=== PATIENT | female | born 1970 | race Caucasian/White ===

== ENCOUNTER 2023-04-13 13:29 | Outpatient (OUT) | payer OTHER, SELFPAY ==
--- NOTE | 2023-04-13 13:39 | US_ITS ---
Patient: LEONORA MELARA Exam Date: 04/13/2023 : 1970 Gender:F Ordering : DR Derrick Butterfield . Admission #: [id number] Family : DR ASHLEY HERNANDEZ M.D. Order #: [id number] CLICK HERE TO VIEW EXAM RADIOLOGY REPORT PROCEDURE: MM TOMOSYNTHESIS DIAGNOSTIC BI, 04/13/2023, 13:27 US BREAST BI LIMITED, 04/13/2023, 13:54 COMPARISON: MG MAMM DX 3D LT CAD, 08/05/2022. MG MAMM SCREEN 3D JEN CAD, 04/29/2022. MG MAMM JEN SCRN W CAD DIG, 10/19/2013. INDICATIONS: Bilateral Breast Mass Calculator Name NCI Breast Cancer Risk Assessment Tool 5 Year Breast Cancer Risk 0.70% Lifetime Breast Cancer Risk 6.40% Personal Breast Cancer No Personal Ovarian Cancer No Treatments None Family Cancers Brother with colo-rectal cancer at age 50. LOCATION: [facility] BREAST COMPOSITION: Extremely dense, which lowers the sensitivity of mammography. FINDINGS: DIAGNOSTIC CATEGORY 2--BENIGN FINDING: RIGHT BREAST: Stable large dense area of fibroglandular tissue within upper outer quadrant as seen during tomography and breast ultrasound. No mass, cysts, or calcifications. No significant change has occurred. LEFT BREAST: Stable large dense area of fibroglandular tissue within upper-outer quadrant as seen during tomography. Ultrasound evaluation demonstrates a stable 9 mm benign appearing cyst in this region. No significant change has occurred. RECOMMENDATIONS: ROUTINE MAMMOGRAM AND CLINICAL EVALUATION IN 12 MONTHS. PLEASE NOTE: A NORMAL MAMMOGRAM DOES NOT EXCLUDE THE POSSIBILITY OF BREAST CANCER. A CLINICALLY SUSPICIOUS PALPABLE LUMP SHOULD BE BIOPSIED. Dictated by: Myles White M.D. on 04/13/2023 at 14:11 Approved by: Myles White M.D. on 04/13/2023 at 14:20
== END 2023-04-13 13:30 | disposition home or self-care (01) ==
LOC: MAMMO 13:29
PROVIDERS: PCP Internal Medicine; Visit Provider Obstetrics & Gynecology
DX: N63.21 Unspecified lump in the left breast, upper outer quadrant (principal); N63.11 Unspecified lump in the right breast, upper outer quadrant
CPT/HCPCS: 76642; 77066; G0279

== ENCOUNTER 2023-04-29 07:22 | Outpatient (OUT) | payer OTHER, SELFPAY ==
--- NOTE | 2023-04-29 07:24 | US_ITS ---
The [address] [address] Patient Name: LEONORA MELARA MRN: [id number] date: 1970 Sex: F Assigned Patient Location: US Current Patient Location: US Accession/Order Number: [id number] Exam Date: 04/29/2023 07:34 Report Date: 04/29/2023 08:29 At the request of: VI GA Procedure: US renal BI EXAM: Renal ultrasound HISTORY: . Asymptomatic Hematuria R31.21, Recurrent UTI N39.0 . COMPARISON: None. TECHNIQUE: Marie scale and color imaging was performed FINDINGS: Scanning of the right kidney demonstrates right kidney to measure 9.7 x 4 x 4.3 cm. Color-flow is noted. No solid renal cortical masses or hydronephrosis is noted. Left kidney measures 10.4 x 4.5 x 3.9 cm. Color-flow is noted. No solid renal cortical masses or hydronephrosis is noted. The filled bladder demonstrates no masses. No bladder wall thickening is noted. Bladder volume was 324 cc. US/US renal BI IMPRESSION: 1 normal-appearing kidneys. 2. Normal-appearing filled bladder. Electronically authenticated by: ROSSY HINSON Date: 04/29/2023 08:29
== END 2023-04-29 07:23 | disposition home or self-care (01) ==
LOC: US 07:22
PROVIDERS: PCP Internal Medicine; Visit Provider Urology
DX: R31.21 Asymptomatic microscopic hematuria (principal); N39.0 Urinary tract infection, site not specified
CPT/HCPCS: 76775

== ENCOUNTER 2023-05-05 12:30 | Outpatient (OUT) | payer OTHER, SELFPAY | END 2023-05-05 12:31 | disposition home or self-care (01) | LOC: PST 05-06 08:11 | PROVIDERS: PCP Internal Medicine; Visit Provider Urology | DX: Z01.818 Encounter for other preprocedural examination (principal); R31.9 Hematuria, unspecified; K21.9 Gastro-esophageal reflux disease without esophagitis; E78.00 Pure hypercholesterolemia, unspecified; R33.9 Retention of urine, unspecified ==

== ENCOUNTER 2023-09-05 07:12 | Day surgery (SDC) | payer OTHER, SELFPAY ==
[2023-09-05 07:27] VITALS: RESP 20
[2023-09-05] MEDS: LIDOCAINE 2% JELLY 10 ML UR (08:05)
[2023-09-05 08:08] VITALS: BP 110/65; PULSE 76; O2SAT 95
[2023-09-05 08:14] VITALS: PULSE 75; O2SAT 97
[2023-09-05 08:17] VITALS: BP 117/68
--- NOTE | 2023-09-05 08:29 | P.URON_ITS ---
Urology Surgery Operative Note Operative Note Procedure Date: 09/05/23 Time Out Performed: yes Pre-op Diagnosis: Recurrent urinary tract infections, incomplete emptying and hematuria Post-op Diagnosis: same as pre-op Procedures performed: 1. Urethral dilation with Ronak sounds to 30 Monegasque. 2. Cystoscopy. Anesthesia: local Primary Surgeon: Curry Philippe Complications: None Estimated blood loss (mL): 0 Findings: 1. Urethral stenosis. 2. Chronic inflammatory bladder changes Specimens: None Indications for Procedures: This lady has had microhematuria and 1 bout of gross hematuria. She has also been getting recurrent urinary infections and not emptying her bladder completely. She now presents for cystoscopy and possible urethral dilation. She has signed an informed consent after risks were explained. Detailed description of Procedure: The patient was kept on the gurcliff bed and brought in the endoscopy suite. She was in the supine position. Her legs were frog-legged and her perineum and genitalia were sterilely prepped and draped in the usual fashion. 2% lidocaine was passed per urethra. Timeout was done by all parties in the room. We all agreed upon the patient's identification and the planned procedures for this patient. Visual inspection revealed that she had minimal atrophic vaginitis (she takes oral estradiol). I started by using Ronak sounds and dilated her from 20 Monegasque up to 30 Monegasque. I then passed a flexible cystoscope per urethra and into the bladder. The urethra was unremarkable. Panendoscopy in the bladder showed no evidence of any bladder tumors, stones or mucosal lesions. There was white inflammatory debris throughout. This may be from incomplete emptying. The scope was retroverted upon itself and no new findings were noted. The scope was then removed. With Valsalva maneuver she had no stress incontinence and no prolapse. She was then discharged to home. The plan is that she will start estradiol cream [address] Butterfield will decide if he wants her to stop her low-dose oral estradiol pills. She will also do double voids. Follow-up with me will be in 3 months for reevaluation.
== END 2023-09-05 08:37 | disposition home or self-care (01) ==
PROVIDERS: PCP Internal Medicine; Visit Provider Urology
PROC: (CPT 52281; principal; 2023-09-05 07:45)
DX: R31.21 Asymptomatic microscopic hematuria (principal); R33.9 Retention of urine, unspecified; K21.9 Gastro-esophageal reflux disease without esophagitis; E78.00 Pure hypercholesterolemia, unspecified; Z87.440 Personal history of urinary (tract) infections; N35.92 Unspecified urethral stricture, female; N95.2 Postmenopausal atrophic vaginitis; Z79.818 Long term (current) use of other agents affecting estrogen receptors and estrogen levels; F32.A Depression, unspecified; Z90.49 Acquired absence of other specified parts of digestive tract; Z98.51 Tubal ligation status; Z79.82 Long term (current) use of aspirin; F17.210 Nicotine dependence, cigarettes, uncomplicated; R39.14 Feeling of incomplete bladder emptying
CPT/HCPCS: 52281

== ENCOUNTER 2023-12-07 11:25 | Outpatient (REF) | payer OTHER, SELFPAY ==
--- OUTSIDE RECORDS SUMMARY | 2023-12-07 11:33 | XMS_ITS | CCD ---
Author Organization [facility] Care Team Providers Care Operations Management Professionals Name Role Phone MARY, DR RAMIREZ Admitting Unavailable MARY, DR RAMIREZ Attending Unavailable MARY, DR RAMIREZ Primary Care Unavailable MARY, DR RAMIREZ Consulting Unavailable ZIEBER, DR MYLES Fay Consulting Unavailable GREER ., DR LUNDBERG Admitting Unavailable GREER ., DR LUNDBERG Attending Unavailable MARY, DR RAMIREZ Primary Care Unavailable LEIGH, DR REGINALD Monzon Consulting Unavailabl e GREER ., DR LUNDBERG Consulting Unavailable FOREIGN ORTEZ Consulting Unavailable GREER ., DR LUNDBERG Admitting Unavailable GREER ., DR LUNDBERG Attending Unavailable MARY, DR RAMIREZ Primary Care Unavailable GREER ., DR LUNDBERG Consulting Unavailable GREER ., DR LUNDBERG Admitting Unavailable GREER ., DR LUNDBERG Attending Unavailable MARY, DR RAMIREZ Primary Care Unavailable THOMAS, DR ROSSY Juarez Consulting Unavailable GREER ., DR LUNDBERG Consulting Unavailable GREER ., DR LUNDBERG Admitting Unavailable GREER ., DR LUNDBERG Attending Unavailable MARY, DR RAMIREZ Primary Care Unavailable GREER ., DR LUNDBERG Consulting Unavailable KHAI JACOBSON Primary Care Physician [phone] Curry PHILIPPE Attending Unavailable Tamika BUTTERFIELD Referring Unavailable Curry PHILIPPE Attending Unavailable Curry PHILIPPE Attending Unavailable Khai Jacobson MD Unavailable Khai Jacobson MD Primary Care Provider KHAI JACOBSON Attending Unavailable Medications Current Medications Medication Drug Class(es) Dates Sig (Normalized) Sig (Original) acetaminophen 325 mg / HYDROcodone bitartrate 5 mg oral tablet (3 sources) Opioid Agonist Start: 09-26-2023 take 1 tablet by mouth every eight hours HYDROcodone-acetam inophen ([place]) 5-325 MG tablet Indications: Lumbar spondylosis Take 1 tablet by mouth every 8 (eight) hours 90 tablet 0 09/26/2023 Active Start: 05-23-2013 Vicodin 500 mg -5 mg Tab 1 tab(s), Oral, q4hr PRN as needed for pain, 40 tab(s), Refill(s) 0, 0, 1-2 orally every 4-6 hrs as needed for pain, Print Requisition Start Date: 05/23/13 Status: Ordered ALPRAZolam 0.5 mg oral tablet (2 sources) Benzodiazepine Start: 12-29-2022 ALPRAZolam (Xanax) 0.5 MG tablet TAKE 1 OR 2 TABLETS BY MOUTH ONE HOUR BEFORE FLIGHT 0 12/29/2022 Active aspirin 81 mg oral tablet (3 sources) Platelet Aggregation Inhibitor, Nonsteroidal Anti-inflammatory Drug Start: 05-18-2013 take 1 tablet by mouth once daily aspirin 81 mg oral tablet 81 mg = 1 tab(s), Oral, Daily, Refills(s) 0, Prophylaxis Start Date: 05/18/13 Status: Ordered ASPIRIN 81 MG ch ewable tablet 1 (one) time each day at the same time. 0 Active Black cohosh root extract (2 sources) Black Cohosh Viridiana t 450 MG capsule as directed Orally 0 Active buPROPion hydrochloride 100 mg oral tablet (3 sources) Aminoketone Start: 04-08-20 buPROPion 100 mg Tab Refills(s) 0 Start Date: 04/08/23 Status: Ordered ciprofloxacin 250 mg oral tablet (2 sources) Quinolone Antimicrobial Start: 10-03-19 End: 10-08-19 take 1 tablet by mouth in the morning ciprofloxacin (Cipro) 250 MG tablet Indications: Acute cystitis without hematuria Take 1 tablet (250 mg) by mouth in the morning and 1 tablet (250 mg) before bedtime. Do all this for 5 days. 10 tablet 0 10/03/2023 10/08/2023 Active Start: 04-08-2023 take 1 tablet by jenny once daily Cipro 500 mg Tab 500 mg = 1 tab(s), Oral, Daily, Take 1 tablet the day before the procedure and 1 tablet after the procedure, # 2 tab(s), Refills(s) 0, Pharmacy: [id number], 158, cm, 04/08/23 10:27:00 EDT, Height/Length Dosing, 61, kg, 08/18/23 10:27:00 Mariam ROMERO... Start Date: 04/08/23 Status: Ordered estradiol 1 mg oral tablet (3 sources) Estrogen Start: 07-18-2023 End: 07-17-2024 take 1 tablet by mouth in the morning estradiol (Estrace) 1 MG tablet Indications: Vaginal dryness Take 1 tablet (1 mg) by mouth in the morning. 30 tablet 11 07/18/2023 07/17/2024 Active Start: 04-08-2023 estradiol 1 mg , Daily Start Date: 04/08/23 Status: Ordered FLUoxetine 10 mg oral tablet (3 sources) Serotonin Reuptake Inhibitor Start: 07-04-2023 End: 07-03-2024 take 1 tablet by mouth in the morning FLUoxetine (PROzac) 10 MG tablet Indications: Hormone imbalance Take 1 tablet (10 mg) by mouth in the morning. 360 tablet 0 07/04/2023 07/03/2024 Active Start: 04-08-2023 take 1 mg by mouth once daily FLUoxetine 10 mg Cap mg cap(s), Oral, Daily, Refills(s) 0 Start Date: 04/08/23 Status: Ordered hydroCHLOROthiazide 25 mg oral tablet (2 sources) Thiazide Diuretic take 1 tablet by mouth in the morning hydroCHLOROthiazide (HYDRODiuril) 25 MG tablet Take 25 mg by mouth in the morning. 0 Active meloxicam 15 mg oral tablet (3 sources) Nonsteroidal Anti-inflammatory Drug Start: 2023 take 1 tablet by mouth once daily in the morning meloxicam (Mobic) 15 MG tablet Indications: Primary osteoarthritis involving multiple joints take 1 tablet by mouth every morning 100 tablet 1 09/05/2023 Active Start: 04-08-2023 take 1 mg by mouth once daily meloxicam 7.5 mg Tab mg tab(s), Oral, Daily, Refills(s) 0 Start Date: 04/08/23 Status: Ordered 24 hr metFORMIN hydrochloride 500 mg extended release oral tablet (2 sources) Biguanide Start: 03-28-2023 take 2 tablets by mouth once daily metFORMIN XR (Glucophage-XR) 500 MG 24 hr tablet Indications: Insulin resistance take 2 tablets by mouth once daily 30 tablet 11 03/28/2023 Active 24 hr metoprolol succinate 100 mg extended release oral tablet (3 sources) beta-Adrenergic William Start: 08-18-2023 take 1 tablet by mouth once daily metoprolol succinate XL (Toprol-XL) 100 MG 24 hr tablet Indications: Essential hypertension (CMS/HCC) take 1 tablet by mouth once daily 100 tablet 3 08/18/2023 Active Start: 04-08-2023 take 1 mg by mouth once daily metoprolol 100 mg ER Tab mg tab(s), Oral, Daily, Refills(s) 0 Start Date: 04/08/23 Status: Ordered omeprazole 40 mg delayed release oral capsule (3 sources) Proton Pump Inhibitor Start: 05-05-2023 take 1 capsule by mouth before mealtime omeprazole (PriLOSEC) [address] capsule Indications: Gastro-esophageal reflux disease without esophagitis Take 1 capsule (40 mg) by mouth in the morning. Take before meals. 100 capsule 2 05/05/2023 Active Start: 05-18-2013 take 40 mg by mouth once daily omeprazole 40 mg, Oral, Daily, Refills(s) 0, Constipation Start Date: 05/18/13 Status: Ordered promethazine hydrochloride 25 mg oral tablet (2 sources) Phenothiazine Start: 09-28-2023 End: 10-05-2023 take 1 tablet by mouth every six hours as needed for nausea and vomiting and nausea and nausea promethazine (Phenergan) 25 MG tablet Indications: Nausea Take 1 tablet (25 mg) by mouth every 6 (six) hours if needed for nausea or vomiting for up to 7 days 30 tablet 0 09/28/2023 10/05/2023 Active 1 mg dose 1.5 ml semaglutide 1.34 mg/ml pen injector (2 sources) Start: 08-12-2023 inject 1 mg by subcutaneous injection every week semaglutide (Ozempic, 1 MG/DOSE,) 2 MG/1.5ML solution pen-injector Indications: Insulin resistance , Impaired glucose tolerance Inject 1 mg under the skin 1 (one) time per week 3 mL 5 08/12/2023 Active simvastatin 20 mg oral tablet (3 sources) HMG-CoA Reductase Inhibitor Start: 05-23-2013 take 1 tablet by mouth at bedtime simvastatin (Zocor) 20 MG tablet Indications: Mixed hyperlipidemia (CMS/HCC) Take 1 tablet (20 mg) by mouth at bedtime. 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] Onset: 01-26-2023 01-26-2023 Chronic Disorders of lipid metabolism (3 sources) Hypercholesterolemia; Translations: [Mixed hyperlipidemia] Onset: 05-17-2013 11-02-2013 Chronic Esophageal disorders (3 sources) Gastroesophageal reflux disease; Translations: [Gastroesophageal reflux disease without esophagitis] Onset: 01-26-2023 11-02-2013 Chronic Essential hypertension (2 sources) Essential hypertension; Translations: [Essential (primary) hypertension] Onset: 01-26-2023 01-26-2023 Chronic Mood disorders (2 sources) Affective psychosis; Translations: [Unspecified mood [affective] disorder] Onset: 01-26-2023 01-26-2023 Chronic Nausea and vomiting (1 source) Nausea; Translations: [Nausea] 09-28-2023 Episodic Osteoarthritis (2 sources) Osteoarthritis; Translations: [Unspecified osteoarthritis, unspecified site] Onset: 01-26-2023 01-26-2023 Chronic Other female genital disorders (4 sources) Personal history of other diseases of the female genital tract; Translations: [PERSONAL HX OTH DZ FE GENITAL TRACT] Onset: 12-06-2022 Episodic Other nervous system disorders (2 sources) Carpal tunnel syndrome of right wrist; Translations: [Carpal tunnel syndrome, right upper limb] Onset: 01-26-2023 01-26-2023 Chronic Other nervous system disorders (2 sources) Chronic pain; Translations: [Other chronic pain] Onset: 01-26-2023 01-26-2023 Chronic Other nutritional; endocrine; and metabolic disorders (2 sources) Insulin resistance; Translations: [Insulin resistance] Onset: 01-26-2023 01-26-2023 Chronic Other nutritional; endocrine; and metabolic disorders (2 sources) Body mass index 30+ - obesity; Translations: [Obesity, unspecified] Onset: 01-26-2023 01-26-2023 Chronic Residual codes; unclassified (1 source) Tobacco user 05-18-2013 Episodic Comment on above: Added secondary to s ocial history documentation. Spondylosis; intervertebral disc disorders; other back problems (2 sources) Lumbar spondylosis; Translations: [Spondylosis without myelopathy or radiculopathy, lumbar region] Onset: 01-26-2023 01-26-2023 Chronic Sprains and strains (1 source) Sprain of knee 11-02-2013 Episodic Unclassified (1 source) Asymptomatic microscopic hematuria 04-08-2023 Unclassified (1 source) Finding of sensation of bladder 04-08-2023 Urinary tract infections (9 sources) Urinary tract infection, site not specified; Translations: [Urinary tract infectious disease] Onset: 11-30-2022 Episodic Past or Other Problems Problem Classification Problem Date Documented Da te Episodic/Chronic Abdominal hernia (2 sources) Diaphragmatic hernia; Translations: [Diaphragmatic hernia without obstruction or gangrene] Onset: 01-26-2023 01-26-2023 Episodic Diabetes mellitus without complication (2 sources) Impaired glucose tolerance; Translations: [Impaired glucose tolerance (oral)] Onset: 01-26-2023 01-26-2023 Episodic Genitourinary symptoms and ill-defined conditions (5 sources) Hematuria, unspecified; Translations: [Microscopic hematuria] Onset: 12-06-2022 Episodic Immunizations and screening for infectious disease (1 source) Encounter for screening for human papillomavirus (HPV); Translations: [ENC SCREENING HUMAN PAPILLOMAVIRUS] Onset: 07-31-2022 Episodic Nonmalignant breast conditions (4 sources) Unspecified lump in the left breast, unspecified quadrant; Translations: [Unspecified lump in the left breast, upper outer quadrant] Onset: 08-05-2022 Episodic Other gastrointestinal disorders (2 sources) Chronic constipation; Translations: [Other constipation] Onset: 01-26-2023 01-26-2023 Episodic Other nutritional; endocrine; and metabolic disorders (2 sources) Body mass index 25-29 - overweight; Translations: [Overweight] Onset: 01-26-2023 01-26-2023 Episodic Other screening for suspected conditions (not mental disorders or infectious disease) (8 sources) Encounter for screening for malignant neoplasm of cervix; Translations: [Encounter for screening mammogram for malignant neoplasm of breast] Onset: 04-29-2022 Episodic Residual codes; unclassified (1 source) Family history of malignant neoplasm of digestive organs; Translations: [FAM HX MALIG NEOPLASM DIGESTIV ORGN] Onset: 08-09-2022 Episodic Results Test Name Value Interpretation Reference Range Facility Operative Reporton 4 Operative Report [id number] 0TIFF Normal [facility] Consent for Procedure/Surger yon 07-25-2023 Consent for Procedure/Surgery [id number] 0TIFF Normal [facility] Consent for Procedure/Surger yon 05-03-2023 Consent for Procedure/Surgery [id number] 0CD:127 Normal [facility] RAD - Ultrasound Reporton RAD - Ultrasound Report [id number] CD:127 Normal [facility] Ambulatory Visit Summaryon 0 04-08-2023 Ambulatory Visit Summary LEONORA MELARA :1970 Visit Date:04/08/2023 Ambulatory Visit Instructions Your Diagnosis Asymptomatic microscopic hematuria Recurrent UTI Feeling of incomplete bladder emptying Tests Performed Urnls Dip Stick Auto w/o Microscopy POC 63744 US Renal -- Results Pending -- Please visit your patient portal for your results or contact your primary care physician. Your Care Team Attending Physician - Curry PHILIPPE MD Primary Care Physician - KAHI JACOBSON MD Referring Physician - Tamika BUTTERFIELD DO This Is Your Medications List Contact prescribing physician if questions or concerns acetaminophen-hydrocod one (Vicodin 500 mg-5 mg Tab) aspirin (aspirin 81 mg oral tablet) buPROPion (buPROPion 100 mg Tab) fluoxetine (FLUoxetine 10 mg Cap) meloxicam (meloxicam 7.5 mg Tab) metoprolol (metoprolol 100 mg ER Tab) omeprazole simvastatin (simvastatin 20 mg Tab) Procedures Performed Arthroscopy of Knee (05/23/2013), Appendectomy, Carpal tunnel release, Elbow fracture, Laparoscopic cholecystectomy, Tonsillectomy, Tubal ligation. Discharge Vitals Heart Rate (Peripheral) 78 Blood Pressure 124/92 Height 158 cm Height 62 in Weight 61 kg Weight 134.2 lb BMI 24.44 What to do next You Need to Schedule the Following Appointments Follow Up with SURY MARRERO, Curry R, URL When: Where: [address] [place] [id number]- Medications What How Much When Instructions Unchanged acetaminophen-hydrocod one (Vicodin 500 mg-5 mg Tab) 1 Tablets By Mouth Every 4 hours as needed for as needed for pain 1-2 orally every 4-6 hrs as needed for pain Contact prescribing physician if questions or concerns Unchanged aspirin (aspirin 81 mg oral tablet) 1 Tablets By Mouth Every day Contact prescribing physician if questions or concerns Unchanged buPROPion (buPROPion 100 mg Tab) Contact prescribing physician if questions or concerns Unchanged fluoxetine (FLUoxetine 10 mg Cap) By Mouth Every day Contact prescribing physician if questions or concerns Unchanged meloxicam (meloxicam 7.5 mg Tab) By Mouth Every day Contact prescribing physician if questions or concerns Unchanged metoprolol (metoprolol 100 mg ER Tab) By Mouth Every day Contact prescribing physician if questions or concerns Unchanged omeprazole 40 Milligram By Mouth Every day Contact prescribing physician if questions or concerns Unchanged simvastatin (simvastatin 20 mg Tab) Contact prescribing physician if questions or concerns Test Results Urnls Dip Stick Auto w/o Microscopy POC 37630 (04/08/2023) Bilirubin Urine Dipstick - Negative Blood Urine Dipstick - Trace-intact Glucose Urine Dipstick - Negative Ketones Urine Dipstick - Negative Leukocytes Urine Dipstick - Negative Nitrite Urine Dipstick - Negative Protein Urine Dipstick - Negative Specific [place] Urine Dipstick - 1.015 Urine Appearance Urine Dipstick - Clear Urine Color Urine Dipstick - Yellow Urobilinogen Urine Dipstick - Normal 0.2-1 EU/dl pH Urine Dipstick - 6.5 Allergies No Known Allergies Problems Ongoing - Any problem that you are currently receiving treatment for. Acid reflux Asymptomatic microscopic hematuria Feeling of incomplete bladder emptying Hypercholesterolemia Knee sprain Recurrent UTI Education Materials Hematuria, Adult Hematuria is blood in the urine. Blood may be visible in the urine, or it may be identified with a test. This condition can be caused by infections of the bladder, urethra, kidney, or prostate. Other possible causes include: ? Kidney stones. ? Cancer of the urinary tract. ? Too much calcium in the urine. ? Conditions that are passed from parent to child (inherited conditions). ? Exercise that requires a lot of energy. Infections can usually be treated with medicine, and a kidney stone usually will pass through your urine. If neither of these is the cause of your hematuria, more tests may be needed to identify the cause of your symptoms. It is very important to tell your health care provider about any blood in your urine, even if it is painless or the blood stops without treatment. Blood in the urine, when it happens and then stops and then happens again, can be a symptom of a very serious condition, including cancer. There is no pain in the initial stages of many urinary cancers. Follow these instructions at home: Medicines ? Take muml-sul-urvqbuf and prescription medicines only as told by your health care provider. ? If you were prescribed an antibiotic medicine, take it as told by your health care provider. Do not stop taking the antibiotic even if you start to feel better. Eating and drinking ? Drink enough fluid to keep your urine pale yellow. It is recommended that you drink 3?4 quarts (2.8?3.8 L) a day. If you have been diagnosed with an infection, drinking cranberry juice in addition to large amounts of water is (more content not included)... Normal [facility] Formson 04-08-2023 Forms [id number] 0CD:127 Normal [facility] Patient Educationon 04-08-20 23 Patient Education Urology Hematuria, Adult Hematuria is blood in the urine. Blood may be visible in the urine, or it may be identified with a test. This condition can be caused by infections of the bladder, urethra, kidney, or prostate. Other possible causes include: ? Kidney stones. ? Cancer of the urinary tract. ? Too much calcium in the urine. ? Conditions that are passed from parent to child (inherited conditions). ? Exercise that requires a lot of energy. Infections can usually be treated with medicine, and a kidney stone usually will pass through your urine. If neither of these is the cause of your hematuria, more tests may be needed to identify the cause of your symptoms. It is very important to tell your health care provider about any blood in your urine, even if it is painless or the blood stops without treatment. Blood in the urine, when it happens and then stops and then happens again, can be a symptom of a very serious condition, including cancer. There is no pain in the initial stages of many urinary cancers. Follow these instructions at home: Medicines ? Take aeki-woi-lwwtbcy and prescription medicines only as told by your health care provider. ? If you were prescribed an antibiotic medicine, take it as told by your health care provider. Do not stop taking the antibiotic even if you start to feel better. Eating and drinking ? Drink enough fluid to keep your urine pale yellow. It is recommended that you drink 3?4 quarts (2.8?3.8 L) a day. If you have been diagnosed with an infection, drinking cranberry juice in addition to large amounts of water is recommended. ? Avoid caffeine, tea, and carbonated beverages. These tend to irritate the bladder. ? Avoid alcohol because it may irritate the prostate (in males). General instructions ? If you have been diagnosed with a kidney stone, follow your health care provider's instructions about straining your urine to catch the stone. ? Empty your bladder often. Avoid holding urine for long periods of time. ? If you are female: ? After a bowel movement, wipe from front to back and use each piece of toilet paper only once. ? Empty your bladder before and after sex. ? Pay attention to any changes in your symptoms. Tell your health care provider about any changes or any new symptoms. ? It is up to you to get the results of any tests. Ask your health care provider, or the department that is doing the test, when your results will be ready. ? Keep all follow-up visits. This is important. Contact a health care provider if: ? You develop back pain. ? You have a fever or chills. ? You have nausea or vomiting. ? Your symptoms do not improve after 3 days. ? Your symptoms get worse. Get help right away if: ? You develop severe vomiting and are unable to take medicine without vomiting. ? You develop severe pain in your back or abdomen even though you are taking medicine. ? You pass a large amount of blood in your urine. ? You pass blood clots in your urine. ? You feel very weak or like you might faint. ? You faint. Summary ? Hematuria is blood in the urine. It has many possible causes. ? It is very important that you tell your health care provider about any blood in your urine, even if it is painless or the blood stops without treatment. ? Take edbg-rui-ohgytvu and prescription medicines only as told by your health care provider. ? Drink enough fluid to keep your urine pale yellow. This information is not intended to replace advice given to you by your health care provider. Make sure you discuss any questions you have with your health care provider. Document Revised: 04/08/2021 Document Reviewed: 04/08/2021 Elsevier Patient Education ? 2022 [employer] Normal [facility] Physician Referralon 023 Physician Referral [id number] 0CD:127 Normal [facility] CBC AUTO DIFFon 11-30-2022 BASO # 0.1 103/ul Normal 0.0-0.1 [facility] Comment on above: Performed By: #### C BC #### [facility] [address] [place] [address] Dr. Jovani Adame Basophils/100 WBC (Bld) 0.6 % Normal 0.2-2.0 [facility] Comment on above: Performed By: #### C BC #### [facility] [address] [place] [address] Dr. Jovani Adame EO # 0.2 103/ul Normal 0.0-0.7 [facility] Comment on above: Performed By: #### C BC #### [facility] [address] [place] [address] Dr. Jovani Adame Eosinophils/100 WBC (Bld) 2.3 % Normal 0.9-7.0 [facility] Comment on above: Performed By: #### C BC #### [facility] [address] [place] [address] Dr. Jovani Adame Erythrocyte distribution width (RBC) [Ratio] 12.2 % Normal 11.0-15.0 [facility] Comment on above: Performed By: #### C BC #### [facility] [address] [place] [address] Dr. Jovani Adame Hematocrit (Bld) [Volume fraction] 34.9 % Critically low 36.0-48.0 [facility] Comment on above: Performed By: #### C BC #### [facility] [address] [place] [address] Dr. Jovani Adame Hemoglobin (Bld) [Mass/Vol] 12.1 g/dL Normal 12.0-16.0 [facility] Comment on above: Performed By: #### C BC #### [facility] [address] [place] [address] Dr. Jovani Adame IG # 0.01 10e3/ul Normal 0.00-0.03 [facility] Comment on above: Performed By: #### C BC #### [facility] [address] [place] [address] Dr. Jovani Adame IG % 0.1 % Normal 0.0-0.5 [facility] Comment on above: Performed By: #### C BC #### [facility] [address] [place] [address] Dr. Jovani Adame LYMPH # 2.4 103/ul Normal 1.2-3.8 [facility] Comment on above: Performed By: #### C BC #### [facility] [address] [place] [address] Dr. Jovani Adame Lymphocytes/100 WBC (Bld) 29.8 % Normal 20.5-60.0 [facility] Comment on above: Performed By: #### C BC #### [facility] [address] [place] [address] Dr. Jovani Adame MANUAL DIFF REQ NO Normal [facility] Comment on above: Performed By: #### C BC #### [facility] [address] [place] [address] Dr. Jovani Adame MCH (RBC) [Entitic mass] 31.8 pg Normal 26.7-34.0 [facility] Comment on above: Performed By: #### C BC #### [facility] [address] [place] [address] Dr. Jovani Adame MCHC (RBC) [Mass/Vol] 34.7 g/dL Normal 29.9-35.2 [facility] Comment on above: Performed By: #### C BC #### [facility] [address] [place] [address] Dr. Jovani Adame MCV (RBC) [Entitic vol] 91.8 fL Normal 81.0-99.0 [facility] Comment on above: Performed By: #### C BC #### [facility] [address] [address] [address] Jovani Adame MONO # 0.5 103/ul Normal 0.3-0.8 [facility] Comment on above: Performed By: #### C BC #### [facility] [address] [address] [address] Jovani Adame Monocytes/100 WBC (Bld) 5.9 % Normal 1.7-12.0 [facility] Comment on above: Performed By: #### C BC #### [facility] [address] [place] [address] Dr. Jovani Adame NEUT # 5.0 103/ul Normal 1.4-6.5 [facility] Comment on above: Performed By: #### C BC #### [facility] [address] [place] [address] Dr. Jovani Adame Neutrophils/100 WBC (Bld) 61.3 % Normal 43.0-75.0 [facility] Comment on above: Performed By: #### C BC #### [facility] [address] [place] [address] Dr. Jovani Adame Platelet mean volume (Bld) [Entitic vol] 10.2 fL Normal 9.5-13.5 [facility] Comment on above: Performed By: #### C BC #### [facility] [address] [place] [address] Dr. Jovani Adame PLT 318 103/ul Normal 150-450 [facility] Comment on above: Performed By: #### C BC #### [facility] [address] [place] [address] Dr. Jovani Adame RBC 3.80 106/ul Critically low 4.20-5.40 [facility] Comment on above: Performed By: #### C BC #### [facility] [address] [place] [address] Dr. Jovani Adame WBC 8.1 103/ul Normal 4.0-11.0 [facility] Comment on above: Performed By: #### C BC #### [facility] [address] [address] [address] Jovani Adame FREE T4on 11-30-2022 Free T4 [Mass/Vol] 0.89 ng/dL Normal 0.76-1.46 [facility] Comment on above: Performed By: #### U MICRO, UARMICR #### [facility] [address] [address] [address] Jovani Adame GLYCOHEMOGLOBIN A1Con 2022 ADA RECOMMENDATION SEE BELOW Normal [facility] Comment on above: Result Comment: ADA RECOMMENDED LIMIT 4.0 - 6.0 ADA THERAPEUTIC TARGET < 7.0 ACTION SUGGESTED > 7.0 Performed By: #### U MICRO, UARMICR #### [facility] [address] [place] [address] Dr. Jovani Adame Glucose [Mass/Vol] 105 mg/dL Normal [facility] Comment on above: Performed By: #### U MICRO, UARMICR #### [facility] [address] [place] [address] Dr. Jovani Adame HbA1c (Bld) [Mass fraction] 5.3 % Normal 4.5-6.2 [facility] Comment on above: Performed By: #### U MICRO, UARMICR #### [facility] [address] [place] [address] Dr. Jovani Adame PROTIMEon 11-30-2022 INR Coag (PPP) [Relative time] 0.97 {INR} Normal [facility] Comment on above: Performed By: #### P T, PTT #### [facility] [address] [place] [address] Dr. Jovani Adame INR GUIDELINES SEE BELOW Normal [facility] Comment on above: Result Comment: MATILDE RED INR: 2.0 - 3.0 CONDITIONS NOT LISTED BELOW 2.5 - 3.5 FOR PROSTHETIC HEART VALVE REPLACEMENT 2.5 - 3.5 RECURRENT THROMBOSIS Performed By: #### P T, PTT #### [facility] [address] [place] [address] Dr. Jovani Adame PT Coag (PPP) [Time] 10.3 s Normal 9.0-11.6 [facility] Comment on above: Performed By: #### P T, PTT #### [facility] [address] [place] [address] Dr. Jovani Adame PTTon 11-30-2022 aPTT Coag (Bld) [Time] 29.4 s Normal 22.3-36.2 [facility] Comment on above: Performed By: #### P T, PTT #### [facility] [address] [place] [address] Dr. Jovani Adame TSHon 11-30-2022 TSH 0.872 uIU/mL Normal 0.358-3.740 [facility] Comment on above: Performed By: #### T SH #### [facility] [address] [place] [address] Dr. Jovani Adame UA (CLEAN/CATCH) MICROSCOPIC IF INDICATEon 11-30-2022 Bilirubin Ql (U) Negative Normal NEGATIVE [facility] Comment on above: Performed By: #### U MICRO, UARMICR #### [facility] [address] [place] [address] Dr. Jovani Adame Clarity (U) CLEAR Normal CLEAR [facility] Comment on above: Performed By: #### U MICRO, UARMICR #### [facility] [address] [place] [address] Dr. Jovani Adame Color (U) LT. YELLOW Normal YELLOW [facility] Comment on above: Performed By: #### U MICRO, UARMICR #### [facility] [address] [place] [address] Dr. Jovani Adame Glucose Ql (U) Negative Normal NEGATIVE [facility] Comment on above: Performed By: #### U MICRO, UARMICR #### [facility] [address] [place] [address] Dr. Jovani Adame Hemoglobin Ql (U) TRACE-INTACT Abnormal NEGATIVE [facility] Comment on above: Performed By: #### U MICRO, UARMICR #### [facility] [address] [place] [address] Dr. Jovani Adame Ketones Ql (U) Negative Normal NEGATIVE [facility] Comment on above: Performed By: #### U MICRO, UARMICR #### [facility] [address] [place] [address] Dr. Jovani Adame LEUKOCYTES Negative Normal NEGATIVE [facility] Comment on above: Performed By: #### U MICRO, UARMICR #### [facility] [address] [address] [address] Jovani Adame Nitrite Ql (U) Negative Normal NEGATIVE [facility] Comment on above: Performed By: #### U MICRO, UARMICR #### [facility] [address] [place] [address] Dr. Jovani Adame pH (U) 6.5 [pH] Normal 5-9 [facility] Comment on above: Performed By: #### U MICRO, UARMICR #### [facility] [address] [place] [address] Dr. Jovani Adame SPEC GRAVITY 1.010 Normal 1.005-<=1.025 [facility] Comment on above: Performed By: #### U MICRO, UARMICR #### [facility] [address] [place] [address] Dr. Jovani Adame UA PROTEIN Negative Normal NEGATIVE/ TRACE [facility] Comment on above: Performed By: #### U MICRO, UARMICR #### [facility] [address] [place] [address] Dr. Jovani Adame UR MICRO IND INDICATED Normal [facility] Comment on above: Performed By: #### U MICRO, UARMICR #### [facility] [address] [place] [address] Dr. Jovani Adame Urobilinogen Qn (U) 0.2 {Kaylie'U}/dL Normal 0.2 - 1. 0 [facility] Comment on above: Performed By: #### U MICRO, UARMICR #### [facility] [address] [place] [address] Dr. Jovani Adame URINE MICROSCOPIC ONLYon BACTERIA TRACE Abnormal NONE SEEN [facility] Comment on above: Performed By: #### U MICRO, UARMICR #### [facility] [address] [place] [address] Dr. Jovani Adame Bacteria identified Cx Nom (U) NOT INDICATED Normal [facility] Comment on above: Performed By: #### U MICRO, UARMICR #### [facility] [address] [place] [address] Dr. Jovani Adaem CAST NONE SEEN Normal NONE SEEN [facility] Comment on above: Performed By: #### U MICRO, UARMICR #### [facility] [address] [place] [address] Dr. Jovani Adame Crystals LM Nom (Urine sed) NONE SEEN Normal NONE SEEN [facility] Comment on above: Performed By: #### U MICRO, UARMICR #### [facility] [address] [place] [address] Dr. Jovani Adame Epithelial cells LM Ql (Urine sed) MODERATE Abnormal NONE SEEN /RARE [facility] Comment on above: Performed By: #### U MICRO, UARMICR #### [facility] [address] [place] [address] Dr. Jovani Adame MUCOUS NONE SEEN Normal NONE SEEN [facility] Comment on above: Performed By: #### U MICRO, UARMICR #### [facility] [address] [place] [address] Dr. Jovani Adame RBC 2-5 Abnormal 0-2 [facility] Comment on above: Performed By: #### U MICRO, UARMICR #### [facility] [address] [place] [address] Dr. Jovani Adame WBC NONE SEEN Normal NONE SEEN [facility] Comment on above: Performed By: #### U MICRO, UARMICR #### [facility] [address] [place] [address] Dr. Jovani Adame MG MAMM DX 3D LT CADon 08-05 MG MAMM DX 3D LT CAD Patient: LEONORA MELARA Exam Date: 08/05/2022 : 1970 Gender:F Ordering : DR TAMIKA BUTTERFIELD . Admission #: [id number] Family : Order #: [id number] CLICK HERE TO VIEW EXAM RADIOLOGY REPORT PROCEDURE: MAMMOGRAM DIAGNOSTIC 3D LEFT CAD, 08/05/2022, 10:46 ULTRASOUND BREAST LEFT LIMITED, 08/05/2022, 11:23 COMPARISON: MG MAMM SCREEN 3D JEN CAD, 04/29/2022. MG MAMM SCREEN JEN W CAD, 10/21/2020. INDICATIONS: Lump in left breast Calculator Name NCI Breast Cancer Risk Assessment Tool 5 Year Breast Cancer Risk 0.70% Lifetime Breast Cancer Risk 6.50% Personal Breast Cancer No Personal Ovarian Cancer No Treatments None Family Cancers Brother with colo-rectal cancer at age 50. LOCATION: [facility] BREAST COMPOSITION: Extremely dense, which lowers the sensitivity of mammography. FINDINGS: DIAGNOSTIC CATEGORY 2--BENIGN FINDING. NO CHANGE FROM COMPARISON. The left breast is stable in size and overall fibroglandular configuration with dense fibroglandular tissue in the upper outer quadrant stable. No new mass, calcification or architectural distortion identified in the upper-outer quadrant in the area the patient's pain demarcated with a triangle marker. Ultrasound demonstrates at the 2 o'clock position a stable 1.1 x 0.8 x 1.1 cm area of anechoic echogenicity within imperceptible wall and increased acoustic through transmission. Findings consistent with a simple cyst. Very dense fibroglandular tissue by ultrasound RECOMMENDATIONS: ROUTINE MAMMOGRAM AND CLINICAL EVALUATION April of 2023. PLEASE NOTE: A NORMAL MAMMOGRAM DOES NOT EXCLUDE THE POSSIBILITY OF BREAST CANCER. A CLINICALLY SUSPICIOUS PALPABLE LUMP SHOULD BE BIOPSIED. Dictated by: Rossy Nicole MD on 08/05/2022 at 11:42 Approved by: Rossy Nicole MD on 08/05/2022 at 11:45 Normal [facility] US BREAST LEFT LIMITEDon US BREAST LEFT LIMITED Patient: LEONORA MELARA Exam Date: 08/05/2022 : 1970 Gender:F Ordering : DR TAMIKA BUTTERFIELD . Admission #: [id number] Family : Order #: [id number] CLICK HERE TO VIEW EXAM RADIOLOGY REPORT PROCEDURE: MAMMOGRAM DIAGNOSTIC 3D LEFT CAD, 08/05/2022, 10:46 ULTRASOUND BREAST LEFT LIMITED, 08/05/2022, 11:23 COMPARISON: MG MAMM SCREEN 3D JEN CAD, 04/29/2022. MG MAMM SCREEN JEN W CAD, 10/21/2020. INDICATIONS: Lump in left breast Calculator Name NCI Breast Cancer Risk Assessment Tool 5 Year Breast Cancer Risk 0.70% Lifetime Breast Cancer Risk 6.50% Personal Breast Cancer No Personal Ovarian Cancer No Treatments None Family Cancers Brother with colo-rectal cancer at age 50. LOCATION: [facility] BREAST COMPOSITION: Extremely dense, which lowers the sensitivity of mammography. FINDINGS: DIAGNOSTIC CATEGORY 2--BENIGN FINDING. NO CHANGE FROM COMPARISON. The left breast is stable in size and overall fibroglandular configuration with dense fibroglandular tissue in the upper outer quadrant stable. No new mass, calcification or architectural distortion identified in the upper-outer quadrant in the area the patient's pain demarcated with a triangle marker. Ultrasound demonstrates at the 2 o'clock position a stable 1.1 x 0.8 x 1.1 cm area of anechoic echogenicity within imperceptible wall and increased acoustic through transmission. Findings consistent with a simple cyst. Very dense fibroglandular tissue by ultrasound RECOMMENDATIONS: ROUTINE MAMMOGRAM AND CLINICAL EVALUATION April of 2023. PLEASE NOTE: A NORMAL MAMMOGRAM DOES NOT EXCLUDE THE POSSIBILITY OF BREAST CANCER. A CLINICALLY SUSPICIOUS PALPABLE LUMP SHOULD BE BIOPSIED. Dictated by: Rossy Nicole MD on 08/05/2022 at 11:42 Approved by: Rossy Nicole MD on 08/05/2022 at 11:45 [facility] PAP ACOG PANEL 2: 30 to 65on 08-03-2022 . . Normal [facility] Comment on above: Result Comment: Perf ormed at: WB Performed By: #### U MICRO, UARMICR #### [facility] [address] [address] [address] Jovani Adame Age Gdln ACOG Testing 30-65 Normal [facility] Comment on above: Performed By: #### U MICRO, UARMICR #### [facility] [address] [place], [place] [address] Dr. Jovani Adame DIAGNOSIS: Comment Normal [facility] Comment on above: Result Comment: NEGA TIVE FOR INTRAEPITHELIAL LESION OR MALIGNANCY. Performed at: WB Performed By: #### U MICRO, UARMICR #### [facility] [address] [address] [address] Jovani Adame HPV Aptima Negative Normal Negative [facility] Comment on above: Result Comment: This nucleic acid amplification test detects fourteen high-risk HPV types (16,18,31,33,35,39,45,51,52,56,58,59,66,68) without differentiation. Performed at: =G Performed By: #### U MICRO, UARMICR #### [facility] [address] [address] [address] Jovani Adame HPV Genotype Reflex Comment Normal [facility] Comment on above: Result Comment: Crit eria not met, HPV Genotype not performed. Performed at: WB Performed By: #### U MICRO, UARMICR #### [facility] [address] [address] [address] Jovani Adame Methodology: Comment Normal [facility] Comment on above: Result Comment: This liquid based ThinPrep(R) pap test was screened with the use of an image guided system. Performed at: WB Performed By: #### U MICRO, UARMICR #### [facility] [address] [address] [address] Jovani Adame Note: Comment Normal [facility] Comment on above: Result Comment: The Pap smear is a screening test designed to aid in the detection of premalignant and malignant conditions of the uterine cervix. It is not a diagnostic procedure and should not be used as the sole means of detecting cervical cancer. Both false-positive and false-negative reports do occur. . Performed at: WB Performed By: #### U MICRO, UARMICR #### [facility] [address] [address] [address] Jovani Adame Performed by: Comment Normal [facility] Comment on above: Result Comment: Gemma Squires, Source Inspector Performed at: WB Performed By: #### U MICRO, UARMICR #### [facility] [address] [address] [address] Jovani Adame Specimen adequacy: Comment Normal [facility] Comment on above: Result Comment: Sati sfactory for evaluation. No endocervical component is identified. Performed at: WB Performed By: #### U MICRO, UARMICR #### [facility] [address] [address] [address] Jovani Adame MG MAMM SCREEN 3D JEN CADon 04-29-2022 MG MAMM SCREEN 3D JEN CAD Patient: LEONORA MELARA Exam Date: 04/29/2022 : 1970 Gender:F Ordering : DR KHAI JACOBSON M.D. Admission #: [id number] Family : DR TAMIKA BUTTERFIELD . Order #: [id number] CLICK HERE TO VIEW EXAM RADIOLOGY REPORT PROCEDURE: MAMMOGRAM SCREENING 3D BILATERAL CAD COMPARISON: MG MAMM SCREEN JEN W CAD, 11/22/2017. MG MAMM SCREEN JEN W CAD, 10/21/2020. MG MAMM SCREEN JEN W CAD, 01/23/2019. INDICATIONS: Screening mammography Calculator Name NCI Breast Cancer Risk Assessment Tool 5 Year Breast Cancer Risk 0.70% Lifetime Breast Cancer Risk 6.50% Personal Breast Cancer No Personal Ovarian Cancer No Treatments None Family Cancers Brother with colo-rectal cancer at age 50. LOCATION: [facility] BREAST COMPOSITION: Extremely dense, which lowers the sensitivity of mammography. FINDINGS: DIAGNOSTIC CATEGORY 2--BENIGN FINDING: RIGHT BREAST: No significant suspicious finding. No significant change has occurred. LEFT BREAST: No significant suspicious finding. Stable, chronic asymmetry within posterior upper-outer quadrant. No significant change has occurred. RECOMMENDATIONS: ROUTINE MAMMOGRAM AND CLINICAL EVALUATION IN 12 MONTHS. PLEASE NOTE: A NORMAL MAMMOGRAM DOES NOT EXCLUDE THE POSSIBILITY OF BREAST CANCER. A CLINICALLY SUSPICIOUS PALPABLE LUMP SHOULD BE BIOPSIED. Dictated by: Myles White M.D. on 04/30/2022 at 08:00 Approved by: Myles White M.D. on 04/30/2022 at 08:10 Normal [facility] Vital Signs Date Time Vital Sign Value Performing Clinician Rodrigo barroso 04-08-2023 10:20-0400 Blood Pressure Location Curry [facility] 04-08-2023 10:20-0400 Diastolic blood pressure 92 mm[Hg] Curry [facility] 04-08-2023 10:20-0400 Heart rate 78 /min Curry [facility]IP[facility] 04-08-2023 10:20-0400 Systolic blood pressure 124 mm[Hg] [facility] Encounters Encounter Date Encounter Type Care Provider Facility Start: 11-21-2023 End: 11-21-2023 ambulatory KHAI JACOBSON Not Available Start: 10-03-2023 Telephone encounter Khai mandujano MD Work Phone: [facility] Comment on above: Med Refill Start: 09-27-2023 Telephone encounter Khai mandujano MD Work Phone: [facility] Comment on above: Med Refill (Prometil azine 25 mg [facility]) Start: 09-05-2023 End: 09-06-2023 ambulatory Curry PHILIPPE Facility:CD:[id number] Start: 04-08-2023 End: 04-09-2023 ambulatory Tamika BUTTERFIELD Facility:[facility] Start: 04-08-2023 End: 04-08-2023 Patient encounter procedure Curry [facility] Start: 12-21-2022 ambulatory Curry PHILIPPE Facili ty:[facility] Start: 12-06-2022 End: 12-07-[address] TAMIKA BUTTERFIELD . Facility:[facility] Start: 11-30-2022 End: 12-01-[address] TAMIKA BUTTERFIELD . Facility:[facility] Start: 08-05-2022 End: 08-06-[address] TAMIKA BUTTERFIELD . Facility:[facility] Start: 07-26-2022 End: 07-26-[address] TAMIKA BUTTERFIELD . Facility:[facility] Start: 04-29-2022 End: 04-30-[address] KHAI JACOBSON Facility:[facility] Procedures Date Procedure Procedure Detail Performing Clinician Start: 08-05-2022 Mammography Khai rogers MD Work Phone: Start: 07-13-2022 Colonoscopy Khai rogers MD Work Phone: Start: 05-23-2013 Arthroscopy of knee Lata [facility] Comment on above: Left knee: partial L M Appendectomy Curry [facility] Decompression of med jayesh nerve [facility] Comment on above: LEFT Elbow fracture (disorder) Pa miguelito [facility] Comment on above: ORIF, RIGHT Laparoscopic cholecystectomy [facility] Ligation of fallopian tube P gricelda [facility] Tonsillectomy [facility] Plan of Treatment Date Care Activity Detail Author Start: 07-13-2032 Screening for malign ant neoplasm of colon [facility] Start: 04-12-2025 Screening for malign ant neoplasm of colon FIT-DNA [facility] Start: 02-21-2024 End: 02-21-2024 Patient encounter procedure 02/21/2024 2:00 PM EDT Office Visit [facility] [address] [place] [id number] Tamika Butterfield, DO [address] [place], [place] [id number] [facility] Start: 08-05-2023 Screening for malign ant neoplasm of breast Mammogram [facility] Start: 04-22-2023 Influenza vaccination Influenza Vacc ine (#1) [facility] Start: 01-10-2002 Screening for malign ant neoplasm of cervix [facility] Start: 01-10-1993 Screening for malign ant neoplasm of cervix Pap Smear [facility] Start: 1970 Screening for malign ant neoplasm of colon [facility] Immunizations Immunization Date Immunization Notes Care Provider Fa cili 06-22-2018 poliovirus vaccine, inactivated Khai Jacobson MD Work Phone: [facility] 06-22-2018 tetanus toxoid, redu violette diphtheria toxoid, and acellular pertussis vaccine, adsorbed Khai Jacobson MD Work Phone: [facility] 06-01-2018 hepatitis A vaccine, adult dosage Khai Jacobson MD Work Phone: [facility] 06-01-2018 hepatitis B vaccine, adult dosage Khai Jacobson MD Work Phone: [facility] 01-12-2018 hepatitis B vaccine, adult dosage Khai Jacobson MD Work Phone: [facility] 01-06-2018 typhoid vaccine, luisa e, oral Khai Jacobson MD Work Phone: [facility] 12-09-2017 hepatitis A vaccine, adult dosage Khai Jacobson MD Work Phone: [facility] 12-09-2017 hepatitis B vaccine, adult dosage Khai Jacobson MD Work Phone: [facility] Payers Date Payer Category Payer Unknown [employer] [id number] 2022-Present [address] [place] [address] [id number] 1970 Unknown [id number] 1970 Unknown [id number] 1970 Unknown [id number] 1970 Unknown [id number] 1970 Unknown [id number] 1970 Unknown [id number] 1970 Unknown [id number] 1970 Unknown [id number] 1970 Unknown [id number] 1957 Unknown [id number] Social History Date Type Detail Facility Start: 04-08-2023 Tobacco smoking status Smokele ss tobacco user within last 30 days [facility] Start: 06-29-2023 Sex Assigned At Female F [facility] Start: 02-17-2023 Tobacco smoking stat us NHIS Never smoked tobacco [facility] Start: 02-17-2023 Tobacco use and exposure Smokeless tobacco non-user [facility] Start: 06-29-2023 Alcohol intake Current drinke r of alcohol (finding) [facility] Start: 06-29-2023 Alcohol intake [facility] Start: 04-10-2023 Alcohol Comment Caffeine:: sod a./pop , coffee [facility] Start: 1970 Sex Assigned At Not on file [facility] Functional Status Date Assessment Result Facility 04-08-2023 Functional Status N/A [facility] Clinical Notes 12-06-2022 to 10-03-2023 Telephone Encounter - Khai Jacobson MD - 10/03/2023 1:57 PM ESTTelephone Encounter - Khai Jacobson MD - 10/03/2023 1:57 PM ESTTelephone Encounter - Laisha Isaacs - 10/03/2023 10:41 AM EST Note Date & Type Note Facility 10-03-2023 Telephone encounter Note A prescription without a prescription was called in as requested. [facility] 10-03-2023 Miscellaneous Notes A prescription without a prescription was called in as requested. Pt called and said she has an UTI and asked if a prescription could be called in for her without a prescription documented in this encounter [facility] 10-03-2023 Telephone encounter Note Pt called and said she has an UTI and asked if a prescription could be called in for her without a prescription [facility] 09-28-2023 Telephone encounter Note Rx was sent [facility] 09-28-2023 Miscellaneous Notes Rx was sent She is taking this for nausea , did know if you would send in or needed an appt for this Pt is requesting prometilazine she has not had this in awhile ok to give pt Needs sent to [facility] in [place] documented in this encounter [facility] 09-28-2023 Telephone encounter Note She is taking this for nausea , did know if you would send in or needed an appt for this [facility] 09-28-2023 Telephone encounter Note Pt is requesting prometilazine she has not had this in awhile ok to give pt Needs sent to [facility] in [place] [facility] 04-08-2023 Note Chief 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 Butterfield. Never before seen in our office. Seen blood in urine 4-5 months ago Each time blood was microscopic every [place] with U/A a couple months ago was the last U/A from him Cephalexin was prescribed by Dr. Butterfield and it worked for her all sx were gone PVR 106 Dysuria: _denies Incomplete bladder emptying: not always Hematuria: _denies visible blood Frequency: every couple hours Urgency: _denies Nocturia: _once a night Stream: _denies hesitation, weak stream Leaking: _denies Post void dripping: _some time Wearing pads/ Depends: _denies Urge incontinence: denies Stress incontinence: _denies Incontinence without Sensory Awareness: denies Abdominal pain: denies Flank pain: denies denies Sexual complaints: *UTI almost every time after sex * History of Present Illness Tests reviewed: Reviewed UA and referral records. I have reviewed the previous health record information and history for this patient from Dr. Butterfield. I have reviewed and verified the staff HPI to be accurate for this encounter. There have been no associated fever, chills, flank pain, or blood in the urine. Denies any urinary infections since last encounter. Review of Systems PHQ Score Initial Depression Screen Score: 0 ROS - Provider Constitutional: denies weight loss, denies hot flashes. Eyes: denies eye problems. Gastrointestinal: denies nausea, denies vomiting. Cardiovascular: denies chest pain or angina. Integumentary: no dryness Musculoskeletal: denies musculoskeletal symptoms. ENMT: denies otolaryngeal symptoms. Respiratory: no shortness of breath. Heme/Lymph: denies easy bleeding tendency, denies easy bruising tendency. Psychiatric: no confusion, no anxiety. Genitourinary: denies vaginal discharge, denies incontinence, denies dysuria, denies hematuria, denies urinary frequency, denies amenorrhea, denies menorrhagia, denies abnormal bleeding, denies pelvic pain, denies genital sores, and denies decreased libido. Physical Exam Vitals & Measurements HR: 78(Peripheral) BP: 124/92 HT: 62 in HT: 158 cm WT: 61 kg WT: 134.2 lb BMI: 24.44 General Appearance: alert , no acute distress, well nourished, well developed female. Head: normocephalic . Eyes: normal orbit and globe. ENMT: normal examination of external ears. Chest: Lungs CTA, respirations non labored . Cardiovascular: regular rate and rhythm. Abdomen: soft, non distended, no tenderness, no mass or organomegaly, no hernia. Genitourinary: bladder nonpalpable, no flank tenderness. Lymph Nodes: unremarkable palpation of the cervical area. Skin: warm, dry, no bruising. Psychiatric: cooperative, affect appropriate for age, normal judgement, euthymic mood. Assessment/Plan Referred by Dr. Butterfield for hematuria and UTI. 1. Asymptomatic microscopic hematuria (R31.21: Asymptomatic microscopic hematuria) Denies gross hematuria. Patient states microscopic hematuria is usually present on UA dipstick, associated with and without infections. Denies any recent imaging. UA today neg -Renal US -Cysto, possible UD 2. Recurrent UTI (N39.0: Urinary tract infection, site not specified) Reports infections mainly follow sexual intercourse. States she takes a medication (Estradiol 1mg daily) for vaginal dryness due to painful intercourse. Patient wiping front to back. Explained to patient not fully emptying is a factor. Discussed Estrogen cream, will prescribe at the time of cysto/possible UD based on exam. Denies hx of kidney stones. 3. Feeling of incomplete bladder emptying (R39.14: Feeling of incomplete bladder emptying) Does not always feel empty PVR 106 ml -Cysto/possible UD Follow-up With When Contact Information SURY MARRERO, [place], [place] [address] [place] [address]- Additional Instructions: Schedule MARSHA, cysto/possible UD Patient Education Hematuria, Adult I, Smitha Ledesma, personally scribed for Dr. Philippe on 04/08/2023 11:32:29. . Documentation recorded by the scribSmitha kay, accurately reflects the services(s) I performed and decisions made by me. Authenticated by Dr. Philippe on 04/08/2023 11:36:16. Problem List/Past Medical History Ongoing Acid reflux Asymptomatic microscopic hematuria Feeling of incomplete bladder emptying Hypercholesterolemia Knee sprain Recurrent UTI Historical No qualifying data Procedure/Surgical History Arthroscopy of Knee (05/23/2013), Appendectomy, Carpal tunnel release, Elbow fracture, Laparoscopic cholecystectomy, Tonsillectomy, Tubal ligation. Medications aspirin 81 mg oral tablet, 81 mg= 1 tab(s), Oral, Daily buPROPion 100 mg Tab FLUoxetine 10 mg Cap, Oral, Daily meloxicam 7.5 mg Tab, Oral, Daily metoprolol 100 mg ER Tab, Oral, Daily omeprazole, 40 mg, Oral, Daily simvastatin 20 mg Tab Vicodin 500 mg-5 mg Ta (more content not included)... [facility] Comment on above: Result Comment: Elec tronically Signed By: Curry PHILIPPE MD\.br\Date and Time Signed: 04/08/23 11:36 EDT\.br\Electronically Co-Signed By: Smitha Ledesma\.br\Date and Time Co-Signed: 04/08/23 11:32 EDT 04-08-2023 [facility] Discharg e instructions Patient Education 04/08/2023 11:23:37 Hematuria, Adult Hematuria, Adult Hematuria is blood in the urine. Blood may be visible in the urine, or it may be identified with a test. This condition can be caused by infections of the bladder, urethra, kidney, or prostate. Other possible causes include: Kidney stones. Cancer of the urinary tract. Too much calcium in the urine. Conditions that are passed from parent to child (inherited conditions). Exercise that requires a lot of energy. Infections can usually be treated with medicine, and a kidney stone usually will pass through your urine. If neither of these is the cause of your hematuria, more tests may be needed to identify the cause of your symptoms. It is very important to tell your health care provider about any blood in your urine, even if it is painless or the blood stops without treatment. Blood in the urine, when it happens and then stops and then happens again, can be a symptom of a very serious condition, including cancer. There is no pain in the initial stages of many urinary cancers. Follow these instructions at home: Medicines Take [id number] and prescription medicines only as told by your health care provider. If you were prescribed an antibiotic medicine, take it as told by your health care provider. Do not stop taking the antibiotic even if you start to feel better. Eating and drinking Drink enough fluid to keep your urine pale yellow. It is recommended that you drink 3 4 quarts (2.8 3.8 L) a day. If you have been diagnosed with an infection, drinking cranberry juice in addition to large amounts of water is recommended. Avoid caffeine, tea, and carbonated beverages. These tend to irritate the bladder. Avoid alcohol because it may irritate the prostate (in males). General instructions If you have been diagnosed with a kidney stone, follow your health care provider's instructions about straining your urine to catch the stone. Empty your bladder often. Avoid holding urine for long periods of time. If you are female: ?After a bowel movement, wipe from front to back and use each piece of toilet paper only once. ?Empty your bladder before and after sex. Pay attention to any changes in your symptoms. Tell your health care provider about any changes or any new symptoms. It is up to you to get the results of any tests. Ask your health care provider, or the department that is doing the test, when your results will be ready. Keep all follow-up visits. This is important. Contact a health care provider if: You develop back pain. You have a fever or chills. You have nausea or vomiting. Your symptoms do not improve after 3 days. Your symptoms get worse. Get help right away if: You develop severe vomiting and are unable to take medicine without vomiting. You develop severe pain in your back or abdomen even though you are taking medicine. You pass a large amount of blood in your urine. You pass blood clots in your urine. You feel very weak or like you might faint. You faint. Summary Hematuria is blood in the urine. It has many possible causes. It is very important that you tell your health care provider about any blood in your urine, even if it is painless or the blood stops without treatment. Take [id number] and prescription medicines only as told by your health care provider. Drink enough fluid to keep your urine pale yellow. This information is not intended to replace advice given to you by your health care provider. Make sure you discuss any questions you have with your health care provider. Document Revised: 04/08/2021 Document Reviewed: 04/08/2021 [employer] Patient Education 2022 [employer]. Follow Up Care 12/21/2022 14:38:53 With:SURY MARRERO, [place], [place] Address: [address] [place] [id number] When: Unknown [facility] 12-06-2022 Note PROCEDURE: US PELVIS AND TRANSVAG DATE: 12/06/2022 1:26 PM CDT COMPARISONS: None. INDICATION FOR EXAMINATION: 52 years Female H/O gynecological disorder TECHNIQUE: Grayscale and color Doppler technique were utilized to evaluate the pelvis. Transabdominal and transvaginal imaging was carried out. imaging was performed. FINDINGS: UTERUS: The uterus measures 7.4 x 3.9 x 3.3 cm. It appears there is a hyperechoic 9 x 8 x 8 mm nodular area anterior uterus. This may represent a fibroid. There is no other evidence of focal uterine masses or other significant abnormalities. The cervix shows no evidence of abnormalities. The endometrium measures 4 mm in thickness. The endometrium is uniform in thickness and echogenicity. ADNEXA: The left ovary is not visualized. There is no evidence of right ovarian masses. No adnexal masses identified. There is no other evidence of significant adnexal abnormalities. Normal vascular flow is identified to right ovary The right ovary measures 2.2 x 1.0 x 1.2 cm. FLUID: There is no evidence of an abnormal amount of free fluid within the pelvis. ASSESSMENT: Probable 9 mm uterine fibroid. Uterus shows no other abnormalities Left ovary not visualized No other abnormalities identified on this exam. Electronically authenticated by: FOREIGN ORTEZ Date: 2022-12-06 15:05 [facility] Evaluation + Plan note No data available for this section [facility] Evaluation note Diagnosis Nausea- Primary Nausea alone [facility] Diagnosis Acute cystitis without hematuria- Primary [facility] No data available for this section [facility] Summary Purpose Family History No Family History Records FoundNo Family History Records FoundNo Family History Records Found Advance Directives No Advanced Directives Records FoundNo Advanced Directives Records FoundNo Advanced Directives Records Found Additional Source Comments INFORMATION SOURCE (unrecogn ized section and content) DATE CREATED AUTHOR 12/12/2022 [facility] DATE CREATED AUTHOR AUTHOR'S ORGANIZ ATION 09/22/2023 Jb Baez [facility] DATE CREATED AUTHOR AUTHOR'S ORGANIZ ATION 11/22/2023 [facility] EPIC Patient Care team informatio n (unrecognized section and content) [employer] Relationship Specialty Start Date End Date Khai Jacobson MD [address] [place] [address] PCP - [facility] [employer] 01/20/23 Khai Jacobson MD [address] [place] [address] PCP - General Internal Medicine 02/23/23 [employer] Relationship Specialty Start Date End Date Khai Jacobson MD [address] [place] [address] PCP - [facility] [employer] 01/20/23 Khai Jacobson MD [address] [place] [address] PCP - General Internal Medicine 02/23/23 Reason for Visit (unrecogniz ed section and content) Reason Onset Date Comments Med Refill 09/27/2023 Prometilazine 25 mg [facility] [place] Reason Onset Date Comments Med Refill 10/03/2023 FOR RECORDS PERTAINING TO PATIENTS WHO ARE OR HAVE BEEN ENROLLED IN A CHEMICAL DEPENDENCY/SUBSTANCEABUSE PROGRAM, SOME INFORMATION MAY BE OMITTED. This clinical summary was aggregated from multiple sources. Caution should be exercised in using it in the provision of clinical care. This summary normalizes information from multiple sources, and as a consequence, information in this document may materially change the coding, format and clinical context of patient data. In addition, data may be omitted in some cases. CLINICAL DECISIONS SHOULD BE BASED ON THE PRIMARY CLINICAL RECORDS. [employer] provides no warranty or guarantee of the accuracy or completeness of information in this document.
[2023-12-07 15:05] LABS: SARS-CoV-2 NAA NOT DETECTED (NOT DETECTE)
== END 2023-12-07 11:26 | disposition home or self-care (01) ==
LOC: LAB 11:25
PROVIDERS: PCP Internal Medicine; Visit Provider Internal Medicine
DX: Z20.822 Contact with and (suspected) exposure to COVID-19 (principal); B34.9 Viral infection, unspecified
CPT/HCPCS: 87635

== ENCOUNTER 2024-02-21 18:36 | Outpatient (REF) | payer OTHER, SELFPAY ==
--- OUTSIDE RECORDS SUMMARY | 2024-02-21 18:39 | XMS_ITS ---
Patient Summarization (C-CDA 2.1 CCD) Created on: February 21, 2024 LEONORA MELARA : 1970 Sex: Female Author Organization Sample organization Care Team Providers Care Nailhead Puncher Name Role Phone MARY, DR RAMIREZ Admitting [...] Unavailable MARY, DR RAMIREZ Primary Care Unavailable [place], DR ROSSY Juarez Consulting Unavailable GREER ., DR LUNDBERG Consulting Unavailable GREER ., DR LUNDBERG Admitting Unavailable GREER ., DR LUNDBERG Attending Unavailable MARY, DR RAMIREZ Primary Care Unavailable GREER ., DR LUNDBERG Consulting Unavailable KHAI JACOBSON Primary Care Physician Curry PHILIPPE Attending Unavailable Tamika BUTTERFIELD Referring Unavailable Curry PHILIPPE Attending Unavailable Curry PHILIPPE Attending Unavailable Khai Jacobson MD Unavailable [phone] Khai Jacobson MD Primary Care Provider KHAI JACOBSON Attending Unavailable KHAI JACOBSON Attending Unavailable Encounters Encounter Date Encounter Type Care Provider Facility Start: 12-07-2023 End: 12-07-2023 ambulatory KHAI JACOBSON Not Available Start: 11-21-2023 End: 11-21-2023 ambulatory KHAI JACOBSON Not Available Start: 10-03-2023 Telephone encounter Khai mandujano MD Work Phone: [facility] Comment on above: Med Refill Start: 09-27-2023 Telephone encounter Khai mandujano MD Work Phone: [facility] Comment on above: Med Refill (Prometil azine 25 mg [facility]) Start: 09-05-2023 End: 09-06-2023 ambulatory Curry PHILIPPE Facility:CD:[id number] Start: 04-08-2023 End: 04-09-2023 ambulatory Tamika BUTTERFIELD Facility:[facility] Start: 04-08-2023 End: 04-08-2023 Patient encounter procedure Curry PHILIPPE [facility] Start: 12-21-2022 ambulatory Curry PHILIPPE Facili ty:[facility] Start: 12-06-2022 End: 12-07-[address] TAMIKA BUTTERFIELD . Facility:[facility] Start: 11-30-2022 End: 12-01-[address] TAMIKA BUTTERFIELD . Facility:[facility] Start: 08-05-2022 End: 08-06-[address] TAMIKA BUTTERFIELD . Facility:[facility] Start: 07-26-2022 End: 07-26-[address] TAMIKA BUTTERFIELD . Facility:[facility] Start: 04-29-2022 End: 04-30-[address] KHAI JACOBSON Facility:[facility] Immunizations Immunization Date Immunization Notes Care Provider [facility] 06-22-2018 poliovirus vaccine, inactivated Khai Jacobson MD Work Phone: [facility] 06-22-2018 tetanus toxoid, redu violette diphtheria toxoid, and acellular pertussis vaccine, adsorbed Khai Jacobson MD Work Phone: [facility] 06-01-2018 hepatitis A vaccine, adult dosage Khai Jacobson MD Work Phone: [facility] 06-01-2018 hepatitis B vaccine, adult dosage Khai Jacobson MD Work Phone: [facility] 01-12-2018 hepatitis B vaccine, adult dosage Khai Jacobson MD Work Phone: [facility] 01-06-2018 typhoid vaccine, luisa e, oral Khai Jacobson MD Work Phone: [facility] 12-09-2017 hepatitis A vaccine, adult dosage Khai Jacobson MD Work Phone: [facility] 12-09-2017 hepatitis B vaccine, adult dosage Khai Jacobson MD Work Phone: [facility] Medications Current Medications Medication Drug Class(es) Dates Sig (Normalized) Sig (Original) acetaminophen 325 mg / HYDROcodone bitartrate 5 mg oral tablet (3 sources) Opioid Agonist Start: 09-26-2023 take 1 tablet by mouth every eight hours HYDROcodone-acetam inophen ([place]) 5-325 MG tablet Indications: Lumbar spondylosis Take [...] Active Start: 04-08-2023 take 1 tablet by [facility] daily Cipro 500 mg Tab 500 mg = 1 tab(s), Oral, Daily, Take 1 tablet the day before the procedure and 1 tablet after the procedure, # 2 tab(s), Refills(s) 0, Pharmacy: [id number], 158, cm, 04/08/23 10:27:00 EDT, Height/Length Dosing, 61, kg, 04/08/23 10:27:00 EDT, Weig... Start Date: 04/08/23 Status: Ordered estradiol 1 [...] at bedtime. 100 tablet 3 02/26/2023 Active Payers Date Payer Category Payer Unknown [employer] [id number] 2022-Present [address] [place] [address] [id number] 1970 Unknown [id number] 1970 Unknown [id number] 1970 Unknown [id number] 1970 Unknown [id number] 1970 Unknown [id number] 1970 Unknown [id number] 1970 Unknown [id number] 1970 Unknown [id number] 1970 Unknown [id number] 1970 Unknown [id number] 1957 Unknown [id number] Plan of Treatment Date Care Activity Detail Author Start: 07-13-2032 Screening for malign ant neoplasm of colon [facility] Start: 04-12-2025 Screening for malign ant neoplasm of colon FIT-DNA [facility] Start: 02-21-2024 End: 02-21-2024 Patient encounter procedure 02/21/2024 2:00 PM EDT Office Visit [facility] [address] [place] [address] Tamika Butterfield DO [address] [place] [address] [facility] Start: 08-05-2023 Screening for malign ant neoplasm of breast Mammogram [facility] Start: 04-22-2023 Influenza vaccination Influenza Vacc ine (#1) [facility] Start: 01-10-2002 Screening for malign ant neoplasm of cervix [facility] Start: 01-10-1993 Screening for malign ant neoplasm of cervix Pap Smear [facility] Start: 1970 Screening for malign ant neoplasm of colon [facility] Problems Active Problems Problem Classification Problem Date [...] MALIG NEOPLASM DIGESTIV ORGN] Onset: 08-09-2022 Episodic Procedures Date Procedure Procedure Detail Performing Clinician Start: 08-05-2022 Mammography Khai rogers MD Work Phone: Start: 07-13-2022 Colonoscopy Khai rogers MD Work Phone: Start: 05-23-2013 Arthroscopy of knee Lata PHILIPPE Comment on above: Left knee: partial L M Appendectomy Curry PHILIPPE Decompression of med jayesh nerve Curry PHILIPPE Comment on above: LEFT Elbow fracture (disorder) David PHILIPPE Comment on above: ORIF, RIGHT Laparoscopic cholecystectomy Curry PHILIPPE Ligation of fallopian tube P gricelda PHILIPPE Tonsillectomy Curry SURY Results Test Name Value Interpretation Reference Range Facility Operative Reporton Operative Report [id number] 0TIFF Normal [facility] Consent for Procedure/Surger yon 07-25-2023 Consent for Procedure/Surgery [id number] 0TIFF Normal [facility] Consent for Procedure/Surger yon 05-03-2023 Consent for Procedure/Surgery [id number] 0CD:127 Normal [facility] RAD - Ultrasound Reporton RAD - Ultrasound Report [id number] CD:127 Normal [facility] Ambulatory Visit Summaryon 0 04-08-2023 Ambulatory Visit Summary LEONORA MELARA :1970 Visit Date:04/08/2023 Ambulatory Visit Instructions Your Diagnosis Asymptomatic microscopic hematuria Recurrent UTI Feeling of incomplete bladder emptying Tests Performed Urnls Dip Stick Auto w/o Microscopy POC 69603 US Renal -- Results Pending -- Please visit your patient portal for your results or contact your primary care physician. Your Care Team Attending Physician - Curry PHILIPPE MD Primary Care Physician - KHAI JACOBSON MD Referring Physician - Tamika BUTTERFIELD [...] Following Appointments Follow Up with SURY MARRERO, MADALYN Campos When: Where: [address] [place], [place] [id number]- Medications What How Much When Instructions Unchanged [...] Urnls Dip Stick Auto w/o Microscopy POC 96530 (04/08/2023) Bilirubin Urine Dipstick - Negative Blood Urine Dipstick - Trace-intact Glucose Urine Dipstick - Negative Ketones Urine Dipstick - Negative Leukocytes Urine Dipstick - Negative Nitrite Urine Dipstick - Negative Protein Urine Dipstick - Negative Specific [place] Urine Dipstick - 1.015 Urine Appearance Urine [...] these instructions at home: Medicines ? Take kixm-urd-cckjldq and prescription medicines only as told by [...] water is (more content not included)... Normal [facility] Formson 04-08-2023 Forms [id number] 0CD:127 Normal [facility] Patient Educationon 04-08-20 23 Patient Education [...] these instructions at home: Medicines ? Take auue-qxf-pydmjsa and prescription medicines only as told by [...] the blood stops without treatment. ? Take mbnv-ovg-talflra and prescription medicines only as told by your health care provider. ? Drink enough fluid to keep your urine pale yellow. This information is not intended to replace advice given to you by your health care provider. Make sure you discuss any questions you have with your health care provider. Document Revised: 04/08/2021 Document Reviewed: 04/08/2021 Elsevier Patient Education ? 2022 [employer] Normal [facility] Physician Referralon 023 Physician Referral [id number] 0CD:127 Normal [facility] CBC AUTO DIFFon 11-30-2022 BASO # 0.1 103/ul Normal 0.0-0.1 [facility] Comment on above: Performed By: #### C BC #### [facility] [address] [place] [address] Dr. Jovani Adame Basophils/100 WBC (Bld) 0.6 % Normal 0.2-2.0 [facility] Comment on above: Performed By: #### C BC #### [facility] [address] [address] [address] Jovani Adame EO # 0.2 103/ul Normal 0.0-0.7 [facility] Comment on above: Performed By: #### C BC #### [facility] [address] [address] [address] Jovani Adame Eosinophils/100 WBC (Bld) 2.3 % Normal 0.9-7.0 [facility] Comment on above: Performed By: #### C BC #### [facility] [address] [address] [address] Jovani Adame Erythrocyte distribution width (RBC) [Ratio] 12.2 % Normal 11.0-15.0 [facility] Comment on above: Performed By: #### C BC #### [facility] [address] [place] [address] Dr. Jovani Adame Hematocrit (Bld) [Volume fraction] 34.9 % Critically low 36.0-48.0 [facility] Comment on above: Performed By: #### C BC #### [facility] [address] [address] [address] Jovani Adame Hemoglobin (Bld) [Mass/Vol] 12.1 g/dL Normal 12.0-16.0 [facility] Comment on above: Performed By: #### C BC #### [facility] [address] [address] [address] Jovani Adame IG # 0.01 10e3/ul Normal 0.00-0.03 [facility] Comment on above: Performed By: #### C BC #### [facility] [address] [place] [address] Dr. Jovani Adame IG % 0.1 % Normal 0.0-0.5 [facility] Comment on above: Performed By: #### C BC #### [facility] [address] [place] [address] Dr. Jovani Adame LYMPH # 2.4 103/ul Normal 1.2-3.8 [facility] Comment on above: Performed By: #### C BC #### [facility] [address] [place] [address] Dr. Jovani Adame Lymphocytes/100 WBC (Bld) 29.8 % Normal 20.5-60.0 [facility] Comment on above: Performed By: #### C BC #### [facility] [address] [place] [address] Dr. Jovani Adame MANUAL DIFF REQ NO Normal [facility] Comment on above: Performed By: #### C BC #### [facility] [address] [place] [address] Dr. Jovani Adame MCH (RBC) [Entitic mass] 31.8 pg Normal 26.7-34.0 [facility] Comment on above: Performed By: #### C BC #### [facility] [address] [place] [address] Dr. Jovani Adame MCHC (RBC) [Mass/Vol] 34.7 g/dL Normal 29.9-35.2 [facility] Comment on above: Performed By: #### C BC #### [facility] [address] [address] [address] Jovani Adame MCV (RBC) [Entitic vol] 91.8 fL Normal 81.0-99.0 [facility] Comment on above: Performed By: #### C BC #### [facility] [address] [address] [address] Jovani Adame MONO # 0.5 103/ul Normal 0.3-0.8 [facility] Comment on above: Performed By: #### C BC #### [facility] [address] [address] [address] Jovani Adame Monocytes/100 WBC (Bld) 5.9 % Normal 1.7-12.0 [facility] Comment on above: Performed By: #### C BC #### [facility] [address] [place] [address] Dr. Jovani Adame NEUT # 5.0 103/ul Normal 1.4-6.5 [facility] Comment on above: Performed By: #### C BC #### [facility] [address] [place] [address] Dr. Jovani Adame Neutrophils/100 WBC (Bld) 61.3 % Normal 43.0-75.0 [facility] Comment on above: Performed By: #### C BC #### [facility] [address] [place] [address] Dr. Jovani Adame Platelet mean volume (Bld) [Entitic vol] 10.2 fL Normal 9.5-13.5 [facility] Comment on above: Performed By: #### C BC #### [facility] [address] [place] [address] Dr. Jovani Adame PLT 318 103/ul Normal 150-450 [facility] Comment on above: Performed By: #### C BC #### [facility] [address] [address] [address] Jovani Adame RBC 3.80 106/ul Critically low 4.20-5.40 [facility] Comment on above: Performed By: #### C BC #### [facility] [address] [address] [address] Jovani Adame WBC 8.1 103/ul Normal 4.0-11.0 [facility] Comment on above: Performed By: #### C BC #### [facility] [address] [place] [address] Dr. Jovani Adame FREE T4on 11-30-2022 Free T4 [Mass/Vol] 0.89 ng/dL Normal 0.76-1.46 [facility] Comment on above: Performed By: #### U MICRO, UARMICR #### [facility] [address] [place] [address] Dr. Jovani Adame GLYCOHEMOGLOBIN A1Con 2022 ADA RECOMMENDATION SEE BELOW Normal [facility] Comment on above: Result Comment: ADA RECOMMENDED LIMIT 4.0 - 6.0 ADA THERAPEUTIC TARGET < 7.0 ACTION SUGGESTED > 7.0 Performed By: #### U MICRO, UARMICR #### [facility] [address] [place] [address] Dr. Jovani Adame Glucose [Mass/Vol] 105 mg/dL Normal [facility] Comment on above: Performed By: #### U MICRO, UARMICR #### [facility] [address] [place] [address] Dr. Jovani Adame HbA1c (Bld) [Mass fraction] 5.3 % Normal 4.5-6.2 [facility] Comment on above: Performed By: #### U MICRO, UARMICR #### [facility] [address] [place] [address] Dr. Jovani Adame PROTIMEon 11-30-2022 INR Coag (PPP) [Relative time] 0.97 {INR} Normal [facility] Comment on above: Performed By: #### P T, PTT #### [facility] [address] [place] [address] Dr. Jovani Adame INR GUIDELINES SEE BELOW Normal [facility] Comment on above: Result Comment: MATILDE RED INR: 2.0 - 3.0 CONDITIONS NOT LISTED BELOW 2.5 - 3.5 FOR PROSTHETIC HEART VALVE REPLACEMENT 2.5 - 3.5 RECURRENT THROMBOSIS Performed By: #### P T, PTT #### [facility] [address] [place] [address] Dr. Jovani Adame PT Coag (PPP) [Time] 10.3 s Normal 9.0-11.6 [facility] Comment on above: Performed By: #### P T, PTT #### [facility] [address] [place] [address] Dr. Jovani Adame PTTon 11-30-2022 aPTT Coag (Bld) [Time] 29.4 s Normal 22.3-36.2 [facility] Comment on above: Performed By: #### P T, PTT #### [facility] [address] [place] [address] Dr. Jovani Adame TSHon 11-30-2022 TSH 0.872 uIU/mL Normal 0.358-3.740 [facility] Comment on above: Performed By: #### T SH #### [facility] [address] [place] [address] Dr. Jovani Adame UA (CLEAN/CATCH) MICROSCOPIC IF INDICATEon 11-30-2022 Bilirubin Ql (U) Negative Normal NEGATIVE [facility] Comment on above: Performed By: #### U MICRO, UARMICR #### [facility] [address] [place] [address] Dr. Jovani Adame Clarity (U) CLEAR Normal CLEAR [facility] Comment on above: Performed By: #### U MICRO, UARMICR #### [facility] [address] [place] [address] Dr. Jovani Adame Color (U) LT. YELLOW Normal YELLOW [facility] Comment on above: Performed By: #### U MICRO, UARMICR #### [facility] [address] [place] [address] Dr. Jovani Adame Glucose Ql (U) Negative Normal NEGATIVE [facility] Comment on above: Performed By: #### U MICRO, UARMICR #### [facility] [address] [place] [address] Dr. Jovani Adame Hemoglobin Ql (U) TRACE-INTACT Abnormal NEGATIVE [facility] Comment on above: Performed By: #### U MICRO, UARMICR #### [facility] [address] [place] [address] Dr. Jovani Adame Ketones Ql (U) Negative Normal NEGATIVE [facility] Comment on above: Performed By: #### U MICRO, UARMICR #### [facility] [address] [place] [address] Dr. Jovani Adame LEUKOCYTES Negative Normal NEGATIVE [facility] Comment on above: Performed By: #### U MICRO, UARMICR #### [facility] [address] [place] [address] Dr. Jovani Adame Nitrite Ql (U) Negative Normal NEGATIVE [facility] Comment on above: Performed By: #### U MICRO, UARMICR #### [facility] [address] [place] [address] Dr. Jovani Adame pH (U) 6.5 [pH] Normal 5-9 [facility] Comment on above: Performed By: #### U MICRO, UARMICR #### [facility] [address] [place] [address] Dr. Jovani Adame SPEC GRAVITY 1.010 Normal 1.005-<=1.025 [facility] Comment on above: Performed By: #### U MICRO, UARMICR #### [facility] [address] [place] [address] Dr. Jovani Adame UA PROTEIN Negative Normal NEGATIVE/ TRACE [facility] Comment on above: Performed By: #### U MICRO, UARMICR #### [facility] [address] [place] [address] Dr. Jovani Adame UR MICRO IND INDICATED Normal [facility] Comment on above: Performed By: #### U MICRO, UARMICR #### [facility] [address] [place] [address] Dr. Jovani Adame Urobilinogen Qn (U) 0.2 {Kaylie'U}/dL Normal 0.2 - 1. 0 [facility] Comment on above: Performed By: #### U MICRO, UARMICR #### [facility] [address] [address] [address] Jovani Adame URINE MICROSCOPIC ONLYon BACTERIA TRACE Abnormal NONE SEEN [facility] Comment on above: Performed By: #### U MICRO, UARMICR #### [facility] [address] [address] [address] Jovain Adame Bacteria identified Cx Nom (U) NOT INDICATED Normal [facility] Comment on above: Performed By: #### U MICRO, UARMICR #### [facility] [address] [address] [address] Jovani Adame CAST NONE SEEN Normal NONE SEEN [facility] Comment on above: Performed By: #### U MICRO, UARMICR #### [facility] [address] [place] [address] Dr. Jovani Adame Crystals LM Nom (Urine sed) NONE SEEN Normal NONE SEEN [facility] Comment on above: Performed By: #### U MICRO, UARMICR #### [facility] [address] [place] [address] Dr. Jovani Adame Epithelial cells LM Ql (Urine sed) MODERATE Abnormal NONE SEEN /RARE [facility] Comment on above: Performed By: #### U MICRO, UARMICR #### [facility] [address] [place] [address] Dr. Jovani Adame MUCOUS NONE SEEN Normal NONE SEEN [facility] Comment on above: Performed By: #### U MICRO, UARMICR #### [facility] [address] [address] [address] Jovani Adame RBC 2-5 Abnormal 0-2 [facility] Comment on above: Performed By: #### U MICRO, UARMICR #### [facility] [address] [place] [address] Dr. Jovani Adame WBC NONE SEEN Normal NONE SEEN [facility] Comment on above: Performed By: #### U MICRO, UARMICR #### [facility] [address] [place] [address] Dr. Jovani Adame MG MAMM DX 3D LT CADon 08-05 MG MAMM DX 3D LT CAD Patient: LEONORA MELARA Exam Date: 08/05/2022 : 1970 Gender:F Ordering : DR TAMIKA BUTTERFIELD . Admission #: [id number] Family : Order #: [id number] CLICK HERE TO VIEW EXAM RADIOLOGY REPORT [...] colo-rectal cancer at age 52. LOCATION: [facility] BREAST COMPOSITION: Extremely dense, which lowers the [...] MD on 08/05/2022 at 11:45 Normal [facility] US BREAST LEFT LIMITEDon US BREAST LEFT LIMITED Patient: LEONORA MELARA Exam Date: 08/05/2022 : 1970 Gender:F Ordering : DR TAMIKA BUTTERFIELD . Admission #: [id number] Family : Order #: [id number] CLICK HERE TO VIEW EXAM RADIOLOGY REPORT [...] colo-rectal cancer at age 52. LOCATION: [facility] BREAST COMPOSITION: Extremely dense, which lowers the [...] Nicole MD on 08/05/2022 at 11:45 Normal [facility] PAP ACOG PANEL 2: 30 to 65on 08-03-2022 . . Normal [facility] Comment on above: Result Comment: Perf ormed at: WB Performed By: #### U MICRO, UARMICR #### [facility] [address] [place] [address] Dr. Jovani Adame Age Gdln ACOG Testing 30-65 Normal [facility] Comment on above: Performed By: #### U MICRO, UARMICR #### [facility] [address] [place], [place] [address] Dr. Jovani Adame DIAGNOSIS: Comment Normal [facility] Comment on above: Result Comment: NEGA TIVE FOR INTRAEPITHELIAL LESION OR MALIGNANCY. Performed at: WB Performed By: #### U MICRO, UARMICR #### [facility] [address] [address] [address] Jovani Adame HPV Aptima Negative Normal Negative [facility] Comment on above: Result Comment: This nucleic acid amplification test detects fourteen high-risk HPV types (16,18,31,33,35,39,45,51,52,56,58,59,66,68) without differentiation. Performed at: =G Performed By: #### U MICRO, UARMICR #### [facility] [address] [address] [address] Jovani Adame HPV Genotype Reflex Comment Normal [facility] Comment on above: Result Comment: Crit eria not met, HPV Genotype not performed. Performed at: WB Performed By: #### U MICRO, UARMICR #### [facility] [address] [address] [address] Jovani Adame Methodology: Comment Normal [facility] Comment on above: Result Comment: This liquid based ThinPrep(R) pap test was screened with the use of an image guided system. Performed at: WB Performed By: #### U MICRO, UARMICR #### [facility] [address] [address] [address] Jovani Adame Note: Comment Normal [facility] Comment on above: Result Comment: The Pap [...] Performed By: #### U MICRO, UARMICR #### [facility] [address] [address] [address] Jovani Adame Performed by: Comment Normal [facility] [facility] Comment on above: Result Comment: Gemma Squires, Registered Route Associate Performed at: WB Performed By: #### U MICRO, UARMICR #### [facility] [address] [address] [address] Jovani Adame Specimen adequacy: Comment Normal [facility] Comment on above: Result Comment: Sati sfactory for evaluation. No endocervical component is identified. Performed at: WB Performed By: #### U MICRO, UARMICR #### [facility] [address] [address] [address] Jovani Adame MG MAMM SCREEN 3D JEN CADon 04-29-2022 MG MAMM SCREEN 3D JEN CAD Patient: LEONORA MELARA Exam Date: 04/29/2022 : 1970 Gender:F Ordering : DR KHAI JACOBSON M.D. Admission #: [id number] Family : DR LUNDBERG GREER . Order #: [id number] CLICK HERE TO VIEW EXAM RADIOLOGY REPORT [...] colo-rectal cancer at age 52. LOCATION: [facility] BREAST COMPOSITION: Extremely dense, which lowers the [...] White M.D. on 04/30/2022 at 08:10 Normal [facility] Social History Date Type Detail Facility Start: 06-29-2023 Sex Assigned At Female F [facility] Start: 06-29-2023 Alcohol intake Current drinke r of alcohol (finding) [facility] Start: 06-29-2023 [facility] intake [facility] Start: 04-10-2023 Alcohol Comment Caffeine:: sod a./pop , coffee [facility] Start: 04-08-2023 Tobacco smoking status Smokele ss tobacco user within last 30 days [facility] Start: 02-17-2023 Tobacco smoking stat us MEIS Never smoked tobacco [facility] Start: 02-17-2023 Tobacco use and exposure Smokeless tobacco non-user [facility] Start: 1970 Sex Assigned At Not on file [facility] Vital Signs Date Time Vital Sign Value Performing Clinician Rodrigo lity 04-08-2023 10:20-0400 Blood Pressure Location Curry PHILIPPE [facility] 04-08-2023 10:20-0400 Diastolic blood pressure 92 mm[Hg] Curryarmando PHILIPPE [facility] 04-08-2023 10:20-0400 Heart rate 78 /min Curry PHILIPPE [facility] 04-08-2023 10:20-0400 Systolic blood pressure 124 mm[Hg] Curry PHILIPPE [facility] Functional Status Date Assessment Result Facility 04-08-2023 Functional Status N/A [facility] Clinical Notes 12-06-2022 to 10-03-2023 Telephone Encounter - Khai Jacobson MD - 10/03/2023 1:57 PM ESTTelephone Encounter - Khai Jacobson MD - 10/03/2023 1:57 PM ESTTelephone Encounter - Laisha Isaacs - 10/03/2023 10:41 AM EST Note Date & Type Note Facility 10-03-2023 Telephone encounter Note A prescription without a prescription was called in as requested. [facility] 10-03-2023 Miscellaneous Notes A prescription without a prescription was called in as requested. Pt called and said she has an UTI and asked if a prescription could be called in for her without a prescription documented in this encounter [facility] 10-03-2023 Telephone encounter Note Pt called and said she has an UTI and asked if a prescription could be called in for her without a prescription [facility] 09-28-2023 Telephone encounter Note Rx was sent [facility] 09-28-2023 Miscellaneous Notes Rx was sent She is taking this for nausea , did know if you would send in or needed an appt for this Pt is requesting prometilazine she has not had this in awhile ok to give pt Needs sent to [facility] in [place] documented in this encounter [facility] 09-28-2023 Telephone encounter Note She is taking this for nausea , did know if you would send in or needed an appt for this [facility] 09-28-2023 Telephone encounter Note Pt is requesting prometilazine she has not had this in awhile ok to give pt Needs sent to [facility] in [place] [facility] 04-08-2023 Note Chief Complaint 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 Philippe on 04/08/2023 11:32:29. . Documentation recorded by the scribe, Smitha Ledesma, accurately reflects the services(s) I performed and [...] mg-5 mg Ta (more content not included)... [facility] Comment on above: Result Comment: Elec tronically Signed By: Curry PHILIPPE MD\.br\Date and Time Signed: 04/08/23 11:36 EDT\.br\Electronically Co-Signed By: Smitha Ledesma.br\Date and Time Co-Signed: 04/08/23 11:32 EDT 04-08-2023 Hospital Discharg e instructions Patient Education 04/08/2023 [...] Follow these instructions at home: Medicines Take zagg-mbi-wthyqam and prescription medicines only as told by [...] or the blood stops without treatment. Take mnut-uxm-fvlkagr and prescription medicines only as told by your health care provider. Drink enough fluid to keep your urine pale yellow. This information is not intended to replace advice given to you by your health care provider. Make sure you discuss any questions you have with your health care provider. Document Revised: 04/08/2021 Document Reviewed: 04/08/2021 [employer] Patient Education 2022 [employer]. Follow Up Care 12/21/2022 14:38:53 With:SURY MARRERO, Curry Fay, URL Address: [address] [place] [id number]- When: Unknown [facility] 12-06-2022 Note PROCEDURE: US PELVIS AND [...] by: FOREIGN ORTEZ Date: 2022-12-06 15:05 [facility] Evaluation + Plan note No data available for this section [facility] Evaluation note Diagnosis Nausea- Primary Nausea alone documented [facility] Diagnosis Acute cystitis without hematuria- Primary documented in this encounter [facility] No data available for this section [facility] Summary Purpose Family History No Family History Records FoundNo Family History Records FoundNo Family History Records Found Advance Directives No Advanced Directives Records FoundNo Advanced Directives Records FoundNo Advanced Directives Records Found Additional Source Comments INFORMATION SOURCE (unrecogn ized section and content) DATE CREATED AUTHOR 12/12/2022 [facility] DATE CREATED AUTHOR AUTHOR'S ORGANIZ ATION 09/22/2023 Jb Baez [facility] DATE CREATED AUTHOR AUTHOR'S ORGANIZ ATION 12/08/2023 [facility] EPIC Patient Care team informatio n (unrecognized section and content) Nailhead Puncher Relationship Specialty Start Date End Date Khai Jacobson MD [address] [place] [address] PCP - Medical [employer] 01/20/23 Khai Jacobson MD [address] [place] [address] PCP - General Internal Medicine 02/23/23 Nailhead Puncher Relationship Specialty Start Date End Date Khai Jacobson MD [address] [place] [address] PCP - Medical [employer] 01/20/23 Khai Jacobson MD [address] [place] [address] PCP - General Internal Medicine 02/23/23 Reason [...] BE BASED ON THE PRIMARY CLINICAL RECORDS. [facility] provides no warranty or guarantee of the accuracy or completeness of information in this document.
[2024-02-27 10:07] LABS: Age Gdln ACOG Testing Note (.); HPV Aptima Negative (Negative); IGP, Aptima HPV, rfx 16/18,45 Note (.)
== END 2024-02-21 18:37 | disposition home or self-care (01) ==
LOC: LAB 18:36
PROVIDERS: PCP Internal Medicine; Visit Provider Obstetrics & Gynecology
DX: Z01.419 Encounter for gynecological examination (general) (routine) without abnormal findings (principal)
CPT/HCPCS: 87624; 88175

== ENCOUNTER 2024-03-21 12:49 | Outpatient (OUT) | payer OTHER, SELFPAY ==
--- NOTE | 2024-03-21 12:52 | US_ITS ---
Patient Name: LEONORA MELARA MR#: [id number] : 1970 Exam Date: 03/21/2024 Ordering Doctor: DR Derrick Butterfield . RADIOLOGY REPORT PROCEDURE: MM TOMOSYNTHESIS DIAGNOSTIC BI, 03/21/2024, 12:55 US BREAST BI LIMITED, 03/21/2024, 13:13 COMPARISON: US BREAST BI LIMITED, 03/21/2024. US BREAST BI LIMITED, 04/13/2023. US RENAL BI, 04/29/2023. MM TOMOSYNTHESIS DIAGNOSTIC BI, 04/13/2023. MG MAMM DX 3D LT CAD, 08/05/2022. INDICATIONS: Bilateral Breast Mass, Mammary Dysplasia Of Right Breast Calculator Name NCI Breast Cancer Risk Assessment Tool 5 Year Breast Cancer Risk 0.80% Lifetime Breast Cancer Risk 6.30% Personal Breast Cancer No Personal Ovarian Cancer No Treatments None Family Cancers Brother with colo-rectal cancer at age 50. LOCATION: [facility] BREAST COMPOSITION: The breasts are extremely dense, which lowers the sensitivity of mammography. FINDINGS: DIAGNOSTIC CATEGORY 2--BENIGN FINDING. NO CHANGE FROM COMPARISON. Scattered benign-appearing calcifications are present. Scattered benign-appearing lymph nodes are present. RIGHT BREAST: No significant suspicious finding. No mammographic abnormality in the upper outer quadrant corresponding patient's palpable abnormality. Ultrasound demonstrates heterogeneous parenchymal pattern likely related to dense breasts LEFT BREAST: No significant suspicious finding. No mammographic abnormality in the upper outer quadrant corresponding to patient's palpable abnormality. Ultrasound demonstrates at the 2 o'clock position a 9.7 x 7.2 x 8.6 mm area of hypo echogenicity with low-level echoes, imperceptible wall and no internal blood flow. This lesion is stable from the prior exam likely represents a complex cyst. No further evaluation is required. RECOMMENDATIONS: ROUTINE MAMMOGRAM AND CLINICAL EVALUATION IN 12 MONTHS. PLEASE NOTE: A NORMAL MAMMOGRAM DOES NOT EXCLUDE THE POSSIBILITY OF BREAST CANCER. A CLINICALLY SUSPICIOUS PALPABLE LUMP SHOULD BE BIOPSIED. Dictated by: Napoleon Nicole MD on 03/21/2024 at 13:27 Approved by: Napoleon Nicole MD on 03/21/2024 at 13:31
--- NOTE | 2024-03-21 12:52 | XR_ITS ---
[address] [address] Patient Name: LEONORA MELARA MRN: [id number] date: 1970 Sex: F Assigned Patient Location: [facility] Current Patient Location: Accession/Order Number: [id number] Exam Date: 03/21/2024 13:24 Report Date: 03/22/2024 05:47 At the request of: TAMIKA GILLILAND Procedure: XR DEXA axial skeleton EXAMINATION: XR DEXA axial skeleton HISTORY: Post Menopausal State COMPARISON: No relevant comparison available. TECHNIQUE: Dual-energy X-ray absorptiometry (DXA) was performed. FINDINGS: SPINE ANALYSIS: Average bone mineral density is 1.467 g/cm2. T-score (standard deviation relative to young adult mean): 2.4 . HIP ANALYSIS: Lowest bone mineral density is within the right femoral neck, 1.121 g/cm2. T-score (standard deviation relative to young adult mean): 0.6 . XR/XR DEXA axial skeleton IMPRESSION: World Health Organization Classification: Normal - Low Fracture Risk FRAX: Cannot be calculated. Pharmacologic treatment recommendations * No uniform recommendation applies to all patients. Management plans must be individualized. * Consider initiating pharmacologic treatment in postmenopausal women and men >= 50 years of age who have the following: Primary fracture prevention: * T-score <= - 2.5 at the femoral neck, total hip, lumbar spine, 33% radius (some uncertainty with existing data) by DXA. * Low bone mass (osteopenia: T-score between - 1.0 and - 2.5) at the femoral neck or total hip by DXA with a 10-year hip fracture risk >= 3% or a 10-year major osteoporosis-related fracture risk >= 20% (i.e., clinical vertebral, hip, forearm, or proximal humerus) based on the US-adapted FRAXregistered model. Secondary fracture prevention: * Fracture of the hip or vertebra regardless of BMD [4, 5]. * Fracture of proximal humerus, pelvis, or distal forearm in persons with low bone mass (osteopenia: T-score between - 1.0 and - 2.5). The decision to treat should be individualized in persons with a fracture of the proximal humerus, pelvis, or distal forearm who do not have osteopenia or low BMD [12, 13]. Cielo MS, Ayleen SL, Choco KL, Mayra EM, Nasreen KG, AJ, Hector ES. The clinician's guide to prevention and treatment of osteoporosis. Osteoporos Int. 2021;33(10):4515-7998. doi: 10.1007/k45966-704-81464-l. Epub 2021Dec 17. Erratum in: Osteoporos Int. 2021Mar 18;: PMID: [id number]; PMCID: [id number]. Electronically authenticated by: MAURILIO LUNDY Date: 03/22/2024 05:47
--- OUTSIDE RECORDS SUMMARY | 2024-03-21 13:01 | XMS_ITS | CCD ---
Author Organization [facility] Care Team Providers Care Lang Path Therapist Name Role Phone DR KHAI JACOBSON Admitting Unavailable MARY, DR RAMIREZ Attending Unavailable [...] Unavailable MARY, DR RAMIREZ Primary Care Unavailable ELSINORE, DR ROSSY Juarez Consulting Unavailable GREER ., [...] JACOBSON Attending Unavailable KHAI JACOBSON Attending Unavailable TAMIKA BUTTERFIELD Attending Unavailable Medications Current Medications Medication Drug Class(es) Dates Sig (Normalized) Sig (Original) acetaminophen 325 mg / HYDROcodone bitartrate 5 mg oral tablet (3 sources) Opioid Agonist Start: 09-26-2023 take 1 tablet by mouth every eight hours HYDROcodone-acetam inophen ([place]) 5-325 MG tablet Indications: Lumbar spondylosis Take [...] tablet (2 sources) Quinolone Antimicrobial Start: 10-03-19 24 End: 10-08-19 24 take 1 tablet by mouth in the morning ciprofloxacin (Cipro) 250 MG tablet Indications: Acute cystitis without hematuria Take 1 tablet (250 mg) by mouth in the morning and 1 tablet (250 mg) before bedtime. Do all this for 5 days. 10 tablet 0 10/03/2023 10/08/2023 Active Start: 04-08-2023 take 1 tablet by jenny th once daily Cipro 500 mg Tab 500 mg = 1 tab(s), Oral, Daily, Take 1 tablet the day before the procedure and 1 tablet after the procedure, # 2 tab(s), Refills(s) 0, Pharmacy: [facility] #[id number], 158, cm, 08/18/23 10:27:00 EDT, Height/Length Dosing, 61, kg, 04/08/23 10:27:00 EDT, Mariam... Start Date: 04/08/23 Status: Ordered estradiol 1 [...] Reference Range Facility Operative Reporton Operative Report [id number] Normal [facility] Consent for Procedure/Surger yon 07-25-2023 Consent for Procedure/Surgery [id number] 0TIFF Normal [facility] Consent for Procedure/Surger yon 05-03-2023 Consent for Procedure/Surgery [id number] 0CD:127 Normal [facility] RAD - Ultrasound Reporton RAD - Ultrasound Report [id number] CD:127 Normal [facility] Ambulatory Visit Summaryon 0 04-08-2023 Ambulatory Visit Summary LEONORA MELARA :1970 Visit Date:04/08/2023 Ambulatory Visit Instructions Your Diagnosis Asymptomatic microscopic hematuria Recurrent UTI Feeling of incomplete bladder emptying Tests Performed Urnls Dip Stick Auto w/o Microscopy POC 54086 US Renal -- Results Pending -- Please [...] with SURY MARRERO, MADALYN Campos When: Where: [address] [place], [place] [id number]- Medications What How Much When Instructions Unchanged [...] Urnls Dip Stick Auto w/o Microscopy POC 57901 (04/08/2023) Bilirubin Urine Dipstick - Negative Blood Urine Dipstick - Trace-intact Glucose Urine Dipstick - Negative Ketones Urine Dipstick - Negative Leukocytes Urine Dipstick - Negative Nitrite Urine Dipstick - Negative Protein Urine Dipstick - Negative Specific [place] Urine Dipstick - 1.015 Urine Appearance Urine [...] these instructions at home: Medicines ? Take ossb-ygn-vkrietv and prescription medicines only as told by [...] water is (more content not included)... Normal [facility] Formson 04-08-2023 Forms [id number] 0CD:127 Normal [facility] Patient Educationon 04-08-20 23 Patient Education [...] these instructions at home: Medicines ? Take kgfd-bsq-blivjzq and prescription medicines only as told by [...] the blood stops without treatment. ? Take jtnq-rrz-rlekemq and prescription medicines only as told by your health care provider. ? Drink enough fluid to keep your urine pale yellow. This information is not intended to replace advice given to you by your health care provider. Make sure you discuss any questions you have with your health care provider. Document Revised: 04/08/2021 Document Reviewed: 04/08/2021 [employer] Patient Education ? 2022 [employer] Normal [facility] Physician Referralon 023 Physician Referral [id number] 0CD:127 Normal [facility] CBC AUTO DIFFon 11-30-2022 BASO # 0.1 103/ul Normal 0.0-0.1 [facility] Comment on above: Performed By: #### C BC #### [facility] [address] [place] [address] Dr. Jovani Adame Basophils/100 WBC (Bld) 0.6 % Normal 0.2-2.0 [facility] Comment on above: Performed By: #### C BC #### [facility] [address] [address] [address] Jovani Adame EO # 0.2 103/ul Normal 0.0-0.7 [facility] Comment on above: Performed By: #### C BC #### [facility] [address] [place] [address] Dr. Jovani Adame Eosinophils/100 WBC (Bld) 2.3 % Normal 0.9-7.0 [facility] Comment on above: Performed By: #### C BC #### [facility] [address] [place] [address] Dr. Jovani Adame Erythrocyte distribution width (RBC) [Ratio] 12.2 % Normal 11.0-15.0 [facility] Comment on above: Performed By: #### C BC #### [facility] [address] [place] [address] Dr. Jovani Adame Hematocrit (Bld) [Volume fraction] 34.9 % Critically low 36.0-48.0 [facility] Comment on above: Performed By: #### C BC #### [facility] [address] [place] [address] Dr. Jovani Adame Hemoglobin (Bld) [Mass/Vol] 12.1 g/dL Normal 12.0-16.0 [facility] Comment on above: Performed By: #### C BC #### [facility] [address] [place] [address] Dr. Jovani Adame IG # 0.01 10e3/ul Normal 0.00-0.03 [facility] Comment on above: Performed By: #### C BC #### [facility] [address] [place] [address] Dr. Jovani Adame IG % 0.1 % Normal 0.0-0.5 [facility] Comment on above: Performed By: #### C BC #### [facility] [address] [place] [address] Dr. Jovani Adame LYMPH # 2.4 103/ul Normal 1.2-3.8 [facility] Comment on above: Performed By: #### C BC #### [facility] [address] [place] [address] Dr. Jovani Adame Lymphocytes/100 WBC (Bld) 29.8 % Normal 20.5-60.0 [facility] Comment on above: Performed By: #### C BC #### [facility] [address] [place] [address] Dr. Jovani Adame MANUAL DIFF REQ NO Normal [facility] Comment on above: Performed By: #### C BC #### [facility] [address] [place] [address] Dr. Jovani Adame MCH (RBC) [Entitic mass] 31.8 pg Normal 26.7-34.0 [facility] Comment on above: Performed By: #### C BC #### [facility] [address] [place] [address] Dr. Jovani Adame MCHC (RBC) [Mass/Vol] 34.7 g/dL Normal 29.9-35.2 [facility] Comment on above: Performed By: #### C BC #### [facility] [address] [place] [address] Dr. Jovani Adame MCV (RBC) [Entitic vol] 91.8 fL Normal 81.0-99.0 [facility] Comment on above: Performed By: #### C BC #### [facility] [address] [place] [address] Dr. Jovani Adame MONO # 0.5 103/ul Normal 0.3-0.8 [facility] Comment on above: Performed By: #### C BC #### [facility] [address] [place] [address] Dr. oJvani Adame Monocytes/100 WBC (Bld) 5.9 % Normal 1.7-12.0 [facility] Comment on above: Performed By: #### C BC #### [facility] [address] [place] [address] Dr. Jovani Adame NEUT # 5.0 103/ul Normal 1.4-6.5 [facility] Comment on above: Performed By: #### C BC #### [facility] [address] [place] [address] Dr. Jovani Adame Neutrophils/100 WBC (Bld) 61.3 % Normal 43.0-75.0 [facility] Comment on above: Performed By: #### C BC #### [facility] [address] [place] [address] Dr. Jovani Adame Platelet mean volume (Bld) [Entitic vol] 10.2 fL Normal 9.5-13.5 [facility] Comment on above: Performed By: #### C BC #### [facility] [address] [place] [address] Dr. Jovani Adame PLT 318 103/ul Normal 150-450 [facility] Comment on above: Performed By: #### C BC #### [facility] [address] [place] [address] Dr. Jovani Adame RBC 3.80 106/ul Critically low 4.20-5.40 [facility] Comment on above: Performed By: #### C BC #### [facility] [address] [place] [address] Dr. Jovani Adame WBC 8.1 103/ul Normal 4.0-11.0 [facility] Comment on above: Performed By: #### C BC #### [facility] [address] [place] [address] Dr. Jovani Adame FREE T4on 11-30-2022 Free T4 [Mass/Vol] 0.89 ng/dL Normal 0.76-1.46 [facility] Comment on above: Performed By: #### U MICRO, UARMICR #### [facility] [address] [address] [address] Jovani Adame GLYCOHEMOGLOBIN A1Con 2022 ADA RECOMMENDATION SEE BELOW Normal [facility] Comment on above: Result Comment: ADA RECOMMENDED LIMIT 4.0 - 6.0 ADA THERAPEUTIC TARGET < 7.0 ACTION SUGGESTED > 7.0 Performed By: #### U MICRO, UARMICR #### [facility] [address] [place] [address] Dr. Jovani Adame Glucose [Mass/Vol] 105 mg/dL Normal [facility] Comment on above: Performed By: #### U MICRO, UARMICR #### [facility] [address] [address] [address] Jovani Adame HbA1c (Bld) [Mass fraction] 5.3 % Normal 4.5-6.2 [facility] Comment on above: Performed By: #### U MICRO, UARMICR #### [facility] [address] [place] [address] Dr. Jovani Adame PROTIMEon 11-30-2022 INR Coag (PPP) [Relative time] 0.97 {INR} Normal [facility] Comment on above: Performed By: #### P T, PTT #### [facility] [address] [place] [address] Dr. Jovani Adame INR GUIDELINES SEE BELOW Normal [facility] Comment on above: Result Comment: MATILDE RED INR: 2.0 - 3.0 CONDITIONS NOT LISTED BELOW 2.5 - 3.5 FOR PROSTHETIC HEART VALVE REPLACEMENT 2.5 - 3.5 RECURRENT THROMBOSIS Performed By: #### P T, PTT #### [facility] [address] [place] [address] Dr. Jovani Adame PT Coag (PPP) [Time] 10.3 s Normal 9.0-11.6 [facility] Comment on above: Performed By: #### P T, PTT #### [facility] [address] [place] [address] Dr. Jovani Adame PTTon 11-30-2022 aPTT Coag (Bld) [Time] 29.4 s Normal 22.3-36.2 [facility] Comment on above: Performed By: #### P T, PTT #### [facility] [address] [place] [address] Dr. Jovani Adame TSHon 11-30-2022 TSH 0.872 uIU/mL Normal 0.358-3.740 [facility] Comment on above: Performed By: #### T SH #### [facility] [address] [place] [address] Dr. Jovani Adame UA (CLEAN/CATCH) MICROSCOPIC IF INDICATEon 11-30-2022 Bilirubin Ql (U) Negative Normal NEGATIVE [facility] Comment on above: Performed By: #### U MICRO, UARMICR #### [facility] [address] [place] [address] Dr. Jovani Adame Clarity (U) CLEAR Normal CLEAR [facility] Comment on above: Performed By: #### U MICRO, UARMICR #### [facility] [address] [place] [address] Dr. Jovani Adame Color (U) LT. YELLOW Normal YELLOW [facility] Comment on above: Performed By: #### U MICRO, UARMICR #### [facility] [address] [place] [address] Dr. Jovani Adame Glucose Ql (U) Negative Normal NEGATIVE [facility] Comment on above: Performed By: #### U MICRO, UARMICR #### [facility] [address] [place] [address] Dr. Jovani Adame Hemoglobin Ql (U) TRACE-INTACT Abnormal NEGATIVE [facility] Comment on above: Performed By: #### U MICRO, UARMICR #### [facility] [address] [place] [address] Dr. Jovani Adame Ketones Ql (U) Negative Normal NEGATIVE [facility] Comment on above: Performed By: #### U MICRO, UARMICR #### [facility] [address] [place] [address] Dr. Jovani Adame LEUKOCYTES Negative Normal NEGATIVE [facility] Comment on above: Performed By: #### U MICRO, UARMICR #### [facility] [address] [address] [address] Jovani Aadme Nitrite Ql (U) Negative Normal NEGATIVE [facility] Comment on above: Performed By: #### U MICRO, UARMICR #### [facility] [address] [place] [address] Dr. Jovani Adame pH (U) 6.5 [pH] Normal 5-9 [facility] Comment on above: Performed By: #### U MICRO, UARMICR #### [facility] [address] [place] [address] Dr. Jovani Adame SPEC GRAVITY 1.010 Normal 1.005-<=1.[address] [facility] Comment on above: Performed By: #### U MICRO, UARMICR #### [facility] [address] [place] [address] Dr. Jovani Adame UA PROTEIN Negative Normal NEGATIVE/ TRACE [facility] Comment on above: Performed By: #### U MICRO, UARMICR #### [facility] [address] [place] [address] Dr. Jovani Adame UR MICRO IND INDICATED Normal [facility] Comment on above: Performed By: #### U MICRO, UARMICR #### [facility] [address] [place] [address] Dr. Jovani Adame Urobilinogen Qn (U) 0.2 {Kaylie'U}/dL Normal 0.2 - 1. 0 [facility] Comment on above: Performed By: #### U MICRO, UARMICR #### [facility] [address] [place] [address] Dr. Jovani Adame URINE MICROSCOPIC ONLYon BACTERIA TRACE Abnormal NONE SEEN [facility] Comment on above: Performed By: #### U MICRO, UARMICR #### [facility] [address] [place] [address] Dr. Jovani Adame Bacteria identified Cx Nom (U) NOT INDICATED Normal [facility] Comment on above: Performed By: #### U MICRO, UARMICR #### [facility] [address] [place] [address] Dr. Jovani Adame CAST NONE SEEN Normal NONE SEEN [facility] Comment on above: Performed By: #### U MICRO, UARMICR #### [facility] [address] [place] [address] Dr. Jovani Adame Crystals LM Nom (Urine sed) NONE SEEN Normal NONE SEEN [facility] Comment on above: Performed By: #### U MICRO, UARMICR #### [facility] [address] [place] [address] Dr. Jovani Adame Epithelial cells LM Ql (Urine sed) MODERATE Abnormal NONE SEEN /RARE [facility] Comment on above: Performed By: #### U MICRO, UARMICR #### [facility] [address] [place] [address] Dr. Jovani Adame MUCOUS NONE SEEN Normal NONE SEEN [facility] Comment on above: Performed By: #### U MICRO, UARMICR #### [facility] [address] [place] [address] Dr. Jovani Adame RBC 2-5 Abnormal 0-2 [facility] Comment on above: Performed By: #### U MICRO, UARMICR #### [facility] [address] [place] [address] Dr. Jovani Adame WBC NONE SEEN Normal NONE SEEN [facility] Comment on above: Performed By: #### U MICRO, UARMICR #### [facility] [address] [place] [address] Dr. Jovani Adame MG MAMM DX 3D LT CADon 08-05 MG MAMM DX 3D LT CAD Patient: LEONORA MELARA Exam Date: 08/05/2022 : 1970 Gender:F Ordering : DR TAMIKA BUTTERFIELD . Admission #: [id number] Family : Order #: [id number] CLICK HERE TO VIEW EXAM RADIOLOGY REPORT [...] colo-rectal cancer at age 52. LOCATION: [facility] BREAST COMPOSITION: Extremely dense, which lowers the [...] MD on 08/05/2022 at 11:45 Normal [facility] US BREAST LEFT LIMITEDon US BREAST LEFT LIMITED Patient: LEONORA MELARA Exam Date: 08/05/2022 : 1970 Gender:F Ordering : DR TAMIKA BUTTERFIELD . Admission #: [id number] Family : Order #: [id number] CLICK HERE TO VIEW EXAM RADIOLOGY REPORT [...] colo-rectal cancer at age 52. LOCATION: [facility] BREAST COMPOSITION: Extremely dense, which lowers the [...] Nicole MD on 08/05/2022 at 11:45 Normal [facility] PAP ACOG PANEL 2: 30 to 65on 08-03-2022 . . Normal [facility] Comment on above: Result Comment: Perf ormed at: WB Performed By: #### U MICRO, UARMICR #### [facility] [address] [address] [address] Jovani Adame Age Gdln ACOG Testing 30-65 Normal [facility] Comment on above: Performed By: #### U MICRO, UARMICR #### [facility] [address] [place], [place] [address] Dr. Jovani Adame DIAGNOSIS: Comment Normal [facility] Comment on above: Result Comment: NEGA TIVE FOR INTRAEPITHELIAL LESION OR MALIGNANCY. Performed at: WB Performed By: #### U MICRO, UARMICR #### [facility] [address] [address] [address] Jovani Adame HPV Aptima Negative Normal Negative [facility] Comment on above: Result Comment: This nucleic acid amplification test detects fourteen high-risk HPV types (16,18,31,33,35,39,45,51,52,56,58,59,66,68) without differentiation. Performed at: =G Performed By: #### U MICRO, UARMICR #### [facility] [address] [address] [address] Jovani Adame HPV Genotype Reflex Comment Normal [facility] Comment on above: Result Comment: Crit eria not met, HPV Genotype not performed. Performed at: WB Performed By: #### U MICRO, UARMICR #### [facility] [address] [address] [address] Jovani Adame Methodology: Comment Normal [facility] Comment on above: Result Comment: This liquid based ThinPrep(R) pap test was screened with the use of an image guided system. Performed at: WB Performed By: #### U MICRO, UARMICR #### [facility] [address] [address] [address] Jovani Adame Note: Comment Normal [facility] Comment on above: Result Comment: The Pap [...] Performed By: #### U MICRO, UARMICR #### [facility] [address] [address] [address] Jovani Adame Performed by: Comment Normal [facility] Comment on above: Result Comment: Gemma Squires, Lap Machine Tender Performed at: WB Performed By: #### U MICRO, UARMICR #### [facility] [address] [address] [address] Jovani Adame Specimen adequacy: Comment Normal [facility] Comment on above: Result Comment: Sati sfactory for evaluation. No endocervical component is identified. Performed at: WB Performed By: #### U MICRO, UARMICR #### [facility] [address] [address] [address] Jovani Adame MG MAMM SCREEN 3D JEN CADon 04-29-2022 MG MAMM SCREEN 3D JEN CAD Patient: LEONORA MELARA Exam Date: 04/29/2022 : 1970 Gender:F Ordering : DR KHAI JACOBSON M.D. Admission #: [id number] Family : DR LUNDBERG GREER . Order #: [id number] CLICK HERE TO VIEW EXAM RADIOLOGY REPORT [...] colo-rectal cancer at age 52. LOCATION: [facility] BREAST COMPOSITION: Extremely dense, which lowers the [...] White M.D. on 04/30/2022 at 08:10 Normal [facility] Vital Signs Date Time Vital Sign Value Performing Clinician Rodrigo barroso 04-08-2023 10:20-0400 Blood Pressure Location [facility] 04-08-2023 10:20-0400 Diastolic blood pressure 92 mm[Hg] [facility] 04-08-2023 10:20-0400 Heart rate 78 /min [facility] 04-08-2023 10:20-0400 Systolic blood pressure 124 mm[Hg] [facility] Encounters Encounter Date Encounter Type Care Provider Facility Start: 02-21-2024 End: 02-21-2024 ambulatory TAMIKA BUTTERFIELD Not Available Start: 12-07-2023 End: 12-07-2023 ambulatory KHAI JACOBSON [...] Start: 09-05-2023 End: 09-06-2023 ambulatory [facility] Facility:CD:[id number] Start: 04-08-2023 End: 04-09-2023 ambulatory Tamika BUTTERFIELD Facility:[facility] Start: 04-08-2023 End: 04-08-2023 Patient encounter procedure [facility] Start: 12-21-2022 ambulatory [facility] Facili ty: [facility] Start: 12-06-2022 End: 12-07-[address] TAMIKA BUTTERFIELD . Facility: Start: 11-30-2022 End: 12-01-[address] TAMIKA [...] on above: LEFT Elbow fracture (disorder) [facility] Comment on above: ORIF, RIGHT Laparoscopic cholecystectomy [facility] Ligation of fallopian tube P [facility] Tonsillectomy [facility] Plan of Treatment Date Care Activity Detail Author Start: 07-13-2032 Screening for malign ant neoplasm of colon [facility] Start: 04-12-2025 Screening for malign ant neoplasm of colon FIT-DNA [facility] Start: 02-21-2024 End: 02-21-2024 Patient encounter procedure 02/21/2024 2:00 PM EDT Office Visit [facility] [address] [place] [address] Tamika Butterfield, DO [address] [place], [place] [id number] [facility] Start: 08-05-2023 Screening for malign ant neoplasm of breast Mammogram [facility] Start: 04-22-2023 Influenza vaccination Influenza Vacc ine (#1) [facility] Start: 01-10-2002 Screening for malign ant neoplasm of cervix [facility] Start: 01-10-1993 Screening for malign ant neoplasm of cervix Pap Smear [facility] Start: 1970 Screening for malign ant neoplasm of colon [facility] Immunizations Immunization Date Immunization Notes Care Provider Fa ayla 06-22-2018 poliovirus vaccine, inactivated Khai Jacobson MD Work Phone: [facility] 06-22-2018 tetanus toxoid, redu violette diphtheria toxoid, and acellular pertussis vaccine, adsorbed Khai Jacobson MD Work Phone: [facility] 06-01-2018 hepatitis A vaccine, adult dosage Khai Jacobson MD Work Phone: [facility] 06-01-2018 hepatitis B vaccine, adult dosage Khai Jacobson MD Work Phone: [facility] 01-12-2018 hepatitis B vaccine, adult dosage Khai Jacobson MD Work Phone: [facility] 01-06-2018 typhoid vaccine, luisa e, oral Khai Jacobson MD Work Phone: [facility] 12-09-2017 hepatitis A vaccine, adult dosage Khai Jacobson MD Work Phone: [facility] 12-09-2017 hepatitis B vaccine, adult dosage Khai Jacobson MD Work Phone: [facility] Payers Date Payer Category Payer Unknown [employer] [id number] 2022-Present [address] [place] [address] [id number] 1970 Unknown [id number] 1970 Unknown [id number] 1970 Unknown [id number] 1970 Unknown [id number] 1970 Unknown [id number] 1970 Unknown [id number] 1970 Unknown [id number] 1972 Unknown [id number] 1972 Unknown [id number] 1972 Unknown [id number] 1972 Unknown [id number] 1959 Unknown [id number] Social History Date Type Detail Facility Start: 04-08-2023 Tobacco smoking status Smokele ss tobacco user within last 30 days [facility] Start: 06-29-2023 Sex Assigned At Female F [facility] Start: 02-17-2023 Tobacco smoking stat us FLIS Never smoked tobacco [facility] Start: 02-17-2023 [...] 04-08-2023 Functional Status N/A [facility] Clinical Notes 12-06-2022 to 10-03-2023 Telephone Encounter - Khai Jacobson MD - 10/03/2023 1:57 PM ESTTelephone Encounter - Khai Jacobson MD - 10/03/2023 1:57 PM ESTTelephone Encounter - Laisha Isaacs - 10/03/2023 10:41 AM EST Note Date & Type Note Facility 10-03-2023 Telephone encounter Note A prescription without a prescription was called in as requested. [facility] 10-03-2023 Miscellaneous Notes A prescription without a prescription was called in as requested. Pt called and said she has an UTI and asked if a prescription could be called in for her without a prescription documented in this encounter [facility] 10-03-2023 Telephone encounter Note Pt called and said she has an UTI and asked if a prescription could be called in for her without a prescription [facility] 09-28-2023 Telephone encounter Note Rx was sent [facility] 09-28-2023 Miscellaneous Notes Rx was sent She is taking this for nausea , did know if you would send in or needed an appt for this Pt is requesting prometilazine she has not had this in awhile ok to give pt Needs sent to [facility] documented in this encounter [facility] 09-28-2023 Telephone encounter Note She is taking this for nausea , did know if you would send in or needed an appt for this [facility] 09-28-2023 Telephone encounter Note Pt is requesting prometilazine she has not had this in awhile ok to give pt Needs sent to [facility] in [place] [facility] 04-08-2023 Note 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 Philippe on 04/08/2023 11:32:29. . Documentation recorded by the Smitha corey, accurately reflects the services(s) I performed and [...] mg-5 mg Ta (more content not included)... [facility] Comment on above: Result Comment: Elec [...] Follow these instructions at home: Medicines Take ejwy-cxw-ujiklmw and prescription medicines only as told by [...] or the blood stops without treatment. Take khfv-ndk-[id number] and prescription medicines only as told by your health care provider. Drink enough fluid to keep your urine pale yellow. This information is not intended to replace advice given to you by your health care provider. Make sure you discuss any questions you have with your health care provider. Document Revised: 04/08/2021 Document Reviewed: 04/08/2021 NOTIK Patient Education 2022 [employer]. Follow Up Care 12/21/2022 14:38:53 With:SURY MARRERO, Curry Fay, URL Address: [address] [place] [id number]- When: Unknown [facility] 12-06-2022 Note PROCEDURE: US PELVIS AND [...] authenticated by: FOREIGN ORTEZ Date: 2022-12-06 15:05 [facility] Evaluation + Plan note No data available for this section [facility] Evaluation note Diagnosis Nausea- Primary Nausea alone [facility] Acute cystitis without hematuria- Primary [facility] No data available for this section [facility] Summary Purpose Family History No Family History Records FoundNo Family History Records FoundNo Family History Records Found Advance Directives No Advanced Directives Records FoundNo Advanced Directives Records FoundNo Advanced Directives Records Found Additional Source Comments INFORMATION SOURCE (unrecogn ized section and content) DATE CREATED AUTHOR 12/12/2022 [facility] DATE CREATED AUTHOR AUTHOR'S ORGANIZ ATION 09/22/2023 [facility] DATE CREATED AUTHOR AUTHOR'S ORGANIZ ATION 02/22/2024 [facility] EPIC Patient Care team informatio n (unrecognized section and content) Lang Path Therapist Relationship Specialty Start Date End Date Khai Jacobson MD [address] [place] [address] PCP - Medical [employer] 01/20/23 Khai Jacobson MD [address] [place] [address] PCP - General Internal Medicine 02/23/23 [facility] Relationship Specialty Start Date End Date Khai Jacobson MD [address] [place] [address] PCP - Medical [employer] 01/20/23 Khai Jacobson MD [address] [place] [address] PCP - General Internal Medicine 02/23/23 Reason [...] BE BASED ON THE PRIMARY CLINICAL RECORDS. [facility]. provides no warranty or guarantee of the accuracy or completeness of information in this document.
== END 2024-03-21 12:50 | disposition home or self-care (01) ==
LOC: MAMMO 12:50
PROVIDERS: PCP Internal Medicine; Visit Provider Obstetrics & Gynecology
DX: N63.10 Unspecified lump in the right breast, unspecified quadrant (principal); N63.20 Unspecified lump in the left breast, unspecified quadrant; N60.81 Other benign mammary dysplasias of right breast; Z78.0 Asymptomatic menopausal state; Z80.0 Family history of malignant neoplasm of digestive organs; N63.11 Unspecified lump in the right breast, upper outer quadrant; N63.21 Unspecified lump in the left breast, upper outer quadrant
CPT/HCPCS: 76642; 77066; 77080; G0279

== ENCOUNTER 2024-06-05 14:53 | Outpatient (OUT) | payer OTHER, SELFPAY ==
--- OUTSIDE RECORDS SUMMARY | 2024-06-05 15:01 | XMS_ITS | CCD ---
Author Organization [facility] Care Team Providers Care Commercial Sales Director Name Role Phone DR KHAI JACOBSON Admitting [...] Unavailable MARY, DR RAMIREZ Primary Care Unavailable [place], DR ROSSY Juarez Consulting Unavailable GREER ., DR LUNDBERG Consulting Unavailable GREER ., DR LUNDBERG Admitting Unavailable GREER ., DR LUNDBERG Attending Unavailable MARY, DR RAMIREZ Primary Care Unavailable GREER ., DR LUNDBERG Consulting Unavailable KHAI JACOBSON Primary Care Physician Curry PHILIPPE Attending Unavailable Tamika BUTTERFIELD Referring Unavailable Curry PHILIPPE Attending Unavailable Curry PHILIPPE Attending Unavailable Khai Jacobson MD Unavailable [phone] hKai Jacobson MD Primary Care Provider KHAI JACOBSON Attending Unavailable KHAI JACOBSON Attending Unavailable TAMIKA BUTTERFIELD Attending Unavailable KHAI JACOBSON Attending Unavailable Medications Current Medications Medication Drug Class(es) Dates Sig (Normalized) Sig (Original) acetaminophen 325 mg / HYDROcodone bitartrate 5 mg oral tablet (3 sources) Opioid Agonist Start: 02-05-2024 take 1 tablet by mouth every eight hours HYDROcodone-acetam inophen ([place]) 5-325 MG tablet Indications: Lumbar spondylosis Take [...] procedure, # 2 tab(s), Refills(s) 0, Pharmacy: [facility] #[id number], 158, cm, 04/08/23 10:27:00 EDT, Height/Length Dosing, 61, kg, 04/08/23 10:27:00 EDT, .. Start Date: 04/08/23 Status: Ordered estradiol 1 [...] Reference Range Facility Operative Reporton Operative Report [id number] 0TIFF Normal [facility] Consent for Procedure/Surger yon 07-25-2023 Consent for Procedure/Surgery [id number] 0TIFF Normal [facility] Consent for Procedure/Surger yon 05-03-2023 Consent for Procedure/Surgery [id number] 0CD:127 Normal [facility] RAD - Ultrasound Reporton RAD - Ultrasound Report [id number] CD:127 Normal [facility] Ambulatory Visit Summaryon 0 04-08-2023 Ambulatory Visit Summary LEONORA MELARA :1970 Visit Date:04/08/2023 Ambulatory Visit Instructions Your Diagnosis Asymptomatic microscopic hematuria Recurrent UTI Feeling of incomplete bladder emptying Tests Performed Urnls Dip Stick Auto w/o Microscopy POC 01173 US Renal -- Results Pending -- Please [...] with SURY MARRERO, MADALYN Campos When: Where: [address] [place] [address]- Medications What How Much When Instructions Unchanged [...] Urnls Dip Stick Auto w/o Microscopy POC 54020 (04/08/2023) Bilirubin Urine Dipstick - Negative Blood Urine Dipstick - Trace-intact Glucose Urine Dipstick - Negative Ketones Urine Dipstick - Negative Leukocytes Urine Dipstick - Negative Nitrite Urine Dipstick - Negative Protein Urine Dipstick - Negative Specific [place] Urine Dipstick - 1.015 Urine Appearance Urine [...] these instructions at home: Medicines ? Take fqsh-pxc-hjnvlnd and prescription medicines only as told by [...] water is (more content not included)... Normal [facility] Formson 04-08-2023 Forms [id number] 0CD:127 Normal [facility] Patient Educationon 04-08-20 23 Patient Education [...] these instructions at home: Medicines ? Take omap-erf-yeyxhbg and prescription medicines only as told by [...] the blood stops without treatment. ? Take cmbf-knz-dngocfd and prescription medicines only as told by your health care provider. ? Drink enough fluid to keep your urine pale yellow. This information is not intended to replace advice given to you by your health care provider. Make sure you discuss any questions you have with your health care provider. Document Revised: 04/08/2021 Document Reviewed: 04/08/2021 [employer] Patient Education ? 2022 [employer] Normal [facility] Physician Referralon 023 Physician Referral [id number] 0CD:127 Normal [facility] CBC AUTO DIFFon 11-30-2022 BASO # 0.1 103/ul Normal 0.0-0.1 [facility] Comment on above: Performed By: #### C BC #### [facility] [address] [place] [address] Dr. Jovani Adame Basophils/100 WBC (Bld) 0.6 % Normal 0.2-2.0 [facility] Comment on above: Performed By: #### C BC #### [facility] [address] [address] [address] Jovani Adame EO # 0.2 103/ul Normal 0.0-0.7 [facility] Comment on above: Performed By: #### C BC #### [facility] [address] [address] [address] Jovani Adame Eosinophils/100 WBC (Bld) 2.3 % Normal 0.9-7.0 [facility] Comment on above: Performed By: #### C BC #### [facility] [address] [address] [address] Jovani Adame Erythrocyte distribution width (RBC) [Ratio] 12.2 % Normal 11.0-15.0 [facility] Comment on above: Performed By: #### C BC #### [facility] [address] [place] [address] Dr. Jovani Adame Hematocrit (Bld) [Volume fraction] 34.9 % Critically low 36.0-48.0 [facility] Comment on above: Performed By: #### C BC #### [facility] [address] [place] [address] Dr. Jovani Adame Hemoglobin (Bld) [Mass/Vol] 12.1 g/dL Normal 12.0-16.0 [facility] Comment on above: Performed By: #### C BC #### [facility] [address] [place] [address] Dr. Jovani Adame IG # 0.01 10e3/ul Normal 0.00-0.03 [facility] Comment on above: Performed By: #### C BC #### [facility] [address] [place] [address] Dr. Jovani Adame IG % 0.1 % Normal 0.0-0.5 [facility] Comment on above: Performed By: #### C BC #### [facility] [address] [place] [address] Dr. Jovani Adame LYMPH # 2.4 103/ul Normal 1.2-3.8 [facility] Comment on above: Performed By: #### C BC #### [facility] [address] [place] [address] Dr. Jovani Adame Lymphocytes/100 WBC (Bld) 29.8 % Normal 20.5-60.0 [facility] Comment on above: Performed By: #### C BC #### [facility] [address] [place] [address] Dr. Jovani Adame MANUAL DIFF REQ NO Normal [facility] Comment on above: Performed By: #### C BC #### [facility] [address] [place] [address] Dr. Jovani Adame MCH (RBC) [Entitic mass] 31.8 pg Normal 26.7-34.0 [facility] Comment on above: Performed By: #### C BC #### [facility] [address] [place] [address] Dr. Jovani Adame MCHC (RBC) [Mass/Vol] 34.7 g/dL Normal 29.9-35.2 [facility] Comment on above: Performed By: #### C BC #### [facility] [address] [place] [address] Dr. Jovani Adame MCV (RBC) [Entitic vol] 91.8 fL Normal 81.0-99.0 [facility] Comment on above: Performed By: #### C BC #### [facility] [address] [place] [address] Dr. Jovani Adame MONO # 0.5 103/ul Normal 0.3-0.8 [facility] Comment on above: Performed By: #### C BC #### [facility] [address] [place] [address] Dr. Jovani Adame Monocytes/100 WBC (Bld) 5.9 % Normal 1.7-12.0 [facility] Comment on above: Performed By: #### C BC #### [facility] [address] [place] [address] Dr. Jovani Adame NEUT # 5.0 103/ul Normal 1.4-6.5 [facility] Comment on above: Performed By: #### C BC #### [facility] [address] [place] [address] Dr. Jovani Adame Neutrophils/100 WBC (Bld) 61.3 % Normal 43.0-75.0 [facility] Comment on above: Performed By: #### C BC #### [facility] [address] [place] [address] Dr. Jovani Adame Platelet mean volume (Bld) [Entitic vol] 10.2 fL Normal 9.5-13.5 [facility] Comment on above: Performed By: #### C BC #### [facility] [address] [place] [address] Dr. Jovani Adame PLT 318 103/ul Normal 150-450 [facility] Comment on above: Performed By: #### C BC #### [facility] [address] [place] [address] Dr. Jovani Adame RBC 3.80 106/ul Critically low 4.20-5.40 [facility] Comment on above: Performed By: #### C BC #### [facility] [address] [place] [address] Dr. Jovani Adame WBC 8.1 103/ul Normal 4.0-11.0 [facility] Comment on above: Performed By: #### C BC #### [facility] [address] [place] [address] Dr. Jovani Adame FREE T4on 11-30-2022 Free T4 [Mass/Vol] 0.89 ng/dL Normal 0.76-1.46 [facility] Comment on above: Performed By: #### U MICRO, UARMICR #### [facility] [address] [place] [address] Dr. Jovani Adame GLYCOHEMOGLOBIN A1Con 2022 ADA RECOMMENDATION SEE BELOW Normal [facility] Comment on above: Result Comment: ADA RECOMMENDED LIMIT 4.0 - 6.0 ADA THERAPEUTIC TARGET < 7.0 ACTION SUGGESTED > 7.0 Performed By: #### U MICRO, UARMICR #### [facility] [address] [place] [address] Dr. Jovani Adame Glucose [Mass/Vol] 105 mg/dL Normal [facility] Comment on above: Performed By: #### U MICRO, UARMICR #### [facility] [address] [place] [address] Dr. Jovani Adame HbA1c (Bld) [Mass fraction] 5.3 % Normal 4.5-6.2 [facility] Comment on above: Performed By: #### U MICRO, UARMICR #### [facility] [address] [place] [address] Dr. Jovani Adame PROTIMEon 11-30-2022 INR Coag (PPP) [Relative time] 0.97 {INR} Normal [facility] Comment on above: Performed By: #### P T, PTT #### [facility] [address] [place] [address] Dr. Jovani Adame INR GUIDELINES SEE BELOW Normal [facility] Comment on above: Result Comment: MATILDE RED INR: 2.0 - 3.0 CONDITIONS NOT LISTED BELOW 2.5 - 3.5 FOR PROSTHETIC HEART VALVE REPLACEMENT 2.5 - 3.5 RECURRENT THROMBOSIS Performed By: #### P T, PTT #### [facility] [address] [place] [address] Dr. Jovani Adame PT Coag (PPP) [Time] 10.3 s Normal 9.0-11.6 [facility] Comment on above: Performed By: #### P T, PTT #### [facility] [address] [place] [address] Dr. Jovani Adame PTTon 11-30-2022 aPTT Coag (Bld) [Time] 29.4 s Normal 22.3-36.2 [facility] Comment on above: Performed By: #### P T, PTT #### [facility] [address] [place] [address] Dr. Jovani Adame TSHon 11-30-2022 TSH 0.872 uIU/mL Normal 0.358-3.740 [facility] Comment on above: Performed By: #### T SH #### [facility] [address] [place] [address] Dr. Jovani Adame UA (CLEAN/CATCH) MICROSCOPIC IF INDICATEon 11-30-2022 Bilirubin Ql (U) Negative Normal NEGATIVE [facility] Comment on above: Performed By: #### U MICRO, UARMICR #### [facility] [address] [place] [address] Dr. Jovani Adame Clarity (U) CLEAR Normal CLEAR [facility] Comment on above: Performed By: #### U MICRO, UARMICR #### [facility] [address] [place] [address] Dr. Jovani Adame Color (U) LT. YELLOW Normal YELLOW [facility] Comment on above: Performed By: #### U MICRO, UARMICR #### [facility] [address] [place] [address] Dr. Jovani Adame Glucose Ql (U) Negative Normal NEGATIVE [facility] Comment on above: Performed By: #### U MICRO, UARMICR #### [facility] [address] [place] [address] Dr. Jovani Adame Hemoglobin Ql (U) TRACE-INTACT Abnormal NEGATIVE [facility] Comment on above: Performed By: #### U MICRO, UARMICR #### [facility] [address] [place] [address] Dr. Jovani Adame Ketones Ql (U) Negative Normal NEGATIVE [facility] Comment on above: Performed By: #### U MICRO, UARMICR #### [facility] [address] [place] [address] Dr. Jovani Adame LEUKOCYTES Negative Normal NEGATIVE [facility] Comment on above: Performed By: #### U MICRO, UARMICR #### [facility] [address] [place] [address] Dr. Jovani Adame Nitrite Ql (U) Negative Normal NEGATIVE [facility] Comment on above: Performed By: #### U MICRO, UARMICR #### [facility] [address] [place] [address] Dr. Jovani Adame pH (U) 6.5 [pH] Normal 5-9 [facility] Comment on above: Performed By: #### U MICRO, UARMICR #### [facility] [address] [place] [address] Dr. Jovani Adame SPEC GRAVITY 1.010 Normal 1.005-<=1.025 [facility] Comment on above: Performed By: #### U MICRO, UARMICR #### [facility] [address] [place] [address] Dr. Jovani Adame UA PROTEIN Negative Normal NEGATIVE/ TRACE [facility] Comment on above: Performed By: #### U MICRO, UARMICR #### [facility] [address] [place] [address] Dr. Jovani Adame UR MICRO IND INDICATED Normal [facility] Comment on above: Performed By: #### U MICRO, UARMICR #### [facility] [address] [place] [address] Dr. Jovani Adame Urobilinogen Qn (U) 0.2 {Kaylie'U}/dL Normal 0.2 - 1. 0 [facility] Comment on above: Performed By: #### U MICRO, UARMICR #### [facility] [address] [place], [place] [id number] Dr. Jovani Adame URINE MICROSCOPIC ONLYon BACTERIA TRACE Abnormal NONE SEEN [facility] Comment on above: Performed By: #### U MICRO, UARMICR #### [facility] [address] [place] [address] Dr. Jovani Adame Bacteria identified Cx Nom (U) NOT INDICATED Normal [facility] Comment on above: Performed By: #### U MICRO, UARMICR #### [facility] [address] [place] [address] Dr. Jovani Adame CAST NONE SEEN Normal NONE SEEN [facility] Comment on above: Performed By: #### U MICRO, UARMICR #### [facility] [address] [place] [address] Dr. Jovani Adame Crystals LM Nom (Urine sed) NONE SEEN Normal NONE SEEN [facility] Comment on above: Performed By: #### U MICRO, UARMICR #### [facility] [address] [place] [address] Dr. Jovani Adame Epithelial cells LM Ql (Urine sed) MODERATE Abnormal NONE SEEN /RARE [facility] Comment on above: Performed By: #### U MICRO, UARMICR #### [facility] [address] [place] [address] Dr. Jovani Adame MUCOUS NONE SEEN Normal NONE SEEN [facility] Comment on above: Performed By: #### U MICRO, UARMICR #### [facility] [address] [place] [address] Dr. Jovani Adame RBC 2-5 Abnormal 0-2 [facility] Comment on above: Performed By: #### U MICRO, UARMICR #### [facility] [address] [place] [address] Dr. Jovani Adame WBC NONE SEEN Normal NONE SEEN [facility] Comment on above: Performed By: #### U MICRO, UARMICR #### [facility] [address] [place] [address] Dr. Jovani Adame MG MAMM DX 3D LT CADon 08-05 MG MAMM DX 3D LT CAD Patient: LEONORA MELARA Exam Date: 08/05/2022 : 1970 Gender:F Ordering : DR TAMIKA BUTTERFIELD . Admission #: [id number] Family : Order #: [id number] CLICK HERE TO VIEW EXAM RADIOLOGY REPORT [...] colo-rectal cancer at age 52. LOCATION: [facility] BREAST COMPOSITION: Extremely dense, which lowers the [...] MD on 08/05/2022 at 11:45 Normal [facility] US BREAST LEFT LIMITEDon US BREAST LEFT LIMITED Patient: LEONORA MELARA Exam Date: 08/05/2022 : 1970 Gender:F Ordering : DR TAMIKA BUTTERFIELD . Admission #: [id number] Family : Order #: [id number] CLICK HERE TO VIEW EXAM RADIOLOGY REPORT [...] colo-rectal cancer at age 52. LOCATION: [facility] BREAST COMPOSITION: Extremely dense, which lowers the [...] Nicole MD on 08/05/2022 at 11:45 Normal [facility] PAP ACOG PANEL 2: 30 to 65on 08-03-2022 . . Normal [facility] Comment on above: Result Comment: Perf ormed at: WB Performed By: #### U MICRO, UARMICR #### [facility] [address] [address] [address] Jovani Adame Age Gdln ACOG Testing 30-65 Normal [facility] Comment on above: Performed By: #### U MICRO, UARMICR #### [facility] [address] [address] [address] Joavni Adame DIAGNOSIS: Comment Normal [facility] Comment on above: Result Comment: NEGA TIVE FOR INTRAEPITHELIAL LESION OR MALIGNANCY. Performed at: WB Performed By: #### U MICRO, UARMICR #### [facility] [address] [address] [address] Jovani Adame HPV Aptima Negative Normal Negative [facility] Comment on above: Result Comment: This nucleic acid amplification test detects fourteen high-risk HPV types (16,18,31,33,35,39,45,51,52,56,58,59,66,68) without differentiation. Performed at: =G Performed By: #### U MICRO, UARMICR #### [facility] [address] [address] [address] Jovani Adame HPV Genotype Reflex Comment Normal [facility] Comment on above: Result Comment: Crit eria not met, HPV Genotype not performed. Performed at: WB Performed By: #### U MICRO, UARMICR #### [facility] [address] [place] [address] Dr. Jovani Adame Methodology: Comment Normal [facility] Comment on above: Result Comment: This liquid based ThinPrep(R) pap test was screened with the use of an image guided system. Performed at: WB Performed By: #### U MICRO, UARMICR #### [facility] [address] [place] [address] Dr. Jovani Adame Note: Comment Normal [facility] Comment on above: Result Comment: The Pap [...] Performed By: #### U MICRO, UARMICR #### [facility] [address] [address] [address] Jovani Adame Performed by: Comment Normal [facility] Comment on above: Result Comment: Gemma Squires, Ham Boner Performed at: WB Performed By: #### U MICRO, UARMICR #### [facility] [address] [address] [address] Jovani Adame Specimen adequacy: Comment Normal [facility] Comment on above: Result Comment: Sati sfactory for evaluation. No endocervical component is identified. Performed at: WB Performed By: #### U MICRO, UARMICR #### [facility] [address] [address] [address] Jovani Adame MG MAMM SCREEN 3D JEN CADon 04-29-2022 MG MAMM SCREEN 3D JEN CAD Patient: LEONORA MELARA Exam Date: 04/29/2022 : 1970 Gender:F Ordering : DR KHAI JACOBSON M.D. Admission #: [id number] Family : DR TAMIKA BUTTERFIELD . Order #: [id number] CLICK HERE TO VIEW EXAM RADIOLOGY REPORT [...] colo-rectal cancer at age 52. LOCATION: [facility] BREAST COMPOSITION: Extremely dense, which lowers the [...] White M.D. on 04/30/2022 at 08:10 Normal [facility] Vital Signs Date Time Vital Sign Value Performing Clinician Rodrigo barroso 04-08-2023 10:20-0400 Blood Pressure Location Curry PHILIPPE [facility] 04-08-2023 10:20-0400 Diastolic blood pressure 92 mm[Hg] Curry PHILIPPE [facility] 04-08-2023 10:20-0400 Heart rate 78 /min Curry SURY [facility] 04-08-2023 10:20-0400 Systolic blood pressure 124 mm[Hg] Curry PHILIPPE [facility] Encounters Encounter Date Encounter Type Care Provider Facility Start: 04-16-2024 End: 04-16-2024 ambulatory KHAI JACOBSON Not Available Start: 02-21-2024 End: 02-21-2024 ambulatory TAMIKA BUTTERFIELD [...] Start: 09-05-2023 End: 09-06-2023 ambulatory Curry PHILIPPE Facility:CD:[id number] Start: 04-08-2023 End: 04-09-2023 ambulatory Tamika BUTTERFIELD [facility] Start: 04-08-2023 End: 04-08-2023 Patient encounter procedure Curry PHILIPPE [facility] Start: 12-21-2022 ambulatory Curry Yei ty:PHYLLIS [place] Start: 12-06-2022 End: 12-07-[address] TAMIKA BUTTERFIELD . Facility: Start: 11-30-2022 End: 12-01-[address] TAMIKA BUTTERFIELD . Facility:[facility] Start: 08-05-2022 End: 08-06-[address] TAMIKA BUTTERFIELD . Facility:[facility] Start: 07-26-2022 End: 07-26-[address] TAMIKA BUTTERFIELD . Facility:[facility] Start: 04-29-2022 End: 04-30-[address] KHAI JACOBSON Facility: Procedures Date Procedure Procedure Detail Performing Clinician Start: 08-05-2022 Mammography Khai roegrs MD Work Phone: Start: 07-13-2022 Colonoscopy Khai rogers MD Work Phone: Start: 05-23-2013 Arthroscopy of knee Lata PHILIPPE Comment on above: Left knee: partial L M Appendectomy Curry PHILIPPE Decompression of med jayesh nerve Curry PHILIPPE Comment on above: LEFT Elbow fracture (disorder) Pa miguelito SURY Comment on above: ORIF, RIGHT Laparoscopic cholecystectomy Curry PHILIPPE Ligation of fallopian tube P gricelda PHILIPPE Tonsillectomy Curry PHILIPPE Plan of Treatment Date Care Activity Detail Author Start: 07-13-2032 Screening for malign ant neoplasm of colon [facility] Start: 04-12-2025 Screening for malign ant neoplasm of colon FIT-DNA [facility] Start: 02-21-2024 End: 02-21-2024 Patient encounter procedure 02/21/2024 2:00 PM EDT Office Visit [facility] [address] [address] Tamika Butterfield, [address] [place], [place] [id number] [facility] Start: 08-05-2023 Screening for malign ant neoplasm of breast Mammogram [facility] Start: 04-22-2023 Influenza vaccination Influenza Vacc ine (#1) [facility] Start: 01-10-2002 Screening for malign ant neoplasm of cervix [facility] Start: 01-10-1993 Screening for malign ant neoplasm of cervix Pap Smear [facility] Start: 1970 Screening for malign ant neoplasm of colon [facility] Immunizations Immunization Date Immunization Notes Care Provider Debby aguila 06-22-2018 poliovirus vaccine, inactivated Khai Jacobson MD Work Phone: [facility] 06-22-2018 tetanus toxoid, redu violette diphtheria toxoid, and acellular pertussis vaccine, adsorbed Khai Jacobson MD Work Phone: [facility] 06-01-2018 hepatitis A vaccine, adult dosage Khai Jacobson MD Work Phone: [facility] 06-01-2018 hepatitis B vaccine, adult dosage Khai Jacobson MD Work Phone: [facility] 01-12-2018 hepatitis B vaccine, adult dosage Khai Jacobson MD Work Phone: [facility] 01-06-2018 typhoid vaccine, luisa e, oral Khai Jacobson MD Work Phone: [facility] 12-09-2017 hepatitis A vaccine, adult dosage Khai Jacobson MD Work Phone: [facility] 12-09-2017 hepatitis B vaccine, adult dosage Khai Jacobson MD Work Phone: [facility] Payers Date Payer Category Payer Unknown [employer] [id number] 2022-Present [address] [place] [address] [id number] 1970 Unknown [id number] [id number] 1970 Unknown [id number] [id number] 1972 Unknown [id number] [id number] 1972 Unknown [id number] 2.16.840.1.057153.3.579.2.593 1972 Unknown [id number] 2.16.840.1.738085.3.579.2.593 1972 Unknown [id number] 2.16.840.1.983574.3.579.2.727 1970 Unknown [id number] 2.16.840.1.913569.3.579.2.727 1972 Unknown [id number] 2.16.840.1.504934.3.579.2.727 1972 Unknown [id number] 2.16.840.1.799624.3.579.2.1259 1972 Unknown [id number] 2.16.840.1.220227.3.579.2.1259 1970 Unknown [id number] 2.16.840.1.340181.3.579.2.9 1970 Unknown [id number] 2.16.840.1.236714.3.579.2.1259 1959 Unknown [id number] Social History Date Type Detail Facility Start: 04-08-2023 Tobacco smoking status Smokele ss tobacco user within last 30 days [facility] [facility] Start: 06-29-2023 Sex Assigned At Female F [facility] Start: 02-17-2023 [facility] Start: 02-17-2023 Tobacco use and exposure Smokeless tobacco non-user [facility] Start: 06-29-2023 Alcohol intake Current drinke r of alcohol (finding) [facility] Start: 06-29-2023 [facility] intake [facility] Start: 04-10-2023 Alcohol Comment Caffeine:: sod a./pop , coffee [facility] Start: 1970 Sex Assigned At Not on file [facility] Functional Status Date Assessment Result Facility 04-08-2023 Functional Status N/A [facility] Clinical Notes 12-06-2022 to 10-03-2023 Telephone Encounter - Khai Jacobson MD - 10/03/2023 1:57 PM ESTTelephone Encounter - Khai Jacobson MD - 10/03/2023 1:57 PM ESTTelephone Encounter - Laisha Isaacs - 10/03/2023 10:41 AM EST Note Date & Type Note Facility 10-03-2023 Telephone encounter Note A prescription without a prescription was called in as requested. [facility] 10-03-2023 Miscellaneous Notes A prescription without a prescription was called in as requested. Pt called and said she has an UTI and asked if a prescription could be called in for her without a prescription documented in this encounter [facility] 10-03-2023 Telephone encounter Note Pt called and said she has an UTI and asked if a prescription could be called in for her without a prescription [facility] 09-28-2023 Telephone encounter Note Rx was sent [facility] 09-28-2023 Miscellaneous Notes Rx was sent She is taking this for nausea , did know if you would send in or needed an appt for this Pt is requesting prometilazine she has not had this in awhile ok to give pt Needs sent to [facility] [place] documented in this encounter [facility] 09-28-2023 Telephone encounter Note She is taking this for nausea , did know if you would send in or needed an appt for this [facility] 09-28-2023 Telephone encounter Note Pt is requesting prometilazine she has not had this in awhile ok to give pt Needs sent to RA in [place] [facility] 04-08-2023 Note Chief Complaint Service Tech/Welder referal HPI Staff Referral for hematuria and [...] -Cysto/possible UD Follow-up With When Contact Information Curry PHILIPPE MD, URL [address] [place] [address]- Additional Instructions: Schedule MARSHA, cysto/possible UD Patient [...] mg-5 mg Ta (more content not included)... [facility] Comment on above: Result Comment: Elec [...] Follow these instructions at home: Medicines Take mmev-ecj-xldxkzx and prescription medicines only as told by [...] or the blood stops without treatment. Take pdri-vko-lknozkn and prescription medicines only as told by your health care provider. Drink enough fluid to keep your urine pale yellow. This information is not intended to replace advice given to you by your health care provider. Make sure you discuss any questions you have with your health care provider. Document Revised: 04/08/2021 Document Reviewed: 04/08/2021 [employer] Patient Education 2022 Plurality. Follow Up Care 12/21/2022 14:38:53 With:SURY MARRERO, Curry Fay, URL Address: [address] [place] [id number]- When: Unknown [facility] 12-06-2022 Note PROCEDURE: US PELVIS AND [...] by: FOREIGN ORTEZ Date: 2022-12-06 15:05 [facility] Evaluation + Plan note No data available for this section [facility] Evaluation note Diagnosis Nausea- Primary Nausea alone [facility] Diagnosis Acute cystitis without hematuria- Primary [facility] No data available for this section [facility] Summary Purpose Family History No Family History Records FoundNo Family History Records FoundNo Family History Records Found Advance Directives No Advanced Directives Records FoundNo Advanced Directives Records FoundNo Advanced Directives Records Found Additional Source Comments INFORMATION SOURCE (unrecogn ized section and content) DATE CREATED AUTHOR 12/12/2022 [facility] DATE CREATED AUTHOR AUTHOR'S ORGANIZ ATION 09/22/2023 [facility] DATE CREATED AUTHOR AUTHOR'S ORGANIZ ATION 04/17/2024 [facility] EPIC Patient Care team informatio n (unrecognized section and content) 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 [facility] [employer] [facility]. provides no warranty or guarantee of the accuracy or completeness of information in this document.
--- NOTE | 2024-06-05 15:10 | US_ITS ---
The [address] [address] Patient Name: LEONORA MELARA MRN: [id number] date: 1970 Sex: F Assigned Patient Location: US Current Patient Location: Accession/Order Number: [id number] Exam Date: 06/05/2024 15:11 Report Date: 06/06/2024 13:34 At the request of: TAMIKA GILLILAND Procedure: US pelvis w/ transvaginal EXAMINATION: US pelvis w/ transvaginal HISTORY: Menorrhagia With Regular Cycle COMPARISON: No relevant comparison available. FINDINGS: Transabdominal and transvaginal The uterus is normal in size, contour and echotexture measuring 7.5 x 3.4 x 4.1 cm. No focal myometrial mass The endometrium measures 11 mm, normal for a premenopausal patient The right ovary is normal measuring 2.1 x 2.3 x 1.8 cm. Normal color Doppler flow The left ovary is nonvisualized No free fluid US/US pelvis w/ transvaginal IMPRESSION: Nonvisualization of the left ovary, otherwise normal exam Electronically authenticated by: ROSSY HUI Date: 06/06/2024 13:34
[2024-06-05 15:50] LABS: Estimated Average Glucose 103 mg/dL; Glycohemoglobin A1C 5.2 % (4.5-6.2)
== END 2024-06-05 14:54 | disposition home or self-care (01) ==
PROVIDERS: PCP Internal Medicine; Visit Provider Obstetrics & Gynecology
DX: N92.0 Excessive and frequent menstruation with regular cycle (principal)
CPT/HCPCS: 36415; 76830; 76856; 83036

== ENCOUNTER 2024-07-23 08:16 | Outpatient (OUT) | payer OTHER, SELFPAY ==
--- NOTE | 2024-07-23 08:23 | ECG_ITS ---
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
--- NOTE | 2024-07-23 08:51 | XR_ITS ---
[address] [address] Patient Name: LEONORA MELARA MRN: [id number] date: 1970 Sex: F Assigned Patient Location: [facility] Current Patient Location: [facility] Accession/Order Number: [id number] Exam Date: 07/23/2024 09:00 Report Date: 07/23/2024 14:31 At the request of: TAMIKA GILLILAND Procedure: XR chest 2V PROCEDURE: XR chest 2V DATE: 07/23/2024 9:00 AM EST COMPARISONS: 10/21/2016 CLINICAL INDICATION: 54 years Female PRE OP FINDINGS: The cardiomediastinal silhouette and pulmonary vasculature are within normal limits. The lungs are clear. There is no evidence of pleural effusion or pneumothorax. XR/XR chest 2V IMPRESSION: Chest radiograph is within normal limits. Electronically authenticated by: FOREIGN ORTEZ Date: 07/23/2024 14:31
[2024-07-23 11:07] LABS: Anion Gap 11.1; Carbon Dioxide 31.9 mmol/L (21.0-32.0); Chloride 104 mmol/L (98-107); Estimated GFR (African America >60 (>=60 mL/min/1.73m^2); Estimated GFR (Non-African Ame >60 (>=60 mL/min/1.73m^2); Glucose 83 mg/dL (74-106); Sodium 143 mmol/L (136-145)
== END 2024-07-23 08:17 | disposition home or self-care (01) ==
LOC: PST 08:17
PROVIDERS: PCP Internal Medicine; Visit Provider Obstetrics & Gynecology
DX: Z01.810 Encounter for preprocedural cardiovascular examination (principal); Z01.812 Encounter for preprocedural laboratory examination; Z01.818 Encounter for other preprocedural examination; R93.89 Abnormal findings on diagnostic imaging of other specified body structures; N95.0 Postmenopausal bleeding
CPT/HCPCS: 36415; 71046; 80048; 93005

== ENCOUNTER 2024-08-10 09:27 | Day surgery (SDC) | payer OTHER, SELFPAY ==
[2024-07-23 08:58] VITALS: BP 105/73; PULSE 79; TEMP 36.5; O2SAT 98; BMI 24.6
[2024-08-10 09:44] LABS: Basophils Absolute Auto 0.1 10^3/uL (0.0-0.1); Basophils Percent Auto 0.8 % (0.2-2.0); Eosinophils Absolute Auto 0.1 10^3/uL (0.0-0.7); Eosinophils Percent Auto 1.5 % (0.9-7.0); Hematocrit 37.4 % (36.0-48.0); Hemoglobin 12.2 g/dL (12.0-16.0); Immature Granulocytes Abs Auto 0.01 10^3/uL (0.00-0.03); Immature Granulocytes Pct Auto 0.1 % (0.0-0.5); Lymphocytes Absolute Auto 2.8 10^3/uL (1.2-3.8); Lymphocytes Percent Auto 35.5 % (20.5-60.0); Mean Corpuscular HGB Conc 32.6 g/dL (29.9-35.2); Mean Corpuscular Hemoglobin 31.9 pg (26.7-34.0); Mean Corpuscular Volume 97.9 fL (81.0-99.0); Monocytes Absolute Auto 0.6 10^3/uL (0.3-0.8); Neutrophils Absolute Auto 4.4 10^3/uL (1.4-6.5); Neutrophils Percent Auto 55.1 % (43.0-75.0); Platelet Count 283 10^3/uL (150-450); Red Blood Count 3.82 10^6/uL (4.20-5.40); Red Cell Distribution Width 11.9 % (11.0-15.0); White Blood Count 7.9 10^3/uL (4.0-11.0)
[2024-08-10 09:47] VITALS: BP 143/74; PULSE 71; TEMP 36.5; O2SAT 94; BMI 24.8
[2024-08-10 10:05] LABS: Glucometer 95 mg/dL (74-106)
[2024-08-10] MEDS: LACTATED RINGER'S SOLUTION 1,000 ML 50 ML IV (10:13)
[2024-08-10 11:46] VITALS: BP 96/63; PULSE 71; TEMP 36.3; O2SAT 95
[2024-08-10 12:00] VITALS: BP 105/68; PULSE 67; O2SAT 95
[2024-08-10 12:15] VITALS: BP 120/88; PULSE 70; O2SAT 96
--- NOTE | 2024-08-24 13:21 | PM.ONB ---
Brief Operative Note Date of procedure: 08/24/24 Pre-op diagnosis general: thickend endometrial lining, pmb Post-op diagnosis: same as pre-op Procedure: NAME OF PROCEDURE: [ D&c hysteroscopy with myosure] PROCEDURE: The patient was taken back to the Operating Room where she was prepped and draped in normal sterile fashion after being placed under general anesthesia without difficulty. She was also placed in the dorsal lithotomy position. A weighted speculum was placed in the patient?s vagina. The anterior lip of the cervix was identified and grasped with a single tooth tenaculum. The patient?s uterus was then sounded roughly to [? 8] cm. The patient was then gently dilated using Hegar dilators. The hysteroscope was passed through the patient?s cervix into the uterus. Both ostia were identified. fluffy appearing endometrium. No gross evidence of malignancy, no gross evidence of polyps or fibroids. The myosure apparatus was placed through the scope, The myosure was engaged and endometrial curretting were removed , The hysteroscope was then removed from the uterus. The endometrial curettings were sent out to pathology. The single tooth tenaculum was then removed from the patient's anterior lip of the cervix where excellent hemostasis was noted. All instruments were removed from the patient?s vagina. The patient tolerated the procedure well. Sponge, lap and needle counts were correct times two. The patient was taken to the Recovery Room in stable condition.Room in stable condition. Anesthesia: MAC Surgeon: Derrick Butterfield Estimated blood loss (mL): 5 Pathology: other (endometrial currettings) Condition: stable Disposition: PACU Urinary Catheter Management Urinary Catheter Management Urethral: Cath placed during this visit: no
== END 2024-08-10 12:40 | disposition home or self-care (01) ==
PROVIDERS: PCP Internal Medicine; Visit Provider Obstetrics & Gynecology
PROC: (CPT 58558; principal; 2024-08-10 10:55)
DX: N85.02 Endometrial intraepithelial neoplasia [EIN] (principal); N95.0 Postmenopausal bleeding; R93.89 Abnormal findings on diagnostic imaging of other specified body structures; I10 Essential (primary) hypertension; E88.819 Insulin resistance, unspecified; E78.2 Mixed hyperlipidemia; K21.9 Gastro-esophageal reflux disease without esophagitis; Z79.899 Other long term (current) drug therapy; Z79.82 Long term (current) use of aspirin; Z79.1 Long term (current) use of non-steroidal anti-inflammatories (NSAID); Z79.85 Long-term (current) use of injectable non-insulin antidiabetic drugs
CPT/HCPCS: 58558; 36415; 85025; J1885; J2250; J2405; J2704; J3010

== ENCOUNTER 2024-10-26 14:22 | Outpatient (OUT) | payer OTHER, SELFPAY ==
--- OUTSIDE RECORDS SUMMARY | 2024-10-26 14:28 | XMS_ITS | CCD ---
Author Organization [facility] CliniSynj Care Team Providers Care Gum Remover Name Role Phone MARY, DR RAMIREZ Admitting Unavailable MARY, DR RAMIREZ Attending Unavailable MARY, DR RAMIREZ Primary Care Unavailable MARY, DR RAMIREZ Consulting Unavailable ZIEBER, DR MAURILIO Fay Consulting Unavailable GREER ., DR LUNDBERG Admitting Unavailable GREER ., DR LUNDBERG Attending Unavailable MARY, DR RAMIREZ Primary Care Unavailable [facility], DR REGINALD Monzon Consulting Unavailabl e GREER ., DR LUNDBERG Consulting Unavailable FOREIGN ORTEZ Consulting Unavailable GREER ., DR LUNDBERG Admitting Unavailable GREER ., DR LUNDBERG Attending Unavailable MARY, DR RAMIREZ Primary Care Unavailable GREER ., DR LUNDBERG Consulting Unavailable GREER ., DR LUNDBERG Admitting Unavailable GREER ., DR LUNDBERG Attending Unavailable MARY, DR RAMIREZ Primary Care Unavailable [place], DR ROSSY Juarez Consulting Unavailable GREER ., DR LUNDBERG Consulting Unavailable GREER ., DR LUNDBERG Admitting Unavailable GREER ., DR LUNDBERG Attending Unavailable MARY, DR RAMIREZ Primary Care Unavailable GREER ., DR LUNDBERG Consulting Unavailable KHAI JACOBSON Primary Care Physician Curry PHILIPPE Attending Unavailable Derrick BUTTERFIELD R Referring Unavailable Curry PHILIPPE Attending Unavailable Curry PHILIPPE Attending Unavailable Khai Jacobson MD Unavailable [phone] Khai Jacobson MD Primary Care Provider Khai Jacobson MD Unavailable Derrick Butterfield Attending Unavailable Derrick Butterfield Admitting Unavailable KEISHA MAJANO Attending Unavailable DERRICK BUTTERFIELD Attending Unavailable KHAI JACOBSON Attending Unavailable KHAI JACOBSON Attending Unavailable DERRICK BUTTERFIELD Attending Unavailable KHAI JACOBSON Attending Unavailable DERRICK BUTTERFIELD Attending Unavailable KHAI JACOBSON Attending Unavailable DERRICK BUTTERFIELD Attending Unavailable DERRICK BUTTERFIELD Attending Unavailable Medications Current Medications Medication Drug Class(es) Dates Sig (Normalized) Sig (Original) acetaminophen 325 mg / HYDROcodone bitartrate 5 mg oral tablet (20 sources) Opioid Agonist Start: 04-03-2024 End: 11-05-2024 take 1 tablet by mouth every eight hours HYDROcodone-acetam inophen ([place]) 5-325 MG tablet Indications: Lumbar spondylosis Take 1 tablet by mouth every 8 (eight) hours 90 tablet 10/06/2024 11/05/2024 Active Start: 09-26-2023 take 1 tablet by jenny th every eight hours HYDROcodone-acetaminophen ([place]) 5-325 MG tablet Indications: Lumbar spondylosis Take 1 tablet by mouth every 8 (eight) hours 90 tablet 0 09/26/2023 Active Start: 05-23-2013 Vicodin 500 mg -5 mg Tab 1 tab(s), Oral, q4hr PRN as needed for pain, 40 tab(s), Refill(s) 0, 0, 1-2 orally every 4-6 hrs as needed for pain, Print Requisition Start Date: 05/23/13 Status: Ordered aspirin 81 mg oral tablet (20 sources) Platelet Aggregation Inhibitor, Nonsteroidal Anti-inflammatory Drug Start: 05-18-2013 take 1 tablet by mouth once daily aspirin 81 mg oral tablet 81 mg = 1 tab(s), Oral, Daily, Refills(s) 0, Prophylaxis Start Date: 05/18/13 Status: Ordered ASPIRIN 81 MG ch ewable tablet 1 (one) time each day at the same time. Active buPROPion hydrochloride 100 mg oral tablet (20 sources) Aminoketone Start: 08-09-2024 End: 10-22-2024 take 1 tablet by mouth once daily buPROPion (Wellbutrin) 100 MG tablet Indications: Affective psychosis (CMS/HCC) Take 1 tablet (100 mg) by mouth Daily 100 tablet 3 10/22/2024 Active Start: 11-29-2023 take 1 tablet by jenny th once daily buPROPion (Wellbutrin) 100 MG tablet Indications: Affective psychosis (CMS/HCC) take 1 tablet by mouth once daily 100 tablet 3 11/29/2023 Active Start: 08-18-2023 buPROPion 100 mg Tab Refills(s) 0 Start Date: 04/08/23 Status: Ordered ciprofloxacin 250 mg oral tablet (11 sources) Quinolone Antimicrobial Start: 10-09-2024 take 1 tablet by mouth in the morning ciprofloxacin (Cipro) 250 MG tablet Indications: Recurrent postcoital urinary tract infection Take 1 tablet (250 mg) by mouth in the morning and 1 tablet (250 mg) before bedtime. 10 tablet 2 10/09/2024 Active Start: 06-08-2024 End: 07-04-2024 take 1 tablet by mouth in the morning ciprofloxacin (Cipro) 250 MG tablet Indications: Recurrent postcoital urinary tract infection Take 1 tablet (250 mg) by mouth in the morning and 1 tablet (250 mg) before bedtime. 10 tablet 2 06/08/2024 07/04/2024 Discontinued (Therapy completed) Start: 10-03-2023 End: 10-08-2023 take 1 tablet by mouth in the [...] procedure, # 2 tab(s), Refills(s) 0, Pharmacy: [facility] #[id number], 158, cm, 04/08/23 10:27:00 EDT, Height/Length Dosing, 61, kg, 04/08/23 10:27:00 EDT, Rohang... Start Date: 04/08/23 Status: Ordered estradiol 1 mg oral tablet (20 sources) Estrogen Start: 07-18-2023 End: 03-14-2025 take 1 tablet by mouth once daily estradiol (Estrace) 1 MG tablet Indications: Vaginal dryness Take 1 tablet (1 mg) by mouth Daily 30 tablet 11 03/14/2024 03/14/2025 Active Start: 04-08-2023 estradiol 1 mg , Daily Start Date: 04/08/23 Status: Ordered FLUoxetine 10 mg oral tablet (20 sources) Serotonin Reuptake Inhibitor Start: 07-04-2023 End: 07-04-2028 take 1 tablet by mouth once daily FLUoxetine (PROzac) 10 MG tablet Indications: Hormone imbalance Take 1 tablet (10 mg) by mouth Daily 360 tablet 3 07/25/2024 07/04/2028 Active Start: 04-08-2023 take 1 mg by mouth once daily FLUoxetine 10 mg Cap mg cap(s), Oral, Daily, Refills(s) 0 Start Date: 04/08/23 Status: Ordered hydroCHLOROthiazide 25 mg oral tablet (20 sources) Thiazide Diuretic Start: 08-01-2024 take 1 tablet by mouth in the morning hydroCHLOROthiazide (HYDRODiuril) 25 MG tablet Indications: Essential hypertension (CMS/HCC) Take 1 tablet (25 mg) by mouth in the morning. 100 tablet 1 08/01/2024 Active Start: 12-12-2023 take 1 tablet by jenny th once daily in the morning hydroCHLOROthiazide (HYDRODiuril) 25 MG tablet Indications: Essential hypertension (CMS/HCC) take 1 tablet by mouth every morning 90 tablet 1 12/12/2023 Active take 1 tablet by jenny th in the morning hydroCHLOROthiazide (HYDRODiuril) 25 MG tablet Take 25 mg by mouth in the morning. 0 Active loratadine 10 mg oral tablet (15 sources) take 1 tablet by mouth once daily loratadine (Claritin) 10 MG tablet Take 10 mg by mouth Daily Active megestrol acetate 20 mg oral tablet (4 sources) Progestin Start: 05-23-20 End: 06-22-20 take 1 tablet by mouth once daily, then take 1 tablet by mouth twice daily, then take 1 tablet by mouth once daily megestrol (Megace) 20 MG tablet Indications: Menorrhagia with regular cycle Take 1 tablet (20 mg total) by mouth Daily. Take 1 tablet 2 times daily for 3 days then take 1 tablet daily for 1 month (36 tablets total) 30 tablet 05/23/2024 06/22/2024 Active meloxicam 15 mg oral tablet (20 sources) Nonsteroidal Anti-inflammatory Drug Start: 04-06-20 take 1 tablet by mouth in the morning meloxicam (Mobic) 15 MG tablet 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 100 tablet 1 04/06/2024 Active Start: 09-05-2023 [facility] meloxicam (Mobic) 15 MG tablet Indications: Primary osteoarthritis involving multiple joints take 1 tablet by mouth every morning 100 tablet 1 09/05/2023 Active Start: 04-08-2023 take 1 mg by mouth once daily meloxicam 7.5 mg Tab mg tab(s), Oral, Daily, Refills(s) 0 Start Date: 04/08/23 Status: Ordered metFORMIN hydrochloride 500 mg oral tablet (20 sources) Biguanide Start: 08-30-2024 End: 09-04-2025 take 1 tablet by mouth at mealtime metFORMIN (Glucophage) 500 MG tablet Indications: Encounter for weight management Take 1 tablet (500 mg) by mouth in the morning. Take with meals. 90 tablet 3 09/04/2024 09/04/2025 Active Start: 03-28-2024 End: 04-16-2024 take 1 tablet by mouth once daily at dinner metFORMIN XR (Glucophage-XR) 500 MG 24 hr tablet Indications: Insulin resistance take 1 tablet by mouth once daily WITH EVENING MEAL 30 tablet 3 03/28/2024 04/16/2024 Discontinued (Other) Start: 03-14-2024 End: 08-30-2025 take 1 tablet by mouth at mealtime metFORMIN (Glucophage) 1000 MG tablet Indications: Encounter for weight management Take 1 tablet (1,000 mg) by mouth in the morning. Take with meals. 90 tablet 3 08/30/2024 08/30/2025 Active Start: 03-28-2023 take 2 tablets by mo [facility] once daily metFORMIN XR (Glucophage-XR) 500 MG 24 hr tablet Indications: Insulin resistance take 2 tablets by mouth once daily 30 tablet 11 03/28/2023 Active 24 hr metoprolol succinate 100 mg extended release oral tablet (20 sources) beta-Adrenergic William Start: 08-18-2023 End: 07-17-2024 take 1 tablet by mouth once daily metoprolol succinate XL (Toprol-XL) 100 MG 24 hr tablet Indications: Essential hypertension (CMS/HCC) Take 1 tablet (100 mg) by mouth Daily 100 tablet 3 07/17/2024 Active Start: 04-08-2023 take 1 mg by mouth once daily metoprolol 100 mg ER Tab mg tab(s), Oral, Daily, Refills(s) 0 Start Date: 04/08/23 Status: Ordered Multiple Vitamin (multivitamin) tablet (15 sources) take 1 tablet by mouth once daily Multiple Vitamin (multivitamin) tablet Take 1 tablet by mouth Daily Active omeprazole 40 mg delayed release oral capsule (20 sources) Proton Pump Inhibitor Start: 07-25-20 take 1 capsule by mouth before mealtime omeprazole (PriLOSEC) [address] capsule Indications: Gastro-esophageal reflux disease without esophagitis Take 1 capsule (40 mg) by mouth in the morning. Take before meals. Do not crush or chew.. 100 capsule 2 07/25/2024 Active Start: 02-20-2024 take 1 capsule by mo uth once daily before mealtime omeprazole (PriLOSEC) [address] capsule Indications: Gastro-esophageal reflux disease without esophagitis take 1 capsule by mouth every morning before meals 100 capsule 2 02/20/2024 Active Start: 05-05-2023 take 1 capsule by mo uth before mealtime omeprazole (PriLOSEC) [address] capsule Indications: Gastro-esophageal reflux disease without esophagitis Take 1 capsule (40 mg) by mouth in the morning. Take before meals. 100 capsule 2 05/05/2023 Active Start: 05-18-2013 take 40 mg by mouth once daily omeprazole 40 mg, Oral, Daily, Refills(s) 0, Constipation Start Date: 05/18/13 Status: Ordered Ozempic, 1 MG/DOSE, 4 MG/3ML solution pen-injector (11 sources) Start: 07-02-2024 inject 1 mg by subcutaneous injection every week Ozempic, 1 MG/DOSE, 4 MG/3ML solution pen-injector Indications: Insulin resistance , Impaired glucose tolerance INJECT 1 mg SUBCUTANEOUSLY (UNDER THE SKIN) ONCE A WEEK 3 mL 1 07/02/2024 Active promethazine hydrochloride 25 mg oral tablet (2 [...] days 30 tablet 0 09/28/2023 10/05/2023 Active rOPINIRole 0.25 mg oral tablet (7 sources) Nonergot Dopamine Agonist Start: 10-04-2024 End: 11-04-2024 take 1 tablet by mouth at bedtime, then take 2 tablets by mouth every week rOPINIRole (Requip) 0.25 MG tablet Indications: Restless Leg Syndrome Take 1 tablet (0.25 mg) by mouth at bedtime May increase to 2 tabs in 1 week if ineffective 30 tablet 10/05/2024 11/04/2024 Active 1 mg dose 1.5 ml semaglutide 1.34 mg/ml pen injector (2 sources) Start: 08-12-2023 inject 1 mg by subcutaneous injection every week semaglutide (Ozempic, 1 MG/DOSE,) 2 MG/1.5ML solution pen-injector Indications: Insulin resistance , Impaired glucose tolerance Inject 1 mg under the skin 1 (one) time per week 3 mL 5 08/12/2023 Active semaglutide (Ozempic, 1 MG/DOSE,) 4 MG/3ML solution pen-injector (17 sources) Start: 10-22-2024 inject 1 mg by subcutaneous injection every week semaglutide (Ozempic, 1 MG/DOSE,) 4 MG/3ML solution pen-injector Indications: Insulin resistance , Impaired glucose tolerance Inject 1 mg under the skin 1 (one) time per week 3 mL 1 10/22/2024 Active Start: 09-24-2024 End: 10-21-2024 inject 1 mg by subcutaneous injection every week semaglutide (Ozempic, 1 MG/DOSE,) 4 MG/3ML solution pen-injector Indications: Insulin resistance , Impaired glucose tolerance Inject 1 mg under the skin 1 (one) time per week 3 mL 1 09/24/2024 10/21/2024 Discontinued (Reorder) Start: 09-24-2024 inject 1 mg by subcu taneous injection every week semaglutide (Ozempic, 1 MG/DOSE,) 4 MG/3ML solution pen-injector Indications: Insulin resistance , Impaired glucose tolerance Inject 1 mg under the skin 1 (one) time per week 3 mL 1 09/24/2024 Active Start: 05-17-2024 inject 1 mg by subcu taneous injection every week semaglutide (Ozempic, 1 MG/DOSE,) 4 MG/3ML solution pen-injector Indications: Insulin resistance , Impaired glucose tolerance Inject 1 mg under the skin 1 (one) time per week 3 mL 3 05/17/2024 Active Start: 03-23-2024 inject 1 mg by subcu taneous injection every week semaglutide (Ozempic, 1 MG/DOSE,) 4 MG/3ML solution pen-injector Indications: Insulin resistance , Impaired glucose tolerance Inject 1 mg under the skin 1 (one) time per week 3 mL 1 03/23/2024 Active simvastatin 20 mg oral tablet (20 sources) HMG-CoA Reductase Inhibitor Start: 08-13-2024 take 1 tablet by mouth at bedtime simvastatin (Zocor) 20 MG tablet Indications: Mixed hyperlipidemia (CMS/HCC) Take 1 tablet (20 mg) by mouth at bedtime 100 tablet 3 08/13/2024 Active Start: 08-09-2024 take 1 tablet by jenny th at bedtime simvastatin (Zocor) 20 MG tablet Indications: Mixed hyperlipidemia (CMS/HCC) Take 1 tablet (20 mg) by mouth at bedtime 100 tablet 3 08/09/2024 Active Start: 07-30-2024 take 1 tablet by jenny th at bedtime simvastatin (Zocor) 20 MG tablet Indications: Mixed hyperlipidemia (CMS/HCC) Take 1 tablet (20 mg) by mouth at bedtime 100 tablet 3 07/30/2024 Active Start: 03-02-2024 take 1 tablet by jenny th at bedtime simvastatin (Zocor) 20 MG tablet Indications: Mixed hyperlipidemia (CMS/HCC) take 1 tablet by mouth at bedtime 100 tablet 3 03/02/2024 Active Start: 05-23-2013 take 1 tablet by jenny th at bedtime simvastatin (Zocor) 20 MG tablet Indications: Mixed hyperlipidemia (CMS/HCC) Take 1 tablet (20 mg) by mouth at bedtime. 100 tablet 3 02/26/2023 Active traMADol hydrochloride 50 mg oral tablet (3 sources) Opioid Agonist Start: 03-29-2024 End: 06-27-2024 take 1 tablet by mouth every six hours for pain traMADol (Ultram) 50 MG tablet Indications: Spondylosis of lumbar region without myelopathy or radiculopathy Take 1 tablet (50 mg) by mouth every 6 (six) hours if needed for severe pain 90 tablet 2 03/29/2024 04/16/2024 Discontinued (Other) Completed/Discontinued Medications Medication Drug Class(es) Dates Sig (Normalized) Sig (Original) ALPRAZolam 0.5 mg oral tablet (20 sources) Benzodiazepine Start: 12-29-2022 End: 10-15-2024 ALPRAZolam (Xanax) 0.5 MG tablet TAKE 1 OR 2 TABLETS BY MOUTH ONE HOUR BEFORE FLIGHT 12/29/2022 10/15/2024 Discontinued (Other) Black cohosh root extract (15 sources) End: 07-16-2024 Black Cohosh Root 450 MG capsule as directed Orally 07/16/2024 Discontinued Black Cohosh Viridiana t 450 MG capsule as directed Orally Active Black Cohosh Viridiana t 450 MG capsule as directed Orally 0 Active Problems Active Problems Problem Classification Problem Date Documented Date Episodic/Chronic Abdominal pain (1 source) Pain in female pelvis; Translations: [Pelvic and perineal pain] 10-15-2024 Episodic Anxiety disorders (20 sources) Fear of flying; 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] Onset: 01-26-2023 01-26-2023 Chronic Diabetes mellitus without complication (20 sources) Impaired glucose tolerance; Translations: [Impaired glucose tolerance (oral)] Onset: 01-26-2023 01-26-2023 Episodic Disorders of lipid metabolism (20 sources) Hypercholesterolemia; Translations: [Mixed hyperlipidemia] Onset: 05-17-2013 11-02-2013 Chronic Esophageal disorders (20 sources) Gastroesophageal reflux disease; Translations: [Gastroesophageal reflux disease without esophagitis] Onset: 01-26-2023 11-02-2013 Chronic Essential hypertension (20 sources) Essential hypertension; Translations: [Essential (primary) hypertension] Onset: 01-26-2023 01-26-2023 Chronic Menopausal disorders (20 sources) Postmenopausal bleeding; Translations: [Postmenopausal bleeding] Onset: 06-18-2024 06-18-2024 Chronic Mood disorders (20 sources) Affective psychosis; Translations: [Unspecified mood [affective] disorder] Onset: 01-26-2023 01-26-2023 Chronic Nausea and vomiting (1 source) Nausea; Translations: [Nausea] 09-28-2023 Episodic Osteoarthritis (20 sources) Osteoarthritis; Translations: [Unspecified osteoarthritis, unspecified site] Onset: 01-26-2023 01-26-2023 Chronic Other female genital disorders (12 sources) Complex atypical endometrial hyperplasia; Translations: [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]] Onset: 09-03-2024 09-03-2024 Chronic Other female genital disorders (1 source) Pain in female genitalia on intercourse; Translations: [Unspecified dyspareunia] 10-15-2024 Chronic Other female genital disorders (4 sources) Personal history of other diseases of the female genital tract; Translations: [PERSONAL HX OTH DZ FE GENITAL TRACT] Onset: 12-06-2022 Episodic Other hereditary and degenerative nervous system conditions (2 sources) Restless legs; Translations: [Restless legs syndrome] 10-04-2024 Chronic Other nervous system disorders (20 sources) Carpal tunnel syndrome of right wrist; Translations: [Carpal tunnel syndrome, right upper limb] Onset: 01-26-2023 01-26-2023 Chronic Other nervous system disorders (20 sources) Chronic pain; Translations: [Other chronic pain] Onset: 01-26-2023 01-26-2023 Chronic Other nutritional; endocrine; and metabolic disorders (20 sources) Insulin resistance; Translations: [Insulin resistance] Onset: 01-26-2023 01-26-2023 Chronic Other screening for suspected conditions (not mental disorders or infectious disease) (20 sources) Endometrium thickened; Translations: [Abnormal findings on diagnostic imaging of other specified body structures] Onset: 06-18-2024 06-18-2024 Chronic Residual codes; unclassified (1 source) Tobacco user 05-18-2013 Episodic Comment on above: Added secondary to s ocial history documentation. Spondylosis; intervertebral disc disorders; other back problems (20 sources) Lumbar spondylosis; Translations: [Spondylosis without myelopathy or radiculopathy, lumbar region] Onset: 01-26-2023 01-26-2023 Chronic Sprains and strains (1 source) Sprain of knee 11-02-2013 Episodic Unclassified (1 source) Asymptomatic microscopic hematuria 04-08-2023 Unclassified (1 source) Finding of sensation of bladder 04-08-2023 Past or Other Problems Problem Classification Problem Date Documented Da te Episodic/Chronic Abdominal hernia (20 sources) Diaphragmatic hernia; Translations: [Diaphragmatic hernia without obstruction or gangrene] Onset: 01-26-2023 01-26-2023 Episodic Genitourinary symptoms and ill-defined conditions (20 sources) Hematuria, unspecified; Translations: [Microscopic hematuria] Onset: 12-06-2022 Episodic Immunizations and screening for infectious disease (1 source) Encounter for screening for human papillomavirus (HPV); Translations: [ENC SCREENING HUMAN PAPILLOMAVIRUS] Onset: 07-31-2022 Episodic Nonmalignant breast conditions (4 sources) Unspecified lump in the left breast, unspecified quadrant; Translations: [Unspecified lump in the left breast, upper outer quadrant] Onset: 08-05-2022 Episodic Other gastrointestinal disorders (20 sources) Chronic constipation; Translations: [Other constipation] Onset: 01-26-2023 01-26-2023 Episodic Other nutritional; endocrine; and metabolic disorders (20 sources) Body mass index 30+ - obesity; Translations: [Obesity, unspecified] Onset: 01-26-2023 Resolved: 04-16-2024 01-26-2023 Chronic Other nutritional; endocrine; and metabolic disorders (20 sources) Body mass index 25-29 - overweight; Translations: [Overweight] Onset: 01-26-2023 Resolved: 04-16-2024 01-26-2023 Episodic Other screening for suspected conditions (not mental disorders or infectious disease) (8 sources) Encounter for screening for malignant neoplasm of cervix; Translations: [Encounter for screening mammogram for malignant neoplasm of breast] Onset: 04-29-2022 Episodic Residual codes; unclassified (1 source) Family history of malignant neoplasm of digestive organs; Translations: [FAM HX MALIG NEOPLASM DIGESTIV ORGN] Onset: 08-09-2022 Episodic Urinary tract infections (20 sources) Urinary tract infection, site not specified; Translations: [Urinary tract infectious disease] Onset: 11-30-2022 Resolved: 04-16-2024 Episodic Results Test Name Value Interpretation Reference Range Facility ALL CBC WITH AUTO DIFFon BASOPHILS ABSOLUTE AUTO 0.1 [facility] Basophils/100 WBC (Bld) 0.8 % 0.2 - 2.0 % [facility] Eosinophils/100 WBC (Bld) 1.5 % 0.9 - 7.0 % [facility] Erythrocyte distribution width (RBC) [Ratio] 11.9 % 11.0 - 15.0 % [facility] Hematocrit (Bld) [Volume fraction] 37.4 % 36.0 - 48.0 % [facility] Hemoglobin (Bld) [Mass/Vol] 12.2 g/dL 12.0 - 16.0 g/dL [facility] IMMATURE GRANULOCYTES ABS AUTO 0.01 [facility] Immature granulocytes/100 WBC (Bld) 0.1 % 0.0 - 0.5 % [facility] Interpretation and review of laboratory results Abnormal [facility] LYMPHOCYTES ABSOLUTE AUTO 2.8 [facility] Lymphocytes/100 WBC (Bld) 35.5 % 20.5 - 60.0 % [facility] MCH (RBC) [Entitic mass] 31.9 pg 26.7 - 34.0 pg [facility] MCHC (RBC) [Mass/Vol] 32.6 g/dL 29.9 - 35.2 g/dL [facility] MCV (RBC) [Entitic vol] 97.9 fL 81.0 - 99.0 fL [facility] MONOCYTES ABSOLUTE AUTO 0.6 [facility] Monocytes/100 WBC (Bld) 7 % 1.7 - 12.0 % [facility] NEUTROPHILS ABSOLUTE AUTO 4.4 [facility] Neutrophils/100 WBC (Bld) 55.1 % 43.0 - 75.0 % [facility] Platelet mean volume (Bld) [Entitic vol] 10 fL 9.5 - 13.5 fL [facility] EO # 0.1 [facility] PLT 283 [facility] RBC 3.82 Low [facility] WBC 7.9 [facility] Pathology Request for Lab Co rpon 08-10-2024 Pathology Request for Lab Megan Normal [facility] Comment on above: Order Comment: PATHO LOGY AMBULATORY SPECIMEN Result Comment: See report. Scanned copy available in EMR. PERFORMED BY: [place] [id number] PATHOLOGIST BULK DELIVERY DRIVER HANNAH MARSHALL M.D. Performed By: #### P ATH TO [facility] #### [address] ALL BASIC METABOLIC PANELon 07-23-2024 Anion gap [Moles/Vol] 11.1 mmol/L [facility] Calcium [Mass/Vol] 9 mg/dL 8.5 - 10. 1 mg/dL [facility] Chloride [Moles/Vol] 104 mmol/L 98 - 10 7 mmol/L [facility] CO2 [Moles/Vol] 31.9 mmol/L 21.0 - 32.0 mmol/L [facility] Creatinine [Mass/Vol] 0.74 mg/dL 0.55 - 1.02 mg/dL [facility] GFR/1.73 sq M.predicted CKD-EPI (S/P/Bld) [Vol rate/Area] >60 >=60 mL/min/1.73m 2 [facility] Glucose [Mass/Vol] 83 mg/dL 74 - 106 mg/dL [facility] Potassium [Moles/Vol] 4 mmol/L 3.5 - 5.1 mmol/L [facility] Sodium [Moles/Vol] 143 mmol/L 136 - 145 mmol/L [facility] TBH EGFR-NON AF [place]ESE >60 >=60 mL/min/1.73m 2 [facility] Urea nitrogen [Mass/Vol] 17 mg/dL 7.0 - 18.0 mg/dL [facility] Urea nitrogen/Creatinine [Mass ratio] 23 mg/mg [facility] MLR HEMOGLOBIN A1Con 06-05- 024 Glucose [Mass/Vol] 103 mg/dL [facility] HbA1c (Bld) [Mass fraction] 5.2 % 4.5 - 6.2 % [facility] Comment on above: ADA RECOMMENDED LIMI T 4.0 - 6.0 ADA THERAPEUTIC TARGET < 7.0 ACTION SUGGESTED > 7.0 [facility] Operative Reporton 4 Operative Report [id number] .00TIFF [facility] Consent for Procedure/Surger yon 07-25-2023 Consent for Procedure/Surgery [id number] .00TIFF [facility] Consent for Procedure/Surger yon 05-03-2023 Consent for Procedure/Surgery [id number] .00CD:127 [facility] RAD - Ultrasound Reporton RAD - Ultrasound Report [id number]#1. 00CD:127 [facility] Ambulatory Visit Summaryon 0 04-08-2023 Ambulatory Visit Summary HAVEN BAR :1970 Visit Date:04/08/2023 Ambulatory Visit Instructions Your Diagnosis Asymptomatic microscopic hematuria Recurrent UTI Feeling of incomplete bladder emptying Tests Performed Urnls Dip Stick Auto w/o Microscopy POC 70175 US Renal -- Results Pending -- Please visit your patient portal for your results or contact your primary care physician. Your Care Team Attending Physician - SURY MARRERO, Curry Fay Primary Care Physician - MARY MARRERO, KHAI Godinez Referring Physician - Derrick BUTTERFIELD DO This Is Your Medications List Contact prescribing physician if questions or concerns acetaminophen-hydroco done (Vicodin 500 mg-5 mg Tab) aspirin (aspirin [...] Appointments Follow Up with SURY MARRERO, Curry Fay, MADALYN When: Where: [address] [place] [address]- Medications What How Much When Instructions Unchanged acetaminophen-hydroco done (Vicodin 500 mg-5 mg Tab) 1 Tablets [...] Urnls Dip Stick Auto w/o Microscopy POC 02092 (04/08/2023) Bilirubin Urine Dipstick - Negative Blood Urine Dipstick - Trace-intact Glucose Urine Dipstick - Negative Ketones Urine Dipstick - Negative Leukocytes Urine Dipstick - Negative Nitrite Urine Dipstick - Negative Protein Urine Dipstick - Negative Specific Dailey Urine Dipstick - 1.015 Urine Appearance Urine [...] these instructions at home: Medicines ? Take xkvx-ssw-dacjllc and prescription medicines only as told by [...] water is (more content not included)... Normal [facility] Formson 04-08-2023 Forms [id number] .00CD:127 Normal [facility] Patient Educationon 04-08-20 23 Patient Education [...] these instructions at home: Medicines ? Take nlpl-nym-fmlilob and prescription medicines only as told by [...] the blood stops without treatment. ? Take simb-knw-uzkdfdz and prescription medicines only as told by your health care provider. ? Drink enough fluid to keep your urine pale yellow. This information is not intended to replace advice given to you by your health care provider. Make sure you discuss any questions you have with your health care provider. Document Revised: 04/08/2021 Document Reviewed: 04/08/2021 [employer] Patient Education ? 2022 [employer] Normal [facility] Physician Referralon 023 Physician Referral [phone] [id number] .[id number]:127 Normal [facility] CBC AUTO DIFFon 11-30-2022 BASO # 0.1 103/ul Normal 0.0-0.1 [facility] Comment on above: Performed By: #### C BC #### [facility] [address] [place] [address] Dr. Jovani Adame Basophils/100 WBC (Bld) 0.6 % Normal 0.2-2.0 [facility] Comment on above: Performed By: #### C BC #### [facility] [address] [place] [address] Dr. Jovani Adame EO # 0.2 103/ul Normal 0.0-0.7 [facility] Comment on above: Performed By: #### C BC #### [facility] [address] [place] [address] Dr. Jovani Adame Eosinophils/100 WBC (Bld) 2.3 % Normal 0.9-7.0 [facility] Comment on above: Performed By: #### C BC #### [facility] [address] [place] [address] Dr. Jovani Adame Erythrocyte distribution width (RBC) [Ratio] 12.2 % Normal 11.0-15.0 [facility] Comment on above: Performed By: #### C BC #### [facility] [address] [place] [address] Dr. Jovani Adame Hematocrit (Bld) [Volume fraction] 34.9 % Critically low 36.0-48.0 [facility] Comment on above: Performed By: #### C BC #### [facility] [address] [place] [address] Dr. Jovani Adame Hemoglobin (Bld) [Mass/Vol] 12.1 g/dL Normal 12.0-16.0 [facility] Comment on above: Performed By: #### C BC #### [facility] [address] [place] [address] Dr. Jovani Adame IG # 0.01 10e3/ul Normal 0.00-0.03 [facility] Comment on above: Performed By: #### C BC #### [facility] [address] [place] [address] Dr. Jovani Adame IG % 0.1 % Normal 0.0-0.5 [facility] Comment on above: Performed By: #### C BC #### [facility] [address] [place] [address] Dr. Jovani Adame LYMPH # 2.4 103/ul Normal 1.2-3.8 [facility] Comment on above: Performed By: #### C BC #### [facility] [address] [place] [address] Dr. Jovani Adame Lymphocytes/100 WBC (Bld) 29.8 % Normal 20.5-60.0 [facility] Comment on above: Performed By: #### C BC #### [facility] [address] [place] [address] Dr. Jovani Adame MANUAL DIFF REQ NO Normal [facility] Comment on above: Performed By: #### C BC #### [facility] [address] [place] [address] Dr. Jovani Adame MCH (RBC) [Entitic mass] 31.8 pg Normal 26.7-34.0 [facility] Comment on above: Performed By: #### C BC #### [facility] [address] [place] [address] Dr. Jovani Adame MCHC (RBC) [Mass/Vol] 34.7 g/dL Normal 29.9-35.2 [facility] Comment on above: Performed By: #### C BC #### [facility] [address] [place] [address] Dr. Jovani Adame MCV (RBC) [Entitic vol] 91.8 fL Normal 81.0-99.0 [facility] Comment on above: Performed By: #### C BC #### [facility] [address] [place] [address] Dr. Jovani Adame MONO # 0.5 103/ul Normal 0.3-0.8 [facility] Comment on above: Performed By: #### C BC #### [facility] [address] [place] [address] Dr. Jovani Adame Monocytes/100 WBC (Bld) 5.9 % Normal 1.7-12.0 [facility] Comment on above: Performed By: #### C BC #### [facility] [address] [address] [address] Jovani Adame NEUT # 5.0 103/ul Normal 1.4-6.5 [facility] Comment on above: Performed By: #### C BC #### [facility] [address] [address] [address] Jovani Adame Neutrophils/100 WBC (Bld) 61.3 % Normal 43.0-75.0 [facility] Comment on above: Performed By: #### C BC #### [facility] [address] [address] [address] Jovani Adame Platelet mean volume (Bld) [Entitic vol] 10.2 fL Normal 9.5-13.5 [facility] Comment on above: Performed By: #### C BC #### [facility] [address] [address] [address] Jovani Adame PLT 318 103/ul Normal 150-450 [facility] Comment on above: Performed By: #### C BC #### [facility] [address] [address] [address] Jovani Adame RBC 3.80 106/ul Critically low 4.20-5.40 [facility] Comment on above: Performed By: #### C BC #### [facility] [address] [address] [address] Jovani Adame WBC 8.1 103/ul Normal 4.0-11.0 [facility] Comment on above: Performed By: #### C BC #### [facility] [address] [address] [address] Jovani Adame FREE T4on 11-30-2022 Free T4 [Mass/Vol] 0.89 ng/dL Normal 0.76-1.46 [facility] Comment on above: Performed By: #### U MICRO, UARMICR #### [facility] [address] [address] [address] Jovani Adame GLYCOHEMOGLOBIN A1Con 2022 ADA RECOMMENDATION SEE BELOW Normal [facility] Comment on above: Result Comment: ADA RECOMMENDED LIMIT 4.0 - 6.0 ADA THERAPEUTIC TARGET < 7.0 ACTION SUGGESTED > 7.0 Performed By: #### U MICRO, UARMICR #### [facility] [address] [place] [address] Dr. Jovani Adame Glucose [Mass/Vol] 105 mg/dL Normal [facility] Comment on above: Performed By: #### U MICRO, UARMICR #### [facility] [address] [place] [address] Dr. Jovani Adame HbA1c (Bld) [Mass fraction] 5.3 % Normal 4.5-6.2 [facility] Comment on above: Performed By: #### U MICRO, UARMICR #### [facility] [address] [place] [address] Dr. Jovani Adame PROTIMEon 11-30-2022 INR Coag (PPP) [Relative time] 0.97 {INR} Normal [facility] Comment on above: Performed By: #### P T, PTT #### [facility] [address] [place] [address] Dr. Jovani Adame INR GUIDELINES SEE BELOW Normal [facility] Comment on above: Result Comment: MATILDE RED INR: 2.0 - 3.0 CONDITIONS NOT LISTED BELOW 2.5 - 3.5 FOR PROSTHETIC HEART VALVE REPLACEMENT 2.5 - 3.5 RECURRENT THROMBOSIS Performed By: #### P T, PTT #### [facility] [address] [place] [address] Dr. Jovani Adame PT Coag (PPP) [Time] 10.3 s Normal 9.0-11.6 [facility] Comment on above: Performed By: #### P T, PTT #### [facility] [address] [place] [address] Dr. Jovani Adame PTTon 11-30-2022 aPTT Coag (Bld) [Time] 29.4 s Normal 22.3-36.2 [facility] Comment on above: Performed By: #### P T, PTT #### [facility] [address] [place] [address] Dr. Jovani Adame TSHon 11-30-2022 TSH 0.872 uIU/mL Normal 0.358-3.740 [facility] Comment on above: Performed By: #### T SH #### [facility] [address] [place] [address] Dr. Jovani Adame UA (CLEAN/CATCH) MICROSCOPIC IF INDICATEon 11-30-2022 Bilirubin Ql (U) Negative Normal NEGATIVE [facility] Comment on above: Performed By: #### U MICRO, UARMICR #### [facility] [address] [place] [address] Dr. Jovani Adame Clarity (U) CLEAR Normal CLEAR [facility] Comment on above: Performed By: #### U MICRO, UARMICR #### [facility] [address] [place] [address] Dr. Jovani Adame Color (U) LT. YELLOW Normal YELLOW [facility] Comment on above: Performed By: #### U MICRO, UARMICR #### [facility] [address] [place] [address] Dr. Jovani Adame Glucose Ql (U) Negative Normal NEGATIVE [facility] Comment on above: Performed By: #### U MICRO, UARMICR #### [facility] [address] [place] [address] Dr. Jovani Adame Hemoglobin Ql (U) TRACE-INTACT Abnormal NEGATIVE [facility] Comment on above: Performed By: #### U MICRO, UARMICR #### [facility] [address] [place] [address] Dr. Jovani Adame Ketones Ql (U) Negative Normal NEGATIVE [facility] Comment on above: Performed By: #### U MICRO, UARMICR #### [facility] [address] [place] [address] Dr. Jovani Adame LEUKOCYTES Negative Normal NEGATIVE [facility] Comment on above: Performed By: #### U MICRO, UARMICR #### [facility] [address] [place] [address] Dr. Jovani Adame Nitrite Ql (U) Negative Normal NEGATIVE [facility] Comment on above: Performed By: #### U MICRO, UARMICR #### [facility] [address] [place] [address] Dr. Jovani Adame pH (U) 6.5 [pH] Normal 5-9 [facility] Comment on above: Performed By: #### U MICRO, UARMICR #### [facility] [address] [place] [address] Dr. Jovani Adame SPEC GRAVITY 1.010 Normal 1.005-<=1.025 [facility] Comment on above: Performed By: #### U MICRO, UARMICR #### [facility] [address] [place] [address] Dr. Jovani Adame UA PROTEIN Negative Normal NEGATIVE/ TRACE [facility] Comment on above: Performed By: #### U MICRO, UARMICR #### [facility] [address] [place] [address] Dr. Jovani Adame UR MICRO IND INDICATED Normal [facility] Comment on above: Performed By: #### U MICRO, UARMICR #### [facility] [address] [place] [address] Dr. Jovani Adame Urobilinogen Qn (U) 0.2 {Kaylie'U}/dL Normal 0.2 - 1. 0 [facility] Comment on above: Performed By: #### U MICRO, UARMICR #### [facility] [address] [place] [address] Dr. Jovani Adame URINE MICROSCOPIC ONLYon BACTERIA TRACE Abnormal NONE SEEN [facility] Comment on above: Performed By: #### U MICRO, UARMICR #### [facility] [address] [place] [address] Dr. Jovani Adame Bacteria identified Cx Nom (U) NOT INDICATED Normal [facility] Comment on above: Performed By: #### U MICRO, UARMICR #### [facility] [address] [place] [address] Dr. Jovani Adame CAST NONE SEEN Normal NONE SEEN [facility] Comment on above: Performed By: #### U MICRO, UARMICR #### [facility] [address] [address] [address] Jovani Adame Crystals LM Nom (Urine sed) NONE SEEN Normal NONE SEEN [facility] Comment on above: Performed By: #### U MICRO, UARMICR #### [facility] [address] [address] [address] Jovani Adame Epithelial cells LM Ql (Urine sed) MODERATE Abnormal NONE SEEN /RARE [facility] Comment on above: Performed By: #### U MICRO, UARMICR #### [facility] [address] [address] [address] Jovani Adame MUCOUS NONE SEEN Normal NONE SEEN [facility] Comment on above: Performed By: #### U MICRO, UARMICR #### [facility] [address] [address] [address] Jovani Adame RBC 2-5 Abnormal 0-2 [facility] Comment on above: Performed By: #### U MICRO, UARMICR #### [facility] [address] [address] [address] Jovani Adame WBC NONE SEEN Normal NONE SEEN [facility] Comment on above: Performed By: #### U MICRO, UARMICR #### [facility] [address] [address] [address] Jovani Adame MG MAMM DX 3D LT CADon 08-05 MG MAMM DX 3D LT CAD Patient: HAVEN BAR Exam Date: 08/05/2022 : 1970 Gender:F Ordering : DR DERRICK BUTTERFIELD . Admission #: [id number] Family : Order #: [id number] CLICK HERE TO VIEW EXAM RADIOLOGY REPORT [...] colo-rectal cancer at age 52. LOCATION: [facility] BREAST COMPOSITION: Extremely dense, which lowers [...] MD on 08/05/2022 at 11:45 Normal [facility] US BREAST LEFT LIMITEDon US BREAST LEFT LIMITED Patient: HAVEN BAR Exam Date: 08/05/2022 : 1970 Gender:F Ordering : DR DERRICK BUTTERFIELD . Admission #: [id number] Family : Order #: [id number] CLICK HERE TO VIEW EXAM RADIOLOGY REPORT [...] colo-rectal cancer at age 52. LOCATION: [facility] BREAST COMPOSITION: Extremely dense, which lowers [...] Nicole MD on 08/05/2022 at 11:45 Normal [facility] PAP ACOG PANEL 2: 30 to 65on 08-03-2022 . . Normal [facility] Comment on above: Result Comment: Perf ormed at: WB Performed By: #### U MICRO, UARMICR #### [facility] [address] [place] [address] Dr. Jovani Adame Age Gdln ACOG Testing 30-65 Normal [facility] Comment on above: Performed By: #### U MICRO, UARMICR #### [facility] [address] [address] [address] Jovani Adame DIAGNOSIS: Comment Normal [facility] Comment on above: Result Comment: NEGA TIVE FOR INTRAEPITHELIAL LESION OR MALIGNANCY. Performed at: WB Performed By: #### U MICRO, UARMICR #### [facility] [address] [address] [address] Jovani Adame HPV Aptima Negative Normal Negative [facility] Comment on above: Result Comment: This nucleic acid amplification test detects fourteen high-risk HPV types (16,18,31,33,35,39,45,51,52,56,58,59,66,68) without differentiation. Performed at: =G Performed By: #### U MICRO, UARMICR #### [facility] [address] [address] [address] Jovani Adame HPV Genotype Reflex Comment Normal [facility] Comment on above: Result Comment: Crit eria not met, HPV Genotype not performed. Performed at: WB Performed By: #### U MICRO, UARMICR #### [facility] [address] [address] [address] Jovani Adame Methodology: Comment Normal [facility] Comment on above: Result Comment: This liquid based ThinPrep(R) pap test was screened with the use of an image guided system. Performed at: WB Performed By: #### U MICRO, UARMICR #### [facility] [address] [address] [address] Jovani Adame Note: Comment Normal [facility] Comment on above: Result Comment: The Pap [...] Performed By: #### U MICRO, UARMICR #### [facility] [address] [address] [address] Jovani Adame Performed by: Comment Normal [facility] Comment on above: Result Comment: Gemma Squires, Roll Changer Performed at: WB Performed By: #### U MICRO, UARMICR #### [facility] [address] [address] [address] Jovani Adame Specimen adequacy: Comment Normal [facility] Comment on above: Result Comment: Sati sfactory for evaluation. No endocervical component is identified. Performed at: WB Performed By: #### U MICRO, UARMICR #### [facility] [address] [address] [address] Jovani Adame MG MAMM SCREEN 3D JEN CADon 04-29-2022 MG MAMM SCREEN 3D JEN CAD Patient: HAVEN BAR Exam Date: 04/29/2022 : 1970 Gender:F Ordering : DR KHAI JACOBSON M.D. Admission #: [id number] Family : DR DERRICK BUTTERFIELD . Order #: [id number] CLICK HERE TO VIEW EXAM RADIOLOGY REPORT [...] cancer at age 52. LOCATION: [facility] BREAST COMPOSITION: Extremely dense, which lowers the [...] PALPABLE LUMP SHOULD BE BIOPSIED. Dictated by: Maurilio White M.D. on 04/30/2022 at 08:00 Approved by: Maurilio White M.D. on 04/30/2022 at 08:10 Normal [facility] Vital Signs Date Time Vital Sign Value Performing Clinician Facility 10-15-2024 08:41-0500 Body mass index (BMI) [Ratio] 25.5 kg/m2 [employer] Work Phone: [facility] 10-15-2024 08:41-0500 Body weight 63.23 kg VCE Greer DO Work Phone: [facility] 10-15-2024 08:41-0500 Diastolic blood pressure 72 mm[Hg] Derrick Greer DO Work Phone: [facility] 10-15-2024 08:41-0500 Systolic blood pressure 108 mm[Hg] Derrick Greer DO Work Phone: [facility] 10-04-2024 14:04-0500 Body height 157.5 cm Keisha [employer] Work Phone: [facility] 10-04-2024 14:04-0500 Body mass index (BMI) [Ratio] 25.64 kg/m2 Keisha Majano [employer] Work Phone: [facility] 10-04-2024 14:04-0500 Body weight 63.59 kg Keisha Majano [employer] Work Phone: [facility] 10-04-2024 14:04-0500 Diastolic blood pressure 74 mm[Hg] Keisha Majano [employer] Work Phone: [facility] 10-04-2024 14:04-0500 Heart rate 73 /min Keisha Majano [employer] Work Phone: [facility] 10-04-2024 14:04-0500 Respiratory rate 17 /min Keisha Majano [employer] Work Phone: [facility] 10-04-2024 14:04-0500 SaO2% (BldA) [Mass fraction] 99 % Keisha Majano [employer] Work Phone: [facility] 10-04-2024 14:04-0500 Systolic blood pressure 116 mm[Hg] Keisha Maj[employer] Work Phone: [facility] 09-03-2024 16:43-0500 Body mass index (BMI) [Ratio] 25.94 kg/m2 Derrick Greer DO Work Phone: [facility] 09-03-2024 16:43-0500 Body weight 64.32 kg Derrick Greer DO Work Phone: [facility] 09-03-2024 16:43-0500 Diastolic blood pressure 78 mm[Hg] Derrick Greer DO Work Phone: [facility] 09-03-2024 16:43-0500 Systolic blood pressure 138 mm[Hg] Derrick Greer DO Work Phone: [facility] 07-16-2024 15:12-0500 Body mass index (BMI) [Ratio] 24.84 kg/m2 Derrick Greer DO Work Phone: [facility] 07-16-2024 15:12-0500 Body weight 61.6 kg Derrick Greer DO Work Phone: [facility] 07-16-2024 15:12-0500 Diastolic blood pressure 60 mm[Hg] Derrick Greer DO Work Phone: [facility] 07-16-2024 15:12-0500 Systolic blood pressure 100 mm[Hg] Derrick Greer DO Work Phone: [facility] 07-04-2024 10:04-0500 Body height 157.5 cm Khai Jacobson MD Work Phone: [facility] 07-04-2024 10:04-0500 Body mass index (BMI) [Ratio] 24.51 kg/m2 Khai Jacobson MD Work Phone: [facility] 07-04-2024 10:04-0500 Body weight 60.78 kg Khai Jacobson MD Work Phone: [facility] 07-04-2024 10:04-0500 Diastolic blood pressure 76 mm[Hg] Khai Jacobson MD Work Phone: [facility] 07-04-2024 10:04-0500 Heart rate 75 /min Khai Jacobson MD Work Phone: [facility] 07-04-2024 10:04-0500 SaO2% (BldA) [Mass fraction] 95 % Khai Jacobson MD Work Phone: [facility] 07-04-2024 10:04-0500 Systolic blood pressure 128 mm[Hg] Khai Jacobson MD Work Phone: [facility] 06-18-2024 14:03-0400 Body height 157.5 cm Derrick Greer DO [facility] [facility] 06-18-2024 14:03-0400 Body mass index (BMI) [Ratio] 24.14 kg/m2 Derrick Greer DO Work Phone: [facility] 06-18-2024 14:03-0400 Body weight 59.88 kg Derrick Greer DO Work Phone: [facility] 06-18-2024 14:03-0400 Diastolic blood pressure 70 mm[Hg] Derrick Greer DO Work Phone: [facility] 06-18-2024 14:03-0400 Systolic blood pressure 104 mm[Hg] Derrick Greer DO Work Phone: [facility] 04-16-2024 09:40-0400 Body mass index (BMI) [Ratio] 23.19 kg/m2 Khai Jacobson MD Work Phone: [facility] 04-16-2024 09:40-0400 Body weight 57.52 kg Khai Jacobson MD Work Phone: [facility] 04-16-2024 09:40-0400 Diastolic blood pressure 60 mm[Hg] Khai Jacobson MD Work Phone: [facility] 04-16-2024 09:40-0400 Heart rate 75 /min Khai Jacobson MD Work Phone: [facility] 04-16-2024 09:40-0400 Respiratory rate 16 /min Khai Jacobson MD Work Phone: [facility] 04-16-2024 09:40-0400 SaO2% (BldA) [Mass fraction] 98 % Khai Jacobson MD Work Phone: [facility] 04-16-2024 09:40-0400 Systolic blood pressure 100 mm[Hg] Khai Jacobson MD Work Phone: [facility] 04-08-2023 10:20-0400 Blood Pressure Location [facility] 04-08-2023 10:20-0400 Diastolic blood pressure 92 mm[Hg] [facility]ILIP[facility] 04-08-2023 10:20-0400 Heart rate 78 /min Curry PHILIPPE [facility] 04-08-2023 10:20-0400 Systolic blood pressure 124 mm[Hg] Curry PHILIPPE [facility] Encounters Encounter Date Encounter Type Care Provider Facility Start: 10-22-2024 End: 10-22-2024 Refill Khai Jacobson MD Work Phone: [facility] Comment on above: Affective psychosis (CMS/HCC) Start: 10-21-2024 End: 10-22-2024 Refill Ashanti Iraheta MD Work Phone: [facility] Comment on above: Insulin resistance; Impaired glucose tolerance Start: 10-15-2024 End: 10-15-2024 Bamboo flowsheet Derrick Greer DO Work Phone: [facility] Start: 10-15-2024 End: 10-15-2024 Bamboo flowsheet Derrick Greer DO Work Phone: [facility] Start: 10-15-2024 End: 10-15-2024 Office outpatient visit 15 minutes Derrick Greer DO Work Phone: [facility] Comment on above: Pre-op examination; Complex endometrial hyperplasia with atypia; Pelvic pain in female; Dyspareunia, female Start: 10-15-2024 End: 10-15-2024 Preprocedural examination done Derrick Greer DO Work Phone: [facility] Start: 10-15-2024 End: 10-15-2024 ambulatory DERRICK GREER Not Available Start: 10-05-2024 End: 10-06-2024 Refill Keisha Majano [employer] Work Phone: [facility] Comment on above: Lumbar spondylosis Start: 10-04-2024 End: 10-04-2024 Office outpatient visit 25 minutes Keisha Majano [employer] Work Phone: [facility] Comment on above: Restless leg (Primar y Dx); Lumbar spondylosis Start: 10-04-2024 End: 10-04-2024 ambulatory KEISHA MAJANO Not Available Start: 09-03-2024 End: 09-03-2024 Office outpatient visit 15 minutes Derrick Greer DO Work Phone: [facility] Comment on above: Complex endometrial hyperplasia with atypia Start: 09-03-2024 End: 09-03-2024 ambulatory DERRICK GREER Not Available Start: 09-03-2024 End: 09-03-2024 Bamboo flowsheet Derrick Greer DO Work Phone: [facility] Start: 09-03-2024 End: 09-03-2024 Bamboo flowsheet Derrick Greer DO Work Phone: [facility] Start: 09-02-2024 End: 09-03-2024 Abraham Jacobson MD Work Phone: [facility] Comment on above: Lumbar spondylosis Start: 08-10-2024 End: 08-10-2024 Clinisync Result Encounter Generic External Data Provider [facility] Unsolicited Start: 08-10-2024 End: 08-10-2024 Clinisync Result Encounter Generic External Data Provider [facility] Unsolicited Start: 08-10-2024 End: 08-10-2024 ambulatory Derrick Greer Facility:[facility] Start: 08-02-2024 End: 08-02-2024 Abraham Jacobson MD Work Phone: [facility] Comment on above: Lumbar spondylosis Start: 07-23-2024 End: 07-23-2024 Clinisync Result Encounter Generic External Data Provider [facility] Unsolicited Start: 07-23-2024 End: 07-23-2024 Clinisync Result Encounter Generic External Data Provider [facility] Unsolicited Start: 07-16-2024 End: 07-16-2024 Office outpatient visit 15 minutes Derrick Greer DO Work Phone: [facility] Comment on above: Pre-op examination; Endometrial thickening on ultrasound; Postmenopausal bleeding Start: 07-16-2024 End: 07-16-2024 Preprocedural examination done Derrick Greer DO Work Phone: [facility] Start: 07-16-2024 End: 07-16-2024 ambulatory DERRICK GREER Not Available Start: 07-04-2024 End: 07-04-2024 Bamboo flowsheet Khai Jacobson MD Work Phone: [facility] Start: 07-04-2024 End: 07-04-2024 Bamboo flowsheet Khai Jacobson MD Work Phone: [facility] Start: 07-04-2024 End: 07-04-2024 Office outpatient visit 25 minutes Khai Jacobson MD Work Phone: [facility] Comment on above: Essential hypertensi on (CMS/HCC) (Primary Dx); Lumbar spondylosis; Impaired glucose tolerance Start: 07-04-2024 End: 07-04-2024 ambulatory KHAI JACOBSON Not Available Start: 06-18-2024 End: 06-18-2024 Office outpatient visit 15 minutes Derrick Greer DO Work Phone: [facility] Comment on above: Endometrial thickeni ng on ultrasound; Postmenopausal bleeding Start: 06-18-2024 End: 06-18-2024 ambulatory DERRICK GREER Not Available Start: 06-05-2024 End: 06-05-2024 Clinisync Result Encounter Generic External Data Provider [facility] Unsolicited Start: 06-05-2024 End: 06-05-2024 Clinisync Result Encounter Generic External Data Provider [facility] Unsolicited Start: 06-04-2024 End: 06-05-2024 Refteagan Jacobson MD Work Phone: [facility] Comment on above: Lumbar spondylosis Start: 05-03-2024 End: 05-03-2024 Abraham Jacobson MD Work Phone: [facility] Comment on above: Lumbar spondylosis Start: 04-20-2024 End: 04-25-2024 Abraham Jacobson MD Work Phone: [facility] Start: 04-16-2024 End: 04-16-2024 Bamboo flowsmaurice Jacobson MD Work Phone: [facility] Start: 04-16-2024 End: 08-26-2024 Bamboo flowsheet Khai Jacobson MD Work Phone: [facility] Start: 04-16-2024 End: 04-16-2024 Office outpatient visit 25 minutes Khai Jacobson MD Work Phone: [facility] Comment on above: Essential hypertensi on (CMS/HCC) (Primary Dx); Impaired glucose tolerance; Mixed hyperlipidemia (CMS/HCC) Start: 04-16-2024 End: 04-16-2024 ambulatory KHAI JACOBSON Not Available Start: 02-21-2024 End: 02-21-2024 ambulatory DERRICK BUTTERFIELD Not Available Start: 12-07-2023 End: 12-07-2023 [...] Start: 09-05-2023 End: 09-06-2023 ambulatory Curry PHILIPPE Facility:[id number] Start: 04-08-2023 End: 04-09-2023 ambulatory Derrick BUTTERFIELD Facility:[facility] Start: 04-08-2023 End: 04-08-2023 Patient encounter procedure [facility] Start: 12-21-2022 ambulatory Curry PHILIPPE Facili ty:[facility] Start: 12-06-2022 End: 12-07-[address] DERRICK BUTTERFIELD . Facility:[facility] Start: 11-30-2022 End: 12-01-[address] DERRICK BUTTERFIELD . Facility:[facility] Start: 08-05-2022 End: 08-06-[address] DERRICK BUTTERFIELD . Facility:[facility] Start: 07-26-2022 End: 07-26-[address] DERRICK BUTTERFIELD . Facility:[facility] Start: 04-29-2022 End: 04-30-[address] KHAI JACOBSON Facility:[facility] Procedures Date Procedure Procedure Detail Performing Clinician Start: 08-10-2024 ALL CBC WITH AUTO DIFF Derrick Greer DO Work Phone: Start: 07-23-2024 ALL BASIC METABOLIC PANEL Derrick Greer DO Work Phone: Start: 06-05-2024 MLR HEMOGLOBIN A1C Core y Greer DO Work Phone: Start: 03-21-2024 Mammography Derrick Fazi o DO Work Phone: Start: 02-21-2024 Microscopic observat ion [Identifier] in Cervix by Cyto stain Khai Jacobson MD Work Phone: Start: 04-13-2023 Mammography Khai rogers MD Work Phone: Start: 08-05-2022 Mammography Khai rogers MD Work Phone: Start: 07-13-2022 Colonoscopy Khai rogers MD Work Phone: Start: 05-23-2013 Arthroscopy of knee Lata [facility] Comment on above: Left knee: partial L M Appendectomy Curryarmando [facility] Decompression of med jayesh nerve Curry [facility] Comment on above: LEFT Elbow fracture (disorder) Pa miguelito [facility] Comment on above: ORIF, RIGHT Laparoscopic cholecystectomy Curryarmando [facility] Ligation of fallopian tube P gricelda [facility] Tonsillectomy Curryarmando [facility] Plan of Treatment Date Care Activity Detail Author Start: 07-13-2032 Screening for malign ant neoplasm of colon [facility] Start: 02-20-2029 Screening for malign ant neoplasm of cervix [facility] Start: 04-12-2025 Screening for malign ant neoplasm of colon FIT-DNA [facility] Start: 03-21-2025 Screening for malign ant neoplasm of breast Mammogram [facility] Start: 10-15-2024 End: 10-15-2024 Patient encounter procedure [facility] Comment on above: Arrived Start: 09-03-2024 End: 09-03-2024 Patient encounter procedure 09/03/2024 4:00 PM EST Office Visit [facility] [address] [facility] [place] [address] Derrick Butterfield, DO [address] [place], [place] [id number] Arrived [facility] Comment on above: Arrived Start: 07-16-2024 End: 07-16-2024 Patient encounter procedure 07/16/2024 2:50 PM EST Consult [facility] [address] [facility] [place] [address] Derrick Butterfield, DO [address] [place], [place] [id number] [facility] Start: 07-04-2024 End: 07-04-2024 Patient encounter procedure 07/04/2024 10:00 AM EST Office Visit [facility] [address] [facility] [address] [place] [id number] Khai Jacobson MD [address] [facility] [address] [place] [address] [facility] Start: 06-18-2024 End: 06-18-2024 Patient encounter procedure 06/18/2024 2:10 PM EDT Office Visit [facility] [address] [facility] [place] [address] Derrick Butterfield, DO [address] [place], [place] [id number] [facility] Start: 04-22-2024 Influenza vaccination Influenza Vacc ine (#1) [facility] Start: 04-16-2024 End: 04-16-2025 Comprehensive metabolic 2000 panel - Serum or Plasma Comprehensive metabolic panel Lab Routine Essential hypertension (CMS/HCC) Impaired glucose tolerance Expected: 04/16/2024 (Approximate), Expires: 04/16/2025 [facility] Comment on above: Expected: 04/16/2024 (Approximate), Expires: 04/16/2025 Start: 04-16-2024 End: 04-16-2025 Hemoglobin A1c/Hemoglobin.total in Blood Hemoglobin A1c Lab Routine Impaired glucose tolerance Expected: 04/16/2024 (Approximate), Expires: 04/16/2025 [facility] Comment on above: Expected: 04/16/2024 (Approximate), Expires: 04/16/2025 Start: 04-16-2024 End: 04-16-2025 Lipid 1996 panel - Serum or Plasma Lipid panel Lab Routine Essential hypertension (CMS/HCC) Impaired glucose tolerance Mixed hyperlipidemia (CMS/HCC) Expected: 04/16/2024 (Approximate), Expires: 04/16/2025 [facility] Work Phone: Comment on above: Expected: 04/16/2024 (Approximate), Expires: 04/16/2025 Start: 04-16-2024 End: 04-16-2025 TSH W/REFLEX TO FT4 TSH W/REFLEX TO FT4 Lab Routine Essential hypertension (CMS/HCC) Impaired glucose tolerance Expected: 04/16/2024 (Approximate), Expires: 04/16/2025 [facility] Comment on above: Expected: 04/16/2024 (Approximate), Expires: 04/16/2025 Start: 04-16-2024 End: 04-16-2024 Patient encounter procedure 04/16/2024 9:30 AM EDT Office Visit [facility] [address] [facility] [facility] [address] [place] [id number] Khai Jacobson MD [address] [place] [facility] [address] [place] [address] Arrived [facility] Comment on above: Arrived Start: 04-13-2024 Screening for malign ant neoplasm of breast Mammogram [facility] Start: 02-21-2024 End: 02-21-2024 Patient encounter procedure 02/21/2024 2:00 PM EDT Office Visit [facility] [address] [facility] [address] Derrick Butterfield DO [address] [facility] [place] [address] [facility] Start: 08-05-2023 Screening for malign ant neoplasm of breast Mammogram [facility] Start: 04-22-2023 Influenza vaccination Influenza Vacc ine (#1) [facility] Start: 01-10-2002 Screening for malign ant neoplasm of cervix [facility] Start: 01-10-1993 Screening for malign ant neoplasm of cervix Pap Smear [facility] Start: 1972 Screening for malign ant neoplasm of colon [facility] CBC W Auto Different ial panel - Blood CBC and differential Lab Routine Essential hypertension (CMS/HCC) Ordered: 04/16/2024 [facility] Comment on above: Ordered: 04/16/2024 Immunizations Immunization Date Immunization Notes Care Provider Fa [facility] 06-22-2018 poliovirus vaccine, inactivated Khai Jacobson MD Work Phone: [facility] 06-22-2018 tetanus toxoid, redu violette diphtheria toxoid, and acellular pertussis vaccine, adsorbed Khai Jacobson MD Work Phone: [facility] 06-01-2018 hepatitis A vaccine, adult dosage Khai Jacobson MD Work Phone: [facility] 06-01-2018 hepatitis B vaccine, adult dosage Khai Jacobson MD Work Phone: [facility] 01-12-2018 hepatitis B vaccine, adult dosage Khai Jacobson MD Work Phone: [facility] 01-06-2018 typhoid vaccine, luisa e, oral Khai Jacobson MD Work Phone: [facility] 12-09-2017 hepatitis A vaccine, adult dosage Khai Jacobson MD Work Phone: [facility] 12-09-2017 hepatitis B vaccine, adult dosage Khai Jacobson MD Work Phone: [facility] Payers Date Payer Category Payer Self-pay 2022 Private Health Insurance [employer] [id number] 2022 Unknown [employer] [id number] 2022-Present [address] [place] [address] [id number] 1972 Unknown [id number] 2.16.840.1.681970.3.579.2. 593 1972 Unknown [id number] 2.16.840.1.447860.3.579.2. 593 1972 Unknown [id number] 2.16.840.1.432494.3.579.2. 593 1972 Unknown [id number] 2.16.840.1.187676.3.579.2. 593 1972 Unknown [id number] 2.16.840.1.009181.3.579.2. 593 1972 Unknown [id number] 2.16.840.1.566967.3.579.2. 727 1972 Unknown [id number] 2.16.840.1.153023.3.579.2. 727 1972 Unknown [id number] 2.16.840.1.188733.3.579.2. 727 1972 Unknown [id number] 2.16.840.1.048976.3.579.2. 1258 1972 Unknown [id number] 2.16.840.1.728906.3.579.2. 1258 1972 Unknown [id number] 2.16.840.1.969877.3.579.2. 1258 1972 Unknown [id number] 2.16.840.1.707309.3.579.2. 1258 1972 Unknown [id number] 2.16.840.1.489868.3.579.2. 1258 1972 Unknown [id number] 2.16.840.1.120550.3.579.2. 1258 1972 Unknown [id number] 2.16.840.1.840825.3.579.2. 1258 1972 Unknown [id number] 2.16840.1.892447.3.579.2. 1258 1972 Unknown [id number] 2.16.840.1.086644.3.579.2. 1258 1972 Unknown [id number] 2.16.840.1.367965.3.579.2. 1259 1959 Unknown [id number] Unknown [id number] 2.16.840.1.300779.3.579.2. 531 Social History Date Type Detail Facility Start: 04-08-2023 Tobacco smoking status Smokele ss tobacco user within last 30 days [facility] Start: 06-29-2023 End: 10-04-2024 Sex Assigned At Female [facility] Start: 02-17-2023 Tobacco smoking stat us VTIS Never smoked tobacco [facility] Start: 02-17-2023 Tobacco use and exposure Smokeless tobacco non-user [facility] Start: 06-29-2023 End: 10-17-2024 Alcohol intake Current drinker of alcohol (finding) [facility] Start: 06-29-2023 End: 10-04-2024 Alcohol intake [facility] Start: 04-10-2023 Alcohol Comment Caffeine:: sod a./pop , coffee [facility] Start: 1972 Sex Assigned At Not on file N [facility] Functional Status Date Assessment Result Facility 04-08-2023 Functional Status N/A [facility] Clinical Notes 12-06-2022 to 10-15-2024 Kimmy Kellogg - 10/15/2024 8:40 AM ESTTelephone Encounter - Ynes Moises Birgit, SEAN - 10/06/2024 11:01 AM ESTTelephone Encounter - Ynes Genao, SEAN - 10/06/2024 11:01 AM EST Note Date & Type Note Facility 10-15-2024 History of Presen t illness Narrative Reason for Appointment: Patient ID: Haven Bar is a 54 y.o. female who presents for Pre-op Visit Patient presents today for Pre Op appointment. Patient is scheduled to undergo Da Derik assisted Laparoscopic Hysterectomy with BSO, possible exploratory laparotomy, and possible cystoscopy on 11/08/[address] Butterfield at [facility]. MEDICATIONS Current Outpatient Medications Medication Instructions ASPIRIN 81 MG chewable tablet Every 24 hours buPROPion (WELLBUTRIN) 100 mg, Oral, Daily ciprofloxacin (CIPRO) 250 mg, Oral, 2 times daily estradiol (ESTRACE) 1 mg, Oral, Daily FLUoxetine (PROZAC) 10 mg, Oral, Daily hydroCHLOROthiazide (HYDRODIURIL) 25 mg, Oral, Every morning HYDROcodone-acetaminophen ([place]) 5-325 MG tablet 1 tablet, Oral, Every 8 hours loratadine (CLARITIN) 10 mg, Daily meloxicam (MOBIC) 15 mg, Oral, Every morning metFORMIN (GLUCOPHAGE) 1,000 mg, Oral, Daily with breakfast metFORMIN (GLUCOPHAGE) 500 mg, Oral, Daily with breakfast metoprolol succinate XL (TOPROL-XL) 100 mg, Oral, Daily Multiple Vitamin (multivitamin) tablet 1 tablet, Daily omeprazole (PRILOSEC) 40 mg, Oral, Daily before breakfast, Do not crush or chew. Ozempic (1 MG/DOSE) 1 mg, Subcutaneous, Weekly rOPINIRole (REQUIP) 0.25 mg, Oral, Nightly, May increase to 2 tabs in 1 week if ineffective simvastatin (ZOCOR) 20 mg, Oral, Nightly ALLERGIES No Known Allergies PROBLEMS Active Ambulatory Problems Diagnosis Date Noted Affective psychosis (CMS/HCC) 01/26/2023 Carpal tunnel syndrome of right wrist 01/26/2023 Chronic constipation 01/26/2023 Diaphragmatic hernia 01/26/2023 DJD (degenerative joint disease) 01/26/2023 Essential hypertension (CMS/HCC) 01/26/2023 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CMS/HCC) 01/26/2023 Gastro-esophageal reflux disease without esophagitis 01/26/2023 Hematuria 01/26/2023 Impaired glucose tolerance 01/26/2023 Insulin resistance 01/26/2023 Mixed hyperlipidemia (CMS/HCC) 05/17/2013 Other chronic pain 01/26/2023 Spondylosis of lumbar region without myelopathy or radiculopathy 01/26/2023 Endometrial thickening on ultrasound 06/18/2024 Postmenopausal bleeding 06/18/2024 Complex endometrial hyperplasia with atypia 09/03/2024 Resolved Ambulatory Problems Diagnosis Date Noted Obesity (BMI 30-39.9) 01/26/2023 Overweight (BMI 25.0-29.9) 01/26/2023 Urinary tract infectious disease 01/26/2023 Past Medical History: Diagnosis Date Benign mole Genital warts Hypertension (CMS/HCC) Migraine (CMS/HCC) Pain in female genitalia on intercourse Pelvic pain Poor circulation HISTORY PAST MEDICAL HISTORY SOCIAL HISTORY Past Medical History: Diagnosis Date Benign mole Genital warts Hypertension (CMS/HCC) Migraine (CMS/HCC) Pain in female genitalia on intercourse pain during intercourse Pelvic pain Poor circulation Social History Tobacco Use Smoking status: Never Smokeless tobacco: Never Vaping Use Vaping status: Every Day Substance Use Topics Alcohol use: Yes Alcohol/week: 2.0 standard drinks of alcohol Types: 2 Standard drinks or equivalent per week Comment: Caffeine:: soda./pop , coffee Drug use: Never FAMILY HISTORY Family History Problem Relation Name Age of Onset Hypertension Mother Heart disease Mother Diabetes Mother Heart disease Father Other (accidental OD) Sister No Known Problems Sister Other (colorectal cancer) Brother No Known Problems Brother Pancreatic cancer Brother No Known Problems Brother Breast cancer Neg Hx Ovarian cancer Neg Hx SURGICAL HISTORY Past Surgical History: Procedure Laterality Date APPENDECTOMY 1999 CARPAL TUNNEL RELEASE 2007 CHOLECYSTECTOMY 2011 COLONOSCOPY 07/07/2022 HEART CATH 06/09/2015 normal PAP SMEAR 2018 negative TUBAL LIGATION Bilateral 2009 REVIEW OF SYSTEMS Review of Systems: Review of Systems Constitutional: Negative. HENT: Negative. Eyes: Negative. Respiratory: Negative. Cardiovascular: Negative. Gastrointestinal: Negative. Genitourinary: Positive for pelvic pain and vaginal pain. Musculoskeletal: Negative. Skin: Negative. Neurological: Negative. All other systems reviewed and are negative. Hematological: Negative. Endocrine: Negative. Allergic/Immunologic: Negative. OBJECTIVE Objective: Physical Exam Constitutional: Appearance: Normal appearance. She is well-developed. Cardiovascular: Rate and Rhythm: Normal rate and regular rhythm. Pulmonary: Effort: Pulmonary effort is normal. Breath sounds: Normal breath sounds. Abdominal: General: Bowel sounds are normal. There is no distension. Palpations: Abdomen is soft. Tenderness: There is no abdominal tenderness. There is no guarding or rebound. Musculoskeletal: General: No swelling. Normal range of motion. Right lower leg: No edema. Left lower leg: No edema. Neurological: Mental Status: She is alert and oriented to person, place, and time. Skin: General: Skin is warm and dry. Psychiatric: Mood and Affect: Mood normal. Behavior: Behavior normal. Vitals and nursing note reviewed. Exam conducted with a gas adjuster present. Vitals: Estimated body mass index is 25.5 kg/m as calculated from the following: Height as of 10/04/24: 5' 2 . Weight as of this encounter: 139 lb 6.4 oz. BP: 108/72 No LMP recorded. ASSESSMENT & PLAN ICD-10-CM 1. Pre-op examination Z01.818 2. Complex endometrial hyperplasia with atypia N85.02 3. Pelvic pain in female R10.2 4. Dyspareunia, female N94.10 Pre Op: Patient is doing well but has complaints of complex endometrial hyperplasia with atypia. I have discussed conservative management vs. surgical management with the patient in detail and patient desires surgical management at this time. Patient will undergo Da Derik assisted Laparoscopic Hysterectomy with BSO, possible exploratory laparotomy, and possible cystoscopy on 11/08/2024. Surgical consents were signed, mmc was reviewed, and patient is to proceed to [facility] OR. Discussed patients questions in regards to Specialist and answered questions in regards pathology results. Follow Up: Patient is to follow up at 1 & 6 weeks post operative to assess proper healing and recovery from procedure. Documented by Luba Andrea LPN on behalf of: Derrick Butterfield DO documented in this encounter [facility] 10-06-2024 Telephone encounter Note OARRS reviewed, Rx sent into patient's pharmacy. [facility] 10-06-2024 Miscellaneous Notes OARRS reviewed, Rx sent into patient's pharmacy. documented in this encounter [facility] 10-04-2024 History of Presen t illness Narrative Images from the original note were not included. Subjective Patient ID: Haven Bar is a 54 y.o. female who presents for medication F/U Haven presents today for a medication F/U. She also having issues with restless leg at night. She has tried OTC medication but nothing has helped. Anxiety Presents for follow-up visit. Symptoms include nervous/anxious behavior. Primary symptoms comment: only anxious when flying. Symptoms occur rarely. The severity of symptoms is causing significant distress. Compliance with medications is 76-100%. Pain This is a chronic problem. The current episode started more than 1 year ago. The problem occurs constantly. The problem has been gradually improving since onset. The pain is present in the left knee and lower back. The pain is severe. The symptoms are aggravated by inactivity and any movement. Past treatments include prescription narcotic. The treatment provided significant relief. There is no swelling present. Her past medical history is significant for chronic back pain. Current Outpatient Medications on File Prior to Visit Medication Sig Dispense Refill ALPRAZolam (Xanax) 0.5 MG tablet TAKE 1 OR 2 TABLETS BY MOUTH ONE HOUR BEFORE FLIGHT ASPIRIN 81 MG chewable tablet 1 (one) time each day at the same time. buPROPion (Wellbutrin) 100 MG tablet Take 1 tablet (100 mg) by mouth Daily 100 tablet 3 estradiol (Estrace) 1 MG tablet Take 1 tablet (1 mg) by mouth Daily 30 tablet 11 FLUoxetine (PROzac) 10 MG tablet Take 1 tablet (10 mg) by mouth Daily 360 tablet 3 hydroCHLOROthiazide (HYDRODiuril) 25 MG tablet Take 1 tablet (25 mg) by mouth in the morning. 100 tablet 1 HYDROcodone-acetaminophen ([place]) 5-325 MG tablet Take 1 tablet by mouth every 8 (eight) hours 90 tablet 0 loratadine (Claritin) 10 MG tablet Take 10 mg by mouth Daily meloxicam (Mobic) 15 MG tablet Take 1 tablet (15 mg) by mouth in the morning. 100 tablet 1 metFORMIN (Glucophage) 1000 MG tablet Take 1 tablet (1,000 mg) by mouth in the morning. Take with meals. 90 tablet 3 metFORMIN (Glucophage) 500 MG tablet Take 1 tablet (500 mg) by mouth in the morning. Take with meals. 90 tablet 3 metoprolol succinate XL (Toprol-XL) 100 MG 24 hr tablet Take 1 tablet (100 mg) by mouth Daily 100 tablet 3 Multiple Vitamin (multivitamin) tablet Take 1 tablet by mouth Daily omeprazole (PriLOSEC) [address] capsule Take 1 capsule (40 mg) by mouth in the morning. Take before meals. Do not crush or chew.. 100 capsule 2 semaglutide (Ozempic, 1 MG/DOSE,) 4 MG/3ML solution pen-injector Inject 1 mg under the skin 1 (one) time per week 3 mL 1 simvastatin (Zocor) 20 MG tablet Take 1 tablet (20 mg) by mouth at bedtime 100 tablet 3 No current facility-administered medications on file prior to visit. I have reviewed and reconciled the history and medication list with the patient today. No Known Allergies Social History Tobacco Use Smoking status: Never Smokeless tobacco: Never Vaping Use Vaping status: Every Day Substance Use Topics Alcohol use: Yes Alcohol/week: 2.0 standard drinks of alcohol Types: 2 Standard drinks or equivalent per week Comment: Caffeine:: soda./pop , coffee Drug use: Never Family History Problem Relation Name Age of Onset Hypertension Mother Heart disease Mother Diabetes Mother Heart disease Father Other (accidental OD) Sister No Known Problems Sister Other (colorectal cancer) Brother No Known Problems Brother Pancreatic cancer Brother No Known Problems Brother Breast cancer Neg Hx Ovarian cancer Neg Hx Past Medical History: Diagnosis Date Benign mole Genital warts Hypertension (CMS/HCC) Migraine (CMS/HCC) Pain in female genitalia on intercourse pain during intercourse Pelvic pain Poor circulation Past Surgical History: Procedure Laterality Date APPENDECTOMY 2000 CARPAL TUNNEL RELEASE 2007 CHOLECYSTECTOMY 2011 COLONOSCOPY 07/07/2022 HEART CATH 06/09/2015 normal PAP SMEAR 2018 negative TUBAL LIGATION Bilateral 2009 Visit Vitals OB Status Having periods Smoking Status Never Review of Systems Musculoskeletal: Positive for arthralgias and myalgias. Restless legs at night and even during the day Psychiatric/Behavioral: The patient is nervous/anxious. Objective Physical Exam Vitals reviewed. Constitutional: Appearance: Normal appearance. HENT: Head: Normocephalic. Mouth/Throat: Mouth: Mucous membranes are moist. Pharynx: Oropharynx is clear. Eyes: Conjunctiva/sclera: Conjunctivae normal. Cardiovascular: Rate and Rhythm: Normal rate. Pulmonary: Effort: Pulmonary effort is normal. Skin: General: Skin is warm and dry. Neurological: General: No focal deficit present. Mental Status: She is alert and oriented to person, place, and time. Psychiatric: Mood and Affect: Mood normal. Behavior: Behavior normal. Thought Content: Thought content normal. Assessment/Plan Diagnoses and all orders for this visit: Restless leg - rOPINIRole (Requip) 0.25 MG tablet; Take 1 tablet (0.25 mg) by mouth at bedtime May increase to 2 tabs in 1 week if ineffective Take medication as prescribed. We will gradually increase dose to reach the most effective dose for your restless leg. Lumbar spondylosis - HYDROcodone-acetaminophen ([place]) 5-325 MG tablet; Take 1 tablet by mouth every 8 (eight) hours Medication choice and dosage is appropriate for patient's current medical conditions. Patient will continue to be required to be seen in our office at least every three months for monitoring. At each follow up visit I will reassess the patient's need for the medication. Patient is to have this medication prescribed only through this office. Failure to follow the rules and regulations will result in tapering and discontinuation of medications if applicable. Patient verbalized understanding. OARRS Report was reviewed for this patient. No follow-ups on file. documented in this encounter [facility] 01-13-2025 Telephone encounter Note PDMP reviewed, Covering for Dr. Jacobson [facility] 09-03-2024 Miscellaneous Notes PDMP reviewed, Covering for Dr. Jacobson documented in this encounter [facility] 09-03-2024 History of Presen t illness Narrative Reason for Appointment: Patient ID: Haven Bar is a 54 y.o. female who presents for No chief complaint on file. Patient presents today for Consult appointment. MEDICATIONS Current Outpatient Medications Medication Instructions ALPRAZolam (Xanax) 0.5 MG tablet TAKE 1 OR 2 TABLETS BY MOUTH ONE HOUR BEFORE FLIGHT ASPIRIN 81 MG chewable tablet Every 24 hours buPROPion (WELLBUTRIN) 100 mg, Oral, Daily estradiol (ESTRACE) 1 mg, Oral, Daily FLUoxetine (PROZAC) 10 mg, Oral, Daily hydroCHLOROthiazide (HYDRODIURIL) 25 mg, Oral, Every morning HYDROcodone-acetaminophen ([place]) 5-325 MG tablet 1 tablet, Oral, Every 8 hours loratadine (CLARITIN) 10 mg, Daily meloxicam (MOBIC) 15 mg, Oral, Every morning metFORMIN (GLUCOPHAGE) 1,000 mg, Oral, Daily with breakfast metFORMIN (GLUCOPHAGE) 500 mg, Oral, Daily with breakfast metoprolol succinate XL (TOPROL-XL) 100 mg, Oral, Daily Multiple Vitamin (multivitamin) tablet 1 tablet, Daily omeprazole (PRILOSEC) 40 mg, Oral, Daily before breakfast, Do not crush or chew. Ozempic, 1 MG/DOSE, 4 MG/3ML solution pen-injector INJECT 1 mg SUBCUTANEOUSLY (UNDER THE SKIN) ONCE A WEEK simvastatin (ZOCOR) 20 mg, Oral, Nightly ALLERGIES No Known Allergies PROBLEMS Active Ambulatory Problems Diagnosis Date Noted Affective psychosis ([facility]) 01/26/2023 Carpal tunnel syndrome of right wrist 01/26/2023 Chronic constipation 01/26/2023 Diaphragmatic hernia 01/26/2023 DJD (degenerative joint disease) 01/26/2023 Essential hypertension (CMS/HCC) 01/26/2023 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CMS/HCC) 01/26/2023 Gastro-esophageal reflux disease without esophagitis 01/26/2023 Hematuria 01/26/2023 Impaired glucose tolerance 01/26/2023 Insulin resistance 01/26/2023 Mixed hyperlipidemia (CMS/HCC) 05/17/2013 Other chronic pain 01/26/2023 Spondylosis of lumbar region without myelopathy or radiculopathy 01/26/2023 Endometrial thickening on ultrasound 06/18/2024 Postmenopausal bleeding 06/18/2024 Resolved Ambulatory Problems Diagnosis Date Noted Obesity (BMI 30-39.9) 01/26/2023 Overweight (BMI 25.0-29.9) 01/26/2023 Urinary tract infectious disease 01/26/2023 Past Medical History: Diagnosis Date Benign mole Genital warts Hypertension (CMS/HCC) Migraine (CMS/HCC) Pain in female genitalia on intercourse Pelvic pain Poor circulation HISTORY PAST MEDICAL HISTORY SOCIAL HISTORY Past Medical History: Diagnosis Date Benign mole Genital warts Hypertension (CMS/HCC) Migraine (CMS/HCC) Pain in female genitalia on intercourse pain during intercourse Pelvic pain Poor circulation Social History Tobacco Use Smoking status: Never Smokeless tobacco: Never Vaping Use Vaping status: Every Day Substance Use Topics Alcohol use: Yes Alcohol/week: 2.0 standard drinks of alcohol Types: 2 Standard drinks or equivalent per week Comment: Caffeine:: soda./pop , coffee Drug use: Never FAMILY HISTORY Family History Problem Relation Name Age of Onset Hypertension Mother Heart disease Mother Diabetes Mother Heart disease Father Other (accidental OD) Sister No Known Problems Sister Other (colorectal cancer) Brother No Known Problems Brother Pancreatic cancer Brother No Known Problems Brother Breast cancer Neg Hx Ovarian cancer Neg Hx SURGICAL HISTORY Past Surgical History: Procedure Laterality Date APPENDECTOMY 2000 CARPAL TUNNEL RELEASE 2008 CHOLECYSTECTOMY 2011 COLONOSCOPY 07/07/2022 HEART CATH 06/09/2015 normal PAP SMEAR 2018 negative TUBAL LIGATION Bilateral 2009 REVIEW OF SYSTEMS Review of Systems: Review of Systems All other systems reviewed and are negative. OBJECTIVE Objective: Physical Exam Constitutional: Appearance: Normal appearance. She is well-developed. Cardiovascular: Rate and Rhythm: Normal rate and regular rhythm. Pulmonary: Effort: Pulmonary effort is normal. Breath sounds: Normal breath sounds. Abdominal: General: Bowel sounds are normal. There is no distension. Palpations: Abdomen is soft. Tenderness: There is no abdominal tenderness. There is no guarding or rebound. Musculoskeletal: General: No swelling. Normal range of motion. Right lower leg: No edema. Left lower leg: No edema. Neurological: Mental Status: She is alert and oriented to person, place, and time. Skin: General: Skin is warm and dry. Psychiatric: Mood and Affect: Mood normal. Behavior: Behavior normal. Vitals and nursing note reviewed. Exam conducted with a gas adjuster present. Vitals: Estimated body mass index is 25.94 kg/m as calculated from the following: Height as of 07/04/24: 5' 2 . Weight as of this encounter: 141 lb 12.8 oz. BP: 138/78 No LMP recorded. ASSESSMENT & PLAN Patient presents today for post operative follow up. Reviewed pathology report with patient. Advised patient that surgical management is recommended via Hysterectomy with BSO. Patient to setup date with glove boarder prior to leaving office today. Documented by Luba Andrea LPN on behalf of: Derrick Butterfield DO documented in this encounter [facility] 07-16-2024 History of Presen t illness Narrative Reason for Appointment: Patient ID: Haven Bar is a 54 y.o. female who presents for Pre-op Visit Patient presents today for Pre Op appointment. Patient is scheduled to undergo D&C Hysteroscopy, possible Myosure on 08/10/[address] Butterfield at [facility]. MEDICATIONS Current Outpatient Medications Medication Instructions ALPRAZolam (Xanax) 0.5 MG tablet TAKE 1 OR 2 TABLETS BY MOUTH ONE HOUR BEFORE FLIGHT ASPIRIN 81 MG chewable tablet Every 24 hours Black Cohosh Root 450 MG capsule as directed Orally buPROPion (WELLBUTRIN) 100 mg, Oral, Daily estradiol (ESTRACE) 1 mg, Oral, Daily FLUoxetine (PROZAC) 10 mg, Oral, Daily hydroCHLOROthiazide (HYDRODIURIL) 25 mg, Oral, Every morning HYDROcodone-acetaminophen ([place]) 5-325 MG tablet 1 tablet, Oral, Every 8 hours meloxicam (MOBIC) 15 mg, Oral, Every morning metFORMIN (GLUCOPHAGE) 1,000 mg, Oral, Daily with breakfast metoprolol succinate XL (TOPROL-XL) 100 mg, Oral, Daily omeprazole (PriLOSEC) [address] capsule take 1 capsule by mouth every morning before meals Ozempic, 1 MG/DOSE, 4 MG/3ML solution pen-injector INJECT 1 mg SUBCUTANEOUSLY (UNDER THE SKIN) ONCE A WEEK simvastatin (ZOCOR) 20 mg, Oral, Nightly ALLERGIES No Known Allergies PROBLEMS Active Ambulatory Problems Diagnosis Date Noted Affective psychosis (CMS/HCC) 01/26/2023 Carpal tunnel syndrome of right wrist 01/26/2023 Chronic constipation 01/26/2023 Diaphragmatic hernia 01/26/2023 DJD (degenerative joint disease) 01/26/2023 Essential hypertension (CMS/HCC) 01/26/2023 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CMS/HCC) 01/26/2023 Gastro-esophageal reflux disease without esophagitis 01/26/2023 Hematuria 01/26/2023 Impaired glucose tolerance 01/26/2023 Insulin resistance 01/26/2023 Mixed hyperlipidemia (CMS/HCC) 05/17/2013 Other chronic pain 01/26/2023 Spondylosis of lumbar region without myelopathy or radiculopathy 01/26/2023 Endometrial thickening on ultrasound 06/18/2024 Postmenopausal bleeding 06/18/2024 Resolved Ambulatory Problems Diagnosis Date Noted Obesity (BMI 30-39.9) 01/26/2023 Overweight (BMI 25.0-29.9) 01/26/2023 Urinary tract infectious disease 01/26/2023 Past Medical History: Diagnosis Date Benign mole Genital warts Hypertension (CMS/HCC) Migraine (CMS/HCC) Pain in female genitalia on intercourse Pelvic pain Poor circulation HISTORY PAST MEDICAL HISTORY SOCIAL HISTORY Past Medical History: Diagnosis Date Benign mole Genital warts Hypertension (CMS/HCC) Migraine (CMS/HCC) Pain in female genitalia on intercourse pain during intercourse Pelvic pain Poor circulation Social History Tobacco Use Smoking status: Never Smokeless tobacco: Never Vaping Use Vaping status: Every Day Substance Use Topics Alcohol use: Yes Alcohol/week: 2.0 standard drinks of alcohol Types: 2 Standard drinks or equivalent per week Comment: Caffeine:: soda./pop , coffee Drug use: Never FAMILY HISTORY Family History Problem Relation Name Age of Onset Hypertension Mother Heart disease Mother Diabetes Mother Heart disease Father Other (accidental OD) Sister No Known Problems Sister Other (colorectal cancer) Brother No Known Problems Brother Pancreatic cancer Brother No Known Problems Brother Breast cancer Neg Hx Ovarian cancer Neg Hx SURGICAL HISTORY Past Surgical History: Procedure Laterality Date APPENDECTOMY 2000 CARPAL TUNNEL RELEASE 2007 CHOLECYSTECTOMY 2011 COLONOSCOPY 07/07/2022 HEART CATH 06/09/2015 normal PAP SMEAR 2018 negative TUBAL LIGATION Bilateral 2009 REVIEW OF SYSTEMS Review of Systems: Review of Systems Constitutional: Negative. HENT: Negative. Eyes: Negative. Respiratory: Negative. Cardiovascular: Negative. Gastrointestinal: Negative. Genitourinary: Positive for vaginal bleeding. Musculoskeletal: Negative. Skin: Negative. Neurological: Negative. All other systems reviewed and are negative. Hematological: Negative. Endocrine: Negative. Allergic/Immunologic: Negative. OBJECTIVE Objective: Physical Exam Constitutional: Appearance: Normal appearance. She is well-developed. Cardiovascular: Rate and Rhythm: Normal rate and regular rhythm. Pulmonary: Effort: Pulmonary effort is normal. Breath sounds: Normal breath sounds. Abdominal: General: Bowel sounds are normal. There is no distension. Palpations: Abdomen is soft. Tenderness: There is no abdominal tenderness. There is no guarding or rebound. Musculoskeletal: General: No swelling. Normal range of motion. Right lower leg: No edema. Left lower leg: No edema. Neurological: Mental Status: She is alert and oriented to person, place, and time. Skin: General: Skin is warm and dry. Psychiatric: Mood and Affect: Mood normal. Behavior: Behavior normal. Vitals and nursing note reviewed. Exam conducted with a gas adjuster present. Vitals: Estimated body mass index is 24.51 kg/m as calculated from the following: Height as of 07/04/24: 5' 2 . Weight as of 07/04/24: 134 lb. BP: No LMP recorded. ASSESSMENT & PLAN ICD-10-CM 1. Pre-op examination Z01.818 2. Endometrial thickening on ultrasound R93.89 3. Postmenopausal bleeding N95.0 Pre Op: Patient is doing well but has complaints of thickened endometrium and postmenopausal bleeding. I have discussed conservative management vs. surgical management with the patient in detail and patient desires surgical management at this time. Patient will undergo D&C Hysteroscopy, possible Myosure on 08/10/2024. Surgical consents were signed, mmc was reviewed, and patient is to proceed to [facility] OR. All patients questions answered and if in the future she desires to have pelvic/abdominal ultrasound if she has bloating in the future. Follow Up: Patient is to follow up between 1-2 weeks post operative to assess proper healing and recovery from procedure. Documented by Luba Andrea LPN on behalf of: Derrick Butterfield DO documented in this encounter [facility] 07-04-2024 History of Presen t illness Narrative Images from the original note were not included. HPI Follow-up Additional comments: Pain med Results Additional comments: Lab results eye irritation Additional comments: Right eye has been itching x 3 days Denies pain,drainage or matting Med Refill Additional comments: Hydrocodone--DM barry Last edited by Anai Vieira LPN on 07/04/2024 10:10 AM. Subjective Patient ID: Haven Bar is a 54 y.o. female who presents for Follow-up (Pain med), Hypertension, Results (Lab results), eye irritation (Right eye has been itching x 3 days/Denies pain,drainage or matting), and Med Refill (Hydrocodone--DM barry). Hypertension Patient is here for follow-up of elevated blood pressure. She is exercising and is adherent to a low-salt diet. Cardiac symptoms: none. Patient denies chest pain, chest pressure/discomfort, claudication, irregular heart beat, lower extremity edema, near-syncope, orthopnea, palpitations, paroxysmal nocturnal dyspnea, syncope, and tachypnea. Cardiovascular risk factors: hypertension. Hypertension Med Refill Current Outpatient Medications on File Prior to Visit Medication Sig Dispense Refill ALPRAZolam (Xanax) 0.5 MG tablet TAKE 1 OR 2 TABLETS BY MOUTH ONE HOUR BEFORE FLIGHT ASPIRIN 81 MG chewable tablet 1 (one) time each day at the same time. Black Cohosh Root 450 MG capsule as directed Orally buPROPion (Wellbutrin) 100 MG tablet take 1 tablet by mouth once daily 100 tablet 3 estradiol (Estrace) 1 MG tablet Take 1 tablet (1 mg) by mouth Daily 30 tablet 11 FLUoxetine (PROzac) 10 MG tablet Take 1 tablet (10 mg) by mouth Daily 360 tablet 0 hydroCHLOROthiazide (HYDRODiuril) 25 MG tablet take 1 tablet by mouth every morning 90 tablet 1 HYDROcodone-acetaminophen ([place]) 5-325 MG tablet Take 1 tablet by mouth every 8 (eight) hours 90 tablet 0 meloxicam (Mobic) 15 MG tablet Take 1 tablet (15 mg) by mouth in the morning. 100 tablet 1 metFORMIN (Glucophage) 1000 MG tablet Take 1 tablet (1,000 mg) by mouth in the morning. Take with meals. 30 tablet 11 metoprolol succinate XL (Toprol-XL) 100 MG 24 hr tablet take 1 tablet by mouth once daily 100 tablet 3 omeprazole (PriLOSEC) [address] capsule take 1 capsule by mouth every morning before meals 100 capsule 2 Ozempic, 1 MG/DOSE, 4 MG/3ML solution pen-injector INJECT 1 mg SUBCUTANEOUSLY (UNDER THE SKIN) ONCE A WEEK 3 mL 1 simvastatin (Zocor) 20 MG tablet take 1 tablet by mouth at bedtime 100 tablet 3 [DISCONTINUED] ciprofloxacin (Cipro) 250 MG tablet Take 1 tablet (250 mg) by mouth in the morning and 1 tablet (250 mg) before bedtime. 10 tablet 2 [DISCONTINUED] semaglutide (Ozempic, 1 MG/DOSE,) 4 MG/3ML solution pen-injector Inject 1 mg under the skin 1 (one) time per week 3 mL 3 No current facility-administered medications on file prior to visit. I have reviewed and reconciled the history and medication list with the patient today. No Known Allergies Social History Tobacco Use Smoking status: Never Smokeless tobacco: Never Vaping Use Vaping status: Every Day Substance Use Topics Alcohol use: Yes Alcohol/week: 2.0 standard drinks of alcohol Types: 2 Standard drinks or equivalent per week Comment: Caffeine:: soda./pop , coffee Drug use: Never Family History Problem Relation Name Age of Onset Hypertension Mother Heart disease Mother Diabetes Mother Heart disease Father Other (accidental OD) Sister No Known Problems Sister Other (colorectal cancer) Brother No Known Problems Brother Pancreatic cancer Brother No Known Problems Brother Breast cancer Neg Hx Ovarian cancer Neg Hx Past Medical History: Diagnosis Date Benign mole Genital warts Hypertension (CMS/HCC) Migraine (CMS/HCC) Pain in female genitalia on intercourse pain during intercourse Pelvic pain Poor circulation Past Surgical History: Procedure Laterality Date APPENDECTOMY 2000 CARPAL TUNNEL RELEASE 2007 CHOLECYSTECTOMY 2010 COLONOSCOPY 07/07/2022 HEART CATH 06/09/2015 normal PAP SMEAR 2018 negative TUBAL LIGATION Bilateral 2009 Visit Vitals Ht 5' 2 BMI 24.14 kg/m OB Status Having periods Smoking Status Never BSA 1.62 m Review of Systems Objective Physical Exam Constitutional: General: She is not in acute distress. Appearance: Normal appearance. She is well-developed. HENT: Head: Normocephalic and atraumatic. Eyes: General: No scleral icterus. Conjunctiva/sclera: Conjunctivae normal. Cardiovascular: Rate and Rhythm: Normal rate and regular rhythm. Heart sounds: Normal heart sounds. No murmur heard. Pulmonary: Effort: Pulmonary effort is normal. No respiratory distress. Breath sounds: Normal breath sounds. No wheezing, rhonchi or rales. Skin: General: Skin is warm and dry. Neurological: General: No focal deficit present. Mental Status: She is alert and oriented to person, place, and time. Psychiatric: Mood and Affect: Mood normal. Behavior: Behavior normal. Documentation on 06/19/2024 Component Date Value Ref Range Status RESULTS 06/13/2024 NDR Final Clinisync Result Encounter on 06/05/2024 Component Date Value Ref Range Status GLYCOHEMOGLOBIN A1C 06/05/2024 5.2 4.5 - 6.2 % Final Comment: ADA RECOMMENDED LIMIT 4.0 - 6.0 ADA THERAPEUTIC TARGET < 7.0 ACTION SUGGESTED > 7.0 ESTIMATED AVERAGE GLUCOSE 06/05/2024 103 mg/dL Final Office Visit on 04/16/2024 Component Date Value Ref Range Status WHITE BLOOD CELL COUNT 04/16/2024 6.4 3.8 - 10.8 Thousand/uL Final RED BLOOD CELL COUNT 04/16/2024 3.86 3.80 - 5.10 Million/uL Final HEMOGLOBIN 04/16/2024 12.2 11.7 - 15.5 g/dL Final HEMATOCRIT 04/16/2024 39.5 35.0 - 45.0 % Final MCV 04/16/2024 102.3 (H) 80.0 - 100.0 fL Final MCH 04/16/2024 31.6 27.0 - 33.0 pg Final MCHC 04/16/2024 30.9 (L) 32.0 - 36.0 g/dL Final RDW 04/16/2024 12.0 11.0 - 15.0 % Final PLATELET COUNT 04/16/2024 316 140 - 400 Thousand/uL Final MPV 04/16/2024 11.8 7.5 - 12.5 fL Final ABSOLUTE NEUTROPHILS 04/16/2024 TNP cells/uL Final Comment: TEST(S) NOT PERFORMED: ABSOLUTE NEUTROPHILS ABSOLUTE MONOCYTES ABSOLUTE EOSINOPHILS ABSOLUTE BASOPHILS NEUTROPHILS LYMPHOCYTES MONOCYTES EOSINOPHILS BASOPHILS Unable to report due to degeneration of cellular morphology. CHOLESTEROL, TOTAL 04/16/2024 193 <200 mg/dL Final HDL CHOLESTEROL 04/16/2024 71 > OR = 50 mg/dL Final TRIGLYCERIDES 04/16/2024 237 (H) <150 mg/dL Final Comment: If a non-fasting specimen was collected, consider repeat triglyceride testing on a fasting specimen if clinically indicated. Kylah et al. J. of Clin. Lipidol. 2015;9:129-169. LDL-CHOLESTEROL 04/16/2024 89 mg/dL (calc) Final Comment: Reference range: <100 Desirable range <100 mg/dL for primary prevention; <70 mg/dL for patients with CHD or diabetic patients with > or = 2 CHD risk factors. LDL-C is now calculated using the Christian-Stacie calculation, which is a validated novel method providing better accuracy than the Friedewald equation in the estimation of LDL-C. Christian MARTINEZ et al. JOHN. 2013;310(19): 0253-7061 (http://education.[employer].com/faq/OIU000) CHOL/HDLC RATIO 04/16/2024 2.7 <5.0 (calc) Final NON HDL CHOLESTEROL 04/16/2024 122 <130 mg/dL (calc) Final Comment: For patients with diabetes plus 1 major ASCVD risk factor, treating to a non-HDL-C goal of <100 mg/dL (LDL-C of <70 mg/dL) is considered a therapeutic option. Glucose 04/16/2024 79 65 - 99 mg/dL Final Comment: Fasting reference interval BUN 04/16/2024 16 7 - 25 mg/dL Final Creatinine 04/16/2024 0.72 0.50 - 1.03 mg/dL Final EGFR 04/16/2024 101 > OR = 60 mL/min/1.73m2 Final BUN/CREATININE RATIO 04/16/2024 SEE NOTE: 6 - 22 (calc) Final Comment: Not Reported: BUN and Creatinine are within reference range. Sodium 04/16/2024 140 135 - 146 mmol/L Final Potassium, Bld 04/16/2024 3.8 3.5 - 5.3 mmol/L Final Chloride 04/16/2024 99 98 - 110 mmol/L Final Carbon Dioxide 04/16/2024 32 20 - 32 mmol/L Final Calcium 04/16/2024 9.3 8.6 - 10.4 mg/dL Final PROTEIN, TOTAL 04/16/2024 6.9 6.1 - 8.1 g/dL Final ALBUMIN 04/16/2024 4.3 3.6 - 5.1 g/dL Final GLOBULIN 04/16/2024 2.6 1.9 - 3.7 g/dL (calc) Final ALBUMIN/GLOBULIN RATIO 04/16/2024 1.7 1.0 - 2.5 (calc) Final BILIRUBIN, TOTAL 04/16/2024 0.3 0.2 - 1.2 mg/dL Final ALKALINE PHOSPHATASE 04/16/2024 42 37 - 153 U/L Final AST 04/16/2024 23 10 - 35 U/L Final ALT 04/16/2024 14 6 - 29 U/L Final TSH W/REFLEX TO FT4 04/16/2024 1.74 mIU/L Final Comment: Reference Range > or = 20 Years 0.40-4.50 Ranges First trimester 0.26-2.66 Second trimester 0.55-2.73 Third trimester 0.43-2.91 Hemoglobin A1C 04/16/2024 5.4 <5.7 % of total Hgb Final Comment: For the purpose of screening for the presence of diabetes: <5.7% Consistent with the absence of diabetes 5.7-6.4% Consistent with increased risk for diabetes (prediabetes) > or =6.5% Consistent with diabetes This assay result is consistent with a decreased risk of diabetes. Currently, no consensus exists regarding use of hemoglobin A1c for diagnosis of diabetes in children. According to [place] Diabetes Association (ADA) guidelines, hemoglobin A1c <7.0% represents optimal control in non- diabetic patients. Different metrics may apply to specific patient populations. Standards of Medical Care in Diabetes(ADA). This test was performed on the [employer] c503 platform. Effective 08/08/23, a change in test platforms from the Don Academic Tutor to the Nancy michaela c503 may have shifted HbA1c results compared to historical results. Based on laboratory validation testing conducted at [facility], the Nancy platform relative to the Don platform had an average increase in HbA1c value of < or = 0.3%. This difference is within accepted variability established by the National Glycohemoglobin Standardization Program. Note that not all individuals will have had a shift in their results and direct comparisons between historical and current results for testing conducted on different platforms is not recommended. [facility] Result Encounter on 02/21/2024 Component Date Value Ref Range Status AGE GDLN ACOG TESTING 02/21/2024 Note . Final Comment: TESTS RESULT FLAG UNITS REF RANGE LAB Clinician Provided Cytology Information Source.............Cervix;Endoc ervix No. of containers..01 ThinPrep Vial Age Algo ACOG Carleen... 30-65 01 FLAG LEGEND: L-Low Normal,H-High Normal,LL-Alert Low,HH-Alert High <-Panic Low,>-Panic High,A-Abnormal,AA-Critical Abnormal Performed at: 01 =G [address] [place] [address] Ros Reyes MD, IGP, APTIMA HPV, RFX 16/18,45 02/21/2024 Note . Final Comment: TESTS RESULT FLAG UNITS REF RANGE LAB DIAGNOSIS: 02 NEGATIVE FOR INTRAEPITHELIAL LESION OR MALIGNANCY. Specimen adequacy: 02 Satisfactory for evaluation. Endocervical and/or squamous metaplastic cells (endocervical component) are present. Performed by: 02 Charu Nicole Roll Changer (ASCP) . 02 Note: Note 02 The Pap smear is a screening test designed to aid in the detection of premalignant and malignant conditions of the uterine cervix. It is not a diagnostic procedure and should not be used as the sole means of detecting cervical cancer. Both false-positive and false-negative reports do occur. Test Methodology: Note 02 This liquid based ThinPrep(R) pap test was screened with the use of an image guided system. HPV Genotype Reflex Note 02 Criteria not met, HPV Genotype not performed. FLAG LEGEND: L-Low Normal,H-High Normal,LL-Alert Low,HH-Alert High <-Panic Low,>-Panic High,A-Abnormal,AA-Critical Abnormal Performed at: [address] [address] Ros Reyes MD, HPV APTIMA 02/21/2024 Negative Negative Final Comment: This nucleic acid amplification test detects fourteen high- risk HPV types (16,18,31,33,35,39,45,51,52,56, 58,59,66,68) without differentiation. Performed at: =[address] [id number] Rubber Flap Cutter: Ros Reyes MD, Phone: [phone] Performed at: [address] [id number] Rubber Flap Cutter: Ros Reyes MD, Phone: [phone] Assessment/Plan Diagnoses and all orders for this visit: Essential hypertension (CMS/HCC) - This is a chronic medical condition that is stable since last assessment. No changes in treatment are suggested at this time. Lumbar spondylosis - HYDROcodone-acetaminophen ([place]) 5-325 MG tablet; Take 1 tablet by mouth every 8 (eight) hours - Medication choice and dosage is appropriate for patient's current medical conditions. Patient will continue to be required to be seen in our office at least every three months for monitoring. At each follow up visit I will reassess the patient's need for the medication. Patient is to have this medication prescribed only through this office. Failure to follow the rules and regulations will result in tapering and discontinuation of medications if applicable. Patient verbalized understanding. OARRS Report was reviewed for this patient. Impaired glucose tolerance No follow-ups on file. documented in this encounter [facility] 06-18-2024 History of Presen t illness Narrative Reason for Appointment: Patient ID: Haven Bar is a 54 y.o. female who presents for Menstrual Problem Patient presents today for Consult appointment. MEDICATIONS Current Outpatient Medications Medication Instructions ALPRAZolam (Xanax) 0.5 MG tablet TAKE 1 OR 2 TABLETS BY MOUTH ONE HOUR BEFORE FLIGHT ASPIRIN 81 MG chewable tablet Every 24 hours Black Cohosh Root 450 MG capsule as directed Orally buPROPion (WELLBUTRIN) 100 mg, Oral, Daily ciprofloxacin (CIPRO) 250 mg, Oral, 2 times daily estradiol (ESTRACE) 1 mg, Oral, Daily FLUoxetine (PROZAC) 10 mg, Oral, Daily hydroCHLOROthiazide (HYDRODIURIL) 25 mg, Oral, Every morning HYDROcodone-acetaminophen ([place]) 5-325 MG tablet 1 tablet, Oral, Every 8 hours megestrol (MEGACE) 20 mg, Oral, Daily, Take 1 tablet 2 times daily for 3 days then take 1 tablet daily for 1 month (36 tablets total) meloxicam (MOBIC) 15 mg, Oral, Every morning metFORMIN (GLUCOPHAGE) 1,000 mg, Oral, Daily with breakfast metoprolol succinate XL (TOPROL-XL) 100 mg, Oral, Daily omeprazole (PriLOSEC) [address] capsule take 1 capsule by mouth every morning before meals Ozempic (1 MG/DOSE) 1 mg, Subcutaneous, Weekly simvastatin (ZOCOR) 20 mg, Oral, Nightly ALLERGIES No Known Allergies PROBLEMS Active Ambulatory Problems Diagnosis Date Noted Affective psychosis (CMS/HCC) 01/26/2023 Carpal tunnel syndrome of right wrist 01/26/2023 Chronic constipation 01/26/2023 Diaphragmatic hernia 01/26/2023 DJD (degenerative joint disease) 01/26/2023 Essential hypertension (CMS/HCC) 01/26/2023 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CMS/HCC) 01/26/2023 Gastro-esophageal reflux disease without esophagitis 01/26/2023 Hematuria 01/26/2023 Impaired glucose tolerance 01/26/2023 Insulin resistance 01/26/2023 Mixed hyperlipidemia (CMS/HCC) 05/17/2013 Other chronic pain 01/26/2023 Spondylosis of lumbar region without myelopathy or radiculopathy 01/26/2023 Resolved Ambulatory Problems Diagnosis Date Noted Obesity (BMI 30-39.9) 01/26/2023 Overweight (BMI 25.0-29.9) 01/26/2023 Urinary tract infectious disease 01/26/2023 Past Medical History: Diagnosis Date Benign mole Genital warts Hypertension (CMS/HCC) Migraine (CMS/HCC) Pain in female genitalia on intercourse Pelvic pain Poor circulation HISTORY PAST MEDICAL HISTORY SOCIAL HISTORY Past Medical History: Diagnosis Date Benign mole Genital warts Hypertension (CMS/HCC) Migraine (CMS/HCC) Pain in female genitalia on intercourse pain during intercourse Pelvic pain Poor circulation Social History Tobacco Use Smoking status: Never Smokeless tobacco: Never Vaping Use Vaping status: Every Day Substance Use Topics Alcohol use: Yes Alcohol/week: 2.0 standard drinks of alcohol Types: 2 Standard drinks or equivalent per week Comment: Caffeine:: soda./pop , coffee Drug use: Never FAMILY HISTORY Family History Problem Relation Name Age of Onset Hypertension Mother Heart disease Mother Diabetes Mother Heart disease Father Other (accidental OD) Sister No Known Problems Sister Other (colorectal cancer) Brother No Known Problems Brother Pancreatic cancer Brother No Known Problems Brother Breast cancer Neg Hx Ovarian cancer Neg Hx SURGICAL HISTORY Past Surgical History: Procedure Laterality Date APPENDECTOMY 1999 CARPAL TUNNEL RELEASE 2008 CHOLECYSTECTOMY 2011 COLONOSCOPY 07/07/2022 HEART CATH 06/09/2015 normal PAP SMEAR 2018 negative TUBAL LIGATION Bilateral 2009 REVIEW OF SYSTEMS Review of Systems: Review of Systems All other systems reviewed and are negative. OBJECTIVE Objective: Physical Exam Constitutional: Appearance: Normal appearance. She is well-developed. Cardiovascular: Rate and Rhythm: Normal rate and regular rhythm. Pulmonary: Effort: Pulmonary effort is normal. Breath sounds: Normal breath sounds. Abdominal: General: Bowel sounds are normal. There is no distension. Palpations: Abdomen is soft. Tenderness: There is no abdominal tenderness. There is no guarding or rebound. Musculoskeletal: General: No swelling. Normal range of motion. Right lower leg: No edema. Left lower leg: No edema. Neurological: Mental Status: She is alert and oriented to person, place, and time. Skin: General: Skin is warm and dry. Psychiatric: Mood and Affect: Mood normal. Behavior: Behavior normal. Vitals and nursing note reviewed. Exam conducted with a gas adjuster present. Vitals: Estimated body mass index is 24.14 kg/m as calculated from the following: Height as of this encounter: 5' 2 . Weight as of this encounter: 132 lb. BP: 104/70 No LMP recorded. ASSESSMENT & PLAN Patient presents for follow up ultrasound. Informed patient that since she is having some post-menopausal bleeding (cycle 05/14/24 through 06/13/24) and slightly thickened endometrium. Discussed procedure and what would be done during surgical procedure. Patient aware she will not need to have endometrial biopsy done due to having D&C. Patient to schedule pre-op and surgery date prior to leaving office today. All other results of ultrasound were normal. Documented by Luba Andrea LPN on behalf of: Derrick Butterfield DO documented in this encounter [facility] 06-04-2024 Telephone encounter Note [facility] 06-04-2024 Miscellaneous Notes Lvm Please help pt get set up for a follow up with Dr. Jacobson in June. OARRS reviewed, Rx sent into patient's pharmacy. HYDROcodone-acetaminophen ([place]) 5-325 MG tablet [facility] [place] documented in this encounter [facility] 06-04-2024 Telephone encounter Note Please help pt get set up for a follow up with Dr. Jacobson in June. OARRS reviewed, Rx sent into patient's pharmacy. [facility] 06-04-2024 Telephone encounter Note HYDROcodone-acetaminophen ([place]) 5-325 MG tablet [facility] [place] [facility] 05-03-2024 Telephone encounter Note HYDROcodone-acetaminophen ([place]) 5-325 MG tablet [facility] [place] [facility] 05-03-2024 Miscellaneous Notes HYDROcodone-acetaminophen ([place]) 5-325 MG tablet [facility] [place] documented in this encounter [facility] 04-16-2024 History of Presen t illness Narrative Images from the original note were not included. Subjective Patient ID: Haven Bar is a 54 y.o. female who presents for a medication follow up. Haven is in today for a medication follow up on her norco, States its working well and has no complaints Current Outpatient Medications on File Prior to Visit Medication Sig Dispense Refill ALPRAZolam (Xanax) 0.5 MG tablet TAKE 1 OR 2 TABLETS BY MOUTH ONE HOUR BEFORE FLIGHT ASPIRIN 81 MG chewable tablet 1 (one) time each day at the same time. Black Cohosh Root 450 MG capsule as directed Orally buPROPion (Wellbutrin) 100 MG tablet take 1 tablet by mouth once daily 100 tablet 3 estradiol (Estrace) 1 MG tablet Take 1 tablet (1 mg) by mouth Daily 30 tablet 11 FLUoxetine (PROzac) 10 MG tablet Take 1 tablet (10 mg) by mouth Daily 360 tablet 0 hydroCHLOROthiazide (HYDRODiuril) 25 MG tablet take 1 tablet by mouth every morning 90 tablet 1 HYDROcodone-acetaminophen ([place]) 5-325 MG tablet Take 1 tablet by mouth every 8 (eight) hours 90 tablet 0 meloxicam (Mobic) 15 MG tablet Take 1 tablet (15 mg) by mouth in the morning. 100 tablet 1 metFORMIN (Glucophage) 1000 MG tablet Take 1 tablet (1,000 mg) by mouth in the morning. Take with meals. 30 tablet 11 metoprolol succinate XL (Toprol-XL) 100 MG 24 hr tablet take 1 tablet by mouth once daily 100 tablet 3 omeprazole (PriLOSEC) [address] capsule take 1 capsule by mouth every morning before meals 100 capsule 2 semaglutide (Ozempic, 1 MG/DOSE,) 4 MG/3ML solution pen-injector Inject 1 mg under the skin 1 (one) time per week 3 mL 1 simvastatin (Zocor) 20 MG tablet take 1 tablet by mouth at bedtime 100 tablet 3 [DISCONTINUED] traMADol (Ultram) 50 MG tablet Take 1 tablet (50 mg) by mouth every 6 (six) hours if needed for severe pain 90 tablet 2 [DISCONTINUED] metFORMIN XR (Glucophage-XR) 500 MG 24 hr tablet take 1 tablet by mouth once daily WITH EVENING MEAL 30 tablet 3 No current facility-administered medications on file prior to visit. No Known Allergies Social History Tobacco Use Smoking status: Never Smokeless tobacco: Never Vaping Use Vaping status: Every Day Substance Use Topics Alcohol use: Yes Alcohol/week: 2.0 standard drinks of alcohol Types: 2 Standard drinks or equivalent per week Comment: Caffeine:: soda./pop , coffee Drug use: Never Family History Problem Relation Name Age of Onset Hypertension Mother Heart disease Mother Diabetes Mother Heart disease Father Other (accidental OD) Sister No Known Problems Sister Other (colorectal cancer) Brother No Known Problems Brother Pancreatic cancer Brother No Known Problems Brother Breast cancer Neg Hx Ovarian cancer Neg Hx Past Medical History: Diagnosis Date Benign mole Genital warts Hypertension (CMS/HCC) Migraine (CMS/HCC) Pain in female genitalia on intercourse pain during intercourse Pelvic pain Poor circulation Past Surgical History: Procedure Laterality Date APPENDECTOMY 2000 CARPAL TUNNEL RELEASE 2007 CHOLECYSTECTOMY 2010 COLONOSCOPY 07/07/2022 HEART CATH 06/09/2015 normal PAP SMEAR 2018 negative TUBAL LIGATION Bilateral 2009 Visit Vitals BP 100/60 Pulse 75 Resp 16 Wt 126 lb 12.8 oz SpO2 98% BMI 23.19 kg/m Smoking Status Never BSA 1.59 m Review of Systems Constitutional: Negative for chills, fatigue and fever. Respiratory: Negative for cough, shortness of breath and wheezing. Cardiovascular: Negative for chest pain, palpitations and leg swelling. Gastrointestinal: Negative for abdominal pain, constipation, diarrhea, nausea and vomiting. Skin: Negative for rash. Objective Physical Exam Constitutional: General: She is not in acute distress. Appearance: Normal appearance. She is well-developed. HENT: Head: Normocephalic and atraumatic. Eyes: General: No scleral icterus. Conjunctiva/sclera: Conjunctivae normal. Cardiovascular: Rate and Rhythm: Normal rate and regular rhythm. Heart sounds: Normal heart sounds. No murmur heard. Pulmonary: Effort: Pulmonary effort is normal. No respiratory distress. Breath sounds: Normal breath sounds. No wheezing, rhonchi or rales. Skin: General: Skin is warm and dry. Neurological: General: No focal deficit present. Mental Status: She is alert and oriented to person, place, and time. Psychiatric: Mood and Affect: Mood normal. Behavior: Behavior normal. Assessment/Plan Diagnoses and all orders for this visit: Essential hypertension (CMS/HCC) - Lipid panel; Future - Comprehensive metabolic panel; Future - CBC and differential - TSH W/REFLEX TO FT4; Future Impaired glucose tolerance - Lipid panel; Future - Comprehensive metabolic panel; Future - TSH W/REFLEX TO FT4; Future - Hemoglobin A1c; Future Mixed hyperlipidemia (CMS/HCC) - Lipid panel; Future Follow up in about 3 months (around 07/17/2024) for Routine F/U, Controlled Med Review. documented in this encounter [facility] 10-03-2023 Telephone encounter Note A prescription without a prescription was called in as requested. [facility] 10-03-2023 Miscellaneous Notes A prescription without a prescription was called in as requested. Pt called and said she has an UTI and asked if a prescription could be called in for her without a prescription documented in this encounter [facility] 10-03-2023 Telephone encounter Note Pt called and said she has an UTI and asked if a prescription could be called in for her without a prescription [facility] 09-28-2023 Telephone encounter Note Rx was sent [facility] 09-28-2023 Miscellaneous Notes Rx was sent She is taking this for nausea , did know if you would send in or needed an appt for this Pt is requesting prometilazine she has not had this in awhile ok to give pt Needs sent to [facility] in [place] documented in this encounter [facility] 09-28-2023 Telephone encounter Note She is taking this for nausea , did know if you would send in or needed an appt for this [facility] 09-28-2023 Telephone encounter Note Pt is requesting prometilazine she has not had this in awhile ok to give pt Needs sent to [facility] in [place] [facility] 04-08-2023 Note Chief Complaint 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 [facility] Comment on above: Result Comment: Elec [...] Follow these instructions at home: Medicines Take [id number] and prescription medicines only as told by [...] or the blood stops without treatment. Take jtny-[id number] and prescription medicines only as told by your health care provider. Drink enough fluid to keep your urine pale yellow. This information is not intended to replace advice given to you by your health care provider. Make sure you discuss any questions you have with your health care provider. Document Revised: 04/08/2021 Document Reviewed: 04/08/2021 [employer] Patient Education 2022 [employer]. Follow Up Care 12/21/2022 14:38:53 With:SURY MARRERO, Curry Fay, URL Address: [address] [place], [place] [id number]- When: Unknown [facility] 12-06-2022 Note PROCEDURE: US PELVIS AND [...] by: FOREIGN ORTEZ Date: 2022-12-06 15:05 [facility] Evaluation + Plan note No data available for this section [facility] Evaluation note Diagnosis Nausea- Primary Nausea alone [facility] Diagnosis Acute cystitis without hematuria- Primary [facility]* Diagnosis Lumbar spondylosis Lumbosacral spondylosis without myelopathy [facility]* Diagnosis Endometrial thickening on ultrasound Postmenopausal bleeding [facility]* Diagnosis Essential hypertension (CMS/HCC)- Primary Unspecified essential hypertension Lumbar spondylosis Lumbosacral spondylosis without myelopathy Impaired glucose tolerance Impaired glucose tolerance test [facility]* Diagnosis Pre-op examination Endometrial thickening on ultrasound Postmenopausal bleeding [facility]* Diagnosis Lumbar spondylosis Lumbosacral spondylosis without myelopathy [facility]* Diagnosis Lumbar spondylosis Lumbosacral spondylosis without myelopathy [facility]* Diagnosis Essential hypertension (CMS/HCC)- Primary Unspecified essential hypertension Impaired glucose tolerance Impaired glucose tolerance test Mixed hyperlipidemia ([facility]) Mixed hyperlipidemia [facility]* Diagnosis Lumbar spondylosis Lumbosacral spondylosis without myelopathy [facility]* Diagnosis Complex endometrial hyperplasia with atypia Endometrial hyperplasia with atypia [facility]* Diagnosis Restless leg- Primary Restless legs syndrome (RLS) Lumbar spondylosis Lumbosacral spondylosis without myelopathy [facility]* Diagnosis Lumbar spondylosis Lumbosacral spondylosis without myelopathy [facility]* Diagnosis Pre-op examination Complex endometrial hyperplasia with atypia Endometrial hyperplasia with atypia Pelvic pain in female Unspecified symptom associated with female genital organs Dyspareunia, female [facility]* Diagnosis Insulin resistance Other abnormal glucose Impaired glucose tolerance Impaired glucose tolerance test [facility]* Diagnosis Affective psychosis (CMS/HCC) Unspecified episodic mood disorder [facility] No data available for this section [facility] Summary Purpose Family History No Family History [...] CREATED AUTHOR AUTHOR'S ORGANIZ ATION 09/22/2023 [facility] DATE CREATED AUTHOR AUTHOR'S ORGANIZ ATION 09/04/2024 [facility] DATE CREATED AUTHOR AUTHOR'S ORGANIZ ATION 10/16/2024 [facility] EPIC Patient Care team informatio n (unrecognized section and content) Gum Remover Relationship Specialty Start Date End Date Khai Jacobson MD [address] [place] [address] PCP - Medical [employer] 01/20/23 Khai Jacobson MD [address] [place] [address] PCP - General Internal Medicine 02/23/23 Gum Remover Relationship Specialty Start Date End Date Khai Jacobson MD [address] [place] [address] PCP - Medical [employer] 01/20/23 Khai Jacobson MD [address] [place] [address] PCP - General Internal Medicine 02/23/23 Gum Remover Relationship Specialty Start Date End Date Khai Jacobson MD [address] [place] [address] PCP - Medical [employer] 08/22/15 08/21/99 Khai Jacobson MD [address] [place] [address] PCP - General Internal Medicine 02/23/23 Gum Remover Relationship Specialty Start Date End Date Khai Jacobson MD [address] [place] [address] PCP - Medical [employer] 08/22/15 08/21/99 Khai Jacobson MD [address] [place] [address] PCP - General Internal Medicine 02/23/23 Gum Remover Relationship Specialty Start Date End Date Khai Jacobson MD [address] [place] [address] PCP - Medical [employer] 08/22/15 08/21/99 Khai Jacobson MD [address] [place] [address] PCP - General Internal Medicine 02/23/23 Gum Remover Relationship Specialty Start Date End Date Khai Jacobson MD [address] [place] [address] PCP - Medical [employer] 08/22/15 08/21/99 Khai Jacobson MD [address] [place] [address] PCP - General Internal Medicine 02/23/23 Gum Remover Relationship Specialty Start Date End Date Khai Jacobson MD [address] [place] [address] PCP - Medical [employer] 08/22/15 08/21/99 Khai Jacobson MD [address] [place] [address] PCP - General Internal Medicine 02/23/23 Gum Remover Relationship Specialty Start Date End Date Khai Jacobson MD [address] [place] [address] PCP - Medical [employer] 08/22/15 08/21/99 Khai Jacobson MD [address] [place] [address] PCP - General Internal Medicine 02/23/23 Gum Remover Relationship Specialty Start Date End Date Khai Jacobson MD [address] [place] [address] PCP - Medical [employer] 08/22/15 08/21/99 Khai Jacobson MD [address] [place] [address] PCP - General Internal Medicine 02/23/23 Gum Remover Relationship Specialty Start Date End Date Khai Jacobson MD [address] [place] [address] PCP - Medical [employer] 08/22/15 08/21/99 Khai Jacobson MD [address] [place] [address] PCP - General Internal Medicine 02/23/23 Gum Remover Relationship Specialty Start Date End Date Khai Jacobson MD [address] [place] [address] PCP - Medical [employer] 08/22/15 08/21/99 Khai Jacobson MD [address] [place] [address] PCP - General Internal Medicine 02/23/23 Gum Remover Relationship Specialty Start Date End Date Khai Jacobson MD [address] [place] [address] PCP - Medical [employer] 08/22/15 08/21/99 Khai Jacobson MD [address] [place] [address] PCP - General Internal Medicine 02/23/23 Gum Remover Relationship Specialty Start Date End Date Khai Jacobson MD [address] [place] [address] PCP - Medical [employer] 08/22/15 08/21/99 Khai Jacobson MD [address] [place] [address] PCP - General Internal Medicine 02/23/23 Gum Remover Relationship Specialty Start Date End Date Khai Jacobson MD [address] [place] [address] PCP - Medical [employer] 08/22/15 08/21/99 Khai Jacobson MD [address] [place] [address] PCP - General Internal Medicine 02/23/23 Gum Remover Relationship Specialty Start Date End Date Khai Jacobson MD [address] [place] [address] PCP - [facility] [place] [employer] 08/22/15 08/21/99 Khai Jacobson MD [address] [place] [address] PCP - General Internal Medicine 02/23/23 Gum Remover Relationship Specialty Start Date End Date Khai Jacobson MD [address] [place] [address] PCP - [facility] [place] 08/22/15 08/21/99 Khai Jacobson MD [address] [place] [address] PCP - General Internal Medicine 02/23/23 Reason for Visit (unrecogniz ed section and content) Reason Onset Date Comments Med Refill 09/27/2023 Prometilazine 25 mg [facility] [place] Reason Onset Date Comments Med Refill 10/03/2023 Reason Onset Date Comments Med Refill 06/04/2024 Reason Comments Menstrual Problem Reason Comments Follow-up Pain med Hypertension Results Lab results eye irritation Right eye has been i tching x 3 daysDenies pain,drainage or matting Med Refill Hydrocodone--DM clyd e Reason Comments Pre-op Visit Reason Onset Date Comments Med Refill 05/03/2024 Reason Onset Date Comments Med Refill 08/02/2024 Reason Onset Date Comments Med Refill 04/20/2024 Reason Onset Date Comments Med Refill 09/02/2024 Reason Onset Date Comments Med Refill 10/05/2024 Reason Onset Date Comments Med Refill 10/21/2024 Reason Onset Date Comments Med Refill 10/22/2024 FOR RECORDS PERTAINING TO PATIENTS WHO ARE [...] BE BASED ON THE PRIMARY CLINICAL RECORDS. [employer] provides no warranty or guarantee of the accuracy or completeness of information in this document.
--- NOTE | 2024-10-26 14:29 | ECG_ITS ---
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 Measurements Intervals Ferriday Rate: 65 P: 69 OR: 159 QRS: 53 QRSD: 77 T: 50 QT: 401 QTc: 418 Interpretive Statements SINUS RHYTHM Normal ECG Compared to ECG 07/23/2024 08:58:40 No significant changes Electronically Signed On 10-26-2024 17:49:11 EST by JORDEN MCKEON M.D.
--- NOTE | 2024-10-26 15:24 | XR_ITS ---
[address] [address] Patient Name: LEONORA MELARA MRN: [id number] date: 1970 Sex: F Assigned Patient Location: [facility] Current Patient Location: [facility] Accession/Order Number: [id number] Exam Date: 10/26/2024 18:38 Report Date: 10/26/2024 18:39 At the request of: TAMIKA GILLILAND DO Procedure: XR chest 2V Plain film chest Single view HISTORY: Presurgical assessment for hysterectomy COMPARISON: 07/23/2024 FINDINGS: SUPPORT DEVICES: None POSTSURGICAL CHANGES: None HEART: Within normal limits PULMONARY TYESHA: Within normal limits MEDIASTINUM: Unremarkable LUNGS AND PLEURA: No acute lung process, pleural effusion or pneumothorax identified. BONY STRUCTURES: Mild scoliosis ADDITIONAL FINDINGS None XR/XR chest 2V IMPRESSION: No acute process. Impression dictated by: Phill Mederos M.D.10/26/2024 6:39 PM Dictation Location: DermApproved Electronically authenticated by: [id number] Y Date: 10/26/2024 18:39
[2024-10-26 15:32] LABS: Basophils Absolute Auto 0.1 10^3/uL (0.0-0.1); Basophils Percent Auto 0.8 % (0.2-2.0); Eosinophils Absolute Auto 0.1 10^3/uL (0.0-0.7); Eosinophils Percent Auto 1.7 % (0.9-7.0); Hematocrit 37.1 % (36.0-48.0); Hemoglobin 12.4 g/dL (12.0-16.0); Immature Granulocytes Abs Auto 0.02 10^3/uL (0.00-0.03); Immature Granulocytes Pct Auto 0.3 % (0.0-0.5); Lymphocytes Absolute Auto 2.3 10^3/uL (1.2-3.8); Lymphocytes Percent Auto 35.5 % (20.5-60.0); Mean Corpuscular HGB Conc 33.4 g/dL (29.9-35.2); Mean Corpuscular Hemoglobin 31.8 pg (26.7-34.0); Mean Corpuscular Volume 95.1 fL (81.0-99.0); Mean Platelet Volume 9.7 fL (9.5-13.5); Monocytes Absolute Auto 0.6 10^3/uL (0.3-0.8); Monocytes Percent Auto 9.1 % (1.7-12.0); Neutrophils Absolute Auto 3.4 10^3/uL (1.4-6.5); Neutrophils Percent Auto 52.6 % (43.0-75.0); Platelet Count 316 10^3/uL (150-450); White Blood Count 6.5 10^3/uL (4.0-11.0)
[2024-10-26 15:51] LABS: INR 1.02; Partial Thromboplastin Time 28.7 sec (22.3-36.2); Prothrombin Time 10.8 sec (9.0-11.6)
[2024-10-26 16:09] LABS: Alanine Aminotransferase 20 U/L (14-59); Albumin Globulin Ratio 1.2; Albumin Level 3.8 g/dL (3.4-5.0); Alkaline Phosphatase 56 U/L (46-116); Anion Gap 10.9; Aspartate Amino Transferase 20 U/L (15-37); BUN Creatinine Ratio 17.9; Bilirubin Direct 0.1 mg/dL (0.0-0.2); Bilirubin Total 0.4 mg/dL (0.2-1.0); Calcium 9.3 mg/dL (8.5-10.1); Carbon Dioxide 29.7 mmol/L (21.0-32.0); Chloride 104 mmol/L (98-107); Estimated GFR (African America >60 (>=60 mL/min/1.73m^2); Estimated GFR (Non-African Ame >60 (>=60 mL/min/1.73m^2); Globulin 3.3 g/dL; Glucose 99 mg/dL (74-106); Potassium 4.6 mmol/L (3.5-5.1); Sodium 140 mmol/L (136-145); Total Protein 7.1 g/dL (6.4-8.2)
== END 2024-10-26 14:23 | disposition home or self-care (01) ==
LOC: PST 14:22
PROVIDERS: PCP Internal Medicine; Visit Provider Obstetrics & Gynecology
DX: Z01.812 Encounter for preprocedural laboratory examination (principal); Z01.810 Encounter for preprocedural cardiovascular examination; N85.02 Endometrial intraepithelial neoplasia [EIN]; R10.2 Pelvic and perineal pain; N94.10 Unspecified dyspareunia
CPT/HCPCS: 71046; 80048; 80076; 85025; 85610; 85730; 86850; 86900; 86901; 93005

== ENCOUNTER 2024-11-06 14:20 | Outpatient (OUT) | payer OTHER, SELFPAY ==
--- OUTSIDE RECORDS SUMMARY | 2024-11-06 14:37 | XMS_ITS | CCD ---
Author Organization [facility] CliniSysd Care Team Providers Care Family Practice Medical Doctor Name Role Phone MARY, DR RAMIREZ Admitting Unavailable MARY, DR RAMIREZ Attending Unavailable MARY, DR RAMIREZ Primary Care Unavailable MARY, DR RAMIREZ Consulting Unavailable ZIEBER, DR MYLES Fay Consulting Unavailable GREER ., DR LUNDBERG Admitting Unavailable GREER ., DR LUNDBERG Attending Unavailable MARY, DR RAMIREZ Primary Care Unavailable [facility], DR REGINALD Monzon Consulting Unavailabl e GREER ., DR LUNDBERG Consulting Unavailable FOREIGN ORTZE Consulting Unavailable GREER ., DR LUNDBERG Admitting Unavailable GREER ., DR LUNDBERG Attending Unavailable MARY, DR RAMIREZ Primary Care Unavailable GREER ., DR LUNDBERG Consulting Unavailable GREER ., DR LUNDBERG Admitting Unavailable GREER ., DR LUNDBERG Attending Unavailable MARY, DR RAMIREZ Primary Care Unavailable [place], DR ROSSY Juarez Consulting Unavailable GREER ., DR LUNDBERG Consulting Unavailable GREER ., DR LUNDBERG Admitting Unavailable GREER ., DR LUNDBERG Attending Unavailable MARY, DR RAMIREZ Primary Care Unavailable GREER ., DR LUNDBERG Consulting Unavailable KHAI JACOBSON Primary Care Physician Curry PHILIPPE Attending Unavailable Tamika BUTTERFIELD R Referring Unavailable Curry PHILIPPE Attending Unavailable Curry PHILIPPE Attending Unavailable Khai Jacobson MD Unavailable Khai Jacobson MD Primary Care Provider Khai Jacobson MD Unavailable Tamika Butterfield Attending Unavailable Tamika Butterfield Admitting Unavailable CARIDAD MAJANO Attending Unavailable TAMIKA BUTTERFIELD Attending Unavailable KHAI JACOBSON Attending Unavailable KHAI JACOBSON Attending Unavailable TAMIKA BUTTERFIELD Attending Unavailable KHAI JACOBSON Attending Unavailable TAMIKA BUTTERFIELD Attending Unavailable KHAI JACOBSON Attending Unavailable TAMIKA BUTTERFIELD Attending Unavailable TAMIKA BUTTERFIELD Attending Unavailable Medications Current Medications Medication Drug Class(es) Dates Sig (Normalized) Sig (Original) aspirin 81 mg oral tablet (20 sources) [...] daily 100 tablet 3 11/29/2023 Active Start: 04-08-2023 buPROPion 100 mg Tab Refills(s) 0 Start Date: 04/08/23 Status: Ordered ciprofloxacin 250 mg oral tablet (12 sources) Quinolone Antimicrobial Start: 10-09-2024 take 1 [...] procedure, # 2 tab(s), Refills(s) 0, Pharmacy: [facility] #[id number], 158, cm, 04/08/23 10:27:00 EDT, Height/Length Dosing, [...] 0 Active loratadine 10 mg oral tablet (16 sources) take 1 tablet by mouth once [...] tablet (20 sources) Nonsteroidal Anti-inflammatory Drug Start: 10-30-19 take 1 tablet by mouth in the morning meloxicam (Mobic) 15 MG tablet 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 100 tablet 1 04/06/2024 Active Start: 09-05-2023 take 1 tablet by jenny th once daily in the morning meloxicam (Mobic) [...] Start: 03-28-2023 take 2 tablets by mo ut once daily metFORMIN XR (Glucophage-XR) 500 MG [...] 04/08/23 Status: Ordered Multiple Vitamin (multivitamin) tablet (16 sources) take 1 tablet by mouth once [...] Start: 02-20-2024 take 1 capsule by mo ut once daily before mealtime omeprazole (PriLOSEC) 40 [...] 10/05/2023 Active rOPINIRole 0.25 mg oral tablet (8 sources) Nonergot Dopamine Agonist Start: 10-04-2024 End: [...] (Ozempic, 1 MG/DOSE,) 4 MG/3ML solution pen-injector (18 sources) Start: 10-22-2024 inject 1 mg by [...] (20 sources) Opioid Agonist Start: 04-03-2024 End: 12-01-2024 take 1 tablet by mouth every eight hours HYDROcodone-acetami nophen (Wadsworth) 5-325 MG tablet Indications: Lumbar spondylosis Take 1 tablet by mouth every 8 (eight) hours 90 tablet 10/06/2024 11/01/2024 Discontinued (Reorder) Start: 09-26-2023 take 1 tablet by jenny th every eight hours HYDROcodone-acetaminophen (Wadsworth) 5-325 MG tablet Indications: Lumbar spondylosis Take 1 tablet by mouth every 8 (eight) hours 90 tablet 0 09/26/2023 Active Start: 05-23-2013 Vicodin 500 mg -5 mg Tab 1 tab(s), Oral, q4hr PRN as needed for pain, 40 tab(s), Refill(s) 0, 0, 1-2 orally every 4-6 hrs as needed for pain, Print Requisition Start Date: 05/23/13 Status: Ordered ALPRAZolam 0.5 mg oral tablet (20 sources) [...] 01-26-2023 01-26-2023 Chronic Disorders of lipid metabolism (20 sources) Hypercholesterolemia; [...] 01-26-2023 01-26-2023 Chronic Other female genital disorders (13 sources) Complex atypical endometrial hyperplasia; Translations: [Endometrial [...] 01-26-2023 01-26-2023 Episodic Diabetes mellitus without complication (20 sources) Impaired [...] (Bld) 0.8 % 0.2 - 2.0 % [facility] Eosinophils/100 WBC (Bld) 1.5 % 0.9 - 7.0 % [facility] Erythrocyte distribution width (RBC) [Ratio] 11.9 % 11.0 - 15.0 % [facility] Hematocrit (Bld) [Volume fraction] 37.4 % 36.0 - 48.0 % [facility] Hemoglobin (Bld) [Mass/Vol] 12.2 g/dL 12.0 - 16.0 g/dL [facility] IMMATURE GRANULOCYTES ABS AUTO 0.01 [facility] Immature granulocytes/100 WBC (Bld) 0.1 % 0.0 - 0.5 % [facility] Interpretation and review of laboratory results Abnormal [facility] LYMPHOCYTES ABSOLUTE AUTO 2.8 [facility] Lymphocytes/100 WBC (Bld) 35.5 % 20.5 - 60.0 % [facility] MCH (RBC) [Entitic mass] 31.9 pg 26.7 - 34.0 pg [facility] MCHC (RBC) [Mass/Vol] 32.6 g/dL 29.9 - 35.2 g/dL [facility] MCV (RBC) [Entitic vol] 97.9 fL 81.0 - 99.0 fL [facility] MONOCYTES ABSOLUTE AUTO 0.6 [facility] Monocytes/100 WBC (Bld) 7 % 1.7 - 12.0 % [facility] NEUTROPHILS ABSOLUTE AUTO 4.4 [facility] Neutrophils/100 WBC (Bld) 55.1 % 43.0 - 75.0 % [facility] Platelet mean volume (Bld) [Entitic vol] 10 fL 9.5 - 13.5 fL [facility] # 0.1 [facility] PLT 283 [facility] TB RBC 3.82 Low [facility] TB WBC 7.9 [facility] Pathology Request for Lab Co rpon 08-10-2024 Pathology Request for Lab Megan Normal [facility] Comment on above: Order Comment: PATHO LOGY AMBULATORY SPECIMEN Result Comment: See report. Scanned copy available in EMR. PERFORMED BY: [address] [address] PATHOLOGIST BUSINESS INTELLIGENCE ENGINEER HANNAH MARSHALL M.D. Performed By: #### P ATH TO [facility] #### [facility] [address] ALL BASIC METABOLIC PANELon 07-23-2024 Anion gap [Moles/Vol] 11.1 mmol/L [facility] Calcium [Mass/Vol] 9 mg/dL 8.5 - 10. 1 mg/dL [facility] Chloride [Moles/Vol] 104 mmol/L 98 - 10 7 mmol/L [facility] CO2 [Moles/Vol] 31.9 mmol/L 21.0 - 32.0 mmol/L [facility] Creatinine [Mass/Vol] 0.74 mg/dL 0.55 - 1.02 mg/dL [facility] GFR/1.73 sq M.predicted CKD-EPI (S/P/Bld) [Vol rate/Area] >60 >=60 mL/min/1.73m 2 [facility] Glucose [Mass/Vol] 83 mg/dL 74 - 106 mg/dL [facility] Potassium [Moles/Vol] 4 mmol/L 3.5 - 5.1 mmol/L [facility] Sodium [Moles/Vol] 143 mmol/L 136 - 145 mmol/L [facility] TBH EGFR-NON AF OMANI >60 >=60 mL/min/1.73m 2 [facility] Urea nitrogen [Mass/Vol] 17 mg/dL 7.0 - 18.0 mg/dL [facility] Urea nitrogen/Creatinine [Mass ratio] 23 mg/mg [facility] e MLR HEMOGLOBIN A1Con 024 Glucose [Mass/Vol] 103 mg/dL [facility] HbA1c (Bld) [Mass fraction] 5.2 % 4.5 - 6.2 % [facility] Comment on above: ADA RECOMMENDED LIMI T 4.0 - 6.0 ADA THERAPEUTIC TARGET < 7.0 ACTION SUGGESTED > 7.0 [facility] e Operative Reporton 4 Operative Report [id number] .[id number] Normal [facility] Consent for Procedure/Surger yon 07-25-2023 Consent for Procedure/Surgery [id number] .[id number] Normal [facility] Consent for Procedure/Surger yon 05-03-2023 Consent for Procedure/Surgery [id number] .00CD:127 Normal [facility] RAD - Ultrasound Reporton RAD - Ultrasound Report [id number]. 00CD:127 Normal [facility] Ambulatory Visit Summaryon 0 04-08-2023 Ambulatory Visit Summary HAVEN BAR :1970 Visit Date:04/08/2023 Ambulatory Visit Instructions Your Diagnosis Asymptomatic microscopic hematuria Recurrent UTI Feeling of incomplete bladder emptying Tests Performed Urnls Dip Stick Auto w/o Microscopy POC 55569 US Renal -- Results Pending -- Please [...] Schedule the Following Appointments Follow Up with Curry PHILIPPE MD, MADALYN When: Where: [address] [place] [address]- Medications What How Much When Instructions Unchanged [...] Urnls Dip Stick Auto w/o Microscopy POC 20699 (04/08/2023) Bilirubin Urine Dipstick - Negative Blood Urine Dipstick - Trace-intact Glucose Urine Dipstick - Negative Ketones Urine Dipstick - Negative Leukocytes Urine Dipstick - Negative Nitrite Urine Dipstick - Negative Protein Urine Dipstick - Negative Specific [place] Urine Dipstick - 1.015 Urine Appearance Urine [...] these instructions at home: Medicines ? Take zjio-hmk-zptrbwc and prescription medicines only as told by [...] water is (more content not included)... Normal [facility] Formson 04-08-2023 Forms [id number] .[id number]:127 Normal [facility] Patient Educationon 04-08-20 23 Patient Education Urology [...] these instructions at home: Medicines ? Take ufnq-ezd-etdhhjf and prescription medicines only as told by [...] the blood stops without treatment. ? Take wnyj-ujn-mfrcjwx and prescription medicines only as told by your health care provider. ? Drink enough fluid to keep your urine pale yellow. This information is not intended to replace advice given to you by your health care provider. Make sure you discuss any questions you have with your health care provider. Document Revised: 04/08/2021 Document Reviewed: 04/08/2021 [employer] Patient Education ? 2022 [employer]. [facility] Physician Referralon 023 Physician Referral [id number] .[id number]:127 Normal [facility] CBC AUTO DIFFon 11-30-2022 BASO # 0.1 103/ul Normal 0.0-0.1 [facility] Comment on above: Performed By: #### C BC #### [facility] [address] [address] [address] Jovani Adame Basophils/100 WBC (Bld) 0.6 % Normal 0.2-2.0 [facility] Comment on above: Performed By: #### C BC #### [facility] [address] [address] [address] Jovani Adame EO # 0.2 103/ul Normal 0.0-0.7 [facility] Comment on above: Performed By: #### C BC #### [facility] [address] [address] [address] Jovani Adame Eosinophils/100 WBC (Bld) 2.3 % Normal 0.9-7.0 [facility] Comment on above: Performed By: #### C BC #### [facility] [address] [address] [address] Jovani Adame Erythrocyte distribution width (RBC) [Ratio] 12.2 % Normal 11.0-15.0 [facility] Comment on above: Performed By: #### C BC #### [facility] [address] [address] [address] Jovani Adame Hematocrit (Bld) [Volume fraction] 34.9 % Critically low 36.0-48.0 [facility] Comment on above: Performed By: #### C BC #### [facility] [address] [address] [address] Jovani Adame Hemoglobin (Bld) [Mass/Vol] 12.1 g/dL Normal 12.0-16.0 [facility] Comment on above: Performed By: #### C BC #### [facility] [address] [place] [address] Dr. Jovani Adame IG # 0.01 10e3/ul Normal 0.00-0.03 [facility] Comment on above: Performed By: #### C BC #### [facility] [address] [place] [address] Dr. Jovani Adame IG % 0.1 % Normal 0.0-0.5 [facility] Comment on above: Performed By: #### C BC #### [facility] [address] [place] [address] Dr. Jovani Adame LYMPH # 2.4 103/ul Normal 1.2-3.8 [facility] Comment on above: Performed By: #### C BC #### [facility] [address] [place] [address] Dr. Jovani Adame Lymphocytes/100 WBC (Bld) 29.8 % Normal 20.5-60.0 [facility] Comment on above: Performed By: #### C BC #### [facility] [address] [place] [address] Dr. Jovani Adame MANUAL DIFF REQ NO Normal [facility] Comment on above: Performed By: #### C BC #### [facility] [address] [place] [address] Dr. Jovani Adame MCH (RBC) [Entitic mass] 31.8 pg Normal 26.7-34.0 [facility] Comment on above: Performed By: #### C BC #### [facility] [address] [place] [address] Dr. Jovani Adame MCHC (RBC) [Mass/Vol] 34.7 g/dL Normal 29.9-35.2 [facility] Comment on above: Performed By: #### C BC #### [facility] [address] [place] [address] Dr. Jovani Adame MCV (RBC) [Entitic vol] 91.8 fL Normal 81.0-99.0 [facility] Comment on above: Performed By: #### C BC #### [facility] [address] [place] [address] Dr. Jovani Adame MONO # 0.5 103/ul Normal 0.3-0.8 [facility] Comment on above: Performed By: #### C BC #### [facility] [address] [address] [address] Jovani Adame Monocytes/100 WBC (Bld) 5.9 % Normal 1.7-12.0 [facility] Comment on above: Performed By: #### C BC #### [facility] [address] [place] [address] Dr. Jovani Adame NEUT # 5.0 103/ul Normal 1.4-6.5 [facility] Comment on above: Performed By: #### C BC #### [facility] [address] [place] [address] Dr. Jovani Adame Neutrophils/100 WBC (Bld) 61.3 % Normal 43.0-75.0 [facility] Comment on above: Performed By: #### C BC #### [facility] [address] [place] [address] Dr. Jovani Adame Platelet mean volume (Bld) [Entitic vol] 10.2 fL Normal 9.5-13.5 [facility] Comment on above: Performed By: #### C BC #### [facility] [address] [place] [address] Dr. Jovani Adame PLT 318 103/ul Normal 150-450 [facility] Comment on above: Performed By: #### C BC #### [facility] [address] [place] [address] Dr. Jovani Adame RBC 3.80 106/ul Critically low 4.20-5.40 [facility] Comment on above: Performed By: #### C BC #### [facility] [address] [place] [address] Dr. Jovani Adame WBC 8.1 103/ul Normal 4.0-11.0 [facility] Comment on above: Performed By: #### C BC #### [facility] [address] [place] [address] Dr. Jovani Adame FREE T4on 11-30-2022 Free T4 [Mass/Vol] 0.89 ng/dL Normal 0.76-1.46 [facility] Comment on above: Performed By: #### U MICRO, UARMICR #### [facility] [address] [address] [address] Jovani Adame GLYCOHEMOGLOBIN A1Con 2022 ADA RECOMMENDATION SEE BELOW Normal [facility] Comment on above: Result Comment: ADA RECOMMENDED LIMIT 4.0 - 6.0 ADA THERAPEUTIC TARGET < 7.0 ACTION SUGGESTED > 7.0 Performed By: #### U MICRO, UARMICR #### [facility] [address] [address] [address] Jovani Adame Glucose [Mass/Vol] 105 mg/dL Normal [facility] Comment on above: Performed By: #### U MICRO, UARMICR #### [facility] [address] [place] [address] Dr. Jovani Adame HbA1c (Bld) [Mass fraction] 5.3 % Normal 4.5-6.2 [facility] Comment on above: Performed By: #### U MICRO, UARMICR #### [facility] [address] [place] [address] Dr. Jovani Adame PROTIMEon 11-30-2022 INR Coag (PPP) [Relative time] 0.97 {INR} Normal [facility] Comment on above: Performed By: #### P T, PTT #### [facility] [address] [place] [address] Dr. Jovani Adame INR GUIDELINES SEE BELOW Normal [facility] Comment on above: Result Comment: MATILDE RED INR: 2.0 - 3.0 CONDITIONS NOT LISTED BELOW 2.5 - 3.5 FOR PROSTHETIC HEART VALVE REPLACEMENT 2.5 - 3.5 RECURRENT THROMBOSIS Performed By: #### P T, PTT #### [facility] [address] [place] [address] Dr. Jovani Adame PT Coag (PPP) [Time] 10.3 s Normal 9.0-11.6 [facility] Comment on above: Performed By: #### P T, PTT #### [facility] [address] [place] [address] Dr. Jovani Adame PTTon 11-30-2022 aPTT Coag (Bld) [Time] 29.4 s Normal 22.3-36.2 [facility] Comment on above: Performed By: #### P T, PTT #### [facility] [address] [place] [address] Dr. Jovani Adame TSHon 11-30-2022 TSH 0.872 uIU/mL Normal 0.358-3.740 [facility] Comment on above: Performed By: #### T SH #### [facility] [address] [place] [address] Dr. Jovani Adame UA (CLEAN/CATCH) MICROSCOPIC IF INDICATEon 11-30-2022 Bilirubin Ql (U) Negative Normal NEGATIVE [facility] Comment on above: Performed By: #### U MICRO, UARMICR #### [facility] [address] [place] [address] Dr. Jovani Adame Clarity (U) CLEAR Normal CLEAR [facility] Comment on above: Performed By: #### U MICRO, UARMICR #### [facility] [address] [place] [address] Dr. Jovani Adame Color (U) LT. YELLOW Normal YELLOW [facility] Comment on above: Performed By: #### U MICRO, UARMICR #### [facility] [address] [place] [address] Dr. Jovani Adame Glucose Ql (U) Negative Normal NEGATIVE [facility] Comment on above: Performed By: #### U MICRO, UARMICR #### [facility] [address] [place] [address] Dr. Jovani Adame Hemoglobin Ql (U) TRACE-INTACT Abnormal NEGATIVE [facility] Comment on above: Performed By: #### U MICRO, UARMICR #### [facility] [address] [place] [address] Dr. Jovani Adame Ketones Ql (U) Negative Normal NEGATIVE [facility] Comment on above: Performed By: #### U MICRO, UARMICR #### [facility] [address] [place] [address] Dr. Jovani Adame LEUKOCYTES Negative Normal NEGATIVE [facility] Comment on above: Performed By: #### U MICRO, UARMICR #### [facility] [address] [address] [address] Jovani Adame Nitrite Ql (U) Negative Normal NEGATIVE [facility] Comment on above: Performed By: #### U MICRO, UARMICR #### [facility] [address] [place] [address] Dr. Jovani Adame pH (U) 6.5 [pH] Normal 5-9 [facility] Comment on above: Performed By: #### U MICRO, UARMICR #### [facility] [address] [place] [address] Dr. Jovani Adame SPEC GRAVITY 1.010 Normal 1.005-<=1.025 [facility] Comment on above: Performed By: #### U MICRO, UARMICR #### [facility] [address] [place] [address] Dr. Jovani Adame UA PROTEIN Negative Normal NEGATIVE/ TRACE [facility] Comment on above: Performed By: #### U MICRO, UARMICR #### [facility] [address] [place] [address] Dr. Jovani Adame UR MICRO IND INDICATED Normal [facility] Comment on above: Performed By: #### U MICRO, UARMICR #### [facility] [address] [place] [address] Dr. Jovani Adame Urobilinogen Qn (U) 0.2 {Kaylie'U}/dL Normal 0.2 - 1. 0 [facility] Comment on above: Performed By: #### U MICRO, UARMICR #### [facility] [address] [place] [address] Dr. Jovani Adame URINE MICROSCOPIC ONLYon BACTERIA TRACE Abnormal NONE SEEN [facility] Comment on above: Performed By: #### U MICRO, UARMICR #### [facility] [address] [place] [address] Dr. Jovani Adame Bacteria identified Cx Nom (U) NOT INDICATED Normal [facility] Comment on above: Performed By: #### U MICRO, UARMICR #### [facility] [address] [place] [address] Dr. Jovani Adame CAST NONE SEEN Normal NONE SEEN [facility] Comment on above: Performed By: #### U MICRO, UARMICR #### [facility] [address] [place] [address] Dr. Jovani Adame Crystals LM Nom (Urine sed) NONE SEEN Normal NONE SEEN [facility] Comment on above: Performed By: #### U MICRO, UARMICR #### [facility] [address] [place] [address] Dr. Jovani Adame Epithelial cells LM Ql (Urine sed) MODERATE Abnormal NONE SEEN /RARE [facility] Comment on above: Performed By: #### U MICRO, UARMICR #### [facility] [address] [place] [address] Dr. Jovani Adame MUCOUS NONE SEEN Normal NONE SEEN [facility] Comment on above: Performed By: #### U MICRO, UARMICR #### [facility] [address] [place] [address] Dr. Jovani Adame RBC 2-5 Abnormal 0-2 [facility] Comment on above: Performed By: #### U MICRO, UARMICR #### [facility] [address] [place] [address] Dr. Jovani Adame WBC NONE SEEN Normal NONE SEEN [facility] Comment on above: Performed By: #### U MICRO, UARMICR #### [facility] [address] [place] [address] Dr. Jovani Adame MG MAMM DX 3D LT CADon 08-05 MG MAMM DX 3D LT CAD Patient: HAVEN BAR Exam Date: 08/05/2022 : 1970 Gender:F Ordering : DR TAMIKA BUTTERFIELD . Admission #: [id number] Family : Order #: [id number] CLICK HERE TO VIEW EXAM RADIOLOGY REPORT [...] colo-rectal cancer at age 52. LOCATION: [facility] BREAST COMPOSITION: Extremely dense, which lowers [...] MD on 08/05/2022 at 11:45 Normal [facility] US BREAST LEFT LIMITEDon US BREAST LEFT LIMITED Patient: HAVEN BAR Exam Date: 08/05/2022 : 1970 Gender:F Ordering : DR TAMIKA BUTTERFIELD . Admission #: [id number] Family : Order #: [id number] CLICK HERE TO VIEW EXAM RADIOLOGY REPORT [...] colo-rectal cancer at age 52. LOCATION: [facility] BREAST COMPOSITION: Extremely dense, which lowers [...] Nicole MD on 08/05/2022 at 11:45 Normal [facility] PAP ACOG PANEL 2: 32 to 65on 08-03-2022 . . Normal [facility] Comment on above: Result Comment: Perf ormed at: WB Performed By: #### U MICRO, UARMICR #### [facility] [address] [place] [address] Dr. Jovani Adame Age Gdln ACOG Testing 30-65 Normal [facility] Comment on above: Performed By: #### U MICRO, UARMICR #### [facility] [address] [address] [address] Jovani Adame DIAGNOSIS: Comment Normal [facility] Comment on above: Result Comment: NEGA TIVE FOR INTRAEPITHELIAL LESION OR MALIGNANCY. Performed at: WB Performed By: #### U MICRO, UARMICR #### [facility] [address] [address] [address] Jovani Adame HPV Aptima Negative Normal Negative [facility] Comment on above: Result Comment: This nucleic acid amplification test detects fourteen high-risk HPV types (16,18,31,33,35,39,45,51,52,56,58,59,66,68) without differentiation. Performed at: =G Performed By: #### U MICRO, UARMICR #### [facility] [address] [address] [address] Jovani Adame HPV Genotype Reflex Comment Normal [facility] Comment on above: Result Comment: Crit eria not met, HPV Genotype not performed. Performed at: WB Performed By: #### U MICRO, UARMICR #### [facility] [address] [address] [address] Jovani Adame Methodology: Comment Normal [facility] Comment on above: Result Comment: This liquid based ThinPrep(R) pap test was screened with the use of an image guided system. Performed at: WB Performed By: #### U MICRO, UARMICR #### [facility] [address] [place] [address] Dr. Jovani Adame Note: Comment Normal [facility] Comment on above: Result Comment: The Pap [...] Performed By: #### U MICRO, UARMICR #### [facility] [address] [place] [address] Dr. Jovani Adame Performed by: Comment Normal [facility] Comment on above: Result Comment: Gemma Squires, Progressive Care Manager Performed at: WB Performed By: #### U MICRO, UARMICR #### [facility] [address] [address] [address] Jovani Adame Specimen adequacy: Comment Normal [facility] Comment on above: Result Comment: Sati sfactory for evaluation. No endocervical component is identified. Performed at: WB Performed By: #### U MICRO, UARMICR #### [facility] [address] [place] [address] Dr. Jovani Adame MG MAMM SCREEN 3D JEN CADon 04-29-2022 MG MAMM SCREEN 3D JEN CAD Patient: HAVEN BAR Exam Date: 04/29/2022 : 1970 Gender:F Ordering : DR KHAI JACOBSON M.D. Admission #: [id number] Family : DR TAMIKA BUTTERFIELD . Order #: [id number] CLICK HERE TO VIEW EXAM RADIOLOGY REPORT PROCEDURE: MAMMOGRAM SCREENING 3D BILATERAL CAD COMPARISON: MG MAMM SCREEN JEN W CAD, 11/22/2017. MG MAMM SCREEN JEN W CAD, 10/21/2020. MG MAMM SCREEN JEN W CAD, 01/23/2019. INDICATIONS: Screening mammography Calculator Name [facility] Breast Cancer Risk Assessment Tool 5 Year Breast Cancer Risk 0.70% Lifetime Breast Cancer Risk 6.50% Personal Breast Cancer No Personal Ovarian Cancer No Treatments None Family Cancers Brother with colo-rectal cancer at age 50. LOCATION: [facility] BREAST COMPOSITION: Extremely dense, which lowers [...] M.D. on 04/30/2022 at 08:10 Normal [facility] Vital Signs Date Time Vital Sign Value Performing Clinician Facility 10-15-2024 08:41-0500 Body mass index (BMI) [Ratio] 25.5 kg/m2 [employer] Work Phone: [facility] 10-15-2024 08:41-0500 Body weight 63.23 kg [employer] Work Phone: [facility] 10-15-2024 08:41-0500 Diastolic blood pressure 72 mm[Hg] [employer] Work Phone: [facility] 10-15-2024 08:41-0500 Systolic blood pressure 108 mm[Hg] [employer] Work Phone: [facility] 10-04-2024 14:04-0500 Body height 157.5 cm Caridad Majano MORALE OFFICER Work Phone: [facility] 10-04-2024 14:04-0500 Body mass index (BMI) [Ratio] 25.64 kg/m2 Caridad Majano MORALE OFFICER Work Phone: [facility] 10-04-2024 14:04-0500 Body weight 63.59 kg Caridad Majano MORALE OFFICER Work Phone: [facility] 10-04-2024 14:04-0500 Diastolic blood pressure 74 mm[Hg] Caridad Majano MORALE OFFICER Work Phone: [facility] 10-04-2024 14:04-0500 Heart rate 73 /min Caridad Majano MORALE OFFICER Work Phone: [facility] 10-04-2024 14:04-0500 Respiratory rate 17 /min Caridad Majano MORALE OFFICER Work Phone: [facility] 10-04-2024 14:04-0500 SaO2% (BldA) [Mass fraction] 99 % Caridad Majano MORALE OFFICER Work Phone: [facility] 10-04-2024 14:04-0500 Systolic blood pressure 116 mm[Hg] Caridad Majano MORALE OFFICER Work Phone: [facility] 09-03-2024 16:43-0500 Body mass index (BMI) [Ratio] 25.94 kg/m2 Tamika Greer DO Work Phone: [facility] 09-03-2024 16:43-0500 Body weight 64.32 kg Tamika Greer DO Work Phone: [facility] 09-03-2024 16:43-0500 Diastolic blood pressure 78 mm[Hg] Tamika Greer DO Work Phone: [facility] 09-03-2024 16:43-0500 Systolic blood pressure 138 mm[Hg] Tamika Greer DO Work Phone: [facility] 07-16-2024 15:12-0500 Body mass index (BMI) [Ratio] 24.84 kg/m2 Tamika Greer DO Work Phone: [facility] 07-16-2024 15:12-0500 Body weight 61.6 kg Tamika Greer DO Work Phone: [facility] 07-16-2024 15:12-0500 Diastolic blood pressure 60 mm[Hg] Tamika Greer DO Work Phone: [facility] 07-16-2024 15:12-0500 Systolic blood pressure 100 mm[Hg] Tamika Greer DO Work Phone: [facility] 07-04-2024 10:04-0500 Body height 157.5 cm Khai Jacobson MD Work Phone: [facility] 07-04-2024 10:04-0500 Body mass index (BMI) [Ratio] 24.51 kg/m2 Khai Jacobson MD Work Phone: [facility] 07-04-2024 10:04-0500 Body weight 60.78 kg Khai Jacobson MD Work Phone: [facility] 07-04-2024 10:04-0500 Diastolic blood pressure 76 mm[Hg] Khai Jacobson MD Work Phone: [facility] 07-04-2024 10:04-0500 Heart rate 75 /min Khai Jacobson MD Work Phone: [facility] 07-04-2024 10:04-0500 SaO2% (BldA) [Mass fraction] 95 % Khai Jacobson MD Work Phone: [facility] 07-04-2024 10:04-0500 Systolic blood pressure 128 mm[Hg] Khai Jacobson MD Work Phone: [facility] 06-18-2024 14:03-0400 Body height 157.5 cm Tamika Greer DO Work Phone: [facility] 06-18-2024 14:03-0400 Body mass index (BMI) [Ratio] 24.14 kg/m2 Tamika Greer DO Work Phone: [facility] 06-18-2024 14:03-0400 Body weight 59.88 kg Tamika Greer DO Work Phone: [facility] 06-18-2024 14:03-0400 Diastolic blood pressure 70 mm[Hg] Tamika Greer DO Work Phone: [facility] 06-18-2024 14:03-0400 Systolic blood pressure 104 mm[Hg] Tamika Greer DO Work Phone: [facility] 04-16-2024 09:40-0400 Body mass index (BMI) [Ratio] 23.19 kg/m2 Khai Jacobson MD Work Phone: [facility] 04-16-2024 09:40-0400 Body weight 57.52 kg Khai Jacobson MD Work Phone: [facility] 04-16-2024 09:40-0400 Diastolic blood pressure 60 mm[Hg] Khai Jacobson MD Work Phone: [facility] 04-16-2024 09:40-0400 Heart rate 75 /min Khai Jacobson MD Work Phone: [facility] 04-16-2024 09:40-0400 Respiratory rate 16 /min Khai Jacobson MD Work Phone: [facility] 04-16-2024 09:40-0400 SaO2% (BldA) [Mass fraction] 98 % Khai Jacobson MD Work Phone: [facility] 04-16-2024 09:40-0400 Systolic blood pressure 100 mm[Hg] Khai Jacobson MD Work Phone: [facility] 04-08-2023 10:20-0400 Blood Pressure Location Curry PHILIP[facility] 04-08-2023 10:20-0400 Diastolic blood pressure 92 mm[Hg] Curry [facility]ILIP[facility] 04-08-2023 10:20-0400 Heart rate 78 /min Curry PHILIPPE [facility] 04-08-2023 10:20-0400 Systolic blood pressure 124 mm[Hg] [facility] Encounters Encounter Date Encounter Type Care Provider Facility Start: 11-01-2024 End: 11-01-2024 Refill Ynes ESTRADA Work Phone: [facility] Comment on above: Lumbar spondylosis Start: 10-22-2024 End: 10-22-2024 Refill Khai Jacobson MD Work Phone: [facility] Comment on above: Affective psychosis (CMS/HCC) Start: 10-21-2024 End: 10-22-2024 Refill Ashanti Iraheta MD Work Phone: [facility] Comment on above: Insulin resistance; Impaired glucose tolerance Start: 10-15-2024 End: 10-15-2024 Bamboo flowsheet Tamika Greer DO Work Phone: [facility] Start: 10-15-2024 End: 10-15-2024 Bamboo flowsheet Tamika Grere DO Work Phone: [facility] Start: 10-15-2024 End: 10-15-2024 Office outpatient visit 15 minutes Tamika Greer DO Work Phone: [facility] Comment on above: Pre-op examination; Complex endometrial hyperplasia with atypia; Pelvic pain in female; Dyspareunia, female Start: 10-15-2024 End: 10-15-2024 Preprocedural examination done Tamika Greer DO Work Phone: [facility] Start: 10-15-2024 End: 10-15-2024 ambulatory TAMIKA GREER Not Available Start: 10-05-2024 End: 10-06-2024 Refill Caridad Majano NP Work Phone: [facility] Comment on above: Lumbar spondylosis Start: 10-04-2024 End: 10-04-2024 Office outpatient visit 25 minutes Caridad Majano MORALE OFFICER Work Phone: [facility] Comment on above: Restless leg (Primar y Dx); Lumbar spondylosis Start: 10-04-2024 End: 10-04-2024 ambulatory CARIDAD MAJANO Not Available Start: 09-03-2024 End: 09-03-2024 Office outpatient visit 15 minutes Tamika Greer DO Work Phone: [facility] Comment on above: Complex endometrial hyperplasia with atypia Start: 09-03-2024 End: 09-03-2024 ambulatory TAMIKA GREER Not Available Start: 09-03-2024 End: 09-03-2024 Bamboo flowsheet Tamika Greer DO Work Phone: [facility] Start: 09-03-2024 End: 09-03-2024 Bamboo flowsheet Tamika Greer DO Work Phone: [facility] Start: 09-02-2024 End: 09-03-2024 Refteagan Jacobson MD Work Phone: [facility] Comment on above: Lumbar spondylosis Start: 08-10-2024 End: 08-10-2024 Clinisync Result Encounter Generic External Data Provider [facility] Unsolicited Start: 08-10-2024 End: 08-10-2024 Clinisync Result Encounter Generic External Data Provider [facility] Unsolicited Start: 08-10-2024 End: 08-10-2024 ambulatory Tamika Greer Facility:[facility] Start: 08-02-2024 End: 08-02-2024 Refteagan Jacobson MD Work Phone: [facility] Comment on above: Lumbar spondylosis Start: 07-23-2024 End: 07-23-2024 Clinisync Result Encounter Generic External Data Provider [facility] Unsolicited Start: 07-23-2024 End: 07-23-2024 Clinisync Result Encounter Generic External Data Provider [facility] Unsolicited Start: 07-16-2024 End: 07-16-2024 Office outpatient visit 15 minutes Tamika Greer DO Work Phone: [facility] Comment on above: Pre-op examination; Endometrial thickening on ultrasound; Postmenopausal bleeding Start: 07-16-2024 End: 07-16-2024 Preprocedural examination done Tamika Greer DO Work Phone: [facility] Start: 07-16-2024 End: 07-16-2024 ambulatory TAMIKA GREER Not Available Start: 07-04-2024 End: 07-04-2024 [...] End: 06-18-2024 Office outpatient visit 15 minutes Tamika Cruzo DO Work Phone: [facility] Comment on above: Endometrial thickeni ng on ultrasound; Postmenopausal bleeding Start: 06-18-2024 End: 06-18-2024 ambulatory TAMIKA GREER Not Available Start: 06-05-2024 End: 06-05-2024 Clinisync Result Encounter Generic External Data Provider [facility] Unsolicited Start: 06-05-2024 End: 06-05-2024 Clinisync Result Encounter Generic External Data Provider [facility] Unsolicited Start: 06-04-2024 End: 06-05-2024 Refteagan Jacobson MD Work Phone: [facility] Comment on above: Lumbar spondylosis Start: 05-03-2024 End: 05-03-2024 Refteagan Jacobson MD Work Phone: [facility] Comment on above: Lumbar spondylosis Start: 04-20-2024 End: 04-25-2024 Refill Khai Jacobson MD Work Phone: [facility] Start: 04-16-2024 End: 04-16-2024 Bamboo flowsheet Khai Jacobson MD Work Phone: [facility] Start: 04-16-2024 End: 04-16-2024 Bamboo flowsheet Khai Jacobson MD Work Phone: [facility] Start: 04-16-2024 End: 04-16-2024 Office outpatient visit 25 minutes Khai Jacobson MD Work Phone: [facility] Comment on above: Essential hypertensi on (CMS/HCC) (Primary Dx); Impaired glucose tolerance; Mixed hyperlipidemia (CMS/HCC) Start: 04-16-2024 End: 04-16-2024 ambulatory KHAI JACOBSON Not Available Start: 02-21-2024 End: 02-21-2024 ambulatory TAMIKA CRUZO Not Available Start: 12-07-2023 End: 12-07-2023 ambulatory [...] Start: 09-05-2023 End: 09-06-2023 ambulatory Curry PHILIPPE Facility:[id number] Start: 04-08-2023 End: 04-09-2023 ambulatory Tamika R GREER Facility:[facility] Start: 04-08-2023 End: 04-08-2023 Patient encounter procedure Curry PHILIPPE [facility] Start: 12-21-2022 ambulatory Curry Sumeet PHILIPPE Facili ty:[facility] [place] Start: 12-06-2022 End: [...] Start: 08-10-2024 ALL CBC WITH AUTO DIFF Tamika Greer DO Work Phone: Start: 07-23-2024 ALL BASIC METABOLIC PANEL Tamika Greer DO Work Phone: Start: 06-05-2024 MLR HEMOGLOBIN A1C Core y Greer DO Work Phone: Start: 03-21-2024 Mammography Tamika Fazi o DO Work Phone: Start: 02-21-2024 Microscopic observat ion [Identifier] in Cervix by Cyto stain Khai Jacobson MD Work Phone: Start: 04-13-2023 Mammography Khai rogers MD Work Phone: Start: 08-05-2022 Mammography Khai rogers MD Work Phone: Start: 07-13-2022 Colonoscopy Khai rogers MD Work Phone: Start: 05-23-2013 Arthroscopy of knee Lata roberts PH[facility]IP[facility] Comment on above: Left knee: partial L M Appendectomy Curry SURY Decompression of med jayesh nerve [facility] Comment on above: LEFT Elbow fracture (disorder) David [facility] Comment on above: ORIF, RIGHT Laparoscopic cholecystectomy [facility] Ligation of fallopian tube Greer [facility] Tonsillectomy Curry [facility]ILIP[facility] Plan of Treatment Date Care Activity Detail Author Start: 07-13-2032 Screening for malign ant neoplasm of colon [facility] Start: 02-20-2029 Screening for malign ant neoplasm of cervix [facility] Start: 04-12-2025 Screening for malign ant neoplasm of colon FIT-DNA [facility] Start: 03-21-2025 Screening for malign ant neoplasm of breast Mammogram [facility] Start: 10-15-2024 End: 10-15-2024 Patient encounter procedure [facility] Comment on above: Arrived Start: 09-03-2024 End: 09-03-2024 Patient encounter procedure 09/03/2024 4:00 PM EST Office Visit [facility] [address] [place] [address] Tamika Butterfield, DO [address] [place], [place] [id number] Arrived [facility] Comment on above: Arrived Start: 07-16-2024 End: 07-16-2024 Patient encounter procedure 07/16/2024 2:50 PM EST Consult [facility] [address] [place] [address] Tamika Butterfield, DO [address] [address] [facility] Start: 07-04-2024 End: 07-04-2024 Patient encounter procedure 07/04/2024 10:00 AM EST Office Visit [facility] [address] [facility] [address] [place] [id number] Khai Jacobson MD [address] [facility] [address] [place] [address] [facility] Start: 06-18-2024 End: 06-18-2024 Patient encounter procedure 06/18/2024 2:10 PM EDT Office Visit [facility] [address] [place] [address] Tamika Butterfield, DO [address] [facility] [address] [place] [address] [facility] Start: 04-22-2024 Influenza vaccination Influenza Vacc ine (#1) [facility] Start: 04-16-2024 End: 04-16-2025 Comprehensive metabolic 2000 panel - Serum or Plasma Comprehensive metabolic panel Lab Routine Essential hypertension (CMS/HCC) Impaired glucose tolerance Expected: 04/16/2024 (Approximate), Expires: 04/16/2025 [facility] Comment on above: Expected: 04/16/2024 (Approximate), Expires: 04/16/2025 Start: 04-16-2024 End: 04-16-2025 Hemoglobin A1c/Hemoglobin.total in Blood Hemoglobin A1c Lab Routine Impaired glucose tolerance Expected: 04/16/2024 (Approximate), Expires: 04/16/2025 [facility] Comment on above: Expected: 04/16/2024 (Approximate), Expires: 04/16/2025 Start: 04-16-2024 End: 04-16-2025 Lipid 1996 panel - Serum or Plasma Lipid panel Lab Routine Essential hypertension (CMS/HCC) Impaired glucose tolerance Mixed hyperlipidemia (CMS/HCC) Expected: 04/16/2024 (Approximate), Expires: 04/16/2025 [facility] Work Phone: Comment on above: Expected: 04/16/2024 (Approximate), Expires: 04/16/2025 Start: 04-16-2024 End: 04-16-2025 TSH W/REFLEX TO FT4 TSH W/REFLEX TO FT4 Lab Routine Essential hypertension (CMS/HCC) Impaired glucose tolerance Expected: 04/16/2024 (Approximate), Expires: 04/16/2025 [facility] Comment on above: Expected: 04/16/2024 (Approximate), Expires: 04/16/2025 Start: 04-16-2024 End: 04-16-2024 Patient encounter procedure 04/16/2024 9:30 AM EDT Office Visit [facility] [address] [place] [address] [place] [id number] Khai Jacobson MD [address] [facility] [address] [place] [address] Arrived [facility] Comment on above: Arrived Start: 04-13-2024 Screening for malign ant neoplasm of breast Mammogram [facility] Start: 02-21-2024 End: 02-21-2024 Patient encounter procedure 02/21/2024 2:00 PM EDT Office Visit [facility] [address] [place] [id number] Tamika Butterfield, DO [address] [place] [address] [facility] Start: 08-05-2023 Screening for malign ant neoplasm of breast Mammogram [facility] Start: 04-22-2023 Influenza vaccination Influenza Vacc ine (#1) [facility] Start: 01-10-2002 Screening for malign ant neoplasm of cervix [facility] Start: 01-10-1993 Screening for malign ant neoplasm of cervix Pap Smear [facility] Start: 1970 Screening for malign ant neoplasm of colon [facility] CBC W Auto Different ial panel - Blood CBC and differential Lab Routine Essential hypertension (CMS/HCC) Ordered: 04/16/2024 [facility] Comment on above: Ordered: 04/16/2024 Immunizations Immunization Date Immunization Notes Care Provider Fa [facility] 06-22-2018 poliovirus vaccine, inactivated Khai Jacobson MD Work Phone: [facility] 06-22-2018 tetanus toxoid, redu violette diphtheria toxoid, and acellular pertussis vaccine, adsorbed Khai Jacobson MD Work Phone: [facility] 06-01-2018 hepatitis A vaccine, adult dosage Khai Jacobson MD Work Phone: [facility] 06-01-2018 hepatitis B vaccine, adult dosage Khai Jacobson MD Work Phone: [facility] 01-12-2018 hepatitis B vaccine, adult dosage Khai Jacobson MD Work Phone: [facility] 01-06-2018 typhoid vaccine, luisa e, oral Khai Jacobson MD Work Phone: [facility] 12-09-2017 hepatitis A vaccine, adult dosage Khai Jacobson MD Work Phone: [facility] 12-09-2017 hepatitis B vaccine, adult dosage Khai Jacobson MD Work Phone: [facility] Payers Date Payer Category Payer Self-pay 2022 Private Health Insurance [employer] [id number] 2022 Unknown [employer] [id number] 2022-Present [address] [place] [address] [id number] 1972 Unknown [id number] [id number]. 593 1970 Unknown [id number] 2.16.840.1.535909.3.579.2. 59 1972 Unknown [id number] 2.16.840.1.620566.3.579.2. 593 1972 Unknown [id number] 2.16840.1.924018.3.579.2. 593 1972 Unknown [id number] 2.16.840.1.531576.3.579.2. 593 1972 Unknown [id number] 2.16.840.1.358656.3.579.2. 727 1972 Unknown [id number] 2.16.840.1.932976.3.579.2. 727 1972 Unknown [id number] 2.16.840.1.194695.3.579.2. 1972 Unknown [id number] 2.16.840.1.791496.3.579.2. 1258 1972 Unknown [id number] 2.16.840.1.043141.3.579.2. 1258 1972 Unknown [id number] 2.16.840.1.215865.3.579.2. 1258 1972 Unknown [id number] 2.16.840.1.762517.3.579.2. 1258 1972 Unknown [id number] 2.16.840.1.365947.3.579.2. 1258 1972 Unknown [id number] 2.16.840.1.065808.3.579.2. 1258 1972 Unknown [id number] 2.16.840.1.412542.3.579.2. 1258 1972 Unknown [id number] 2.16.840.1.430280.3.579.2. 1258 1972 Unknown [id number] 2.16.840.1.124619.3.579.2. 1258 1972 Unknown [id number] 2.16.840.1.941490.3.579.2. 1259 1959 Unknown [id number] Unknown [id number] 2.16.840.1.561705.3.579.2. 531 Social History Date Type Detail Facility Start: 04-08-2023 Tobacco smoking status Smokele ss tobacco user within last 30 days [facility] Start: 06-29-2023 End: 10-04-2024 Sex Assigned At Female [facility] Start: 02-17-2023 Tobacco smoking stat us NHIS Never smoked tobacco [facility] Start: 02-17-2023 Tobacco use and exposure Smokeless tobacco non-user [facility] Start: 06-29-2023 End: 10-17-2024 Alcohol intake Current drinker of alcohol (finding) [facility] Start: 06-29-2023 End: 10-04-2024 Alcohol intake [facility] Start: 04-10-2023 Alcohol Comment Caffeine:: sod a./pop , coffee [facility] Start: 1970 Sex Assigned At Not on file N [facility] Functional Status Date Assessment Result Facility 04-08-2023 Functional Status N/A [facility] Clinical Notes 12-06-2022 to 11-01-2024 Telephone Encounter - DAVID Rachel - 11/01/2024 2:49 PM EDTTelephone Encounter - DAVID Rachel - 11/01/2024 2:49 PM EDTMruiz Kellogg - 10/15/2024 8:40 AM EST Note Date & Type Note Facility 11-01-2024 Telephone encounter Note OARRS reviewed, Rx sent into patient's pharmacy. [facility] 11-01-2024 Miscellaneous Notes OARRS reviewed, Rx sent into patient's pharmacy. documented in this encounter [facility] 10-15-2024 History of Presen t illness Narrative Reason for Appointment: Patient ID: Haven Bra is a 54 y.o. female who presents for Pre-op Visit Patient presents today for Pre Op appointment. Patient is scheduled to undergo Da Derik assisted Laparoscopic Hysterectomy with BSO, possible exploratory laparotomy, and possible cystoscopy on 11/08/[address] Butterfield at [facility]. MEDICATIONS Current Outpatient Medications Medication Instructions ASPIRIN 81 MG chewable tablet Every 24 hours buPROPion (WELLBUTRIN) 100 mg, Oral, Daily ciprofloxacin (CIPRO) 250 mg, Oral, 2 times daily estradiol (ESTRACE) 1 mg, Oral, Daily FLUoxetine (PROZAC) 10 mg, Oral, Daily hydroCHLOROthiazide (HYDRODIURIL) 25 mg, Oral, Every morning HYDROcodone-acetaminophen (Wadsworth) 5-325 MG tablet 1 tablet, Oral, Every [...] Ambulatory Problems Diagnosis Date Noted Affective psychosis ([facility]) 01/26/2023 Carpal tunnel syndrome of right wrist 01/26/2023 Chronic constipation 01/26/2023 Diaphragmatic hernia 01/26/2023 DJD (degenerative joint disease) 01/26/2023 Essential hypertension ([facility] [facility]) 01/26/2023 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[facility]) 01/26/2023 Gastro-esophageal reflux disease without esophagitis 01/26/2023 Hematuria 01/26/2023 Impaired glucose tolerance 01/26/2023 Insulin resistance 01/26/2023 Mixed hyperlipidemia ([facility]) 05/17/2013 Other chronic pain 01/26/2023 Spondylosis of [...] APPENDECTOMY 1999 CARPAL TUNNEL RELEASE 2007 CHOLECYSTECTOMY 2010 COLONOSCOPY [...] nursing note reviewed. Exam conducted with a clinical associate present. Vitals: Estimated body mass index is [...] reviewed, and patient is to proceed to [facility] OR. Discussed patients questions in regards to Specialist and answered questions in regards pathology results. Follow Up: Patient is to follow up at 1 & 6 weeks post operative to assess proper healing and recovery from procedure. Documented by Luba Andera LPN on behalf of: Tamika Butterfield DO documented in this encounter [facility] 10-06-2024 Telephone encounter Note OARRS reviewed, Rx sent into patient's pharmacy. [facility] 10-06-2024 Miscellaneous Notes OARRS reviewed, Rx sent into patient's pharmacy. documented in this encounter [facility] 10-04-2024 History of Presen t illness Narrative [...] in the morning. 100 tablet 1 HYDROcodone-acetaminophen ([place]) 5-325 MG tablet Take 1 tablet by [...] your restless leg. Lumbar spondylosis - HYDROcodone-acetaminophen ([place]) 5-325 MG tablet; Take 1 tablet by [...] follow-ups on file. documented in this encounter [facility] 09-03-2024 Telephone encounter Note PDMP reviewed, Covering for Dr. Jacobson [facility] 09-03-2024 Miscellaneous Notes PDMP reviewed, Covering for Dr. Jacobson documented in this encounter [facility] 09-03-2024 History of Presen t illness Narrative [...] (HYDRODIURIL) 25 mg, Oral, Every morning HYDROcodone-acetaminophen ([place]) 5-325 MG tablet 1 tablet, Oral, Every [...] nursing note reviewed. Exam conducted with a clinical associate present. Vitals: Estimated body mass index is [...] with BSO. 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 Documented by Luba Andrea LPN on behalf of: Tamika Butterfield DO documented in this encounter [facility] 07-16-2024 History of Presen t illness Narrative Reason for Appointment: Patient ID: Haven Bar is a 54 y.o. female who presents for Pre-op Visit Patient presents today for Pre Op appointment. Patient is scheduled to undergo D&C Hysteroscopy, possible Myosure on 08/10/[address] Butterfield at [facility]. MEDICATIONS Current Outpatient Medications Medication Instructions ALPRAZolam [...] (HYDRODIURIL) 25 mg, Oral, Every morning HYDROcodone-acetaminophen ([place]) 5-325 MG tablet 1 tablet, Oral, Every [...] Ambulatory Problems Diagnosis Date Noted Affective psychosis ([facility]) 01/26/2023 Carpal tunnel syndrome of right wrist 01/26/2023 Chronic constipation 01/26/2023 Diaphragmatic hernia 01/26/2023 DJD (degenerative joint disease) 01/26/2023 Essential hypertension ([facility]) 01/26/2023 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[facility]) 01/26/2023 Gastro-esophageal reflux disease without esophagitis 01/26/2023 Hematuria 01/26/2023 Impaired glucose tolerance 01/26/2023 Insulin resistance 01/26/2023 Mixed hyperlipidemia ([facility]) 05/17/2013 Other chronic pain 01/26/2023 Spondylosis of [...] nursing note reviewed. Exam conducted with a clinical associate present. Vitals: Estimated body mass index is [...] reviewed, and patient is to proceed to [facility] OR. All patients questions answered and if in the future she desires to have pelvic/abdominal ultrasound if she has bloating in the future. Follow Up: Patient is to follow up between 1-2 weeks post operative to assess proper healing and recovery from procedure. Documented by Luba Andrea LPN on behalf of: Tamika Butterfield DO documented in this encounter [facility] 07-04-2024 History of Presen t illness Narrative [...] mouth every morning 90 tablet 1 HYDROcodone-acetaminophen ([place]) 5-325 MG tablet Take 1 tablet by [...] APPENDECTOMY 1999 CARPAL TUNNEL RELEASE 2007 CHOLECYSTECTOMY 2010 COLONOSCOPY [...] factors. LDL-C is now calculated using the Rc calculation, which is a validated novel method providing better accuracy than the Friedewald equation in the estimation of LDL-C. Christian MARTINEZ et al. JOHN. 2013;310(19): 0570-7889 (http://education.Haolianluo.com/faq/IOW655) CHOL/HDLC RATIO 04/16/2024 2.7 <5.0 (calc) Final [...] diagnosis of diabetes in children. According to [place] Diabetes Association (ADA) guidelines, hemoglobin A1c <7.0% represents optimal control in non- diabetic patients. Different metrics may apply to specific patient populations. Standards of Medical Care in Diabetes(ADA). This test was performed on the [employer] michaela c503 platform. Effective 08/08/23, a change in test platforms from the Don Oncology Nurse Navigator to the Nancy michaela c503 may have shifted HbA1c results compared to historical results. Based on laboratory validation testing conducted at [facility], the Nancy platform relative to the Don [...] ThinPrep Vial Age Algo ACOG Carleen... 30-65 FLAG LEGEND: L-Low Normal,H-High Normal,LL-Alert Low,HH-Alert High <-Panic Low,>-Panic High,A-Abnormal,AA-Critical Abnormal Performed at: 01 =[facility] [address] [facility] [place] [address] Ros Reyes MD, IGP, APTIMA HPV, RFX [birth year] 02/21/2024 Note . Final Comment: TESTS RESULT FLAG UNITS REF RANGE LAB DIAGNOSIS: 02 NEGATIVE FOR INTRAEPITHELIAL LESION OR MALIGNANCY. Specimen adequacy: 02 Satisfactory for evaluation. Endocervical and/or squamous metaplastic cells (endocervical component) are present. Performed by: Zamzam Nicole, Progressive Care Manager (ASCP) . 02 Note: Note 02 The [...] <-Panic Low,>-Panic High,A-Abnormal,AA-Critical Abnormal Performed at: [address] [address] Ros Reyes MD, HPV APTIMA 02/21/2024 Negative Negative Final Comment: This nucleic acid amplification test detects fourteen high- risk HPV types (16,18,31,33,35,39,45,51,52,56, 58,59,66,68) without differentiation. Performed at: =[address] [id number] Inspector Line: Ros Reyes MD, Phone: [phone] Performed at: [address] [id number] Inspector Line: Ros Reyes MD, Phone: [phone] Assessment/Plan Diagnoses and all orders for this visit: Essential hypertension (CMS/HCC) - This is a chronic medical condition that is stable since last assessment. No changes in treatment are suggested at this time. Lumbar spondylosis - HYDROcodone-acetaminophen ([place]) 5-325 MG tablet; Take 1 tablet by [...] follow-ups on file. documented in this encounter [facility] 06-18-2024 History of Presen t illness Narrative [...] (HYDRODIURIL) 25 mg, Oral, Every morning HYDROcodone-acetaminophen ([place]) 5-325 MG tablet 1 tablet, Oral, Every [...] Ambulatory Problems Diagnosis Date Noted Affective psychosis ([facility]) 01/26/2023 Carpal tunnel syndrome of right wrist 01/26/2023 Chronic constipation 01/26/2023 Diaphragmatic hernia 01/26/2023 DJD (degenerative joint disease) 01/26/2023 Essential hypertension ([facility]) 01/26/2023 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[facility]) 01/26/2023 Gastro-esophageal reflux disease without esophagitis 01/26/2023 Hematuria 01/26/2023 Impaired glucose tolerance 01/26/2023 Insulin resistance 01/26/2023 Mixed hyperlipidemia ([facility]) 05/17/2013 Other chronic pain 01/26/2023 Spondylosis of [...] APPENDECTOMY 1999 CARPAL TUNNEL RELEASE 2007 CHOLECYSTECTOMY 2010 COLONOSCOPY [...] nursing note reviewed. Exam conducted with a clinical associate present. Vitals: Estimated body mass index is [...] by Luba Andrea LPN on behalf of: Tamika Butterfield DO documented in this encounter [facility] 06-04-2024 Telephone encounter Note Lvm [facility] 06-04-2024 Miscellaneous Notes Lvm Please help pt get set up for a follow up with Dr. Jacobson in June. OARRS reviewed, Rx sent into patient's pharmacy. HYDROcodone-acetaminophen ([place]) 5-325 MG tablet [facility] [place] documented in this encounter [facility] 06-04-2024 Telephone encounter Note Please help pt get set up for a follow up with Dr. Jacobson in June. OARRS reviewed, Rx sent into patient's pharmacy. [facility] 06-04-2024 Telephone encounter Note HYDROcodone-acetaminophen ([place]) 5-325 MG tablet [facility] [place] [facility] 05-03-2024 Telephone encounter Note HYDROcodone-acetaminophen ([place]) 5-325 MG tablet [facility] [place] [facility] 05-03-2024 Miscellaneous Notes HYDROcodone-acetaminophen ([place]) 5-325 MG tablet [facility] [place] documented in this encounter [facility] 04-16-2024 History of Presen t illness Narrative [...] mouth every morning 90 tablet 1 HYDROcodone-acetaminophen ([place]) 5-325 MG tablet Take 1 tablet by [...] Controlled Med Review. documented in this encounter [facility] 10-03-2023 Telephone encounter Note A prescription without a prescription was called in as requested. [facility] 10-03-2023 Miscellaneous Notes A prescription without a prescription was called in as requested. Pt called and said she has an UTI and asked if a prescription could be called in for her without a prescription documented in this encounter [facility] 10-03-2023 Telephone encounter Note Pt called and said she has an UTI and asked if a prescription could be called in for her without a prescription [facility] 09-28-2023 Telephone encounter Note Rx was sent [facility] 09-28-2023 Miscellaneous Notes Rx was sent She is taking this for nausea , did know if you would send in or needed an appt for this Pt is requesting prometilazine she has not had this in awhile ok to give pt Needs sent to [facility] in [place] documented in this encounter [facility] 09-28-2023 Telephone encounter Note She is taking this for nausea , did know if you would send in or needed an appt for this [facility] 09-28-2023 Telephone encounter Note Pt is requesting prometilazine she has not had this in awhile ok to give pt Needs sent to [facility] in [place] [facility] 04-08-2023 Note Chief Complaint Front Desk Assistant referal HPI Staff Referral for hematuria and [...] Contact Information SURY MARRERO, Curry Fay, URL [address] [place] [address]- Additional Instructions: Schedule MARSHA, cysto/possible UD Patient [...] mg-5 mg Ta (more content not included)... [facility] Comment on above: Result Comment: Elec tronically Signed By: Curry PHILIPPE MD\.br\Date and Time Signed: 04/08/23 11:36 EDT\.br\Electronically Co-Signed By: Smitha Ledesma.br\Date and Time Co-Signed: 04/08/23 11:32 EDT 04-08-2023 [facility] Discharg e instructions Patient Education [...] Follow these instructions at home: Medicines Take pgpj-xop-gwrnxgv and prescription medicines only as told by [...] or the blood stops without treatment. Take jpyb-mlq-dtbxrib and prescription medicines only as told by your health care provider. Drink enough fluid to keep your urine pale yellow. This information is not intended to replace advice given to you by your health care provider. Make sure you discuss any questions you have with your health care provider. Document Revised: 04/08/2021 Document Reviewed: 04/08/2021 [employer] Patient Education 2022 [employer]. Follow Up Care 12/21/2022 14:38:53 With:SURY MARRERO, Curry Fay, URL Address: [address] [place], [place] [id number]- When: Unknown [facility] 12-06-2022 Note PROCEDURE: US PELVIS AND TRANSVAG [...] by: FOREIGN ORTEZ Date: 2022-12-06 15:05 [facility] Evaluation + Plan note No data available for this section [facility] Evaluation note Diagnosis Nausea- Primary Nausea alone [...] tolerance Impaired glucose tolerance test Mixed hyperlipidemia (CMS/HCC) Mixed hyperlipidemia documented in this encounter NOMS [...] available for this section [facility] Summary Purpose Family History No Family History Records FoundNo Family History Records FoundNo Family History Records FoundNo Family History Records Found Advance Directives No Advanced Directives Records FoundNo Advanced Directives Records FoundNo Advanced Directives Records FoundNo Advanced Directives Records Found Additional Source Comments INFORMATION SOURCE (unrecogn ized section and content) DATE CREATED AUTHOR 12/12/2022 [facility] DATE CREATED AUTHOR AUTHOR'S ORGANIZ ATION 09/22/2023 [facility] DATE CREATED AUTHOR AUTHOR'S ORGANIZ ATION 09/04/2024 [facility] DATE CREATED AUTHOR AUTHOR'S ORGANIZ ATION 10/16/2024 [facility] EPIC Patient Care team informatio n (unrecognized section and content) Family Practice Medical Doctor Relationship Specialty Start Date End Date Khai Jacobson MD [address] [facility] [address] [place] [address] PCP - Medical [employer] 01/20/23 Khai Jacobson MD [address] [place] [address] [place] [address] PCP - General Internal Medicine 02/23/23 Family Practice Medical Doctor Relationship Specialty Start Date End Date Khai Jacobson MD [address] [place] [address] [place] [address] PCP - Medical [employer] 01/20/23 Khai Jacobson MD [address] [place] [address] [place] [address] PCP - General Internal Medicine 02/23/23 Family Practice Medical Doctor Relationship Specialty Start Date End Date Khai Jacobson MD [address] [place] [address] [place] [address] PCP - Medical [employer] 08/22/15 08/21/99 Khai Jacobson MD [address] [place] [address] [place] [address] PCP - General Internal Medicine 02/23/23 Family Practice Medical Doctor Relationship Specialty Start Date End Date Khai Jacobson MD [address] [place] [address] [place] [address] PCP - Medical [employer] 08/22/15 08/21/99 Khai Jacobson MD [address] [place] [address] [place] [address] PCP - General Internal Medicine 02/23/23 Family Practice Medical Doctor Relationship Specialty Start Date End Date Khai Jacobson MD [address] [place] [address] [place] [address] PCP - Medical [employer] 08/22/15 08/21/99 Khai Jacobson MD [address] [place] [address] [place] [address] PCP - General Internal Medicine 02/23/23 Family Practice Medical Doctor Relationship Specialty Start Date End Date Khai Jacobson MD [address] [place] [address] [place] [address] PCP - Medical [employer] 08/22/15 08/21/99 Khai Jacobson MD [address] [place] [address] [place] [address] PCP - General Internal Medicine 02/23/23 Family Practice Medical Doctor Relationship Specialty Start Date End Date Khai Jacobson MD [address] [place] [address] [place] [address] PCP - Medical [employer] 08/22/15 08/21/99 Khai Jacobson MD [address] [place] [address] [place] [address] PCP - General Internal Medicine 02/23/23 Family Practice Medical Doctor Relationship Specialty Start Date End Date Khai Jacobson MD [address] [place] [address] [place] [address] PCP - Medical [employer] 08/22/15 08/21/99 Khai Jacobson MD [address] [place] [address] [place] [address] PCP - General Internal Medicine 02/23/23 Family Practice Medical Doctor Relationship Specialty Start Date End Date Khai Jacobson MD [address] [place] [address] [place] [address] PCP - Medical [employer] 08/22/15 08/21/99 Khai Jacobson MD [address] [place] [address] [place] [address] PCP - General Internal Medicine 02/23/23 Family Practice Medical Doctor Relationship Specialty Start Date End Date Khai Jacobson MD [address] [place] [address] [place] [address] PCP - Medical [employer] 08/22/15 08/21/99 Khai Jacobson MD [address] [place] [address] [place] [address] PCP - General Internal Medicine 02/23/23 Family Practice Medical Doctor Relationship Specialty Start Date End Date Khai Jacobson MD [address] [place] [address] [place] [address] PCP - Medical [employer] 08/22/15 08/21/99 Khai Jacobson MD [address] [place] [address] [place] [address] PCP - General Internal Medicine 02/23/23 Family Practice Medical Doctor Relationship Specialty Start Date End Date Khai Jacobson MD [address] [place] [address] [place] [address] PCP - Medical [employer] 08/22/15 08/21/99 Khai Jacobson MD [address] [place] [address] [place] [address] PCP - General Internal Medicine 02/23/23 Family Practice Medical Doctor Relationship Specialty Start Date End Date Khai Jacobson MD [address] [place] [address] [place] [address] PCP - Medical [employer] 08/22/15 08/21/99 Khai Jacobson MD [address] [place] [address] [place] [address] PCP - General Internal Medicine 02/23/23 Family Practice Medical Doctor Relationship Specialty Start Date End Date Khai Jacobson MD [address] [place] [address] [place] [address] PCP - Medical [employer] 08/22/15 08/21/99 Khai Jacobson MD [address] [place] [address] [place] [address] PCP - General Internal Medicine 02/23/23 Family Practice Medical Doctor Relationship Specialty Start Date End Date Khai Jacobson MD [address] [place] [address] [place] [address] PCP - Medical [employer] 08/22/15 08/21/99 Khai Jacobson MD [address] [place] [address] [place] [address] PCP - General Internal Medicine 02/23/23 Family Practice Medical Doctor Relationship Specialty Start Date End Date Khai Jacobson MD [address] [place] [address] [place] [address] PCP - Medical [employer] 08/22/15 08/21/99 Khai Jacobson MD [address] [place] [address] [place] [address] PCP - General Internal Medicine 02/23/23 Reason [...] Reason Onset Date Comments Med Refill 10/22/2024 Reason Onset Date Comments Med Refill 11/01/2024 FOR RECORDS PERTAINING TO PATIENTS WHO ARE [...] BE BASED ON THE PRIMARY CLINICAL RECORDS. [facility]. provides no warranty or guarantee of the accuracy or completeness of information in this document.
== END 2024-11-06 14:21 | disposition home or self-care (01) ==
LOC: LAB 14:20
PROVIDERS: PCP Internal Medicine; Visit Provider Obstetrics & Gynecology
DX: Z01.812 Encounter for preprocedural laboratory examination (principal); N85.02 Endometrial intraepithelial neoplasia [EIN]; R10.2 Pelvic and perineal pain; N94.10 Unspecified dyspareunia
CPT/HCPCS: 36415; 86850; 86900; 86901

== ENCOUNTER 2024-11-08 11:22 | Day surgery (SDC) | payer OTHER, SELFPAY ==
[2024-10-26 14:53] VITALS: BP 124/78; PULSE 75; TEMP 36.4; O2SAT 75; BMI 25.2
[2024-11-08] VITALS (12 sets, daily range): BP systolic 112–142; BP diastolic 56–83; PULSE 63–89; TEMP 36.2–36.4; O2SAT 90–99; BMI 24.8
--- OUTSIDE RECORDS SUMMARY | 2024-11-08 11:27 | XMS_ITS | CCD ---
Author Organization [facility] CliniSytn Care Team Providers Care Territory Sales Consultant Name Role Phone MARY, DR RAMIREZ Admitting Unavailable MARY, DR RAMIREZ Attending Unavailable MARY, DR RAMIREZ Primary Care Unavailable MARY, DR RAMIREZ Consulting Unavailable ZIEBER, DR MYLES Fay Consulting Unavailable GREER ., DR LUNDBERG Admitting Unavailable GREER ., DR LUNDBERG Attending Unavailable MARY, DR RAMIREZ Primary Care Unavailable [facility], DR REGINALD Monzon Consulting Unavailabl e GREER ., DR LUNDBERG Consulting Unavailable FOREIGN ORTEZ Consulting Unavailable GREER ., DR LUNDBERG Admitting Unavailable GREER ., DR LUNDBERG Attending Unavailable MARY, DR RAMIREZ Primary Care Unavailable GREER ., DR LUNDBERG Consulting Unavailable GREER ., DR LUNDBERG Admitting Unavailable GREER ., DR LUNDBERG Attending Unavailable MARY, DR RAMIREZ Primary Care Unavailable [place], DR ROSSY Juarez Consulting Unavailable GREER ., [...] procedure, # 2 tab(s), Refills(s) 0, Pharmacy: [facility] #[id number], 158, cm, 04/08/23 10:27:00 EDT, Height/Length Dosing, [...] by mouth every eight hours HYDROcodone-acetami nophen ([place]) 5-325 MG tablet Indications: Lumbar spondylosis Take 1 tablet by mouth every 8 (eight) hours 90 tablet 10/06/2024 11/01/2024 Discontinued (Reorder) Start: 09-26-2023 take 1 tablet by jenny th every eight hours HYDROcodone-acetaminophen ([place]) 5-325 MG tablet Indications: Lumbar spondylosis Take [...] (Bld) 0.8 % 0.2 - 2.0 % [facility] Eosin[facility]/100 WBC (Bld) 1.5 % 0.9 - 7.0 % [facility] Erythrocyte distribution width (RBC) [Ratio] 11.9 % 11.0 - 15.0 % [facility] Hematocrit (Bld) [Volume fraction] 37.4 % 36.0 - 48.0 % [facility] Hemoglobin (Bld) [Mass/Vol] 12.2 g/dL 12.0 - 16.0 g/dL [facility] IMMATURE GRANULOCYTES ABS AUTO 0.01 [facility] Immature granulocytes/100 WBC (Bld) 0.1 % 0.0 - 0.5 % [facility] Interpretation and review of laboratory results Abnormal [facility] LYMPHOCYTES ABSOLUTE AUTO 2.8 [facility] Lymphocytes/100 WBC (Bld) 35.5 % 20.5 - 60.0 % [facility] MCH (RBC) [Entitic mass] 31.9 pg 26.7 - 34.0 pg [facility] MCHC (RBC) [Mass/Vol] 32.6 g/dL 29.9 - 35.2 g/dL [facility] MCV (RBC) [Entitic vol] 97.9 fL 81.0 - 99.0 fL [facility] MONOCYTES ABSOLUTE AUTO 0.6 [facility] Monocytes/100 WBC (Bld) 7 % 1.7 - 12.0 % [facility] NEUTROPHILS ABSOLUTE AUTO 4.4 [facility] Neutrophils/100 WBC (Bld) 55.1 % 43.0 - 75.0 % [facility] Platelet mean volume (Bld) [Entitic vol] 10 fL 9.5 - 13.5 fL [facility] EO # 0.1 [facility] PLT 283 [facility] TB RBC 3.82 Low [facility] TB WBC 7.9 [facility] Pathology Request for Lab Co rpon 08-10-2024 Pathology Request for Lab Megan Normal [facility] Comment on above: Order Comment: PATHO LOGY AMBULATORY SPECIMEN Result Comment: See report. Scanned copy available in EMR. PERFORMED BY: [address] [place] [place] [address] PATHOLOGIST BOX CAR CHECKER HANNAH MARSHALL M.D. Performed By: #### P ATH TO [facility] #### [facility] [address] ALL BASIC METABOLIC PANELon 07-23-2024 Anion gap [Moles/Vol] 11.1 mmol/L [facility] Calcium [Mass/Vol] 9 mg/dL 8.5 - 10. 1 mg/dL [facility] Chloride [Moles/Vol] 104 mmol/L 98 - 10 7 mmol/L [facility] CO2 [Moles/Vol] 31.9 mmol/L 21.0 - 32.0 mmol/L [facility] Creatinine [Mass/Vol] 0.74 mg/dL 0.55 - 1.02 mg/dL [facility] GFR/1.73 sq M.predicted CKD-EPI (S/P/Bld) [Vol rate/Area] >60 >=60 mL/min/1.73m 2 [facility] Glucose [Mass/Vol] 83 mg/dL 74 - 106 mg/dL [facility] Potassium [Moles/Vol] 4 mmol/L 3.5 - 5.1 mmol/L [facility] Sodium [Moles/Vol] 143 mmol/L 136 - 145 mmol/L [facility] TBH EGFR-NON AF PANAMANIAN >60 >=60 mL/min/1.73m 2 [facility] Urea nitrogen [Mass/Vol] 17 mg/dL 7.0 - 18.0 mg/dL [facility] Urea nitrogen/Creatinine [Mass ratio] 23 mg/mg [facility] MLR HEMOGLOBIN A1Con 024 Glucose [Mass/Vol] 103 mg/dL [facility] HbA1c (Bld) [Mass fraction] 5.2 % 4.5 - 6.2 % [facility] Comment on above: ADA RECOMMENDED LIMI T 4.0 - 6.0 ADA THERAPEUTIC TARGET < 7.0 ACTION SUGGESTED > 7.0 [facility] e Operative Reporton 4 Operative Report [id number] .[id number] Normal [facility] Consent for Procedure/Surger yon 07-25-2023 Consent for Procedure/Surgery [id number] .[id number] Normal [facility] Consent for Procedure/Surger yon 05-03-2023 Consent for Procedure/Surgery [id number] .00CD:127 Normal [facility] RAD - Ultrasound Reporton RAD - Ultrasound Report [id number]. 00CD:127 Normal [facility] Ambulatory Visit Summaryon 0 04-08-2023 Ambulatory Visit Summary HAVEN BAR :1970 Visit Date:04/08/2023 Ambulatory Visit Instructions Your Diagnosis Asymptomatic microscopic hematuria Recurrent UTI Feeling of incomplete bladder emptying Tests Performed Urnls Dip Stick Auto w/o Microscopy POC 04091 US Renal -- Results Pending -- Please [...] with Curry PHILIPPE MD, MADALYN When: Where: [address] [place] [address]- Medications What How Much When Instructions Unchanged [...] Urnls Dip Stick Auto w/o Microscopy POC 92643 (04/08/2023) Bilirubin Urine Dipstick - Negative Blood Urine Dipstick - Trace-intact Glucose Urine Dipstick - Negative Ketones Urine Dipstick - Negative Leukocytes Urine Dipstick - Negative Nitrite Urine Dipstick - Negative Protein Urine Dipstick - Negative Specific [place] Urine Dipstick - 1.015 Urine Appearance Urine [...] these instructions at home: Medicines ? Take pbwr-dos-cbgrupj and prescription medicines only as told by [...] water is (more content not included)... Normal [facility] Formson 04-08-2023 Forms [id number] .00CD:127 Normal [facility] Patient Educationon 04-08-20 23 Patient Education Urology [...] these instructions at home: Medicines ? Take rlfk-zzg-zfwoibq and prescription medicines only as told by [...] the blood stops without treatment. ? Take apkn-dyw-rejwgjh and prescription medicines only as told by your health care provider. ? Drink enough fluid to keep your urine pale yellow. This information is not intended to replace advice given to you by your health care provider. Make sure you discuss any questions you have with your health care provider. Document Revised: 04/08/2021 Document Reviewed: 04/08/2021 [employer] Patient Education ? 2022 ttwick. [facility] Physician Referralon 023 Physician Referral [id number] .00CD:127 Normal [facility] CBC AUTO DIFFon 11-30-2022 BASO # 0.1 103/ul Normal 0.0-0.1 [facility] Comment on above: Performed By: #### C BC #### [facility] [address] [address] [address] Jovani Adame Basophils/100 WBC (Bld) 0.6 % Normal 0.2-2.0 [facility] Comment on above: Performed By: #### C BC #### [facility] [address] [address] [address] Jovani Adame EO # 0.2 103/ul Normal 0.0-0.7 [facility] Comment on above: Performed By: #### C BC #### [facility] [address] [address] [address] Jovani Adame Eosinophils/100 WBC (Bld) 2.3 % Normal 0.9-7.0 [facility] Comment on above: Performed By: #### C BC #### [facility] [address] [address] [address] Jovani Adame Erythrocyte distribution width (RBC) [Ratio] 12.2 % Normal 11.0-15.0 [facility] Comment on above: Performed By: #### C BC #### [facility] [address] [address] [address] Jovani Adame Hematocrit (Bld) [Volume fraction] 34.9 % Critically low 36.0-48.0 [facility] Comment on above: Performed By: #### C BC #### [facility] [address] [address] [address] Jovani Adame Hemoglobin (Bld) [Mass/Vol] 12.1 g/dL Normal 12.0-16.0 [facility] Comment on above: Performed By: #### C BC #### [facility] [address] [place] [address] Dr. Jovani Adame IG # 0.01 10e3/ul Normal 0.00-0.03 [facility] Comment on above: Performed By: #### C BC #### [facility] [address] [place] [address] Dr. Jovani Adame IG % 0.1 % Normal 0.0-0.5 [facility] Comment on above: Performed By: #### C BC #### [facility] [address] [place] [address] Dr. Jovani Adame LYMPH # 2.4 103/ul Normal 1.2-3.8 [facility] Comment on above: Performed By: #### C BC #### [facility] [address] [place] [address] Dr. Jovani Adame Lymphocytes/100 WBC (Bld) 29.8 % Normal 20.5-60.0 [facility] Comment on above: Performed By: #### C BC #### [facility] [address] [place] [address] Dr. Jovani Adame MANUAL DIFF REQ NO Normal [facility] Comment on above: Performed By: #### C BC #### [facility] [address] [place] [address] Dr. Jovani Adame MCH (RBC) [Entitic mass] 31.8 pg Normal 26.7-34.0 [facility] Comment on above: Performed By: #### C BC #### [facility] [address] [place] [address] Dr. Jovani Adame MCHC (RBC) [Mass/Vol] 34.7 g/dL Normal 29.9-35.2 [facility] Comment on above: Performed By: #### C BC #### [facility] [address] [place] [address] Dr. Jovani Adame MCV (RBC) [Entitic vol] 91.8 fL Normal 81.0-99.0 [facility] Comment on above: Performed By: #### C BC #### [facility] [address] [place] [address] Dr. Jovani Adame MONO # 0.5 103/ul Normal 0.3-0.8 [facility] Comment on above: Performed By: #### C BC #### [facility] [address] [address] [address] Jovani Adame Monocytes/100 WBC (Bld) 5.9 % Normal 1.7-12.0 [facility] Comment on above: Performed By: #### C BC #### [facility] [address] [place] [address] Dr. Jovani Adame NEUT # 5.0 103/ul Normal 1.4-6.5 [facility] Comment on above: Performed By: #### C BC #### [facility] [address] [place] [address] Dr. Jovani Adame Neutrophils/100 WBC (Bld) 61.3 % Normal 43.0-75.0 [facility] Comment on above: Performed By: #### C BC #### [facility] [address] [place] [address] Dr. Jovani Adame Platelet mean volume (Bld) [Entitic vol] 10.2 fL Normal 9.5-13.5 [facility] Comment on above: Performed By: #### C BC #### [facility] [address] [place] [address] Dr. Jovani Adame PLT 318 103/ul Normal 150-450 [facility] Comment on above: Performed By: #### C BC #### [facility] [address] [place] [address] Dr. Jovani Adame RBC 3.80 106/ul Critically low 4.20-5.40 [facility] Comment on above: Performed By: #### C BC #### [facility] [address] [place] [address] Dr. Jovani Adame WBC 8.1 103/ul Normal 4.0-11.0 [facility] Comment on above: Performed By: #### C BC #### [facility] [address] [place] [address] Dr. Jovani Adame FREE T4on 11-30-2022 Free T4 [Mass/Vol] 0.89 ng/dL Normal 0.76-1.46 [facility] Comment on above: Performed By: #### U MICRO, UARMICR #### [facility] [address] [address] [address] Jovani Adame GLYCOHEMOGLOBIN A1Con 2022 ADA RECOMMENDATION SEE BELOW Normal [facility] Comment on above: Result Comment: ADA RECOMMENDED LIMIT 4.0 - 6.0 ADA THERAPEUTIC TARGET < 7.0 ACTION SUGGESTED > 7.0 Performed By: #### U MICRO, UARMICR #### [facility] [address] [address] [address] Jovani Adame Glucose [Mass/Vol] 105 mg/dL Normal [facility] Comment on above: Performed By: #### U MICRO, UARMICR #### [facility] [address] [place] [address] Dr. Jovani Adame HbA1c (Bld) [Mass fraction] 5.3 % Normal 4.5-6.2 [facility] Comment on above: Performed By: #### U MICRO, UARMICR #### [facility] [address] [place] [address] Dr. Jovani Adame PROTIMEon 11-30-2022 INR Coag (PPP) [Relative time] 0.97 {INR} Normal [facility] Comment on above: Performed By: #### P T, PTT #### [facility] [address] [place] [address] Dr. Jovani Adame INR GUIDELINES SEE BELOW Normal [facility] Comment on above: Result Comment: MATILDE RED INR: 2.0 - 3.0 CONDITIONS NOT LISTED BELOW 2.5 - 3.5 FOR PROSTHETIC HEART VALVE REPLACEMENT 2.5 - 3.5 RECURRENT THROMBOSIS Performed By: #### P T, PTT #### [facility] [address] [place] [address] Dr. Jovani Adame PT Coag (PPP) [Time] 10.3 s Normal 9.0-11.6 [facility] Comment on above: Performed By: #### P T, PTT #### [facility] [address] [place] [address] Dr. Jovani Adame PTTon 11-30-2022 aPTT Coag (Bld) [Time] 29.4 s Normal 22.3-36.2 [facility] Comment on above: Performed By: #### P T, PTT #### [facility] [address] [place] [address] Dr. Jovani Adame TSHon 11-30-2022 TSH 0.872 uIU/mL Normal 0.358-3.740 [facility] Comment on above: Performed By: #### T SH #### [facility] [address] [place] [address] Dr. Jovani Adame UA (CLEAN/CATCH) MICROSCOPIC IF INDICATEon 11-30-2022 Bilirubin Ql (U) Negative Normal NEGATIVE [facility] Comment on above: Performed By: #### U MICRO, UARMICR #### [facility] [address] [place] [address] Dr. Jovani Adame Clarity (U) CLEAR Normal CLEAR [facility] Comment on above: Performed By: #### U MICRO, UARMICR #### [facility] [address] [place] [address] Dr. Jovani Adame Color (U) LT. YELLOW Normal YELLOW [facility] Comment on above: Performed By: #### U MICRO, UARMICR #### [facility] [address] [place] [address] Dr. Jovani Adame Glucose Ql (U) Negative Normal NEGATIVE [facility] Comment on above: Performed By: #### U MICRO, UARMICR #### [facility] [address] [place] [address] Dr. Jovani Adame Hemoglobin Ql (U) TRACE-INTACT Abnormal NEGATIVE [facility] Comment on above: Performed By: #### U MICRO, UARMICR #### [facility] [address] [place] [address] Dr. Jovani Adame Ketones Ql (U) Negative Normal NEGATIVE [facility] Comment on above: Performed By: #### U MICRO, UARMICR #### [facility] [address] [place] [address] Dr. Jovani Adame LEUKOCYTES Negative Normal NEGATIVE [facility] Comment on above: Performed By: #### U MICRO, UARMICR #### [facility] [address] [address] [address] Jovani Adame Nitrite Ql (U) Negative Normal NEGATIVE [facility] Comment on above: Performed By: #### U MICRO, UARMICR #### [facility] [address] [place] [address] Dr. Jovani Adame pH (U) 6.5 [pH] Normal 5-9 [facility] Comment on above: Performed By: #### U MICRO, UARMICR #### [facility] [address] [place] [address] Dr. Jovani Adame SPEC GRAVITY 1.010 Normal 1.005-<=1.025 [facility] Comment on above: Performed By: #### U MICRO, UARMICR #### [facility] [address] [place] [address] Dr. Jovani Adame UA PROTEIN Negative Normal NEGATIVE/ TRACE [facility] Comment on above: Performed By: #### U MICRO, UARMICR #### [facility] [address] [place] [address] Dr. Jovani Adame UR MICRO IND INDICATED Normal [facility] Comment on above: Performed By: #### U MICRO, UARMICR #### [facility] [address] [place] [address] Dr. Jovani Adame Urobilinogen Qn (U) 0.2 {Kaylie'U}/dL Normal 0.2 - 1. 0 [facility] Comment on above: Performed By: #### U MICRO, UARMICR #### [facility] [address] [place] [address] Dr. Jovani Adame URINE MICROSCOPIC ONLYon BACTERIA TRACE Abnormal NONE SEEN [facility] Comment on above: Performed By: #### U MICRO, UARMICR #### [facility] [address] [place] [address] Dr. Jovani Adame Bacteria identified Cx Nom (U) NOT INDICATED Normal [facility] Comment on above: Performed By: #### U MICRO, UARMICR #### [facility] [address] [place] [address] Dr. Jovani Adame CAST NONE SEEN Normal NONE SEEN [facility] Comment on above: Performed By: #### U MICRO, UARMICR #### [facility] [address] [place] [address] Dr. Jovani Adame Crystals LM Nom (Urine sed) NONE SEEN Normal NONE SEEN [facility] Comment on above: Performed By: #### U MICRO, UARMICR #### [facility] [address] [place] [address] Dr. Jovani Adame Epithelial cells LM Ql (Urine sed) MODERATE Abnormal NONE SEEN /RARE [facility] Comment on above: Performed By: #### U MICRO, UARMICR #### [facility] [address] [place] [address] Dr. Jovani Adame MUCOUS NONE SEEN Normal NONE SEEN [facility] Comment on above: Performed By: #### U MICRO, UARMICR #### [facility] [address] [place] [address] Dr. Jovani Adame RBC 2-5 Abnormal 0-2 [facility] Comment on above: Performed By: #### U MICRO, UARMICR #### [facility] [address] [place] [address] Dr. Jovani Adame WBC NONE SEEN Normal NONE SEEN [facility] Comment on above: Performed By: #### U MICRO, UARMICR #### [facility] [address] [place] [address] Dr. Jovani Adame MG MAMM DX 3D LT CADon 08-05 MG MAMM DX 3D LT CAD Patient: HAVEN BAR Exam Date: 08/05/2022 : 1970 Gender:F Ordering : DR TAMIKA BUTTERFIELD . Admission #: [id number] Family : Order #: [id number] CLICK HERE TO VIEW EXAM RADIOLOGY REPORT [...] colo-rectal cancer at age 52. LOCATION: [facility] BREAST COMPOSITION: Extremely dense, which lowers the [...] MD on 08/05/2022 at 11:45 Normal [facility] US BREAST LEFT LIMITEDon US BREAST LEFT LIMITED Patient: HAVEN BAR Exam Date: 08/05/2022 : 1970 Gender:F Ordering : DR TAMIKA BUTTERFIELD . Admission #: [id number] Family : Order #: [id number] CLICK HERE TO VIEW EXAM RADIOLOGY REPORT [...] colo-rectal cancer at age 52. LOCATION: [facility] BREAST COMPOSITION: Extremely dense, which lowers the [...] Nicole MD on 08/05/2022 at 11:45 Normal [facility] PAP ACOG PANEL 2: 30 to 65on 08-03-2022 . . Normal [facility] Comment on above: Result Comment: Perf ormed at: WB Performed By: #### U MICRO, UARMICR #### [facility] [address] [place] [address] Dr. Jovani Adame Age Gdln ACOG Testing 30-65 Normal [facility] Comment on above: Performed By: #### U MICRO, UARMICR #### [facility] [address] [address] [address] Jovani Adame DIAGNOSIS: Comment Normal [facility] Comment on above: Result Comment: NEGA TIVE FOR INTRAEPITHELIAL LESION OR MALIGNANCY. Performed at: WB Performed By: #### U MICRO, UARMICR #### [facility] [address] [address] [address] Jovani Adame HPV Aptima Negative Normal Negative [facility] Comment on above: Result Comment: This nucleic acid amplification test detects fourteen high-risk HPV types (16,18,31,33,35,39,45,51,52,56,58,59,66,68) without differentiation. Performed at: =G Performed By: #### U MICRO, UARMICR #### [facility] [address] [address] [address] Jovani Adame HPV Genotype Reflex Comment Normal [facility] Comment on above: Result Comment: Crit eria not met, HPV Genotype not performed. Performed at: WB Performed By: #### U MICRO, UARMICR #### [facility] [address] [address] [address] Jovani Adame Methodology: Comment Normal [facility] Comment on above: Result Comment: This liquid based ThinPrep(R) pap test was screened with the use of an image guided system. Performed at: WB Performed By: #### U MICRO, UARMICR #### [facility] [address] [place] [address] Dr. Jovani Adame Note: Comment Normal [facility] Comment on above: Result Comment: The Pap [...] Performed By: #### U MICRO, UARMICR #### [facility] [address] [place] [address] Dr. Jovani Adame Performed by: Comment Normal [facility] Comment on above: Result Comment: Gemma Squires, Life Cycle Assessment Analyst Performed at: WB Performed By: #### U MICRO, UARMICR #### [facility] [address] [address] [address] Jovani Adame Specimen adequacy: Comment Normal [facility] Comment on above: Result Comment: Sati sfactory for evaluation. No endocervical component is identified. Performed at: WB Performed By: #### U MICRO, UARMICR #### [facility] [address] [place] [address] Dr. Jovani Adame MG MAMM SCREEN 3D JEN CADon 04-29-2022 MG MAMM SCREEN 3D JEN CAD Patient: HAVEN BAR Exam Date: 04/29/2022 : 1970 Gender:F Ordering : DR KHAI JACOBSON M.D. Admission #: [id number] Family : DR TAMIKA BUTTERFIELD . Order #: [id number] CLICK HERE TO VIEW EXAM RADIOLOGY REPORT PROCEDURE: MAMMOGRAM SCREENING 3D BILATERAL CAD COMPARISON: MG MAMM SCREEN JEN W CAD, 11/22/2017. MG MAMM SCREEN JEN W CAD, 10/21/2020. MG MAMM SCREEN JEN W CAD, 01/23/2019. INDICATIONS: Screening mammography Calculator Name [facility] Breast Cancer Risk Assessment Tool 5 Year Breast Cancer Risk 0.70% Lifetime Breast Cancer Risk 6.50% Personal Breast Cancer No Personal Ovarian Cancer No Treatments None Family Cancers Brother with colo-rectal cancer at age 50. LOCATION: [facility] BREAST COMPOSITION: Extremely dense, which lowers the [...] M.D. on 04/30/2022 at 08:10 Normal [facility] Vital Signs Date Time Vital Sign Value Performing Clinician Facility 10-15-2024 08:41-0500 Body mass index (BMI) [Ratio] 25.5 kg/m2 [facility] Work Phone: [facility] 10-15-2024 08:41-0500 Body weight 63.23 kg [facility] Work Phone: [facility] 10-15-2024 08:41-0500 Diastolic blood pressure 72 mm[Hg] [facility] Work Phone: [facility] 10-15-2024 08:41-0500 Systolic blood pressure 108 mm[Hg] [facility] Work Phone: [facility] 10-04-2024 14:04-0500 Body height 157.5 cm 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 Phone: [facility] [facility] 10-[facility]-2024 14:04-0500 Body mass index (BMI) [Ratio] 25.64 kg/m2 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 Phone: [facility] 10-04-2024 14:04-0500 Body weight 63.59 kg 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 Phone: [facility] 10-04-2024 14:04-0500 Diastolic blood pressure 74 mm[Hg] 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 Phone: [facility] 10-04-2024 14:04-0500 Heart rate 73 /min 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 Phone: [facility] 10-04-2024 14:04-0500 Respiratory rate 17 /min 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 Phone: [facility] 10-04-2024 14:04-0500 SaO2% (BldA) [Mass fraction] 99 % 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 Phone: [facility] 10-04-2024 14:04-0500 Systolic blood pressure 116 mm[Hg] 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 Phone: [facility] 09-03-2024 16:43-0500 Body mass index (BMI) [Ratio] 25.94 kg/m2 Tamika Greer DO Work Phone: [facility] 09-03-2024 16:43-0500 Body weight 64.32 kg Tamika Greer DO Work Phone: [facility] 09-03-2024 16:43-0500 Diastolic blood pressure 78 mm[Hg] Tamika Greer DO Work Phone: [facility] 09-03-2024 16:43-0500 Systolic blood pressure 138 mm[Hg] Tamika Greer DO Work Phone: [facility] 07-16-2024 15:12-0500 Body mass index (BMI) [Ratio] 24.84 kg/m2 Tamika Greer DO Work Phone: [facility] 07-16-2024 15:12-0500 Body weight 61.6 kg Tamika Greer DO Work Phone: [facility] 07-16-2024 15:12-0500 Diastolic blood pressure 60 mm[Hg] Tamika Greer DO Work Phone: [facility] 07-16-2024 15:12-0500 Systolic blood pressure 100 mm[Hg] Tamika Greer DO Work Phone: [facility] 07-04-2024 10:04-0500 Body height 157.5 cm Khai Jacobson MD Work Phone: [facility] 07-04-2024 10:04-0500 Body mass index (BMI) [Ratio] 24.51 kg/m2 Khai Jacobson MD Work Phone: [facility] 07-04-2024 10:04-0500 Body weight 60.78 kg Khai Jacobson MD Work Phone: [facility] 07-04-2024 10:04-0500 Diastolic blood pressure 76 mm[Hg] Khai Jacobson MD Work Phone: [facility] 07-04-2024 10:04-0500 Heart rate 75 /min Khai Jacobson MD Work Phone: [facility] 07-04-2024 10:04-0500 SaO2% (BldA) [Mass fraction] 95 % Khai Jacobson MD Work Phone: [facility] 07-04-2024 10:04-0500 Systolic blood pressure 128 mm[Hg] Khai Jacobson MD Work Phone: [facility] 06-18-2024 14:03-0400 Body height 157.5 cm Tamika Greer DO Work Phone: [facility] 06-18-2024 14:03-0400 Body mass index (BMI) [Ratio] 24.14 kg/m2 Tamika Greer DO Work Phone: [facility] 06-18-2024 14:03-0400 Body weight 59.88 kg Tamika Greer DO Work Phone: [facility] 06-18-2024 14:03-0400 Diastolic blood pressure 70 mm[Hg] Tamika Greer DO Work Phone: [facility] 06-18-2024 14:03-0400 Systolic blood pressure 104 mm[Hg] Tamika Greer DO Work Phone: [facility] 04-16-2024 09:40-0400 Body mass index (BMI) [Ratio] 23.19 kg/m2 Khai Jacobson MD Work Phone: [facility] 04-16-2024 09:40-0400 Body weight 57.52 kg Khai Jacobson MD Work Phone: [facility] 04-16-2024 09:40-0400 Diastolic blood pressure 60 mm[Hg] Khai Jacobson MD Work Phone: [facility] 04-16-2024 09:40-0400 Heart rate 75 /min Khai Jacobson MD Work Phone: [facility] 04-16-2024 09:40-0400 Respiratory rate 16 /min Khai Jacobson MD Work Phone: [facility] 04-16-2024 09:40-0400 SaO2% (BldA) [Mass fraction] 98 % Khai Jacobson MD Work Phone: [facility] 04-16-2024 09:40-0400 Systolic blood pressure 100 mm[Hg] Khai Jacobson MD Work Phone: [facility] 04-08-2023 10:20-0400 Blood Pressure Location [facility] PHILIP[facility] 04-08-2023 10:20-0400 Diastolic blood pressure 92 mm[Hg] Curry PHILIPPE [facility] 04-08-2023 10:20-0400 Heart rate 78 /min Curry PHILIPPE [facility] 04-08-2023 10:20-0400 Systolic blood pressure 124 mm[Hg] [facility] Encounters Encounter Date Encounter Type Care Provider [...] Office outpatient visit 25 minutes 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 Phone: [facility] Comment on [...] Start: 08-10-2024 End: 08-10-2024 ambulatory Tamika Greer Facility:[facility] Start: 08-02-2024 End: 08-02-2024 Refteagan Jacobson MD [...] Start: 09-05-2023 End: 09-06-2023 ambulatory Curry PHILIPPE Facility:[id number] Start: 04-08-2023 End: 04-09-2023 ambulatory Tamika R GREER Facility:[facility] Start: 04-08-2023 End: 04-08-2023 Patient encounter procedure [facility]IL[facility] Start: 12-21-2022 ambulatory Curry Sumeet PIHLIPPE Facili ty:[facility] [place] Start: 12-06-2022 End: 12-07-2022 [...] Screening for malign ant neoplasm of colon [facility] Start: 02-20-2029 Screening for malign ant neoplasm of cervix [facility] Start: 04-12-2025 Screening for malign ant neoplasm of colon FIT-DNA [facility] Start: 03-21-2025 Screening for malign ant neoplasm of breast Mammogram [facility] Start: 10-15-2024 End: 10-15-2024 Patient encounter procedure [facility] Comment on above: Arrived Start: 09-03-2024 End: 09-03-2024 Patient encounter procedure 09/03/2024 4:00 PM EST Office Visit [facility] [address] [place] [address] Tamika Butterfield, DO [address] [facility] [address] [place], [place] [id number] Arrived [facility] Comment on above: Arrived Start: 07-16-2024 End: 07-16-2024 Patient encounter procedure 07/16/2024 2:50 PM EST Consult [facility] [address] [facility] [facility] [place] [address] Tamika Butterfield, DO [address] [place] [address] [facility] Start: 07-04-2024 End: 07-04-2024 Patient encounter procedure 07/04/2024 10:00 AM EST Office Visit [facility] [address] [facility] [address] [place] [id number] Khai Jacobson MD [address] [facility] [address] [place] [address] [facility] Start: 06-18-2024 End: 06-18-2024 Patient encounter procedure 06/18/2024 2:10 PM EDT Office Visit [facility] [address] [place] [address] Tamika Butterfield, DO [address] [facility] [place] [address] [facility] Start: 04-22-2024 Influenza vaccination Influenza Vacc ine (#1) [facility] Start: 04-16-2024 End: 04-16-2025 Comprehensive metabolic 2000 panel - Serum or Plasma Comprehensive metabolic panel Lab Routine Essential hypertension (CMS/HCC) Impaired glucose tolerance Expected: 04/16/2024 (Approximate), Expires: 04/16/2025 [facility] Comment on above: Expected: 04/16/2024 (Approximate), Expires: 04/16/2025 Start: 04-16-2024 End: 04-16-2025 Hemoglobin A1c/Hemoglobin.total in Blood Hemoglobin A1c Lab Routine Impaired glucose tolerance Expected: 04/16/2024 (Approximate), Expires: 04/16/2025 [facility] Comment on above: Expected: 04/16/2024 (Approximate), Expires: 04/16/2025 Start: 04-16-2024 End: 04-16-2025 Lipid 1996 panel - Serum or Plasma Lipid panel Lab Routine Essential hypertension (CMS/HCC) Impaired glucose tolerance Mixed hyperlipidemia (CMS/HCC) Expected: 04/16/2024 (Approximate), Expires: 04/16/2025 [facility] Work Phone: Comment on above: Expected: 04/16/2024 (Approximate), Expires: 04/16/2025 Start: 04-16-2024 End: 04-16-2025 TSH W/REFLEX TO FT4 TSH W/REFLEX TO FT4 Lab Routine Essential hypertension (CMS/HCC) Impaired glucose tolerance Expected: 04/16/2024 (Approximate), Expires: 04/16/2025 [facility] Comment on above: Expected: 04/16/2024 (Approximate), Expires: 04/16/2025 Start: 04-16-2024 End: 04-16-2024 Patient encounter procedure 04/16/2024 9:30 AM EDT Office Visit [facility] [address] [place] [address] [place] [id number] Khai Jacobson MD [address] [facility] [address] [place] [address] Arrived [facility] Comment on above: Arrived Start: 04-13-2024 Screening for malign ant neoplasm of breast Mammogram [facility] Start: 02-21-2024 End: 02-21-2024 Patient encounter procedure 02/21/2024 2:00 PM EDT Office Visit [facility] [address] [place] [id number] Tamika Butterfield, DO [address] [place] [address] [facility] Start: 08-05-2023 Screening for malign ant neoplasm of breast Mammogram [facility] Start: 04-22-2023 Influenza vaccination Influenza Vacc ine (#1) [facility] Start: 01-10-2002 Screening for malign ant neoplasm of cervix [facility] Start: 01-10-1993 Screening for malign ant neoplasm of cervix Pap Smear [facility] Start: 1972 Screening for malign ant neoplasm of colon [facility] CBC W Auto Different ial panel - Blood CBC and differential Lab Routine Essential hypertension (CMS/HCC) Ordered: 04/16/2024 [facility] Comment on above: Ordered: 04/16/2024 Immunizations Immunization Date Immunization Notes Care Provider [facility] 06-22-2018 poliovirus vaccine, inactivated Khai Jacobson MD Work Phone: [facility] 06-22-2018 tetanus toxoid, redu violette diphtheria toxoid, and acellular pertussis vaccine, adsorbed Khai Jacobson MD Work Phone: [facility] 06-01-2018 hepatitis A vaccine, adult dosage Khai Jacobson MD Work Phone: [facility] 06-01-2018 hepatitis B vaccine, adult dosage Khai Jacobson MD Work Phone: [facility] 01-12-2018 hepatitis B vaccine, adult dosage Khai Jacobson MD Work Phone: [facility] 01-06-2018 typhoid vaccine, luisa e, oral Khai Jacobson MD Work Phone: [facility] 12-09-2017 hepatitis A vaccine, adult dosage Khai Jacobson MD Work Phone: [facility] 12-09-2017 hepatitis B vaccine, adult dosage Khai Jacobson MD Work Phone: [facility] Payers Date Payer Category Payer Self-pay 2022 Private Health Insurance [employer] [id number] 2022 Unknown [employer] [id number] 2022-Present [address] [place] [address] [id number] 1972 Unknown [id number] [id number]. 593 1972 Unknown [id number] 2.16.840.1.087176.3.579.2. 59 1972 Unknown [id number] 2.16.840.1.013301.3.579.2. 593 1972 Unknown [id number] 2.16840.1.173894.3.579.2. 593 1972 Unknown [id number] 2.16.840.1.073942.3.579.2. 593 1972 Unknown [id number] 2.16.840.1.637390.3.579.2. 727 1972 Unknown [id number] 2.16.840.1.065993.3.579.2. 727 1972 Unknown [id number] 2.16.840.1.459537.3.579.2. 1972 Unknown [id number] 2.16.840.1.870773.3.579.2. 1258 1972 Unknown [id number] 2.16.840.1.554270.3.579.2. 1258 1972 Unknown [id number] 2.16.840.1.109442.3.579.2. 1258 1972 Unknown [id number] 2.16.840.1.418790.3.579.2. 1258 1972 Unknown [id number] 2.16.840.1.254716.3.579.2. 1258 1972 Unknown [id number] 2.16.840.1.203519.3.579.2. 1258 1972 Unknown [id number] 2.16.840.1.224128.3.579.2. 1258 1972 Unknown [id number] 2.16.840.1.805872.3.579.2. 1258 1972 Unknown [id number] 2.16.840.1.124880.3.579.2. 1258 1972 Unknown [id number] 2.16.840.1.102239.3.579.2. 1259 1959 Unknown [id number] Unknown [id number] 2.16.840.1.643069.3.579.2. 531 Social History Date Type Detail Facility Start: 04-08-2023 Tobacco smoking status Smokele ss tobacco user within last 30 days [facility] Start: 06-29-2023 End: 10-04-2024 Sex Assigned At Female [facility] Start: 02-17-2023 Tobacco smoking stat us NHIS Never smoked tobacco [facility] Start: 02-17-2023 Tobacco use and exposure Smokeless tobacco non-user [facility] Start: 06-29-2023 End: 10-17-2024 Alcohol intake Current drinker of alcohol (finding) [facility] Start: 06-29-2023 End: 10-04-2024 Alcohol intake [facility] Start: 04-10-2023 Alcohol Comment Caffeine:: sod a./pop , coffee [facility] Start: 1972 Sex Assigned At Not on file [facility] Functional Status Date Assessment Result Facility 04-08-2023 Functional Status N/A [facility] Clinical Notes 12-06-2022 to 11-01-2024 Telephone Encounter - DAVID Rachel - 11/01/2024 2:49 PM EDTTelephone Encounter - DAVID Rachel - 11/01/2024 2:49 PM EDTMruiz Kellogg - 10/15/2024 8:40 AM EST Note Date & Type Note Facility 11-01-2024 Telephone encounter Note OARRS reviewed, Rx sent into patient's pharmacy. [facility] 11-01-2024 Miscellaneous Notes OARRS reviewed, Rx sent into patient's pharmacy. documented in this encounter [facility] 10-15-2024 History of Presen t illness Narrative Reason for Appointment: Patient ID: Haven Bar is a 54 y.o. female who presents for Pre-op Visit Patient presents today for Pre Op appointment. Patient is scheduled to undergo Da Derik assisted Laparoscopic Hysterectomy with BSO, possible exploratory laparotomy, and possible cystoscopy on 11/08/[address] Butterfield at [facility]. 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 Carpal tunnel syndrome of right wrist 01/26/2023 Chronic constipation 01/26/2023 Diaphragmatic hernia 01/26/2023 DJD (degenerative joint disease) 01/26/2023 Essential hypertension ([facility]) 01/26/2023 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 Exam conducted with a senior solutions engineer present. Vitals: Estimated body mass index is [...] reviewed, and patient is to proceed to [facility] OR. Discussed patients questions in regards to Specialist and answered questions in regards pathology results. Follow Up: Patient is to follow up at 1 & 6 weeks post operative to assess proper healing and recovery from procedure. Documented by Luba Andrea LPN on behalf of: Tamika Butterfield DO documented in this encounter [facility] 10-06-2024 Telephone encounter Note OARRS reviewed, Rx sent into patient's pharmacy. [facility] 10-06-2024 Miscellaneous Notes OARRS reviewed, Rx sent into patient's pharmacy. documented in this encounter [facility] 10-04-2024 History of Presen [...] in the morning. 100 tablet 1 HYDROcodone-acetaminophen ([place]) 5-325 MG tablet Take 1 tablet by [...] your restless leg. Lumbar spondylosis - HYDROcodone-acetaminophen ([place]) 5-325 MG tablet; Take 1 tablet by [...] follow-ups on file. documented in this encounter [facility] 09-03-2024 Telephone encounter Note PDMP reviewed, Covering for Dr. Jacobson [facility] 09-03-2024 Miscellaneous Notes PDMP reviewed, Covering for Dr. Jacobson documented in this encounter [facility] 09-03-2024 History of Presen [...] (HYDRODIURIL) 25 mg, Oral, Every morning HYDROcodone-acetaminophen ([place]) 5-325 MG tablet 1 tablet, Oral, Every [...] nursing note reviewed. Exam conducted with a senior solutions engineer present. Vitals: Estimated body mass index is [...] with BSO. Patient to setup date with employee benefits insurance agent prior to leaving office today. Documented by Luba Andrea LPN on behalf of: Tamika Butterfield DO documented in this encounter [facility] 07-16-2024 History of Presen t illness Narrative Reason for Appointment: Patient ID: Haven Bar is a 54 y.o. female who presents for Pre-op Visit Patient presents today for Pre Op appointment. Patient is scheduled to undergo D&C Hysteroscopy, possible Myosure on 08/10/[address] Butterfield at [facility]. 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 Carpal tunnel syndrome of right wrist 01/26/2023 Chronic constipation 01/26/2023 Diaphragmatic hernia 01/26/2023 DJD (degenerative joint disease) 01/26/2023 Essential hypertension ([facility]) 01/26/2023 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 Exam conducted with a senior solutions engineer present. Vitals: Estimated body mass index is [...] reviewed, and patient is to proceed to [facility] OR. All patients questions answered and if in the future she desires to have pelvic/abdominal ultrasound if she has bloating in the future. Follow Up: Patient is to follow up between 1-2 weeks post operative to assess proper healing and recovery from procedure. Documented by Luba Andrea LPN on behalf of: Tamika Butterfield DO documented in this encounter [facility] 07-04-2024 History of Presen [...] mouth every morning 90 tablet 1 HYDROcodone-acetaminophen ([place]) 5-325 MG tablet Take 1 tablet by [...] LDL-C. Christian MARTINEZ et al. JOHN. 2013;310(19): 8564-1413 (http://education.Acust[employer].com/faq/FAF986) CHOL/HDLC RATIO 04/16/2024 2.7 <5.0 (calc) Final [...] diagnosis of diabetes in children. According to [place] [employer] (ADA) guidelines, hemoglobin A1c <7.0% represents optimal control in non- diabetic patients. Different metrics may apply to specific patient populations. Standards of Medical Care in Diabetes(ADA). This test was performed on the ReadWave michaela c503 platform. Effective 08/08/23, a change in test platforms from the Don Small Craft Operator to the Nancy michaela c503 may have shifted HbA1c results compared to historical results. Based on laboratory validation testing conducted at [employer] [facility], the Nancy platform relative to the Don [...] Low,>-Panic High,A-Abnormal,AA-Critical Abnormal Performed at: 01 =[facility] [address] [place] [address] Ros Reyes MD, IGP, APTIMA HPV, RFX [birth year] 02/21/2024 Note . Final Comment: TESTS RESULT FLAG UNITS REF RANGE LAB DIAGNOSIS: 02 NEGATIVE FOR INTRAEPITHELIAL LESION OR MALIGNANCY. Specimen adequacy: 02 Satisfactory for evaluation. Endocervical and/or squamous metaplastic cells (endocervical component) are present. Performed by: Zamzam Nicole, Life Cycle Assessment Analyst (ASCP) . 02 Note: Note 02 The [...] <-Panic Low,>-Panic High,A-Abnormal,AA-Critical Abnormal Performed at: [address] [address] Ros Reyes MD, HPV APTIMA 02/21/2024 Negative Negative Final Comment: This nucleic acid amplification test detects fourteen high- risk HPV types (16,18,31,33,35,39,45,51,52,56, 58,59,66,68) without differentiation. Performed at: =[address] [id number] Third Helper: Ros Reyes MD, Phone: [phone] Performed at: [address] [id number] Third Helper: Ros Reyes MD, Phone: [phone] Assessment/Plan Diagnoses and all orders for this visit: Essential hypertension (CMS/HCC) - This is a chronic medical condition that is stable since last assessment. No changes in treatment are suggested at this time. Lumbar spondylosis - HYDROcodone-acetaminophen ([place]) 5-325 MG tablet; Take 1 tablet by [...] follow-ups on file. 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 Carpal tunnel syndrome of right wrist 01/26/2023 Chronic constipation 01/26/2023 Diaphragmatic hernia 01/26/2023 DJD (degenerative joint disease) 01/26/2023 Essential hypertension ([facility]) 01/26/2023 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 Exam conducted with a senior solutions engineer present. Vitals: Estimated body mass index is [...] Tamika Butterfield DO documented in this encounter [facility] 06-04-2024 Telephone encounter Note Lvm [facility] 06-04-2024 Miscellaneous Notes Lvm Please help pt get set up for a follow up with Dr. Jacobson in June. OARRS reviewed, Rx sent into patient's pharmacy. HYDROcodone-acetaminophen ([place]) 5-325 MG tablet [facility] [place] documented in this encounter [facility] 06-04-2024 Telephone encounter Note Please help pt get set up for a follow up with Dr. Jacobson in June. OARRS reviewed, Rx sent into patient's pharmacy. [facility] 06-04-2024 Telephone encounter Note HYDROcodone-acetaminophen ([place]) 5-325 MG tablet [facility] [place] [facility] 05-03-2024 Telephone encounter Note HYDROcodone-acetaminophen ([place]) 5-325 MG tablet [facility] [place] [facility] 05-03-2024 Miscellaneous Notes HYDROcodone-acetaminophen ([place]) 5-325 MG tablet [facility] [place] documented in this encounter [facility] 04-16-2024 History of Presen [...] mouth every morning 90 tablet 1 HYDROcodone-acetaminophen ([place]) 5-325 MG tablet Take 1 tablet by [...] Controlled Med Review. documented in this encounter [facility] 10-03-2023 Telephone encounter Note A prescription without a prescription was called in as requested. [facility] 10-03-2023 Miscellaneous Notes A prescription without a prescription was called in as requested. Pt called and said she has an UTI and asked if a prescription could be called in for her without a prescription documented in this encounter [facility] 10-03-2023 Telephone encounter Note Pt called and said she has an UTI and asked if a prescription could be called in for her without a prescription [facility] 09-28-2023 Telephone encounter Note Rx was sent [facility] 09-28-2023 Miscellaneous Notes Rx was sent She is taking this for nausea , did know if you would send in or needed an appt for this Pt is requesting prometilazine she has not had this in awhile ok to give pt Needs sent to RA in [place] documented in this encounter [facility] 09-28-2023 Telephone encounter Note She is taking this for nausea , did know if you would send in or needed an appt for this [facility] 09-28-2023 Telephone encounter Note Pt is requesting prometilazine she has not had this in awhile ok to give pt Needs sent to RA in [place] [facility] 04-08-2023 Note Chief Complaint 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 [facility] Comment on above: Result Comment: Elec tronically Signed By: Curry PHILIPPE MD\.br\Date and Time Signed: 04/08/23 11:36 EDT\.br\Electronically Co-Signed By: Smitha Ledesma.br\Date and Time Co-Signed: 04/08/23 11:32 EDT 04-08-2023 [facility] Discharg e instructions Patient Education 04/08/2023 11:23:37 [...] Follow these instructions at home: Medicines Take rlha-pma-pkgvhkv and prescription medicines only as told by [...] or the blood stops without treatment. Take wtnz-wpa-otlvguj and prescription medicines only as told by your health care provider. Drink enough fluid to keep your urine pale yellow. This information is not intended to replace advice given to you by your health care provider. Make sure you discuss any questions you have with your health care provider. Document Revised: 04/08/2021 Document Reviewed: 04/08/2021 [employer] Patient Education 2022 ttwick. Follow Up Care 12/21/2022 14:38:53 With:SURY MARRERO, Curry Fay, URL Address: [address] [place], [place] [id number]- When: Unknown [facility] 12-06-2022 Note PROCEDURE: US PELVIS AND [...] by: FOREIGN ORTEZ Date: 2022-12-06 15:05 [facility] + Plan note No data available for this section [facility] Evaluation note Diagnosis Nausea- Primary Nausea [...] this section [facility] Summary Purpose Family History No Family History Records FoundNo Family History Records FoundNo Family History Records FoundNo Family History Records Found Advance Directives No Advanced Directives Records FoundNo Advanced Directives Records FoundNo Advanced Directives Records FoundNo Advanced Directives Records Found Additional Source Comments INFORMATION SOURCE (unrecogn ized section and content) DATE CREATED AUTHOR 12/12/2022 [facility] DATE CREATED AUTHOR AUTHOR'S ORGANIZ ATION 09/22/2023 [facility] DATE CREATED AUTHOR AUTHOR'S ORGANIZ ATION 09/04/2024 [facility] DATE CREATED AUTHOR AUTHOR'S ORGANIZ ATION 10/16/2024 [facility] EPIC Patient Care team informatio n (unrecognized section and content) Territory Sales Consultant Relationship Specialty Start Date End Date Khai Jacobson MD [address] [facility] [address] [place] [address] PCP - Medical [place] [employer] 01/20/23 Khai Jacobson MD [address] [place] [address] [place] [address] PCP - General Internal Medicine 02/23/23 Territory Sales Consultant Relationship Specialty Start Date End Date Khai Jacobson MD [address] [place] [address] [place] [address] PCP - Medical [place] [employer] 01/20/23 Khai Jacobson MD [address] [place] [address] [place] [address] PCP - General Internal Medicine 02/23/23 Territory Sales Consultant Relationship Specialty Start Date End Date Khai Jacobson MD [address] [place] [address] [place] [address] PCP - Medical [place] [employer] 08/22/15 08/21/99 Khai Jacobson MD [address] [place] [address] [place] [address] PCP - General Internal Medicine 02/23/23 Territory Sales Consultant Relationship Specialty Start Date End Date Khai Jacobson MD [address] [place] [address] [place] [address] PCP - Medical [place] [employer] 08/22/15 08/21/99 Khai Jacobson MD [address] [place] [address] [place] [address] PCP - General Internal Medicine 02/23/23 Territory Sales Consultant Relationship Specialty Start Date End Date Khai Jacobson MD [address] [place] [address] [place] [address] PCP - Medical [place] [employer] 08/22/15 08/21/99 Khai Jacobson MD [address] [place] [address] [place] [address] PCP - General Internal Medicine 02/23/23 Territory Sales Consultant Relationship Specialty Start Date End Date Khai Jacobson MD [address] [place] [address] [place] [address] PCP - Medical [place] [employer] 08/22/15 08/21/99 Khai Jacobson MD [address] [place] [address] [place] [address] PCP - General Internal Medicine 02/23/23 Territory Sales Consultant Relationship Specialty Start Date End Date Khai Jacobson MD [address] [place] [address] [place] [address] PCP - Medical [place] [employer] 08/22/15 08/21/99 Khai Jacobson MD [address] [place] [address] [place] [address] PCP - General Internal Medicine 02/23/23 Territory Sales Consultant Relationship Specialty Start Date End Date Khai Jacobson MD [address] [place] [address] [place] [address] PCP - Medical [place] [employer] 08/22/15 08/21/99 Khai Jacobson MD [address] [place] [address] [place] [address] PCP - General Internal Medicine 02/23/23 Territory Sales Consultant Relationship Specialty Start Date End Date Khai Jacobson MD [address] [place] [address] [place] [address] PCP - Medical [place] [employer] 08/22/15 08/21/99 Khia Jacobson MD [address] [place] [address] [place] [address] PCP - General Internal Medicine 02/23/23 Territory Sales Consultant Relationship Specialty Start Date End Date Khai Jacobson MD [address] [place] [address] [place] [address] PCP - Medical [place] [employer] 08/22/15 08/21/99 Khai Jacobson MD [address] [place] [address] [place] [address] PCP - General Internal Medicine 02/23/23 Territory Sales Consultant Relationship Specialty Start Date End Date Khai Jacobson MD [address] [place] [address] [place] [address] PCP - Medical [place] [employer] 08/22/15 08/21/99 Khai Jacobson MD [address] [place] [address] [place] [address] PCP - General Internal Medicine 02/23/23 Territory Sales Consultant Relationship Specialty Start Date End Date Khai Jacobson MD [address] [place] [address] [place] [address] PCP - Medical [place] [employer] 08/22/15 08/21/99 Khai Jacobson MD [address] [place] [address] [place] [address] PCP - General Internal Medicine 02/23/23 Territory Sales Consultant Relationship Specialty Start Date End Date Khai Jacobson MD [address] [place] [address] [place] [address] PCP - Medical [place] [employer] 08/22/15 08/21/99 Khai Jacobson MD [address] [place] [address] [place] [address] PCP - General Internal Medicine 02/23/23 Territory Sales Consultant Relationship Specialty Start Date End Date Khai Jacobson MD [address] [place] [address] [place] [address] PCP - Medical [place] [employer] 08/22/15 08/21/99 Khai Jacobson MD [address] [place] [address] [place] [address] PCP - General Internal Medicine 02/23/23 Territory Sales Consultant Relationship Specialty Start Date End Date Khai Jacobson MD [address] [place] [address] [place] [address] PCP - Medical [place] [employer] 08/22/15 08/21/99 Khai Jacobson MD [address] [place] [address] [place] [address] PCP - General Internal Medicine 02/23/23 Territory Sales Consultant Relationship Specialty Start Date End Date Khai Jacobson MD [address] [place] [address] [place] [address] PCP - Medical [place] [employer] 08/22/15 08/21/99 Khai Jacobson MD [address] [place] [address] [place] [address] PCP - General Internal Medicine 02/23/23 Reason [...] BE BASED ON THE PRIMARY CLINICAL RECORDS. [facility] [employer] [facility]. provides no warranty or guarantee of the accuracy or completeness of information in this document.
[2024-11-08 11:39] LABS: Basophils Absolute Auto 0.1 10^3/uL (0.0-0.1); Basophils Percent Auto 0.8 % (0.2-2.0); Eosinophils Absolute Auto 0.1 10^3/uL (0.0-0.7); Eosinophils Percent Auto 1.7 % (0.9-7.0); Hematocrit 37.8 % (36.0-48.0); Hemoglobin 12.5 g/dL (12.0-16.0); Immature Granulocytes Abs Auto 0.01 10^3/uL (0.00-0.03); Immature Granulocytes Pct Auto 0.1 % (0.0-0.5); Lymphocytes Absolute Auto 2.5 10^3/uL (1.2-3.8); Lymphocytes Percent Auto 34.4 % (20.5-60.0); Mean Corpuscular HGB Conc 33.1 g/dL (29.9-35.2); Mean Corpuscular Hemoglobin 31.8 pg (26.7-34.0); Mean Corpuscular Volume 96.2 fL (81.0-99.0); Mean Platelet Volume 9.6 fL (9.5-13.5); Monocytes Absolute Auto 0.6 10^3/uL (0.3-0.8); Monocytes Percent Auto 7.9 % (1.7-12.0); Neutrophils Percent Auto 55.1 % (43.0-75.0); Platelet Count 301 10^3/uL (150-450); Red Blood Count 3.93 10^6/uL (4.20-5.40); White Blood Count 7.2 10^3/uL (4.0-11.0)
[2024-11-08] MEDS: FAMOTIDINE/PF 20 MG/2 ML VIAL IV (12:01)
[2024-11-08] MEDS: ALBUTEROL SULFATE 2.5 MG/3 ML VIAL NEB IH (12:01)
[2024-11-08] MEDS: SCOPOLAMINE 1 MG/3 DAYS TRANSDERM PATCH 1 PATCH TD (12:01)
[2024-11-08 12:10] LABS: HCG Quantitative 5 mIU/mL
[2024-11-08] MEDS: LACTATED RINGER'S SOLUTION 1,000 ML 50 ML IV ×2 (12:21→13:21)
[2024-11-08] MEDS: CEFAZOLIN SODIUM 1 GM/50 ML D5W PREMIX IV (12:22)
--- NOTE | 2024-11-08 14:39 | P.ON_ITS ---
Brief Operative Note Date of procedure: 11/08/24 Pre-op diagnosis general: dyspareunia, aub, thickend endometrium Post-op diagnosis: same as pre-op Procedure: NAME OF PROCEDURE: ? Robotic assisted laparoscopic hysterectomy with cystoscopy, bilateral salpingoopherectomy PROCEDURE:? The patient was taken back to the operating room, where she was prepped and draped in the normal sterile fashion after being placed in the dorsal lithotomy position.? Patient?s anesthesia was found to be adequate.? Surgical timeout was performed using two patient identifiers.? SCDs were on and in place.? Two grams of Ancef were given prior to the surgery.? Sterile Calles catheter was inserted.? Standard size VCare was secured to the uterine cervix and the surgeon changed gloves.? Attention then was turned to the patient's abdomen, where a supraumbilical incision was then made.? Two S retractors were used to identify the patient?s fascia.? The fascia was then tented up using Rodolfo clamps and the patient?s fascia was incised sharply.? Patient?s abdomen was identified and entered bluntly.? The patient had the trocar placed and a pneumoperitoneum was obtained.? Approximately 4 liters of CO2 gas was used.? The camera was then placed through the trocar.? At this time, two robot trocars were placed in the patient?s left and right side, two hand widths from the midline, and this was placed under direct visualization.? The patient?s tube and ovary on the right side was tented up and the vessel sealer was then used to come across the indundibular pelvic ligament and the mesosalpinx The vessel sealer was carried down serially through the broad ligament, to the area of the bladder flap, which was then created anteriorly, and the uterine arteries were skeletonized and sealed using the vessel sealer.?this was done on the contralateral side as well. The colpotomy was made using the monopolar cautery on cut, and this was carried circumferentially, posteriorly to anteriorly, until the uterus was amputated.? The specimen was then removed intact through the vagina, without difficulty.? The vagina was then closed using two running V-Loc in a non-lock fashion.? The robot was undocked.? The abdomen was desufflated.? The skin defects were closed using 4-0 Vicryl.? Please note, the fascia was closed using 0 Vicryl.? Sponge, lap and needle counts were correct x2.? Patient was taken to recovery room in stable condition.? The patient was awakened by Anesthesia first.? Patient tolerated procedure well.??Please note left ovarian cystectomy was performed using the vessel sealer Anesthesia: JERMAN Surgeon: Derrick Butterfield Culinary Specialist: Libertad Fernando Estimated blood loss (mL): 100 Pathology: other (bilateral tubes ovaries and uterus and cervix) Condition: stable Disposition: PACU Urinary Catheter Management Urinary Catheter Management Urethral: Cath placed during this visit: no
[2024-11-08] MEDS: LACTATED RINGER'S SOLUTION 1,000 ML 125 ML IV (16:10)
[2024-11-08] MEDS: OXYCODONE HCL/ACETAMINOPHEN 5MG/325MG 2 TAB PO (17:04)
[2024-11-08] MEDS: CEFAZOLIN SODIUM/DEXTROSE,ISO 2 GM/50 ML PIGGYBACK IV (18:03)
[2024-11-08 20:35] LABS: Hematocrit 36.8 % (36.0-48.0); Hemoglobin 12.2 g/dL (12.0-16.0); Mean Corpuscular HGB Conc 33.2 g/dL (29.9-35.2); Mean Corpuscular Hemoglobin 31.8 pg (26.7-34.0); Mean Corpuscular Volume 95.8 fL (81.0-99.0); Mean Platelet Volume 9.7 fL (9.5-13.5); Platelet Count 244 10^3/uL (150-450); Red Blood Count 3.84 10^6/uL (4.20-5.40); Red Cell Distribution Width 12.1 % (11.0-15.0); White Blood Count 13.5 10^3/uL (4.0-11.0)
[2024-11-08 20:52] LABS: Lymphocytes Absolute Manual 0.81 10^3/uL (1.20-3.80); Monocytes Absolute Manual 0.81 10^3/uL (0.30-0.80); Segmented Neut Absolute Manual 11.88 10^3/uL (1.4-6.5)
[2024-11-08] MEDS: SIMETHICONE 80 MG TAB.CHEW PO (21:01)
[2024-11-08] MEDS: IBUPROFEN 400 MG TABLET 800 MG PO (21:01)
== END 2024-11-08 21:09 | disposition home or self-care (01) ==
LOC: SURGOUT 16:04 → MS 16:05
PROVIDERS: PCP Internal Medicine; Visit Provider Obstetrics & Gynecology
PROC: (CPT 840; principal; 2024-11-08 12:30)
DX: N85.02 Endometrial intraepithelial neoplasia [EIN] (principal); R10.2 Pelvic and perineal pain; N94.10 Unspecified dyspareunia; I10 Essential (primary) hypertension; R93.89 Abnormal findings on diagnostic imaging of other specified body structures; N83.8 Other noninflammatory disorders of ovary, fallopian tube and broad ligament; Z90.49 Acquired absence of other specified parts of digestive tract; Z98.51 Tubal ligation status; F17.290 Nicotine dependence, other tobacco product, uncomplicated; E78.5 Hyperlipidemia, unspecified; R56.9 Unspecified convulsions; K21.9 Gastro-esophageal reflux disease without esophagitis
CPT/HCPCS: 58571; 36415; 84702; 85007; 85025; 85027; 88307; J0131; J0690; J1100; J1171; J1885; J2250; J2405; J2704; J3010; J3490

== ENCOUNTER 2024-12-13 10:11 | Outpatient (OUT) | payer OTHER, SELFPAY ==
[2024-12-13 11:12] LABS: Estimated Average Glucose 111 mg/dL; Glycohemoglobin A1C 5.5 % (4.5-6.2)
[2024-12-13 11:18] LABS: Free T3 2.46 pg/mL (2.18-3.98); Glucose 88 mg/dL (74-106); Thyroid Stimulating Hormone 0.947 uIU/mL (0.358-3.740)
[2024-12-13 12:02] LABS: Free T4 0.81 ng/dL (0.76-1.46)
[2024-12-14 04:09] LABS: C-Peptide, Serum 4.3 ng/mL (1.1-4.4); Insulin 18.9 uIU/mL (2.6-24.9)
[2024-12-14 08:11] LABS: DHEA-Sulfate 67.4 ug/dL (41.2-243.7); Progesterone 0.2 ng/mL (.)
[2024-12-14 15:09] LABS: Thyroid Peroxidase (TPO) Ab 12 IU/mL (0-34)
[2024-12-15 15:08] LABS: Free Testosterone(Direct) <0.2 pg/mL (0.0-4.2); Testosterone <3 ng/dL (4-50)
[2024-12-15 16:09] LABS: Calcitriol(1,25 di-OH Vit D) 29.9 pg/mL (24.8-81.5)
[2024-12-18 17:12] LABS: Estrone, Serum 355 pg/mL (.)
[2024-12-22 08:09] LABS: Serotonin, Serum 30 ng/mL (31-207)
[2024-12-22 12:08] LABS: Reverse T3, Serum 15.3 ng/dL (9.2-24.1)
== END 2024-12-13 10:12 | disposition home or self-care (01) ==
LOC: LAB 10:12
PROVIDERS: PCP Internal Medicine; Visit Provider Obstetrics & Gynecology
DX: R68.82 Decreased libido (principal); Z90.710 Acquired absence of both cervix and uterus; E34.9 Endocrine disorder, unspecified
CPT/HCPCS: 36415; 82530; 82627; 82652; 82670; 82679; 82728; 82947; 83036; 83525; 84144; 84260; 84270; 84402; 84403; 84432; 84436; 84439; 84443; 84481; 84482; 84681; 86376; 86800

== ENCOUNTER 2025-05-14 11:27 | Outpatient (OUT) | payer OTHER, SELFPAY ==
--- NOTE | 2025-05-14 11:32 | MM_ITS ---
Patient Name: LEONORA MELARA MR#: [id number] : 1970 Exam Date: 05/14/2025 Ordering Doctor: DR TAMIKA GILLILAND . RADIOLOGY REPORT PROCEDURE: MM TOMOSYNTHESIS SCREENING BI COMPARISON: MM TOMOSYNTHESIS DIAGNOSTIC BI, 03/21/2024. MM TOMOSYNTHESIS DIAGNOSTIC BI, 04/13/2023. MG MAMM JEN SCRN W CAD DIG, 10/19/2013. INDICATIONS: Screening Calculator Name NCI Breast Cancer Risk Assessment Tool 5 Year Breast Cancer Risk 0.80% Lifetime Breast Cancer Risk 6.20% Personal Breast Cancer No Personal Ovarian Cancer No Treatments None Family Cancers Brother with colo-rectal cancer at age 50. LOCATION: [facility] BREAST COMPOSITION: The breasts are extremely dense, which lowers the sensitivity of mammography. FINDINGS: DIAGNOSTIC CATEGORY 1--NEGATIVE. RIGHT BREAST: No significant suspicious finding. LEFT BREAST: No significant suspicious finding. RECOMMENDATIONS: ROUTINE MAMMOGRAM AND CLINICAL EVALUATION IN 12 MONTHS. Dictated by: Crow Hdez DO on 05/14/2025 at 15:34 Approved by: Crow Hdez DO on 05/14/2025 at 15:36
--- OUTSIDE RECORDS SUMMARY | 2025-05-14 11:33 | XMS_ITS | CCD ---
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 Role Phone MARY, DR RAMIREZ Admitting [...] Unavailable MARY, DR RAMIREZ Primary Care Unavailable SA[place] INIGOES, DR ROSSY Juarez Consulting Unavailable GREER ., DR LUNDBERG Consulting Unavailable GREER ., DR LUNDBERG Admitting Unavailable GREER ., DR LUNDBERG Attending Unavailable MARY, DR RAMIREZ Primary Care Unavailable GREER ., DR LUNDBERG Consulting Unavailable KHAI JACOBSON Primary Care Physician Curry PHILIPPE Attending Unavailable Derrick BUTTERFIELD Referring Unavailable Curry PHILIPPE Attending Unavailable Curry PHILIPPE Attending Unavailable Khai Jacobson MD Unavailable Khai Jacobson MD Primary Care Provider Khai Jacobson MD Unavailable Derrick Butterfield DO Attending Provider KEISHA MAJANO Attending Unavailable DERRICK BUTTERFIELD Attending Unavailable DILIA RICH Attending Unavailable ALBER SIMON Attending UnavailDERRICK Zamudio Attending Unavailable DILIA RICH Attending Unavailable KHAI JACOBSON Attending Unavailable KHAI JACOBSON Attending Unavailable KHAI JACOBSON Attending Unavailable DERRICK BUTTERFIELD Attending Unavailable KHAI JACOBSON Attending Unavailable DERRICK BUTTERFIELD Attending Unavailable DERRICK BUTTERFIELD Attending Unavailable Mary Headley APRN Attending Provider NON STAFF Primary Care Provider Unavailkymberly e Derrick Butterfield Admitting Unavailable Derrick Butterfield Attending Unavailable Derrick Butterfield Attending Unavailable Derrick Butterfield Admitting Unavailable Mary Headley Attending Unavailable Mary Headley Admitting Unavailable Medications Current Medications Medication Drug Class(es) Dates Sig (Normalized) Sig (Original) acetaminophen 325 mg / HYDROcodone bitartrate 5 mg oral tablet (20 sources) Opioid Agonist Start: 04-30-2025 take 1 tablet by mouth once daily Start: 03-14-2025 End: 05-15-2025 take 1 tablet by mouth every eight hours HYDROcodone-acetaminophen ([place]) 5-325 MG tablet Indications: Lumbar spondylosis Take 1 tablet by mouth every 8 (eight) hours 30 Day Supply 90 tablet 04/15/2025 05/15/2025 Active Start: 02-13-2025 HYDROcodone-ac etaminophen ([place]) 5-325 MG tablet Indications: Lumbar spondylosis Take 1 tablet by mouth every 8 (eight) hours Note- 90 tablets is a thirty day supply. 90 tablet 02/13/2025 Active Start: 04-03-2024 End: 03-13-2025 take 1 tablet by mouth every eight hours HYDROcodone-acetaminophen ([place]) 5-325 MG tablet Indications: Lumbar spondylosis TAKE 1 TABLET BY MOUTH EVERY 8 HOURS 90 tablet 02/11/2025 02/13/2025 Discontinued Start: 09-26-2023 take 1 tablet by jenny th every eight hours HYDROcodone-acetaminophen ([place]) 5-325 MG tablet Indications: Lumbar spondylosis Take [...] mg oral tablet (20 sources) Aminoketone Start: 04-30-2025 take 1 tablet by jenny th twice daily Start: 08-09-2024 End: 01-02-2026 take 1 tablet by mouth in the morning buPROPion (Wellbutrin) 100 MG tablet Indications: Affective psychosis Take 1 tablet (100 mg) by mouth in the morning and 1 tablet (100 mg) before bedtime. 180 tablet 3 01/07/2025 01/02/2026 Active Start: 11-29-2023 take 1 tablet by jenny th once daily buPROPion (Wellbutrin) 100 MG tablet Indications: Affective psychosis (CMS/HCC) take 1 tablet by mouth once daily 100 tablet 3 11/29/2023 Active Start: 04-08-2023 buPROPion 100 mg Tab Refills(s) 0 Start Date: 04/08/23 Status: Ordered cephalexin 500 mg oral capsule (2 sources) Cephalosporin Antibacterial Start: 04-30-2025 take 1 capsule by mouth twice daily estradiol 1 mg oral tablet (20 sources) Estrogen Start: 07-18-2023 End: 11-20-2025 take 1 tablet by mouth once daily estradiol (Estrace) 1 MG tablet Indications: Vaginal dryness Take 1 tablet (1 mg) by mouth Daily 30 tablet 11 11/20/2024 11/20/2025 Active Start: 04-08-2023 estradiol 1 mg , Daily Start Date: 04/08/23 Status: Ordered FLUoxetine 10 mg oral tablet (20 sources) Serotonin Reuptake Inhibitor Start: 07-04-2023 End: 07-04-2028 take 1 tablet by mouth once daily Start: 04-08-2023 take 1 mg by mouth once daily FLUoxetine 10 mg Cap mg cap(s), Oral, Daily, Refills(s) 0 Start Date: 04/08/23 Status: Ordered hydroCHLOROthiazide 25 mg or al tablet (20 sources) Thiazide Diuretic Start: 04-30-2025 take 1 tablet by mouth once daily in the morning Start: 11-20-2024 take 1 tablet by jenny th in the morning hydroCHLOROthiazide (HYDRODiuril) 25 MG tablet Indications: Essential hypertension Take 1 tablet (25 mg) by mouth in the morning. 100 tablet 1 11/20/2024 Active Start: 11-08-2024 take 1 tablet by jenny th in the morning hydroCHLOROthiazide (HYDRODiuril) 25 MG tablet Indications: Essential hypertension (CMS/HCC) Take 1 tablet (25 mg) by mouth in the morning. 100 tablet 1 11/08/2024 Active Start: 08-01-2024 take 1 tablet by jenny th in [...] 0 Active loratadine 10 mg oral tablet (20 sources) End: 12-25-2024 take 1 tablet by mouth once daily loratadine (Claritin) 10 MG tablet Take 10 mg by mouth Daily 12/25/2024 Discontinued megestrol acetate 20 mg oral tablet (4 sources) Progestin Start: 05-23-2024 End: 06-22-2024 take 1 tablet by mouth once daily, [...] tablet (20 sources) Nonsteroidal Anti-inflammatory Drug Start: 04-30-2025 take 1 tablet by mouth once daily Start: 11-20-2024 take 1 tablet by jenny th in the morning meloxicam (Mobic) 15 MG tablet 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 100 tablet 1 11/20/2024 Active Start: 10-29-2024 take 1 tablet by jenny th in [...] Date: 04/08/23 Status: Ordered 24 hr metFORMIN hydrochlorid e 500 mg extended release oral tablet (20 sources) Biguanide Start: 04-10-2025 End: 08-08-2025 take 1 tablet by mouth once daily Start: 02-28-2025 take 1 tablet by jenny th once daily at mealtime metFORMIN XR (Glucophage-XR) 500 MG 24 hr tablet Indications: Encounter for weight management Take 1 tablet (500 mg) by mouth Daily with meals and 1 1000mg tablet daily with breakfast. Totaling 1500mg a day 30 tablet 11 02/28/2025 Active Start: 08-30-2024 End: 11-23-2025 take 1 tablet by mouth at mealtime metFORMIN (Glucophage) 500 MG tablet Indications: Encounter for weight management Take 1 tablet (500 mg) by mouth in the morning. Take with meals. 90 tablet 3 11/23/2024 11/23/2025 Active Start: 03-28-2024 End: 04-16-2024 take 1 tablet by mouth once daily at dinner metFORMIN XR (Glucophage-XR) 500 MG 24 hr tablet Indications: Insulin resistance take 1 tablet by mouth once daily WITH EVENING MEAL 30 tablet 3 03/28/2024 04/16/2024 Discontinued (Other) Start: 03-14-2024 End: 02-19-2026 take 1 tablet by mouth once daily Start: 03-28-2023 take 2 tablets by mo uth once daily metFORMIN XR (Glucophage-XR) 500 MG 24 hr tablet Indications: Insulin resistance take 2 tablets by mouth once daily 30 tablet 11 03/28/2023 Active 24 hr metoprolol succinate 100 mg extended release oral tablet (20 sources) beta-Adrenergic William Start: 04-30-2025 take 1 tablet by mouth once daily Start: 08-18-2023 End: 07-17-2024 take 1 tablet by mouth once daily metoprolol succinate XL (Toprol-XL) 100 MG 24 hr tablet Indications: Essential hypertension Take 1 tablet (100 mg) by mouth Daily 100 tablet 3 07/17/2024 Active Start: 04-08-2023 take 1 mg by mouth once daily metoprolol 100 mg ER Tab mg tab(s), Oral, Daily, Refills(s) 0 Start Date: 04/08/23 Status: Ordered Multiple Vitamin (multivitamin) tablet (20 sources) take 1 tablet by mouth once daily Multiple Vitamin (multivitamin) tablet Take 1 tablet by mouth Daily Active omeprazole 40 mg delayed release oral capsule (20 sources) Proton Pump Inhibitor Start: 04-30-20 take 1 capsule by mouth once daily in the morning Start: 02-25-2025 take 1 capsule by mo uth once daily before breakfast omeprazole (PriLOSEC) [address] capsule Indications: Gastro-esophageal reflux disease without esophagitis TAKE 1 CAPSULE BY MOUTH ONCE DAILY IN THE MORNING before BREAKFAST DO NOT CRUSH OR CHEW 100 capsule 3 02/25/2025 Active Start: 07-25-2024 take 1 capsule by mo uth before [...] 0, Constipation Start Date: 05/18/13 Status: Ordered ondansetron 4 mg disintegrating oral tablet (2 sources) Serotonin-3 Receptor Antagonist Start: 04-30-2025 Ozempic, 1 MG/DOSE, 4 MG/3ML solution pen-injector (11 sources) Start: 07-02-2024 inject 1 mg by subcutaneous injection every week Ozempic, 1 MG/DOSE, 4 MG/3ML solution pen-injector Indications: Insulin resistance , Impaired glucose tolerance INJECT 1 mg SUBCUTANEOUSLY (UNDER THE SKIN) ONCE A WEEK 3 mL 1 07/02/2024 Active promethazine hydrochloride 25 mg oral tablet (4 sources) Phenothiazine Start: 12-13-2024 End: 12-25-2024 take 1 tablet by mouth every six hours as needed for nausea and vomiting and nausea and nausea promethazine (Phenergan) 25 MG tablet Indications: Nausea Take 1 tablet (25 mg) by mouth every 6 (six) hours if needed for nausea or vomiting for up to 7 days 30 tablet 12/13/2024 12/25/2024 Discontinued Start: 09-28-2023 End: 10-05-2023 take 1 tablet by mouth every six hours as needed for nausea and vomiting and nausea and nausea promethazine (Phenergan) 25 MG tablet Indications: Nausea Take 1 tablet (25 mg) by mouth every 6 (six) hours if needed for nausea or vomiting for up to 7 days 30 tablet 0 09/28/2023 10/05/2023 Active rOPINIRole 0.25 mg oral tablet (20 sources) Nonergot Dopamine Agonist Start: 03-18-2025 End: 05-08-2025 take 1 tablet by mouth once daily Start: 11-26-2024 End: 01-23-2025 take 1 tablet by mouth at bedtime, then take 2 tablets by mouth every week rOPINIRole (Requip) 0.25 MG tablet Indications: Restless Leg Syndrome Take 1 tablet (0.25 mg) by mouth at bedtime May increase to 2 tabs in 1 week if ineffective 60 tablet 3 12/24/2024 01/23/2025 Active Start: 10-04-2024 End: 11-04-2024 take 1 tablet by mouth at bedtime, then take 2 tablets by mouth every week rOPINIRole (Requip) 0.25 MG tablet Indications: Restless Leg Syndrome Take 1 tablet (0.25 mg) by mouth at bedtime May increase to 2 tabs in 1 week if ineffective 30 tablet 10/05/2024 Active 1 mg dose 1.5 ml semaglutide 1.34 mg/ml pen injector (2 sources) Start: 08-12-2023 inject 1 mg by subcutaneous injection every week semaglutide (Ozempic, 1 MG/DOSE,) 2 MG/1.5ML solution pen-injector Indications: Insulin resistance , Impaired glucose tolerance Inject 1 mg under the skin 1 (one) time per week 3 mL 5 08/12/2023 Active Semaglutide (2 sources) Start: 04-30-2025 Start: 04-30-2025 Semaglutide (O zempic) 1 mg/dose (4 mg/3 mL) pen injector Active MG SUBCUT April 30, 2025 12:00am Complies with drug therapy semaglutide (Ozempic, 1 MG/DOSE,) 4 MG/3ML solution pen-injector (20 sources) Start: 04-03-2025 inject 1 mg by subcutaneous injection every week semaglutide (Ozempic, 1 MG/DOSE,) 4 MG/3ML solution pen-injector Indications: Insulin resistance , Impaired glucose tolerance Inject 1 mg under the skin 1 (one) time per week 3 mL 3 04/03/2025 Active Start: 03-04-2025 inject 1 mg by subcu taneous injection every week semaglutide (Ozempic, 1 MG/DOSE,) 4 MG/3ML solution pen-injector Indications: Insulin resistance , Impaired glucose tolerance Inject 1 mg under the skin 1 (one) time per week 3 mL 3 03/04/2025 Active Start: 02-04-2025 inject 1 mg by subcu taneous injection every week semaglutide (Ozempic, 1 MG/DOSE,) 4 MG/3ML solution pen-injector Indications: Insulin resistance , Impaired glucose tolerance Inject 1 mg under the skin 1 (one) time per week 3 mL 3 02/04/2025 Active Start: 12-31-2024 inject 1 mg by subcu taneous injection every week semaglutide (Ozempic, 1 MG/DOSE,) 4 MG/3ML solution pen-injector Indications: Insulin resistance , Impaired glucose tolerance Inject 1 mg under the skin 1 (one) time per week 3 mL 3 12/31/2024 Active Start: 10-22-2024 End: 12-30-2024 inject 1 mg by subcutaneous injection every week semaglutide (Ozempic, 1 MG/DOSE,) 4 MG/3ML solution pen-injector Indications: Insulin resistance , Impaired glucose tolerance Inject 1 mg under the skin 1 (one) time per week 3 mL 1 10/22/2024 12/30/2024 Discontinued (Reorder) Start: 10-22-2024 inject 1 mg by subcu taneous injection [...] tablet (20 sources) HMG-CoA Reductase Inhibitor Start: 04-30-2025 take 1 tablet by mouth once daily at bedtime Start: 08-13-2024 take 1 tablet by jenny th at bedtime simvastatin (Zocor) 20 MG tablet Indications: Mixed hyperlipidemia Take 1 tablet (20 mg) by mouth [...] at bedtime. 100 tablet 3 02/26/2023 Active terbinafine hydrochloride 10 mg/ml topical cream (9 sources) Allylamine Antifungal Start: 11-22-2024 End: 12-25-2024 terbinafine (LamISIL AT) 1 % cream Indications: Tinea pedis of right foot Apply topically at bedtime To plantar foot and webspaces 42 g 11/22/2024 12/25/2024 Discontinued traMADol hydrochloride 50 mg oral tablet (3 sources) Opioid Agonist Start: 03-29-2024 End: 06-27-2024 take 1 tablet by mouth every six hours for pain traMADol (Ultram) 50 MG tablet Indications: Spondylosis of lumbar region without myelopathy or radiculopathy Take 1 tablet (50 mg) by mouth every 6 (six) hours if needed for severe pain 90 tablet 2 03/29/2024 04/16/2024 Discontinued (Other) valACYclovir 500 mg oral tablet (10 sources) Herpesvirus Nucleoside Analog DNA Polymerase Inhibitor, Herpes Simplex Virus Nucleoside Analog DNA Polymerase Inhibitor, Herpes Zoster Virus Nucleoside Analog DNA Polymerase Inhibitor Start: 04-30-2025 take 1 tablet by mouth once daily Start: 03-13-2025 End: 04-01-2025 take 1 tablet by mouth in the morning valACYclovir (Valtrex) 1 g tablet Indications: HSV (herpes simplex virus) infection Take 1 tablet (1,000 mg) by mouth in the morning and 1 tablet (1,000 mg) before bedtime. Do all this for 10 days. 20 tablet 1 03/13/2025 04/01/2025 Active Start: 12-25-2024 End: 01-04-2025 take 1 tablet by mouth in the morning valACYclovir (Valtrex) 1 g tablet Indications: HSV (herpes simplex virus) infection Take 1 tablet (1,000 mg) by mouth in the morning and 1 tablet (1,000 mg) before bedtime. Do all this for 10 days. 20 tablet 5 12/25/2024 01/04/2025 Active Completed/Discontinued Medications Medication Drug Class(es) Dates Sig [...] MG capsule as directed Orally 0 Active ciprofloxacin 250 mg oral tablet (20 sources) Quinolone Antimicrobial Start: 03-13-2025 End: 04-01-2025 take 1 tablet by mouth in the morning ciprofloxacin (Cipro) 250 MG tablet Indications: Recurrent postcoital urinary tract infection Take 1 tablet (250 mg) by mouth in the morning and 1 tablet (250 mg) before bedtime. 10 tablet 2 03/13/2025 04/01/2025 Discontinued (Therapy completed) Start: 10-09-2024 take 1 tablet by jenny th in the morning ciprofloxacin (Cipro) 250 MG [...] procedure, # 2 tab(s), Refills(s) 0, Pharmacy: [facility] #[id number], 158, cm, 04/08/23 10:27:00 EDT, Height/Length Dosing, 61, kg, 04/08/23 10:27:00 EDT, Mariam... Start Date: 04/08/23 Status: Ordered Problems Active Problems Problem Classification Problem Date [...] [Essential (primary) hypertension] Onset: 01-26-2023 01-26-2023 Chronic Genitourinary symptoms and ill-defined conditions (20 sources) Hematuria, unspecified; Translations: [Microscopic hematuria] Onset: 12-06-2022 Episodic Menopausal disorders (20 sources) Postmenopausal bleeding; Translations: [Postmenopausal bleeding] Onset: 06-18-2024 06-18-2024 Chronic Mood disorders (20 sources) Affective psychosis; Translations: [Unspecified mood [affective] disorder] Onset: 01-26-2023 01-26-2023 Chronic Mycoses (2 sources) Tinea pedis; Translations: [Tinea pedis] 11-22-2024 Episodic Nausea and vomiting (1 source) Nausea; Translations: [Nausea] 09-28-2023 Episodic Osteoarthritis (20 sources) Osteoarthritis; Translations: [Unspecified osteoarthritis, unspecified site] Onset: 01-26-2023 01-26-2023 Chronic Other aftercare (4 sources) Surgical follow-up; Translations: [Encounter for follow-up examination after completed treatment for conditions other than malignant neoplasm] 11-15-2024 Episodic Other connective tissue disease (2 sources) Pain in left foot; Translations: [Pain in left foot] 11-22-2024 Episodic Other connective tissue disease (2 sources) Plantar fascial fibromatosis; Translations: [Plantar fascial fibromatosis] 11-22-2024 Episodic Other endocrine disorders (4 sources) Disorder of endocrine system; Translations: [Endocrine disorder, unspecified] 12-13-2024 Episodic Other female genital disorders (20 sources) Complex atypical endometrial hyperplasia; Translations: [Endometrial [...] specified body structures] Onset: 06-18-2024 06-18-2024 Chronic Other skin disorders (2 sources) Callosity; Translations: [Corns and callosities] 11-22-2024 Episodic Residual codes; unclassified (1 source) Tobacco user 05-18-2013 Episodic Comment on above: Added secondary to s ocial history documentation. Residual codes; unclassified (2 sources) Reduced libido; Translations: [Decreased libido] 12-13-2024 Episodic Spondylosis; intervertebral disc disorders; other back problems (20 sources) Lumbar spondylosis; Translations: [Spondylosis without myelopathy or radiculopathy, lumbar region] Onset: 01-26-2023 01-26-2023 Chronic Sprains and strains (1 source) Sprain of knee 11-02-2013 Episodic Unclassified (1 source) Asymptomatic microscopic hematuria 04-08-2023 Unclassified (1 source) Finding of sensation of bladder 04-08-2023 Urinary tract infections (20 sources) Urinary tract infection, site not specified; Translations: [Urinary tract infectious disease] Onset: 11-30-2022 Resolved: 04-16-2024 Episodic Viral infection (2 sources) Herpes simplex; Translations: [Herpesviral infection, unspecified] 12-25-2024 Episodic Past or Other Problems Problem Classification Problem Date Documented Da te Episodic/Chronic Abdominal hernia (20 sources) Diaphragmatic hernia; Translations: [Diaphragmatic hernia without obstruction or gangrene] Onset: 01-26-2023 01-26-2023 Episodic Diabetes mellitus without complication (20 sources) Impaired glucose tolerance; Translations: [Impaired glucose tolerance (oral)] Onset: 01-26-2023 01-26-2023 Episodic Immunizations and screening for infectious disease [...] Test Name Value Interpretation Reference Range Facility Urine Cultureon 04-30-2025 Bacteria identified Cx Nom (U) ORGANISM: Klebsiella aerogenes (O:KLEAER) [place] Count >100,000 Aerobic CORINNA Charge (NMIC56) --- SUSCEPTIBILITY -- ORGANISM: O:KLEAER ANTIBIOTIC INTERPRETATION CORINNA Amikacin S <16 Aztreonam I <4 Cefepime S <2 Ceftazidime I <1 Ceftazidime/Avibactam S <4 Ceftriaxone I <1 Cefuroxime I <4 Ciprofloxacin S <0.25 Ertapenem S <0.5 Gentamicin S <2 Levofloxacin S <0.5 Meropenem S <1 Meropenem/Vaborbactam S <2 Nitrofurantoin S <32 Piperacillin/Tazobacta m I <8 Tetracycline S <4 Tigecycline S <2 Tobramycin S <2 Trimethoprim/Sulfameth oxazole S <0.5 S = SUSCEPTIBLE I = INTERMEDIATE R = RESISTANT BLANK = DATA NOT AVAILABLE, OR DRUG NOT ADVISABLE OR TESTED R* = RESISTANCE DUE TO EXTENDED SPECTRUM BETA-LACTAMASES ESBL = EXTENDED SPECTRUM BETA-LACTAMASE TFG = THYMIDINE-DEPENDENT STRAIN BRYANT = BETA-LACTAMASE POSITIVE IB = INDUCIBLE BETA-LACTAMASE. APPEARS IN PLACE OF 'S' WITH SPECIES KNOWN TO POSSESS INDUCIBLE BETA-LACTAMASES. POTENTIALLY THEY MAY BECOME RESISTANT TO ALL B-LACTAM DRUGS. PERFORMED BY: [place] [id number] PATHOLOGIST ADMINISTRATION CLERK NALLELY BILLY M.D. Normal [facility] Comment on above: Performed By: #### C UU #### [address] MLR HEMOGLOBIN A1Con 025 Glucose [Mass/Vol] 111 mg/dL [facility] HbA1c (Bld) [Mass fraction] 5.5 % 4.5 - 6.2 % [facility] Comment on above: ADA RECOMMENDED LIMI T 4.0 - 6.0 ADA THERAPEUTIC TARGET < 7.0 ACTION SUGGESTED > 7.0 [facility] ALL CBC WITH AUTO DIFFon BASOPHILS ABSOLUTE AUTO 0.1 [facility] Basophils/100 WBC (Bld) 0.8 % 0.2 - 2.0 % [facility] Eosinophils/100 WBC (Bld) 1.7 % 0.9 - 7.0 % [facility] Erythrocyte distribution width (RBC) [Ratio] 12 % 11.0 - 15.0 % [facility] Hematocrit (Bld) [Volume fraction] 37.8 % 36.0 - 48.0 % [facility] Hemoglobin (Bld) [Mass/Vol] 12.5 g/dL 12.0 - 16.0 g/dL [facility] IMMATURE GRANULOCYTES ABS AUTO 0.01 [facility] Immature granulocytes/100 WBC (Bld) 0.1 % 0.0 - 0.5 % [facility] Interpretation and review of laboratory results Abnormal [facility] LYMPHOCYTES ABSOLUTE AUTO 2.5 [facility] Lymphocytes/100 WBC (Bld) 34.4 % 20.5 - 60.0 % [facility] MCH (RBC) [Entitic mass] 31.8 pg 26.7 - 34.0 pg [facility] MCHC (RBC) [Mass/Vol] 33.1 g/dL 29.9 - 35.2 g/dL [facility] MCV (RBC) [Entitic vol] 96.2 fL 81.0 - 99.0 fL [facility] MONOCYTES ABSOLUTE AUTO 0.6 [facility] Monocytes/100 WBC (Bld) 7.9 % 1.7 - 12.0 % [facility] NEUTROPHILS ABSOLUTE AUTO 4 [facility] Neutrophils/100 WBC (Bld) 55.1 % 43.0 - 75.0 % [facility] Platelet mean volume (Bld) [Entitic vol] 9.6 fL 9.5 - 13.5 fL [facility] TBH EO # 0.1 [facility] PLT [address] [facility] RBC 3.93 Low [facility] WBC 7.2 [facility] Isidro 11-08-2024 L -- ---- Specimen: [id number] Received: 11/09/24-130 Status: MARGOT [place] Num: [id number] Spec Type: Surgical Subm Dr: Derrick Butterfield Tissues: A Uterus w/ or w/o tubes ovaries except neoplastic or prolap (UTERUS, CERVIX Procedures: , Gross/Micro L5 ---- Age/ Patient Sex Location Account Attending Physician ---- Haven Bar 54/F LABELL [id number] Derrick Butterfield ---- SPEC NUM: [id number] RECD: 11/09/24 STATUS: MARGOT TINOCO NUM: [id number] PO: 11/08/24-1433 [facility] DR: Derrick Butterfield ENTERED: 11/09/24-8 [facility] [address]: Bernabe Ga SPEC TYPE: Surgical DEPT: TRACEY DICKERSON ORDERED: , Gross/Micro L5 ORDERED: , Gross/Micro L5 Pathological Diagnosis Uterus, cervix, bilateral fallopian tubes and ovaries, total hysterectomy with bilateral salpingo-oophorectomy -Cervix without significant change except a few nabothian microcysts and focal mild erosion at posterior wall transformation zone without dysplasia -Corpus with moderately disordered proliferative endometrium of the mid phase type, including patchy small foci of crowded glands with occasionally associated irregular glandular dilatations, consistent with patchy simple hyperplasia without atypia (no overt or significant compact proliferation observed) -Focal postbiopsy denudation of the mucosa -No obvious polyp identified -Incidental patchy mild superficial adenomyosis without atypia -Bilateral fimbriated fallopian tubes without significant histopathological changes except 1 small paratubal cyst in longer tube -Bilateral ovaries also without significant changes except few corpus albicans and minor cortical stromal hyperplasia in both ovaries Clinical Information Complex endometrial hyperplasia with atypia ---- Specimen: [id number] Received: 11/09/24 Status: MARGOT [place] Num: [id number] Spec Type: Surgical Subm Dr: Derrick Butterfield Tissues: A Uterus w/ or w/o tubes ovaries except neoplastic or prolap (UTERUS, CERVIX Procedures: , Gross/Micro L5 ---- Patient: aHven Bar [id number] (Continued) ---- Specimen: [id number] Received: 11/09/24 (Continued) Signed (signature on file) Zari Adame MD 11/12/24 2049 ---- Specimen: [id number] Received: 11/09/24 Status: MARGOT Seguraprachi Num: [id number] Spec Type: Surgical Subm Dr: Derrick Butterfield Tissues: A Uterus w/ or w/o tubes ovaries except neoplastic or prolap (UTERUS, CERVIX Procedures: , Gross/Micro L5 ---- Patient: Haven Bar [id number] (Continued) ---- Specimen: [id number] Received: 11/09/24 (Continued) Gross Description Part A is received in formalin labeled with the patients name, date of , and uterus, cervix, bilateral fallopian tubes and 1 Filshie clip Is a 52.6 g hysterectomy specimen, which consists of a uterine corpus with attached cervix, resected with detached bilateral adnexa. The uterine corpus is symmetrical, 3 cm cornu to cornu, 3 cm anterior to posterior and 7.7 cm fundus to ectocervical face. The serosa is mulligan-pink, smooth and glistening. The ectocervical face is 1.2 cm in length by up to 3.2 cm in diameter, and exhibits mulligan- pink, smooth, glistening mucosa. The cervical os is slitlike, up to 0.9 cm in diameter. The paracervical margin is inked black and the specimen is opened to reveal a mulligan-pink, wrinkled, glistening endocervical canal. The endometrial cavity is mulligan-pink, focally erythematous, glistening and triangular, 2.4 x 1.7 cm with endometrium, up to 0.2 cm in thickness. The myometrium is mulligan-pink and trabecular, up to 2.3 cm in thickness. The bilateral adnexa are received detached, and unoriented. The shorter fallopian tube with fimbriated distal end is 5 cm in length by up to 0.5 cm in diameter, and the longer fallopian tube with fimbriated distal end is 6.2 cm in length by 0.5 cm in diameter. The serosa is cunha purple, smooth and glistening with a rectangular silver metallic clip noted on the longer tube, 1.3 x 0.3 x 0.3 cm. Serial sections reveal pinpoint lume (more content not included)... Normal [facility] ALL CBC WITH AUTO DIFFon BASOPHILS ABSOLUTE AUTO 0.1 [facility] Basophils/100 WBC (Bld) 0.8 % 0.2 - 2.0 % [facility] Eosinophils/100 WBC (Bld) 1.5 % 0.9 - 7.0 % [facility] Erythrocyte distribution width (RBC) [Ratio] 11.9 % 11.0 - 15.0 % [facility] Hematocrit (Bld) [Volume fraction] 37.4 % 36.0 - 48.0 % [facility] Hemoglobin (Bld) [Mass/Vol] 12.2 g/dL 12.0 - 16.0 g/dL [facility] IMMATURE GRANULOCYTES ABS AUTO 0.01 [facility] Immature granulocytes/100 WBC (Bld) 0.1 % 0.0 - 0.5 % [facility] Interpretation and review of laboratory results Abnormal [facility] LYMPHOCYTES ABSOLUTE AUTO 2.8 [facility] Lymphocytes/100 WBC (Bld) 35.5 % 20.5 - 60.0 % [facility] MCH (RBC) [Entitic mass] 31.9 pg 26.7 - 34.0 pg [facility] MCHC (RBC) [Mass/Vol] 32.6 g/dL 29.9 - 35.2 g/dL [facility] MCV (RBC) [Entitic vol] 97.9 fL 81.0 - 99.0 fL [facility] MONOCYTES ABSOLUTE AUTO 0.6 [facility] Monocytes/100 WBC (Bld) 7 % 1.7 - 12.0 % [facility] NEUTROPHILS ABSOLUTE AUTO 4.4 [facility] Neutrophils/100 WBC (Bld) 55.1 % 43.0 - 75.0 % [facility] Platelet mean volume (Bld) [Entitic vol] 10 fL 9.5 - 13.5 fL [facility] TBH EO # 0.1 [facility] TB PLT 283 [facility] RBC 3.82 [facility] WBC 7.9 [facility] Pathology Request for Lab Co rpon 08-10-2024 Pathology Request for Lab Megan Normal [facility] Comment on above: Order Comment: PATHO LOGY AMBULATORY SPECIMEN Result Comment: See report. Scanned copy available in EMR. PERFORMED BY: [place] [id number] PATHOLOGIST ADMINISTRATION CLERK HANNAH MARSHALL M.D. Performed By: #### P ATH TO [facility] #### [address] ALL BASIC METABOLIC PANELon 07-23-2024 Anion gap [Moles/Vol] 11.1 mmol/L [facility] Calcium [Mass/Vol] 9 mg/dL 8.5 - 10. 1 mg/dL [facility] Chloride [Moles/Vol] 104 mmol/L 98 - 10 7 mmol/L [facility] CO2 [Moles/Vol] 31.9 mmol/L 21.0 - 32.0 mmol/L [facility] Creatinine [Mass/Vol] 0.74 mg/dL 0.55 - 1.02 mg/dL [facility] GFR/1.73 sq M.predicted CKD-EPI (S/P/Bld) [Vol rate/Area] >60 >=60 mL/min/1.73m 2 [facility] Glucose [Mass/Vol] 83 mg/dL 74 - 106 mg/dL [facility] Potassium [Moles/Vol] 4 mmol/L 3.5 - 5.1 mmol/L [facility] Sodium [Moles/Vol] 143 mmol/L 136 - 145 mmol/L [facility] TBH EGFR-NON AF GUYANESE >60 >=60 mL/min/1.73m 2 [facility] Urea nitrogen [Mass/Vol] 17 mg/dL 7.0 - 18.0 mg/dL [facility] Urea nitrogen/Creatinine [Mass ratio] 23 mg/mg [facility] MLR HEMOGLOBIN A1Con 024 Glucose [Mass/Vol] 103 mg/dL [facility] HbA1c (Bld) [Mass fraction] 5.2 % 4.5 - 6.2 % [facility] Comment on above: ADA RECOMMENDED LIMI T 4.0 - 6.0 ADA THERAPEUTIC TARGET < 7.0 ACTION SUGGESTED > 7.[address] [facility] Operative Reporton Operative Report [id number]#1.0 0TIFF [facility] Consent for Procedure/Surger yon 07-25-2023 Consent for Procedure/Surgery [id number]#1.0 0TIFF [facility] Consent for Procedure/Surger yon 05-03-2023 Consent for Procedure/Surgery [id number]#1.0 0CD:127 Normal [facility] RAD - Ultrasound Reporton RAD - Ultrasound Report [id number]#1.00 CD:127 [facility] Ambulatory Visit Summaryon 0 04-08-2023 Ambulatory Visit Summary HAVEN BAR :1970 Visit Date:04/08/2023 Ambulatory Visit Instructions Your Diagnosis Asymptomatic microscopic hematuria Recurrent UTI Feeling of incomplete bladder emptying Tests Performed Urnls Dip Stick Auto w/o Microscopy POC 84412 US Renal -- Results Pending -- Please visit your patient portal for your results or contact your primary care physician. Your Care Team Attending Physician - Curry PHILIPPE MD Primary Care Physician - KHAI JACOBSON MD Referring Physician - Derrick BUTTERFIELD DO This [...] with SURY MARRERO, MADALYN Campos When: Where: [address] [place] [address]- Medications What How Much When Instructions Unchanged [...] Urnls Dip Stick Auto w/o Microscopy POC 57010 (04/08/2023) Bilirubin Urine Dipstick - Negative Blood Urine Dipstick - Trace-intact Glucose Urine Dipstick - Negative Ketones Urine Dipstick - Negative Leukocytes Urine Dipstick - Negative Nitrite Urine Dipstick - Negative Protein Urine Dipstick - Negative Specific [place] Urine Dipstick - 1.015 Urine Appearance Urine [...] these instructions at home: Medicines ? Take nnml-fmw-nxnoqlu and prescription medicines only as told by [...] water is (more content not included)... Normal [facility] Formson 04-08-2023 Forms [id number]#1.0 0CD:127 Normal [facility] Patient Educationon 08-18-20 23 Patient Education Urology Hematuria, Adult Hematuria [...] these instructions at home: Medicines ? Take suts-ceo-imritda and prescription medicines only as told by [...] the blood stops without treatment. ? Take qzud-rnh-ljqolve and prescription medicines only as told by your health care provider. ? Drink enough fluid to keep your urine pale yellow. This information is not intended to replace advice given to you by your health care provider. Make sure you discuss any questions you have with your health care provider. Document Revised: 04/08/2021 Document Reviewed: 04/08/2021 [employer] Patient Education ? 2022 [employer] Normal [facility] Physician Referralon 023 Physician Referral [id number]#1.0 0CD:127 Normal [facility] CBC AUTO DIFFon 11-30-2022 BASO # 0.1 103/ul Normal 0.0-0.1 [facility] Comment on above: Performed By: #### C BC #### [facility] [address] [place] [address] Dr. Jovani Adame Basophils/100 WBC (Bld) 0.6 % Normal 0.2-2.0 [facility] Comment on above: Performed By: #### C BC #### [facility] [address] [place] [address] Dr. Jovani Adame EO # 0.2 103/ul Normal 0.0-0.7 [facility] Comment on above: Performed By: #### C BC #### [facility] [address] [place] [address] Dr. Jovani Adame Eosinophils/100 WBC (Bld) 2.3 % Normal 0.9-7.0 [facility] Comment on above: Performed By: #### C BC #### [facility] [address] [place] [address] Dr. Jovani Adame Erythrocyte distribution width (RBC) [Ratio] 12.2 % Normal 11.0-15.0 [facility] Comment on above: Performed By: #### C BC #### [facility] [address] [place] [address] Dr. Jovani Adame Hematocrit (Bld) [Volume fraction] 34.9 % Critically low 36.0-48.0 [facility] Comment on above: Performed By: #### C BC #### [facility] [address] [place] [address] Dr. Jovani Adame Hemoglobin (Bld) [Mass/Vol] 12.1 g/dL Normal 12.0-16.0 [facility] Comment on above: Performed By: #### C BC #### [facility] [address] [place] [address] Dr. Jovani Adame IG # 0.01 10e3/ul Normal 0.00-0.03 [facility] Comment on above: Performed By: #### C BC #### [facility] [address] [place] [address] Dr. Jovani Adame IG % 0.1 % Normal 0.0-0.5 [facility] Comment on above: Performed By: #### C BC #### [facility] [address] [place] [address] Dr. Jovani Adame LYMPH # 2.4 103/ul Normal 1.2-3.8 [facility] Comment on above: Performed By: #### C BC #### [facility] [address] [place] [address] Dr. Jovani Adame Lymphocytes/100 WBC (Bld) 29.8 % Normal 20.5-60.0 [facility] Comment on above: Performed By: #### C BC #### [facility] [address] [place] [address] Dr. Jovani Adame MANUAL DIFF REQ NO Normal [facility] Comment on above: Performed By: #### C BC #### [facility] [address] [place] [address] Dr. Jovani Adame MCH (RBC) [Entitic mass] 31.8 pg Normal 26.7-34.0 [facility] Comment on above: Performed By: #### C BC #### [facility] [address] [place] [address] Dr. Jovani Adame MCHC (RBC) [Mass/Vol] 34.7 g/dL Normal 29.9-35.2 [facility] Comment on above: Performed By: #### C BC #### [facility] [address] [place] [address] Dr. Jovani Adame MCV (RBC) [Entitic vol] 91.8 fL Normal 81.0-99.0 [facility] Comment on above: Performed By: #### C BC #### [facility] [address] [place] [address] Dr. Jovani Adame MONO # 0.5 103/ul Normal 0.3-0.8 [facility] Comment on above: Performed By: #### C BC #### [facility] [address] [place] [address] Dr. Jovani Adame Monocytes/100 WBC (Bld) 5.9 % Normal 1.7-12.0 [facility] Comment on above: Performed By: #### C BC #### [facility] [address] [place] [address] Dr. Jovani Adame NEUT # 5.0 103/ul Normal 1.4-6.5 [facility] Comment on above: Performed By: #### C BC #### [facility] [address] [place] [address] Dr. Jovani Adame Neutrophils/100 WBC (Bld) 61.3 % Normal 43.0-75.0 [facility] Comment on above: Performed By: #### C BC #### [facility] [address] [address] [address] Jovani Adame Platelet mean volume (Bld) [Entitic vol] 10.2 fL Normal 9.5-13.5 [facility] Comment on above: Performed By: #### C BC #### [facility] [address] [address] [address] Jovani Adame PLT 318 103/ul Normal 150-450 [facility] Comment on above: Performed By: #### C BC #### [facility] [address] [address] [address] Jovani Adame RBC 3.80 106/ul Critically low 4.20-5.40 [facility] Comment on above: Performed By: #### C BC #### [facility] [address] [address] [address] Jovani Adame WBC 8.1 103/ul Normal 4.0-11.0 [facility] Comment on above: Performed By: #### C BC #### [facility] [address] [address] [address] Jovani Adame FREE T4on 11-30-2022 Free T4 [Mass/Vol] 0.89 ng/dL Normal 0.76-1.46 [facility] Comment on above: Performed By: #### U MICRO, UARMICR #### [facility] [address] [place] [address] Dr. Jovani Adame GLYCOHEMOGLOBIN A1Con 2022 ADA RECOMMENDATION SEE BELOW Normal [facility] Comment on above: Result Comment: ADA RECOMMENDED LIMIT 4.0 - 6.0 ADA THERAPEUTIC TARGET < 7.0 ACTION SUGGESTED > 7.0 Performed By: #### U MICRO, UARMICR #### [facility] [address] [address] [address] Jovani Adame Glucose [Mass/Vol] 105 mg/dL Normal [facility] Comment on above: Performed By: #### U MICRO, UARMICR #### [facility] [address] [place] [address] Dr. Jovani Adame HbA1c (Bld) [Mass fraction] 5.3 % Normal 4.5-6.2 [facility] Comment on above: Performed By: #### U MICRO, UARMICR #### [facility] [address] [place] [address] Dr. Jovani Adame PROTIMEon 11-30-2022 INR Coag (PPP) [Relative time] 0.97 {INR} Normal [facility] Comment on above: Performed By: #### P T, PTT #### [facility] [address] [place] [address] Dr. Jovani Adame INR GUIDELINES SEE BELOW Normal [facility] Comment on above: Result Comment: MATILDE RED INR: 2.0 - 3.0 CONDITIONS NOT LISTED BELOW 2.5 - 3.5 FOR PROSTHETIC HEART VALVE REPLACEMENT 2.5 - 3.5 RECURRENT THROMBOSIS Performed By: #### P T, PTT #### [facility] [address] [place] [address] Dr. Jovani Adame PT Coag (PPP) [Time] 10.3 s Normal 9.0-11.6 [facility] Comment on above: Performed By: #### P T, PTT #### [facility] [address] [place] [address] Dr. Jovani Adame PTTon 11-30-2022 aPTT Coag (Bld) [Time] 29.4 s Normal 22.3-36.2 [facility] Comment on above: Performed By: #### P T, PTT #### [facility] [address] [place] [address] Dr. Jovani Adame TSHon 11-30-2022 TSH 0.872 uIU/mL Normal 0.358-3.740 [facility] Comment on above: Performed By: #### T SH #### [facility] [address] [place] [address] Dr. Jovani Adame UA (CLEAN/CATCH) MICROSCOPIC IF INDICATEon 11-30-2022 Bilirubin Ql (U) Negative Normal NEGATIVE [facility] Comment on above: Performed By: #### U MICRO, UARMICR #### [facility] [address] [place] [address] Dr. Jovani Adame Clarity (U) CLEAR Normal CLEAR [facility] Comment on above: Performed By: #### U MICRO, UARMICR #### [facility] [address] [address] [address] Jovani Adame Color (U) LT. YELLOW Normal YELLOW [facility] Comment on above: Performed By: #### U MICRO, UARMICR #### [facility] [address] [address] [address] Jovani Adame Glucose Ql (U) Negative Normal NEGATIVE [facility] Comment on above: Performed By: #### U MICRO, UARMICR #### [facility] [address] [address] [address] Jovani Adame Hemoglobin Ql (U) TRACE-INTACT Abnormal NEGATIVE [facility] Comment on above: Performed By: #### U MICRO, UARMICR #### [facility] [address] [place] [address] Dr. Jovani Adame Ketones Ql (U) Negative Normal NEGATIVE [facility] Comment on above: Performed By: #### U MICRO, UARMICR #### [facility] [address] [place] [address] Dr. Jovani Adame LEUKOCYTES Negative Normal NEGATIVE [facility] Comment on above: Performed By: #### U MICRO, UARMICR #### [facility] [address] [place] [address] Dr. Jovani Adame Nitrite Ql (U) Negative Normal NEGATIVE [facility] Comment on above: Performed By: #### U MICRO, UARMICR #### [facility] [address] [place] [address] Dr. Jovani Adame pH (U) 6.5 [pH] Normal 5-9 [facility] Comment on above: Performed By: #### U MICRO, UARMICR #### [facility] [address] [place] [address] Dr. Jovani Adame SPEC GRAVITY 1.010 Normal 1.005-<=1.025 [facility] Comment on above: Performed By: #### U MICRO, UARMICR #### [facility] [address] [place] [address] Dr. Jovani Adame UA PROTEIN Negative Normal NEGATIVE/ TRACE [facility] Comment on above: Performed By: #### U MICRO, UARMICR #### [facility] [address] [place] [address] Dr. Jovani Adame UR MICRO IND INDICATED Normal [facility] Comment on above: Performed By: #### U MICRO, UARMICR #### [facility] [address] [place] [address] Dr. Jovani Adame Urobilinogen Qn (U) 0.2 {Kaylie'U}/dL Normal 0.2 - 1. 0 [facility] Comment on above: Performed By: #### U MICRO, UARMICR #### [facility] [address] [place] [address] Dr. Jovani Adame URINE MICROSCOPIC ONLYon BACTERIA TRACE Abnormal NONE SEEN [facility] Comment on above: Performed By: #### U MICRO, UARMICR #### [facility] [address] [place] [address] Dr. Jovani Adame Bacteria identified Cx Nom (U) NOT INDICATED Normal [facility] Comment on above: Performed By: #### U MICRO, UARMICR #### [facility] [address] [place] [address] Dr. Jovani Adame CAST NONE SEEN Normal NONE SEEN [facility] Comment on above: Performed By: #### U MICRO, UARMICR #### [facility] [address] [place] [address] Dr. Jovani Adame Crystals LM Nom (Urine sed) NONE SEEN Normal NONE SEEN [facility] Comment on above: Performed By: #### U MICRO, UARMICR #### [facility] [address] [place] [address] Dr. Jovani Adame Epithelial cells LM Ql (Urine sed) MODERATE Abnormal NONE SEEN /RARE [facility] Comment on above: Performed By: #### U MICRO, UARMICR #### [facility] [address] [place] [address] Dr. Jovani Adame MUCOUS NONE SEEN Normal NONE SEEN [facility] Comment on above: Performed By: #### U MICRO, UARMICR #### [facility] [address] [address] [address] Jovani Adame RBC 2-5 Abnormal 0-2 [facility] Comment on above: Performed By: #### U MICRO, UARMICR #### [facility] [address] [place], [place] [address] Dr. Jovani Adame WBC NONE SEEN Normal NONE SEEN [facility] Comment on above: Performed By: #### U MICRO, UARMICR #### [facility] [address] [address] [address] Jovani Adame MG MAMM DX 3D LT CADon 08-05 MG MAMM DX 3D LT CAD Patient: HAVEN BAR Exam Date: 08/05/2022 : 1970 Gender:F Ordering : DR DERRICK BUTTERFIELD . Admission #: [id number] Family : Order #: [id number] CLICK HERE TO VIEW EXAM RADIOLOGY REPORT [...] colo-rectal cancer at age 52. LOCATION: [facility] BREAST COMPOSITION: Extremely dense, which lowers [...] MD on 08/05/2022 at 11:45 Normal [facility] US BREAST LEFT LIMITEDon US BREAST LEFT LIMITED Patient: HAVEN BAR Exam Date: 08/05/2022 : 1970 Gender:F Ordering : DR DERRICK BUTTERFIELD . Admission #: [id number] Family : Order #: [id number] CLICK HERE TO VIEW EXAM RADIOLOGY REPORT [...] colo-rectal cancer at age 52. LOCATION: [facility] BREAST COMPOSITION: Extremely dense, which lowers [...] Nicole MD on 08/05/2022 at 11:45 Normal [facility] PAP ACOG PANEL 2: 30 to 65on 08-03-2022 . . Normal [facility] Comment on above: Result Comment: Perf ormed at: [facility] Performed By: #### U MICRO, UARMICR #### [facility] [address] [address] [address] Jovani Adame Age Gdln ACOG Testing 30-65 Normal [facility] Comment on above: Performed By: #### U MICRO, UARMICR #### [facility] [address] [address] [address] Jovani Adame DIAGNOSIS: Comment Normal [facility] Comment on above: Result Comment: NEGA TIVE FOR INTRAEPITHELIAL LESION OR MALIGNANCY. Performed at: [facility] Performed By: #### U MICRO, UARMICR #### [facility] [address] [address] [address] Jovani Adame HPV Aptima Negative Normal Negative [facility] Comment on above: Result Comment: This nucleic acid amplification test detects fourteen high-risk HPV types (16,18,31,33,35,39,45,51,52,56,58,59,66,68) without differentiation. Performed at: =G Performed By: #### U MICRO, UARMICR #### [facility] [address] [place] [address] Dr. Jovani Adame HPV Genotype Reflex Comment Normal [facility] Comment on above: Result Comment: Crit eria not met, HPV Genotype not performed. Performed at: [facility] Performed By: #### U MICRO, UARMICR #### [facility] [address] [address] [address] Jovani Adame Methodology: Comment Normal [facility] Comment on above: Result Comment: This liquid based ThinPrep(R) pap test was screened with the use of an image guided system. Performed at: [facility] Performed By: #### U MICRO, UARMICR #### [facility] [address] [place] [address] Dr. Jovani Adame Note: Comment Normal [facility] Comment on above: Result Comment: The [...] Performed By: #### U MICRO, UARMICR #### [facility] [address] [address] [address] Jovani Adame Performed by: Comment Normal [facility] Comment on above: Result Comment: Gemma Squires, Pump House Technician Performed at: [facility] Performed By: #### U MICRO, UARMICR #### [facility] [address] [address] [address] Jovani Adame Specimen adequacy: Comment Normal [facility] Comment on above: Result Comment: Sati sfactory for evaluation. No endocervical component is identified. Performed at: [facility] Performed By: #### U MICRO, UARMICR #### [facility] [address] [address] [address] Jovani Adame MG MAMM SCREEN 3D JEN CADon 04-29-2022 MG MAMM SCREEN 3D JEN CAD Patient: HAVEN BAR Exam Date: 04/29/2022 : 1970 Gender:F Ordering : DR KHAI JACOBSON M.D. Admission #: [id number] Family : DR DERRICK BUTTERFIELD . Order #: [id number] CLICK HERE TO VIEW EXAM RADIOLOGY REPORT [...] colo-rectal cancer at age 52. LOCATION: [facility] BREAST COMPOSITION: Extremely dense, which lowers [...] White M.D. on 04/30/2022 at 08:10 Normal [facility] Vital Signs Date Time Vital Sign Value Performing Clinician Facility 04-30-2025 12:34-0400 Body height 157.48 cm Mary Kayode [employer]TER Work Phone: [facility] 04-30-2025 12:34-0400 Body mass index (BMI) [Ratio] 24.5 kg/m2 Mary Kayode [employer] Work Phone: [facility] 04-30-2025 12:34-0400 Body temperature 97.8 [degF] Mary Kayode [employer] Work Phone: [facility] 04-30-2025 12:34-0400 Body weight 60.83 kg Mary Kayode [employer]TER Work Phone: [facility] 04-30-2025 12:34-0400 Diastolic blood pressure 80 mm[Hg] Mary Kayode [employer]TER Work Phone: [facility] 04-30-2025 12:34-0400 Heart rate 78 /min Mary Kayode [employer] Work Phone: [facility] 04-30-2025 12:34-0400 Respiratory rate 17 /min Mary Kayode [employer]TER Work Phone: [facility] 04-30-2025 12:34-0400 SaO2% (BldA) [Mass fraction] 97 % Mary Kayode [employer] Work Phone: [facility] 04-30-2025 12:34-0400 Systolic blood pressure 123 mm[Hg] Mary Kayode [employer]TER Work Phone: [facility] 04-01-2025 10:15-0400 Body height 157.5 cm Khai Jacobson MD Work Phone: [facility] 04-01-2025 10:15-0400 Body mass index (BMI) [Ratio] 23.59 kg/m2 Khai Jacobson MD Work Phone: [facility] 04-01-2025 10:15-0400 Body weight 58.51 kg Khai Jacobson MD Work Phone: [facility] 04-01-2025 10:15-0400 Diastolic blood pressure 80 mm[Hg] Khai Jacobson MD Work Phone: [facility] 04-01-2025 10:15-0400 Heart rate 71 /min Khai Jacobson MD Work Phone: [facility] 04-01-2025 10:15-0400 SaO2% (BldA) [Mass fraction] 97 % Khai Jacobson MD Work Phone: [facility] 04-01-2025 10:15-0400 Systolic blood pressure 128 mm[Hg] Khai Jacobson MD Work Phone: [facility] 01-02-2025 09:56-0400 Body height 157.5 cm Khai Jacobson MD Work Phone: [facility] 01-02-2025 09:56-0400 Body mass index (BMI) [Ratio] 24.14 kg/m2 Khai Jacobson MD Work Phone: [facility] 01-02-2025 09:56-0400 Body weight 59.88 kg Khai Jacobson MD Work Phone: [facility] 01-02-2025 09:56-0400 Diastolic blood pressure 70 mm[Hg] Khai Jacobson MD Work Phone: [facility] 01-02-2025 09:56-0400 Heart rate 82 /min Khai Jacobson MD Work Phone: [facility] 01-02-2025 09:56-0400 SaO2% (BldA) [Mass fraction] 97 % Khai Jacobson MD Work Phone: [facility] 01-02-2025 09:56-0400 Systolic blood pressure 128 mm[Hg] Khai Jacobson MD Work Phone: [facility] 12-25-2024 10:11-0400 Body mass index (BMI) [Ratio] 24.74 kg/m2 Dilia Rich PA Work Phone: [facility] 12-25-2024 10:11-0400 Body weight 61.35 kg Dilia Rich PA Work Phone: [facility] 12-25-2024 10:11-0400 Diastolic blood pressure 92 mm[Hg] Dilia Rich PA Work Phone: [facility] 12-25-2024 10:11-0400 Systolic blood pressure 140 mm[Hg] Dilia Rich PA Work Phone: [facility] 12-13-2024 09:43-0400 Body mass index (BMI) [Ratio] 24.51 kg/m2 Derrick Greer DO Work Phone: [facility] 12-13-2024 09:43-0400 Body weight 60.78 kg Derrick Greer DO Work Phone: [facility] 12-13-2024 09:43-0400 Diastolic blood pressure 70 mm[Hg] Derrick Greer DO Work Phone: [facility] 12-13-2024 09:43-0400 Systolic blood pressure 110 mm[Hg] Derrick Greer DO Work Phone: [facility] 11-15-2024 14:28-0400 Body mass index (BMI) [Ratio] 24.47 kg/m2 Dilia Rich PA Work Phone: [facility] 11-15-2024 14:28-0400 Body weight 60.69 kg Dilia Rich PA Work Phone: [facility] 11-15-2024 14:28-0400 Diastolic blood pressure 70 mm[Hg] Dilia Rich PA Work Phone: [facility] 11-15-2024 14:28-0400 Systolic blood pressure 116 mm[Hg] Dilia Belkys PA Work Phone: [facility] 10-15-2024 08:41-0500 Body mass index (BMI) [Ratio] 25.5 kg/m2 Derrick Greer DO Work Phone: [facility] 10-15-2024 08:41-0500 Body weight 63.23 kg Derrick Greer DO Work Phone: [facility] 10-15-2024 08:41-0500 Diastolic blood pressure 72 mm[Hg] Derrick Greer DO Work Phone: [facility] 10-15-2024 08:41-0500 Systolic blood pressure 108 mm[Hg] Derrick Greer DO Work Phone: [facility] 10-04-2024 14:04-0500 Body height 157.5 cm Keisha Majano BUSINESS SERVICES OFFICER Work Phone: [facility] 10-04-2024 14:04-0500 Body mass index (BMI) [Ratio] 25.64 kg/m2 Keisha Majano BUSINESS SERVICES OFFICER Work Phone: [facility] 10-04-2024 14:04-0500 Body weight 63.59 kg Keisha Majano BUSINESS SERVICES OFFICER Work Phone: [facility] 10-04-2024 14:04-0500 Diastolic blood pressure 74 mm[Hg] Keisha Majano BUSINESS SERVICES OFFICER Work Phone: [facility] 10-04-2024 14:04-0500 Heart rate 73 /min Keisha Majano BUSINESS SERVICES OFFICER Work Phone: [facility] 10-04-2024 14:04-0500 Respiratory rate 17 /min Keisha Majano BUSINESS SERVICES OFFICER Work Phone: [facility] 10-04-2024 14:04-0500 SaO2% (BldA) [Mass fraction] 99 % Keisha Majano BUSINESS SERVICES OFFICER Work Phone: [facility] 10-04-2024 14:04-0500 Systolic blood pressure 116 mm[Hg] Keisha Melecio HOOD Work Phone: [facility] 09-03-2024 16:43-0500 Body mass index (BMI) [Ratio] 25.94 kg/m2 Derrick Greer DO Work Phone: [facility] 09-03-2024 16:43-0500 Body weight 64.32 kg Derrick Greer DO Work Phone: [facility] 09-03-2024 16:43-0500 Diastolic blood pressure 78 mm[Hg] Derrick Greer DO Work Phone: [facility] 09-03-2024 16:43-0500 Systolic blood pressure 138 mm[Hg] Derrick Greer DO Work Phone: [facility] 07-16-2024 15:12-0500 Body mass index (BMI) [Ratio] 24.84 kg/m2 Derrick Greer DO Work Phone: [facility] 07-16-2024 15:12-0500 Body weight 61.6 kg Derrick Greer DO Work Phone: [facility] 07-16-2024 15:12-0500 Diastolic blood pressure 60 mm[Hg] Derrick Greer DO Work Phone: [facility] 07-16-2024 15:12-0500 Systolic blood pressure 100 mm[Hg] Derrick Rgeer DO Work Phone: [facility] 07-04-2024 10:04-0500 Body height 157.5 cm Khai Jacobson MD Work Phone: [facility] 07-04-2024 10:04-0500 Body mass index (BMI) [Ratio] 24.51 kg/m2 Khai Jacobson MD Work Phone: [facility] 07-04-2024 10:04-0500 Body weight 60.78 kg Khai Jacobson MD Work Phone: [facility] 07-04-2024 10:04-0500 Diastolic blood pressure 76 mm[Hg] Khai Jacobson MD Work Phone: [facility] 07-04-2024 10:04-0500 Heart rate 75 /min Khai Jacobson MD Work Phone: [facility] 07-04-2024 10:04-0500 SaO2% (BldA) [Mass fraction] 95 % Khai Jacobson MD Work Phone: [facility] 07-04-2024 10:04-0500 Systolic blood pressure 128 mm[Hg] Khai Jacobson MD Work Phone: [facility] 06-18-2024 14:03-0400 Body height 157.5 cm Derrick Greer DO Work Phone: [facility] 06-18-2024 14:03-0400 Body mass index (BMI) [Ratio] 24.14 kg/m2 Derrick Greer DO Work Phone: [facility] 06-18-2024 14:03-0400 Body weight 59.88 kg Derrick Greer DO Work Phone: [facility] 06-18-2024 14:03-0400 Diastolic blood pressure 70 mm[Hg] Derrick Greer DO Work Phone: [facility] 06-18-2024 14:03-0400 Systolic blood pressure 104 mm[Hg] Derrick Greer DO Work Phone: [facility] 04-16-2024 09:40-0400 Body mass index (BMI) [Ratio] 23.19 kg/m2 Khai Jacobson MD Work Phone: [facility] 04-16-2024 09:40-0400 Body weight 57.52 kg Khai Jacobson MD Work Phone: [facility] 04-16-2024 09:40-0400 Diastolic blood pressure 60 mm[Hg] Khai Jacobson MD Work Phone: [facility] 04-16-2024 09:40-0400 Heart rate 75 /min Khai Jacobson MD Work Phone: [facility] 04-16-2024 09:40-0400 Respiratory rate 16 /min Khai Jacobson MD Work Phone: [facility] 04-16-2024 09:40-0400 SaO2% (BldA) [Mass fraction] 98 % Khai Jacobson MD Work Phone: [facility] 04-16-2024 09:40-0400 Systolic blood pressure 100 mm[Hg] Khai Jacobson MD Work Phone: [facility] 04-08-2023 10:20-0400 Blood Pressure Location Curry PHILIPPE [facility] 04-08-2023 10:20-0400 Diastolic blood pressure 92 mm[Hg] Curry PHILIPPE [facility] 04-08-2023 10:20-0400 Heart rate 78 /min Curry PHILIPPE [facility] 04-08-2023 10:20-0400 Systolic blood pressure 124 mm[Hg] Curry PHILIPPE [facility] Encounters Encounter Date Encounter Type Care Provider Facility Start: 04-30-2025 End: 04-30-2025 Departed Referred Mary De Leon [facility] Work Phone: Start: 04-30-2025 End: 04-30-2025 ambulatory NON STAFF [facility] Work Phone: Start: 04-30-2025 End: 04-30-2025 Patient encounter procedure Mary De Leon [facility] [place] Work Phone: Start: 04-14-2025 End: 04-15-2025 Refill Ynes ESTRADA Work Phone: [facility] [place] [facility] Comment on above: Lumbar spondylosis Start: 04-01-2025 End: 04-01-2025 Bamboo flowsheet Khai Jacobson MD Work Phone: [facility] [place] [facility] Start: 04-01-2025 End: 04-01-2025 Bamboo flowsheet Khai Jacobson MD Work Phone: [facility] [place] [facility] Start: 04-01-2025 End: 04-01-2025 Office outpatient visit 15 minutes Khai Jacobson MD Work Phone: [facility] [place] [facility] Comment on above: Lumbar spondylosis ( Primary Dx); Essential hypertension Start: 04-01-2025 End: 04-01-2025 ambulatory KHAI JACOBSON Not Available Start: 02-11-2025 End: 02-13-2025 Refill Khai Jacobson MD Work Phone: [facility] Comment on above: Lumbar spondylosis Start: 02-10-2025 End: 02-11-2025 Refill Khai Jacobson MD Work Phone: [facility] Comment on above: Lumbar spondylosis Start: 01-09-2025 End: 01-09-2025 Refill Khai Jacobson MD Work Phone: [facility] Comment on above: Lumbar spondylosis Start: 01-02-2025 End: 01-02-2025 Bamboo flowsheet Khai Jacobson MD Work Phone: [facility] Start: 01-02-2025 End: 01-02-2025 Bamboo flowsmaurice Jacobson MD Work Phone: [facility] Start: 01-02-2025 End: 01-02-2025 Office outpatient visit 25 minutes Khai Jacobson MD Work Phone: [facility] Comment on above: History of hysterect feliberto; Affective psychosis (CMS/HCC); Lumbar spondylosis Start: 01-02-2025 End: 01-02-2025 ambulatory KHAI JACOBSON Not Available Start: 12-30-2024 End: 12-31-2024 Refill Khai Jacobson MD Work Phone: [facility] Comment on above: Insulin resistance; Impaired glucose tolerance Start: 12-25-2024 End: 12-25-2024 Postop follow up visit related to original px Dilia Rich PA Work Phone: [facility] Comment on above: Postoperative follow -up; HSV (herpes simplex virus) infection Start: 12-25-2024 End: 12-25-2024 ambulatory DILIA RICH Not Available Start: 12-13-2024 End: 12-13-2024 Bamboo flowsheet Derrick Greer DO Work Phone: [facility] Start: 12-13-2024 End: 12-13-2024 Bamboo flowsheet Derrick Greer DO Work Phone: [facility] Start: 12-13-2024 End: 12-13-2024 Clinisync Result Encounter Derrick Greer DO Work Phone: [facility] External Department Unsolicited Start: 12-13-2024 End: 12-13-2024 Office outpatient visit 15 minutes Derrick Greer DO Work Phone: [facility] Comment on above: H/O: hysterectomy; Hormone imbalance; Hormone disorder; Decreased libido Start: 12-13-2024 End: 12-13-2024 ambulatory DERRICK GREER Not Available Start: 12-04-2024 End: 12-04-2024 Abraham Genao PA Work Phone: [facility] Comment on above: Lumbar spondylosis Start: 11-22-2024 End: 11-22-2024 Bamboo flowsheet Alber Simon DPM Work Phone: [facility] Start: 11-22-2024 End: 11-22-2024 Bamboo flowsheet Alber Simon DPM Work Phone: [facility] Start: 11-22-2024 End: 11-22-2024 Office outpatient new 45 minutes Alber Simon DPM Work Phone: [facility] Comment on above: Corns and callositie s (Primary Dx); Left foot pain; Tinea pedis of right foot; Plantar fibromatosis Start: 11-22-2024 End: 11-22-2024 ambulatory ALBER SIMON Not Available Start: 11-15-2024 End: 11-15-2024 Postop follow up visit related to original px Dilia ESTRADA Work Phone: [facility] Comment on above: Postop check Start: 11-15-2024 End: 11-15-2024 ambulatory DILIA RICH Not Available Start: 11-15-2024 End: 11-15-2024 Bamboo flowsheet Dilia Rich PA Work Phone: [facility] Start: 11-15-2024 End: 11-15-2024 Bamboo flowsheet Dilia Rich PA Work Phone: [facility] Start: 11-08-2024 End: 11-08-2024 ambulatory Derrick [facility] Work Phone: Start: 11-08-2024 End: 11-08-2024 Departed Referred Derrickjennifer Camachoo DO Work Phone: [facility] Start: 11-08-2024 End: 11-08-2024 Clinisync Result Encounter Generic External Data Provider [facility] External Department Unsolicited Start: 11-08-2024 End: 11-08-2024 Clinisync Result Encounter Generic External Data Provider [facility] External Department Unsolicited Start: 11-01-2024 End: 11-01-2024 Refill Yens ESTRADA Work Phone: [facility] Comment [...] examination done Derrick Greer DO Work Phone: [facility] Start: 10-15-2024 End: 10-15-2024 ambulatory DERRICK GREER Not Available Start: 10-05-2024 End: 10-06-2024 Refill Keisha Majano BUSINESS SERVICES OFFICER Work Phone: [facility] Comment on above: Lumbar spondylosis Start: 10-04-2024 End: 10-04-2024 Office outpatient visit 25 minutes Keisha Majano BUSINESS SERVICES OFFICER Work Phone: [facility] Comment [...] Available Start: 09-03-2024 End: 09-03-2024 Bamboo flowsheet Derirck Greer DO Work Phone: [facility] [...] Start: 08-10-2024 End: 08-10-2024 ambulatory Derrick Greer Facility:[facility] Start: 08-02-2024 End: 08-02-2024 Refteagan Jacobson [...] 06-18-2024 Office outpatient visit 15 minutes Derrick Camachoo DO Work Phone: [facility] Comment on above: Endometrial thickeni ng on ultrasound; Postmenopausal bleeding Start: 06-18-2024 End: 06-18-2024 ambulatory DERRICK GREER Not Available Start: 06-05-2024 End: 06-05-2024 Clinisync Result Encounter Generic External Data Provider [facility] External Department Unsolicited Start: 06-05-2024 End: 06-05-2024 Clinisync Result Encounter Generic External Data Provider [facility] External Department Unsolicited Start: 06-04-2024 End: 06-05-2024 Refill Khai Jacobson MD Work Phone: [facility] Comment on above: Lumbar spondylosis Start: 05-03-2024 End: 05-03-2024 Refill Khai Jacobson MD Work Phone: [facility] Comment on above: Lumbar spondylosis Start: 04-20-2024 End: 04-25-2024 Refteagan Jacobson MD Work Phone: [facility] [...] 04-16-2024 ambulatory KHAI JACOBSON Not Available Start: 10-03-2023 Telephone encounter Khai mandujano MD Work Phone: [facility] Comment on above: Med Refill Start: 09-27-2023 Telephone encounter Khai mandujano MD Work Phone: [facility] Comment on above: Med Refill (Prometil azine 25 mg [facility] [place]) Start: 09-05-2023 End: 09-06-2023 ambulatory Curry PHILIPPE Facility:[id number] Start: 04-08-2023 End: 04-09-2023 ambulatory Derrick BUTTERFIELD Facility:[facility] Start: 04-08-2023 End: 04-08-2023 Patient encounter procedure Curry PHILIPPE [facility] Start: 12-21-2022 ambulatory Curry PHILIPPE Facili ty:[facility] Start: 12-06-2022 End: 12-07-[address] DERRICK BUTTERFIELD . Facility:[facility] Start: 11-30-2022 End: 12-01-[address] DERRICK BUTTERFIELD . Facility:[facility] Start: 08-05-2022 End: 08-06-[address] DERRICK BUTTERFIELD . Facility:[facility] Start: 07-26-2022 End: 07-26-[address] DERRICK BUTTERFIELD . Facility:[facility] Start: 04-29-2022 End: 04-30-[address] KHAI JACOBSON Facility: Procedures Date Procedure Procedure Detail Performing Clinician Start: 12-13-2024 MLR HEMOGLOBIN A1C Gene fany External Data Provider Start: 11-08-2024 ALL CBC WITH AUTO DIFF Derrick Greer DO Work Phone: Start: 08-10-2024 ALL CBC WITH AUTO DIFF [...] miguelito PHILIPPE Comment on above: ORIF, RIGHT H/O: hysterectomy H/O: hysterectomy Derrick Greer DO Work Phone: H/O: hysterectomy History of hysterectomy Khai Jacobson MD Work Phone: Laparoscopic cholecystectomy Curry PHILIPPE Ligation of fallopia n tube Curry PHILIPPE Tonsillectomy Curry PHILIPPE Plan of Treatment Date Care Activity Detail Author Start: 07-13-2032 Screening for malign ant neoplasm of colon [facility] Start: 02-20-2029 Screening for malign ant neoplasm of cervix [facility] Start: 04-30-2025 Bacteria identified in Urine by Culture Urine Culture [facility] Start: 04-30-2025 End: 04-30-2025 Urine culture [facility] Start: 04-22-2025 Influenza vaccination [facility] Start: 04-12-2025 Screening for malign ant neoplasm of colon FIT-DNA [facility] Start: 04-01-2025 End: 04-01-2025 Patient encounter procedure 04/01/2025 10:15 AM EDT Office Visit [facility] [place] [facility] [address] [place] [address] Khai Jacobson MD [address] [facility] [address] [place] [address] Arrived [facility] [place] [facility] Comment on above: Arrived Start: 03-21-2025 Screening for malign ant neoplasm of breast Mammogram [facility] Start: 02-20-2025 Screening for malign ant neoplasm of cervix [facility] Start: 01-02-2025 End: 01-02-2025 Patient encounter procedure 01/02/2025 10:00 AM EDT Office Visit [facility] [address] [facility] [address] [place] [address] Khai Jacobson MD [address] [facility] [address] [place] [address] Arrived [facility] Comment on above: Arrived Start: 12-25-2024 End: 12-25-2024 Patient encounter procedure 12/25/2024 9:30 AM EDT Office Visit [facility] [address] [id number] Dilia Rich PA [address] [facility] [place] [address] [facility] Start: 12-20-2024 End: 12-20-2024 Patient encounter procedure 12/20/2024 8:30 AM EDT Office Visit [facility] [address] [facility] [address] [place] [phone] Alber Simon DPM [address] [facility] [address] [place] [address] [facility] Start: 12-13-2024 End: 12-13-2025 C-peptide C-peptide Lab Routine H/O: hysterectomy Hormone imbalance Hormone disorder Decreased libido Expected: 12/13/2024 (Approximate), Expires: 12/13/2025 [facility] Comment on above: Expected: 12/13/2024 (Approximate), Expires: 12/13/2025 Start: 12-13-2024 End: 12-13-2025 Cortisol free Cortisol, free Lab Routine H/O: hysterectomy Hormone imbalance Hormone disorder Decreased libido Expected: 12/13/2024 (Approximate), Expires: 12/13/2025 [facility] Comment on above: Expected: 12/13/2024 (Approximate), Expires: 12/13/2025 Start: 12-13-2024 End: 12-13-2025 Glucose [Mass/volume] in Serum or Plasma Glucose, random Lab Routine H/O: hysterectomy Hormone imbalance Hormone disorder Decreased libido Expected: 12/13/2024 (Approximate), Expires: 12/13/2025 [facility] Comment on above: Expected: 12/13/2024 (Approximate), Expires: 12/13/2025 Start: 12-13-2024 End: 12-13-2025 Insulin, total Insulin, total Lab Routine H/O: hysterectomy Hormone imbalance Hormone disorder Decreased libido Expected: 12/13/2024 (Approximate), Expires: 12/13/2025 [facility] Comment on above: Expected: 12/13/2024 (Approximate), Expires: 12/13/2025 Start: 12-13-2024 End: 12-13-2025 Serotonin serum Serotonin serum Lab Routine H/O: hysterectomy Hormone imbalance Hormone disorder Decreased libido Expected: 12/13/2024 (Approximate), Expires: 12/13/2025 [facility] Comment on above: Expected: 12/13/2024 (Approximate), Expires: 12/13/2025 Start: 12-13-2024 End: 12-13-2025 Thyroglobulin Thyroglobulin Lab Routine H/O: hysterectomy Hormone imbalance Hormone disorder Decreased libido Expected: 12/13/2024 (Approximate), Expires: 12/13/2025 [facility] Comment on above: Expected: 12/13/2024 (Approximate), Expires: 12/13/2025 Start: 12-13-2024 End: 12-13-2025 Thyroglobulin Antibody Thyroglobulin Antibody Lab Routine H/O: hysterectomy Hormone imbalance Hormone disorder Decreased libido Expected: 12/13/2024 (Approximate), Expires: 12/13/2025 [facility] Comment on above: Expected: 12/13/2024 (Approximate), Expires: 12/13/2025 Start: 12-13-2024 End: 12-13-2025 Thyrotropin [Units/volume] in Serum or Plasma [facility] Comment on above: Ordered: 12/13/2024 Expected: 12/13/2024 (Approximate), Expires: 12/13/2025 Start: 12-13-2024 End: 12-13-2024 Patient encounter procedure [facility] Comment on above: Arrived Start: 11-22-2024 End: 11-22-2024 Patient encounter procedure 11/22/2024 8:30 AM EDT Office Visit [facility] [address] [place] [phone] Alber Simon, RODOLFO [address] [place] [address] Arrived [facility] Comment on above: Arrived Start: 11-15-2024 End: 11-15-2024 Patient encounter procedure 11/15/2024 2:30 PM EDT Office Visit [facility] [address] [facility] [facility] [place] [address] Dilia Rich PA [address] [facility] [address] [place], [place] [phone] Arrived [facility] Comment on above: Arrived Start: 10-15-2024 End: 10-15-2024 Patient encounter procedure [facility] Comment on above: Arrived Start: 09-03-2024 End: 09-03-2024 Patient encounter procedure 09/03/2024 4:00 PM EST Office Visit [facility] [address] [place] [address] Derrick Butterfield DO [address] [place], [place] [id number] Arrived [facility] Comment on above: Arrived Start: 07-16-2024 End: 07-16-2024 Patient encounter procedure 07/16/2024 2:50 PM EST Consult [facility] [address] [facility] [place] [phone] Derrick Butterfield, DO [address] [place] [address] [facility] Start: 07-04-2024 End: 07-04-2024 Patient encounter procedure 07/04/2024 10:00 AM EST Office Visit [facility] [address] [facility] [address] [place] [address] Khai Jacobson MD [address] [facility] [address] [place] [address] [facility] Start: 06-18-2024 End: 06-18-2024 Patient encounter procedure 06/18/2024 2:10 PM EDT Office Visit [facility] [address] [facility] [place] [phone] Derrick Butterfield, DO [address] [place] [address] [facility] Start: 04-22-2024 Influenza vaccination Influenza Vacc ine (#1) [facility] Start: 04-16-2024 End: 04-16-2025 Comprehensive metabolic 2000 panel - Serum or Plasma Comprehensive metabolic panel Lab Routine Essential hypertension ([facility]) Impaired glucose tolerance Expected: 04/16/2024 (Approximate), Expires: 04/16/2025 [facility] Comment on above: Expected: 04/16/2024 (Approximate), Expires: 04/16/2025 Start: 04-16-2024 End: 04-16-2025 Hemoglobin A1c/Hemoglobin.total in Blood Hemoglobin A1c Lab Routine Impaired glucose tolerance Expected: 04/16/2024 (Approximate), Expires: 04/16/2025 [facility] Comment on above: Expected: 04/16/2024 (Approximate), Expires: 04/16/2025 Start: 04-16-2024 End: 04-16-2025 Lipid 1996 panel - Serum or Plasma Lipid panel Lab Routine Essential hypertension (CMS/HCC) Impaired glucose tolerance Mixed hyperlipidemia (CMS/HCC) Expected: 04/16/2024 (Approximate), Expires: 04/16/2025 [facility] Work Phone: Comment on above: Expected: 04/16/2024 (Approximate), Expires: 04/16/2025 Start: 04-16-2024 End: 04-16-2025 TSH W/REFLEX TO FT4 TSH W/REFLEX TO FT4 Lab Routine Essential hypertension (CMS/HCC) Impaired glucose tolerance Expected: 04/16/2024 (Approximate), Expires: 04/16/2025 [facility] Comment on above: Expected: 04/16/2024 (Approximate), Expires: 04/16/2025 Start: 04-16-2024 End: 04-16-2024 Patient encounter procedure 04/16/2024 9:30 AM EDT Office Visit [facility] [address] [facility] [address] [place] [phone] Khai Jacobson MD [address] [facility] [address] [place] [address] Arrived [facility] Comment on above: Arrived Start: 04-13-2024 Screening for malign ant neoplasm of breast Mammogram [facility] Start: 02-21-2024 End: 02-21-2024 Patient encounter procedure 02/21/2024 2:00 PM EDT Office Visit [facility] [address] [place] [address] Derrick Butterfield, [address] [place] [address] [facility] Start: 08-05-2023 Screening for malign ant neoplasm of breast Mammogram [facility] Start: 04-22-2023 Influenza vaccination Influenza Vacc ine (#1) [facility] Start: 01-10-2002 Screening for malign ant neoplasm of cervix [facility] Start: 01-10-1993 Screening for malign ant neoplasm of cervix Pap Smear [facility] Start: 1972 Screening for malign ant neoplasm of colon [facility] CBC W Auto Different ial panel - Blood CBC and differential Lab Routine Essential hypertension (CMS/HCC) Ordered: 04/16/2024 [facility] Comment on above: Ordered: 04/16/2024 DHEA-sulfate DHEA-sulfate Lab Routine H/O: hysterectomy Hormone imbalance Hormone disorder Decreased libido Ordered: 12/13/2024 [facility] Comment on above: Ordered: 12/13/2024 Estradiol Estradiol Lab Ro utine H/O: hysterectomy Hormone imbalance Hormone disorder Decreased libido Ordered: 12/13/2024 [facility] Work Phone: Comment on above: Ordered: 12/13/2024 Estrone Estrone Lab Rout ine H/O: hysterectomy Hormone imbalance Hormone disorder Decreased libido Ordered: 12/13/2024 [facility] Comment on above: Ordered: 12/13/2024 Ferritin [Mass/volum e] in Serum or Plasma Ferritin Lab Routine H/O: hysterectomy Hormone imbalance Hormone disorder Decreased libido Ordered: 12/13/2024 [facility] Comment on above: Ordered: 12/13/2024 Hemoglobin A1c/Hemoglobin.total in Blood Hemoglobin A1c Lab Routine H/O: hysterectomy Hormone imbalance Hormone disorder Decreased libido Ordered: 12/13/2024 [facility] Comment on above: Ordered: 12/13/2024 Progesterone Progesterone Lab Routine H/O: hysterectomy Hormone imbalance Hormone disorder Decreased libido Ordered: 12/13/2024 [facility] Comment on above: Ordered: 12/13/2024 Sex hormone binding globulin Sex hormone binding globulin Lab Routine H/O: hysterectomy Hormone imbalance Hormone disorder Decreased libido Ordered: 12/13/2024 [facility] Comment on above: Ordered: 12/13/2024 T3, reverse T3, reverse Lab Routine H/O: hysterectomy Hormone imbalance Hormone disorder Decreased libido Ordered: 12/13/2024 [facility] Comment on above: Ordered: 12/13/2024 TESTOSTERONE, FREE TESTOSTERONE, FREE Lab Routine H/O: hysterectomy Hormone imbalance Hormone disorder Decreased libido Ordered: 12/13/2024 [facility] Comment on above: Ordered: 12/13/2024 Testosterone, free, total Testos terone, free, total Lab Routine H/O: hysterectomy Hormone imbalance Hormone disorder Decreased libido Ordered: 12/13/2024 [facility] Comment on above: Ordered: 12/13/2024 Thyroid peroxidase antibody Thyroid peroxidase antibody Lab Routine H/O: hysterectomy Hormone imbalance Hormone disorder Decreased libido Ordered: 12/13/2024 [facility] Comment on above: Ordered: 12/13/2024 Thyroxine (T4) free [Mass/volume] in Serum or Plasma T4, free Lab Routine H/O: hysterectomy Hormone imbalance Hormone disorder Decreased libido Ordered: 12/13/2024 [facility] Comment on above: Ordered: 12/13/2024 Triiodothyronine (T3 ) Free [Mass/volume] in Serum or Plasma T3, free Lab Routine H/O: hysterectomy Hormone imbalance Hormone disorder Decreased libido Ordered: 12/13/2024 [facility] Comment on above: Ordered: 12/13/2024 Vitamin D 1,25 dihydroxy Vitamin D 1,25 dihydroxy Lab Routine H/O: hysterectomy Hormone imbalance Hormone disorder Decreased libido Ordered: 12/13/2024 [facility] Comment on above: Ordered: 12/13/2024 Immunizations Immunization Date Immunization Notes Care Provider [facility] 06-22-2018 poliovirus vaccine, inactivated Khai Jacobson MD Work Phone: [facility] 06-22-2018 tetanus toxoid, redu violette diphtheria toxoid, and acellular pertussis vaccine, adsorbed Khai Jacobson MD Work Phone: [facility] 06-01-2018 hepatitis A vaccine, adult dosage Khai Jacobson MD Work Phone: [facility] 06-01-2018 hepatitis B vaccine, adult dosage Khai Jacobson MD Work Phone: [facility] 01-12-2018 hepatitis B vaccine, adult dosage Khai Jacobson MD Work Phone: [facility] 01-06-2018 typhoid vaccine, luisa e, oral Khai Jacobson MD Work Phone: [facility] 12-09-2017 hepatitis A vaccine, adult dosage Khai Jacobson MD Work Phone: [facility] 12-09-2017 hepatitis B vaccine, adult dosage Khai Jacobson MD Work Phone: [facility] Payers Date Payer Category Payer Self-pay 2022 Private Health Insurance [employer] [id number] 2022 Unknown [employer] [id number] 2022-Present [address] [place] [address] [id number] 1972 Unknown [id number] 2.16.840.1.889412.3.579.2. 593 1972 Unknown [id number] 2.16.840.1.604699.3.579.2. 593 1972 Unknown [id number] 2.16.840.1.256029.3.579.2. 593 1972 Unknown [id number] 2.16.840.1.801650.3.579.2. 593 1972 Unknown [id number] 2.16.840.1.883294.3.579.2. 593 1972 Unknown [id number] 2.16.840.1.635472.3.579.2. 727 1972 Unknown [id number] 2.16.840.1.627128.3.579.2. 727 1972 Unknown [id number] 2.16.840.1.654127.3.579.2. 727 1972 Unknown [id number] 2.16.840.1.933856.3.579.2. 1258 1972 Unknown [id number] 2.840.1.859421.3.579.2. 1258 1972 Unknown [id number] 2.16840.1.110287.3.579.2. 1258 1972 Unknown [id number] 2.840.1.226697.3.579.2. 1258 1972 Unknown [id number] 2.840.1.813236.3.579.2. 1258 1972 Unknown [id number] 2.840.1.979167.3.579.2. 1258 1972 Unknown [id number] 2.840.1.770199.3.579.2. 1258 1972 Unknown [id number] 2.840.1.880858.3.579.2. 1258 1972 Unknown [id number] .840.1.799475.3.579.2. 1258 1972 Unknown [id number] .840.1.240701.3.579.2. 1258 1972 Unknown [id number] .840.1.305248.3.579.2. 1258 1972 Unknown [id number] 840.1.450110.3.579.2. 1258 1972 Unknown [id number] .840.1.940198.3.579.2. 1258 1959 Unknown [id number] Unknown [id number] 2.16840.1.360217.3.579.2. 531 Unknown [id number] 2.16840.1.841709.3.579.2. 531 Unknown [id number] 2.840.1.396813.3.579.2. 531 Social History Date Type Detail Facility Start: 04-08-2023 Tobacco smoking status Smokele ss tobacco user within last 30 days [facility] Start: 06-29-2023 End: 01-02-2025 Sex Assigned At Female [facility] Start: 02-17-2023 Tobacco smoking stat us NHIS Never smoked tobacco [facility] Start: 02-17-2023 End: 04-01-2025 Tobacco use and exposure Smokeless tobacco non-user [facility] Start: 06-29-2023 End: 04-01-2025 Alcohol intake Current drinker of alcohol (finding) [facility] Start: 06-29-2023 End: 01-02-2025 Alcohol intake [facility] Start: 04-10-2023 Alcohol Comment Caffeine:: sod a./pop , coffee [facility] Start: 1970 Sex Assigned At Not on file N [facility] Start: 04-30-2025 Tobacco smoking stat [facility] Unknown if ever smoked [facility] Start: 11-10-2024 Sex Female (finding) [facility] Start: 1970 Sex Assigned At Female [facility] Start: 04-01-2025 [facility] History of tobacco use Cigarette Smoker N [facility] Functional Status Date Assessment Result Facility 01-02-2025 Patient Health Quest ionnaire 2 item (PHQ-2) [Reported] [facility] 04-08-2023 Functional Status N/A [facility] Clinical Notes 12-06-2022 to 04-30-2025 Note Date & Type Note Facility 04-30-2025 Evaluation note Diagnosis Onset Date Resolution UTI (urinary tract infection) acute April 30, 2 025 12:28pm [facility] Work Phone: [phone]) 325-959008-25-2025 Telephone encounter Note* Telephone Encounter - SEAN Rachel - 04/15/2025 1:01 PM EDT OARRS reviewed, Rx sent into patient's pharmacy. [facility] [id number] Miscellaneous Notes* Telephone Encounter - SEAN Rachel - 04/15/2025 1:01 PM EDT OARRS reviewed, Rx sent into patient's pharmacy. documented in this encounterMoberly Regional Medical [id number] History of Present illness Narrative* Khai Jacobson MD - 04/01/2025 10:15 AM EDT Images from the original note were not included. HPI Follow-up Additional comments: Controlled medication Last edited by Anai Vieira LPN on 04/01/2025 10:15 AM. Subjective Patient ID: Haven Bar is a 55 y.o. female who presents for Follow-up (Controlled medication) and Hypertension. Hypertension Patient is here for follow-up of elevated blood pressure. She is exercising and is adherent to a low-salt diet. Cardiac symptoms: none. Patient denies chest pain, chest pressure/discomfort, claudication, irregular heart beat, lower extremity edema, near-syncope, orthopnea, palpitations, paroxysmal nocturnal dyspnea, syncope, and tachypnea. Cardiovascular risk factors: hypertension. Pt taking pain medication as prescribed Does not need refill at this time Controlling pain well per pt Hypertension Med Refill Current Outpatient Medications on File Prior to Visit Medication Sig Dispense Refill ASPIRIN 81 MG chewable tablet 1 (one) time each day at the same time. buPROPion (Wellbutrin) 100 MG tablet Take 1 tablet (100 mg) by mouth in the morning and 1 tablet (100 mg) before bedtime. 180 tablet 3 estradiol (Estrace) 1 MG tablet Take 1 tablet (1 mg) by mouth Daily 30 tablet 11 FLUoxetine (PROzac) 10 MG tablet Take 1 tablet (10 mg) by mouth Daily 360 tablet 3 hydroCHLOROthiazide (HYDRODiuril) 25 MG tablet Take 1 tablet (25 mg) by mouth in the morning. 100 tablet 1 HYDROcodone-acetaminophen ([place]) 5-325 MG tablet Take 1 tablet by mouth every 8 (eight) hours Note- 90 tablets is a thirty day supply. 90 tablet 0 meloxicam (Mobic) 15 MG tablet Take 1 tablet (15 mg) by mouth in the morning. 100 tablet 1 metFORMIN (Glucophage) 1000 MG tablet Take 1 tablet (1,000 mg) by mouth in the morning. Take with meals. 90 tablet 3 metFORMIN XR (Glucophage-XR) 500 MG 24 hr tablet Take 1 tablet (500 mg) by mouth Daily with meals and 1 1000mg tablet daily with breakfast. Totaling 1500mg a day 30 tablet 11 metoprolol succinate XL (Toprol-XL) 100 MG 24 hr tablet Take 1 tablet (100 mg) by mouth Daily 100 tablet 3 Multiple Vitamin (multivitamin) tablet Take 1 tablet by mouth Daily omeprazole (PriLOSEC) [address] capsule TAKE 1 CAPSULE BY MOUTH ONCE DAILY IN THE MORNING before BREAKFAST DO NOT CRUSH OR CHEW 100 capsule 3 rOPINIRole (Requip) 0.25 MG tablet Take 1 tablet (0.25 mg) by mouth at bedtime May increase to 2 tabs in 1 week if ineffective 60 tablet 3 semaglutide (Ozempic, 1 MG/DOSE,) 4 MG/3ML solution pen-injector Inject 1 mg under the skin 1 (one)time per week 3 mL 3 simvastatin (Zocor) 20 MG tablet Take 1 tablet (20 mg) by mouth at bedtime 100 tablet 3 valACYclovir (Valtrex) 1 g tablet Take 1 tablet (1,000 mg) by mouth in the morning and 1 tablet (1,000 mg) before bedtime. Do all this for 10 days. 20 tablet 1 [DISCONTINUED] ciprofloxacin (Cipro) 250 MG tablet Take 1 tablet (250 mg) by mouth in the morning and 1 tablet (250 mg) before bedtime. 10 tablet 2 No current facility-administered medications on file prior to visit. I have reviewed and reconciled the history and medication list with the patient today. No Known Allergies Social History Tobacco Use Smoking status: Every Day Types: Cigarettes Smokeless tobacco: Never Vaping Use Vaping status: [...] Diagnosis Date Benign mole Genital warts Hypertension Migraine Pain in female genitalia on intercourse pain during intercourse Pelvic pain Poor circulation Past Surgical History: Procedure Laterality Date APPENDECTOMY 2000 CARPAL TUNNEL RELEASE 2007 CHOLECYSTECTOMY 2010 COLONOSCOPY 07/07/2022 DILATION AND CURETTAGE OF UTERUS N/A 08/24/2024 D&C Hysteroscopy with Myosure HEART CATH 06/09/2015 normal HYSTERECTOMY PAP SMEAR 2018 negative ROBOTIC ASSISTED HYSTERECTOMY 11/08/2024 uterus, cervix,bila fallopian tubes and ovaries (LOIDA w/bilateral salpingectomy-oophorectomy) TUBAL LIGATION Bilateral 2009 Visit Vitals BP 128/80 Pulse 71 Ht 5' 2 Wt 129 lb SpO2 97% BMI 23.59 kg/m OB Status Hysterectomy Smoking Status Every Day BSA 1.6 m Review of Systems Objective Physical Exam Constitutional: Appearance: Normal appearance. HENT: Head: Normocephalic and atraumatic. Cardiovascular: Rate and Rhythm: Normal rate and regular rhythm. Heart sounds: Normal heart sounds. No murmur heard. Pulmonary: Effort: Pulmonary effort is normal. Breath sounds: Normal breath sounds. No wheezing, rhonchi or rales. Abdominal: General: Abdomen is flat. Bowel sounds are normal. There is no distension. Tenderness: There is no abdominal tenderness. Musculoskeletal: Right lower leg: No edema. Left lower leg: No edema. Neurological: Mental Status: She is alert. Psychiatric: Mood and Affect: Mood normal. Thought Content: Thought content normal. Assessment/Plan Diagnoses and all orders for this visit: Lumbar spondylosis - Medication choice and dosage is appropriate [...] OARRS Report was reviewed for this patient. Essential hypertension - This is a chronic medical condition that is stable since last assessment. No changes in treatmentare suggested at this time. Follow up in about 3 months (around 07/02/2025) for Controlled Med Review. documented in this encounterMoberly Regional Medical [id number] History of Present illness Narrative* Khai Jacobson MD - 01/02/2025 10:00 AM EDT Images from the original note were not included. HPI Follow-up Additional comments: Controlled/pain med discuss medication Additional comments: Pt recently had hysterectomy and has been feeling more depressed last week shestarted taking her wellbutrin BID and has seemed to help she was wondering if she could have this med dose OR directions could be changed Last edited by Anai Vieira LPN on 01/02/2025 10:12 AM. Subjective Patient ID: Haven Bar is a 54 y.o. female who presents for Follow-up (Controlled/pain med) and discuss medication (Pt recently had hysterectomy and has been feeling more depressed last week shestarted taking her wellbutrin BID and has seemed to help she was wondering if she could have this med dose OR directions could be changed). Hypertension Patient is here for follow-up of elevated blood pressure. She is exercising and is adherent to a low-salt diet. Cardiac symptoms: none. Patient denies chest pain, chest pressure/discomfort, claudication, irregular heart beat, lower extremity edema, near-syncope, orthopnea, palpitations, paroxysmal nocturnal dyspnea, syncope, and tachypnea. Cardiovascular risk factors: hypertension. Pt taking pain medication as prescribed Does not need refill at this time Controlling pain well per pt Would like to discuss wellbutrin due to recent increased depression post hyst Hypertension Med Refill Current Outpatient Medications on File Prior to Visit Medication Sig Dispense Refill ASPIRIN 81 MG chewable tablet 1 (one) time each day at the same time. estradiol (Estrace) 1 MG tablet Take 1 tablet (1 mg) by mouth Daily 30 tablet 11 FLUoxetine (PROzac) 10 MG tablet Take 1 tablet (10 mg) by mouth Daily 360 tablet 3 hydroCHLOROthiazide (HYDRODiuril) 25 MG tablet Take 1 tablet (25 mg) by mouth in the morning. 100 tablet 1 meloxicam (Mobic) 15 MG tablet Take 1 [...] not crush or chew.. 100 capsule 2 rOPINIRole (Requip) 0.25 MG tablet Take 1 tablet (0.25 mg) by mouth at bedtime May increase to 2 tabs in 1 week if ineffective 60 tablet 3 semaglutide (Ozempic, 1 MG/DOSE,) 4 MG/3ML solution pen-injector Inject 1 mg under the skin 1 (one)time per week 3 mL 3 simvastatin (Zocor) 20 MG tablet Take 1 tablet (20 mg) by mouth at bedtime 100 tablet 3 valACYclovir (Valtrex) 1 g tablet Take 1 tablet (1,000 mg) by mouth in the morning and 1 tablet (1,000 mg) before bedtime. Do all this for 10 days. 20 tablet 5 [DISCONTINUED] buPROPion (Wellbutrin) 100 MG tablet Take 1 tablet (100 mg) by mouth Daily 100 tablet 3 [DISCONTINUED] HYDROcodone-acetaminophen ([place]) 5-325 MG tablet Take 1 tablet by mouth every 8 (eight) hours 90 tablet 0 ciprofloxacin (Cipro) 250 MG tablet Take 1 tablet (250 mg) by mouth in the morning and 1 tablet (250 mg) before bedtime. 10 tablet 2 [DISCONTINUED] semaglutide (Ozempic, 1 MG/DOSE,) 4 MG/3ML solution pen-injector Inject 1 mg under the skin 1 (one) time per week 3 mL 1 No current facility-administered medications on file prior [...] Benign mole Genital warts Hypertension (CMS/HCC) Migraine Pain in female genitalia on intercourse pain during intercourse Pelvic pain Poor circulation Past Surgical History: Procedure Laterality Date APPENDECTOMY 1999 CARPAL TUNNEL RELEASE 2007 CHOLECYSTECTOMY 2010 COLONOSCOPY 07/07/2022 DILATION AND CURETTAGE OF UTERUS N/A 08/24/2024 D&C Hysteroscopy with Myosure HEART CATH 06/09/2015 normal HYSTERECTOMY PAP SMEAR 2018 negative ROBOTIC ASSISTED HYSTERECTOMY 11/08/2024 uterus, cervix,bila fallopian tubes and ovaries (LOIDA w/bilateral salpingectomy-oophorectomy) TUBAL LIGATION Bilateral 2008 Visit Vitals BP 128/70 Pulse 82 Ht 5' 2 Wt 132 lb SpO2 97% BMI 24.14 kg/m OB Status Hysterectomy Smoking Status Never BSA 1.62 m Review of Systems Objective Physical Exam Constitutional: Appearance: Normal appearance. HENT: Head: Normocephalic and atraumatic. Cardiovascular: Rate and Rhythm: Normal rate and regular rhythm. Heart sounds: Normal heart sounds. No murmur heard. Pulmonary: Effort: Pulmonary effort is normal. Breath sounds: Normal breath sounds. No wheezing, rhonchi or rales. Abdominal: General: Abdomen is flat. Bowel sounds are normal. There is no distension. Tenderness: There is no abdominal tenderness. Musculoskeletal: Right lower leg: No edema. Left lower leg: No edema. Neurological: Mental Status: She is alert. Psychiatric: Mood and Affect: Mood normal. Thought Content: Thought content normal. Assessment/Plan Diagnoses and all orders for this visit: History of hysterectomy Affective psychosis (CMS/HCC) - buPROPion (Wellbutrin) 100 MG tablet; Take 1 tablet (100 mg) by mouth in the morning and 1 tablet(100 mg) before bedtime. Lumbar spondylosis - HYDROcodone-acetaminophen ([place]) 5-325 MG tablet; Take 1 tablet by [...] OARRS Report was reviewed for this patient. Follow up in about 3 months (around 04/04/2025). documented in this encounterMoberly Regional Medical [id number] Telephone encounter Note* Telephone Encounter - SEAN Rachel - 12/31/2024 8:28 AM EDT Ozempic [facility] [id number] Miscellaneous Notes* Telephone Encounter - SEAN Rachel - 12/31/2024 8:28 AM EDT Ozempic sent documented in this encounterMoberly Regional Medical [id number] History of Present illness Narrative* SEAN Huerta - 12/25/2024 9:30 AM EDT Reason for Appointment: Patient ID: Haven Bar is a 54 y.o. female who presents for Post-op Visit Patient presents today for 6 week [facility] Post Op Follow Up appointment. MEDICATIONS Current Outpatient Medications Medication Instructions ASPIRIN 81 MG chewable tablet Every 24 hours buPROPion (WELLBUTRIN) 100 mg, Oral, Daily ciprofloxacin (CIPRO) 250 mg, Oral, 2 times daily estradiol (ESTRACE) 1 mg, Oral, Daily FLUoxetine (PROZAC) 10 mg, Oral, Daily hydroCHLOROthiazide (HYDRODIURIL) 25 mg, Oral, Every morning HYDROcodone-acetaminophen ([place]) 5-325 MG tablet 1 tablet, Oral, Every [...] ineffective simvastatin (ZOCOR) 20 mg, Oral, Nightly valACYclovir (VALTREX) 1,000 mg, Oral, 2 times daily ALLERGIES No Known Allergies PROBLEMS Active Ambulatory Problems Diagnosis Date Noted Affective psychosis ([facility]) 01/26/2023 Carpal tunnel syndrome of right wrist 01/26/2023 Chronic constipation 01/26/2023 Diaphragmatic hernia 01/26/2023 DJD (degenerative joint disease) 01/26/2023 Essential hypertension ([facility]) 01/26/2023 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[facility]) 01/26/2023 Gastro-esophageal reflux disease without esophagitis 01/26/2023 Hematuria 01/26/2023 Impaired glucose tolerance 01/26/2023 Insulin resistance 01/26/2023 Mixed hyperlipidemia ([facility]) 05/17/2013 Other chronic pain 01/26/2023 Spondylosis of lumbar region without myelopathy or radiculopathy 01/26/2023 Endometrial thickening on ultrasound 06/18/2024 Postmenopausal bleeding 06/18/2024 Complex endometrial hyperplasia with atypia 09/03/2024 Resolved Ambulatory Problems Diagnosis Date Noted Obesity (BMI 30-39.9) 01/26/2023 Overweight (BMI 25.0-29.9) 01/26/2023 Urinary tract infectious disease 01/26/2023 Past Medical History: Diagnosis Date Benign mole Genital warts Hypertension ([facility]) Migraine Pain in female genitalia on intercourse Pelvic pain Poor circulation HISTORY PAST MEDICAL HISTORY SOCIAL HISTORY Past Medical History: Diagnosis Date Benign mole Genital warts Hypertension (CMS/HCC) Migraine Pain in female genitalia on intercourse pain [...] TUNNEL RELEASE 2007 CHOLECYSTECTOMY 2010 COLONOSCOPY 07/07/2022 DILATION AND CURETTAGE OF UTERUS N/A 08/24/2024 D&C Hysteroscopy with Myosure HEART CATH 06/09/2015 normal PAP SMEAR 2018 negative ROBOTIC ASSISTED HYSTERECTOMY 11/08/2024 uterus, cervix,bila fallopian tubes and ovaries (LOIDA w/bilateral salpingectomy-oophorectomy) TUBAL LIGATION Bilateral 2008 REVIEW OF SYSTEMS Review of Systems: Review of Systems Constitutional: Negative. HENT: Negative. Eyes: Negative. Respiratory: Negative. Cardiovascular: Negative. Gastrointestinal: Negative. Genitourinary: Negative. Musculoskeletal: Negative. Skin: Negative. Neurological: Negative. All other systems reviewed and are negative. Hematological: Negative. Endocrine: Negative. Allergic/Immunologic: Negative. OBJECTIVE Objective: Physical Exam Constitutional: Appearance: Normal appearance. She is normal weight. Genitourinary: Genitourinary Comments: Post operative changes, cuff intact Cervix is absent. Uterus is absent. HENT: Head: Normocephalic. Cardiovascular: Rate and Rhythm: Normal rate. Pulses: Normal pulses. Pulmonary: Effort: Pulmonary effort is normal. Breath sounds: Normal breath sounds. Abdominal: Palpations: Abdomen is soft. Musculoskeletal: General: Normal range of motion. Neurological: General: No focal deficit present. Mental Status: She is alert and oriented to person, place, and time. Psychiatric: Mood and Affect: Mood normal. Behavior: Behavior normal. Thought Content: Thought content normal. Judgment: Judgment normal. Vitals and nursing note reviewed. Vitals: Estimated body mass index is 24.74 kg/m as calculated from the following: Height as of 10/04/24: 5' 2 . Weight as of this encounter: 135 lb 4 oz. BP: (!) 140/92 No LMP recorded. Patient has had a hysterectomy. ASSESSMENT & PLAN ICD-10-CM 1. Postoperative follow-up Z09 2. HSV (herpes simplex virus) infection B00.9 valACYclovir (Valtrex) 1 g tablet Post Op Follow Up: Patient presents today for a 6 week postop check following a Da Derik assisted Laparoscopic Hysterectomy. Surgery execution and pathology results were discussed in great detail with the patient. Pelvic exam was performed and vaginal cuff was noted as healing well. Small area appeared friable, silver nitrate applied to cuff. Tolerated well. Patient has been instructed to sustain from sexual intercourse for one more week. All other restrictions have otherwise been lifted. Follow Up: Patient is to return in 1 year for annual exam unless needed otherwise. Documented by SEAN Huerta on behalf of: SEAN Huerta documented in this encounterMoberly Regional Medical [id number] History of Present illness Narrative* Luba Andrea, KESHAWN - 12/13/2024 9:20 AM EDT Reason for Appointment: Patient ID: Haven Bar is a 54 y.o. female who presents for Consult (Pt present today to discuss Testosterone. Pt had a hysterectomy on 11/08/2024.) Patient presents today for Consult appointment. MEDICATIONS Current Outpatient Medications Medication Instructions ASPIRIN 81 MG chewable tablet Every 24 hours buPROPion (WELLBUTRIN) 100 mg, Oral, Daily ciprofloxacin (CIPRO) 250 mg, Oral, 2 times daily estradiol (ESTRACE) 1 mg, Oral, Daily FLUoxetine (PROZAC) 10 mg, Oral, Daily hydroCHLOROthiazide (HYDRODIURIL) 25 mg, Oral, Every morning HYDROcodone-acetaminophen ([place]) 5-325 MG tablet 1 tablet, Oral, Every [...] ineffective simvastatin (ZOCOR) 20 mg, Oral, Nightly terbinafine (LamISIL AT) 1 % cream Topical, Nightly, To plantar foot and webspaces ALLERGIES No Known Allergies PROBLEMS Active Ambulatory [...] Benign mole Genital warts Hypertension (CMS/HCC) Migraine Pain in female genitalia on intercourse Pelvic pain Poor circulation HISTORY PAST MEDICAL HISTORY SOCIAL HISTORY Past Medical History: Diagnosis Date Benign mole Genital warts Hypertension (CMS/HCC) Migraine Pain in female genitalia on intercourse pain [...] TUNNEL RELEASE 2007 CHOLECYSTECTOMY 2010 COLONOSCOPY 07/07/2022 DILATION AND CURETTAGE OF UTERUS N/A 08/24/2024 D&C Hysteroscopy with Myosure HEART CATH 06/09/2015 normal PAP SMEAR 2018 negative ROBOTIC ASSISTED HYSTERECTOMY 11/08/2024 uterus, cervix,bila fallopian tubes and ovaries (LOIDA w/bilateral salpingectomy-oophorectomy) TUBAL LIGATION Bilateral 2009 REVIEW OF SYSTEMS Review of Systems: Review of Systems Constitutional: Positive for activity change. All other systems reviewed and are negative. [...] nursing note reviewed. Exam conducted with a offal separator present. Vitals: Estimated body mass index is 24.51 kg/m as calculated from the following: Height as of 10/04/24: 5' 2 . Weight as of this encounter: 134 lb. BP: 110/70 No LMP recorded. Patient has had a hysterectomy. ASSESSMENT & PLAN ICD-10-CM 1. H/O: hysterectomy Z90.710 Estradiol Estrone Cortisol, free DHEA-sulfate Sex hormone binding globulin Insulin, total Serotonin serum TSH T4, free T3, reverse Progesterone Vitamin D 1,25 dihydroxy Ferritin T3, free Thyroglobulin Thyroglobulin Antibody Thyroid peroxidase antibody T4 TESTOSTERONE, FREE Testosterone, free, total Hemoglobin A1c Glucose, random C-peptide Cortisol, free Insulin, total Serotonin serum Thyroglobulin Thyroglobulin Antibody T4 Glucose, random C-peptide 2. Hormone imbalance E34.9 Estradiol Estrone Cortisol, free DHEA-sulfate Sex hormone binding globulin Insulin, total Serotonin serum TSH T4, free T3, reverse Progesterone Vitamin D 1,25 dihydroxy Ferritin T3, free Thyroglobulin Thyroglobulin Antibody Thyroid peroxidase antibody T4 TESTOSTERONE, FREE Testosterone, free, total Hemoglobin A1c Glucose, random C-peptide Cortisol, free Insulin, total Serotonin serum Thyroglobulin Thyroglobulin Antibody T4 Glucose, random C-peptide 3. Hormone disorder E34.9 Estradiol Estrone Cortisol, free DHEA-sulfate Sex hormone binding globulin Insulin, total Serotonin serum TSH T4, free T3, reverse Progesterone Vitamin D 1,25 dihydroxy Ferritin T3, free Thyroglobulin Thyroglobulin Antibody Thyroid peroxidase antibody T4 TESTOSTERONE, FREE Testosterone, free, total Hemoglobin A1c Glucose, random C-peptide Cortisol, free Insulin, total Serotonin serum Thyroglobulin Thyroglobulin Antibody T4 Glucose, random C-peptide 4. Decreased libido R68.82 Estradiol Estrone Cortisol, free DHEA-sulfate Sex hormone binding globulin Insulin, total Serotonin serum TSH T4, free T3, reverse Progesterone Vitamin D 1,25 dihydroxy Ferritin T3, free Thyroglobulin Thyroglobulin Antibody Thyroid peroxidase antibody T4 TESTOSTERONE, FREE Testosterone, free, total Hemoglobin A1c Glucose, random C-peptide Cortisol, free Insulin, total Serotonin serum Thyroglobulin Thyroglobulin Antibody T4 Glucose, random C-peptide Patient presents today for decreased libido. Discussed hormone labs and [facility] for compounded medication. Will give patient lab slip and [facility] Drug Packet. Once returned and lab results are back info would be sent out. Patient verbalized understanding in regards to referral and process, patient will call office with any questions. Patient to also return to clinic for annual appointment as well. Documented by Luba Andrea LPN on behalf of: Derrick Butterfield DO documented in this encounterMoberly Regional Medical [id number] History of Present illness Narrative* Alber Simon DPM - 11/22/2024 8:30 AM EDT [facility] VISIT CC: Callused tissue of left foot, mass to plantar left foot, right foot rash HPI: This 54 y.o. female presents complaining of a callus on the left 5th digit x many months. Admits to pain with pressure to this area. Pain is mild, relates she has a friend who shaves it down for her with a scalpel . Relates she uses corn pads and toe sleeves as well with benefit. Relates she also has mass to plantar left foot that has been present for many years. Relates it is not painful but states she is unsure what it is. Also relates flaking skin and red rash to right foot. States sheis unsure what this is as well. States it comes and goes. Does wear steel toe boots for work and admits to feet being in damp environment. Denies any other pedal complaints. PCP: Khai Jacobson MD Past Medical History: Diagnosis Date Benign mole Genital warts Hypertension (CMS/HCC) Migraine Pain in female genitalia on intercourse pain during intercourse Pelvic pain Poor circulation No Known Allergies Current Outpatient Medications Medication Sig Dispense Refill ASPIRIN 81 MG chewable tablet 1 (one) time each day at the same time. buPROPion (Wellbutrin) 100 MG tablet Take 1 tablet (100 mg) by mouth Daily 100 tablet 3 ciprofloxacin (Cipro) 250 MG tablet Take 1 tablet (250 mg) by mouth in the morning and 1 tablet (250 mg) before bedtime. 10 tablet 2 estradiol (Estrace) 1 MG tablet Take 1 tablet (1 mg) by mouth Daily 30 tablet 11 FLUoxetine (PROzac) 10 MG tablet Take 1 tablet (10 mg) by mouth Daily 360 tablet 3 hydroCHLOROthiazide (HYDRODiuril) 25 MG tablet Take 1 tablet (25 mg) by mouth in the morning. 100 tablet 1 HYDROcodone-acetaminophen ([place]) 5-325 MG tablet Take 1 tablet by mouth every 8 (eight) hours 90 tablet 0 loratadine (Claritin) 10 MG tablet Take 10 mg by mouth Daily (Patient not taking: Reported on 11/22/2024) meloxicam (Mobic) 15 MG tablet Take 1 [...] not crush or chew.. 100 capsule 2 rOPINIRole (Requip) 0.25 MG tablet Take 1 tablet (0.25 mg) by mouth at bedtime May increase to 2 tabs in 1 week if ineffective 30 tablet 0 semaglutide (Ozempic, 1 MG/DOSE,) 4 MG/3ML solution pen-injector Inject 1 mg under the skin 1 (one)time per week 3 mL 1 simvastatin (Zocor) 20 MG tablet Take 1 tablet (20 mg) by mouth at bedtime 100 tablet 3 No current facility-administered medications for this visit. Past Surgical History: Procedure Laterality Date APPENDECTOMY 1999 CARPAL TUNNEL RELEASE 2007 CHOLECYSTECTOMY 2010 COLONOSCOPY 07/07/2022 DILATION AND CURETTAGE OF UTERUS N/A 08/24/2024 D&C Hysteroscopy with Myosure HEART CATH 06/09/2015 normal PAP SMEAR 2018 negative ROBOTIC ASSISTED HYSTERECTOMY 11/08/2024 uterus, cervix,bila fallopian tubes and ovaries (LOIDA w/bilateral salpingectomy-oophorectomy) TUBAL LIGATION Bilateral 2008 Family History Problem Relation Name Age of Onset Hypertension Mother Heart disease Mother Diabetes Mother Heart disease Father Other (accidental OD) Sister No Known Problems Sister Other (colorectal cancer) Brother No Known Problems Brother Pancreatic cancer Brother No Known Problems Brother Breast cancer Neg Hx Ovarian cancer Neg Hx Social History Tobacco Use Smoking status: Never Smokeless tobacco: Never Vaping Use Vaping status: Every Day Substance Use Topics Alcohol use: Yes Alcohol/week: 2.0 standard drinks of alcohol Types: 2 Standard drinks or equivalent per week Comment: Caffeine:: soda./pop , coffee Drug use: Never Review of Systems: GENERAL: No weight loss, malaise or fevers. HEENT: Negative for frequent or significant headaches, vision changes, nose bleeds RESPIRATORY: Negative for cough, wheezing or shortness of breath. CARDIOVASCULAR: Negative for chest pain, leg swelling or palpitations. GI: Negative for abdominal discomfort, nausea, vomiting MUSCULOSKELETAL: +B/L Foot Pain SKIN: +Callus, ST Mass, Rash NEURO: Denies numbess, tingling or burning in feet Physical examination: There were no vitals taken for this visit. On General Observation: Patient is a pleasant, cooperative, well developed 54 y.o. adult female. The patient is alert and oriented to time, place and person. Patient has normal affect and mood. Vascular: DP and PT pulses are palpable. CFT less than 3 seconds to all digits bilateral. Skin temperature is warm to warm from proximal to distal bilateral. Hair growth is not noted. No varicositiesnoted. Neuro: Light touch intact bilateral. Dermatological: Skin appears well hydrated and supple with flaking rash to right plantar foot and webspaces with small vesicles. Good color, texture, turgor. No open lesions present. Hyperkeratotic lesion noted to IPJ of left 5th digit medial surface. No thrombosed capillaries or disruption of skinlines noted. There is not a central nucleus noted. Pain with palpation of the lesion. Firm non mobile mass to plantar left foot consistent with plantar fibroma of central band. No pain to palpation. Musculoskeletal/Orthopaedic: General foot morphology: +4/5 muscle strength Dorsiflexion, Plantarflexion, Inversion, Eversion . ROM of the 1st MTPJ is full without pain or crepitus . ROM of the MTJ/STJ is full without pain or crepitus. Ankle joint ROM is decreased. Mild hammertoes of 2-5 B/L with adductovarus of left 5th digit. Assessment: Encounter Diagnoses Name Primary? Corns and callosities Yes Left foot pain Tinea pedis of right foot Plantar fibromatosis Plan: A comprehensive history and physical examination were preformed. The patient was educated on clinical and radiographic findings, diagnosis and treatment plans. Patient state that she understands all that has been explained and all questions were answered to her apparent satisfaction. Discussed findings and etiology. - Debrided hyperkeratosis without incident. - Advised patient on filing this area down with pumice stone. - Advised patient on use of offloading pads and inserts. - Continue supportive shoe gear and avoid barefoot walking. We discussed shoes with wide toe box and soft uppers and to avoid constrictive shoe gear. - RX for terbinafine cream sent to patient pharmacy with instructions for use. Patient to use as directed -In regards to plantar fibroma we discussed treatment usually includes avoidance of barefoot walking, offloading via padding or inserts, and sometimes steroid injections when painful. Patient relatesno current pain to lesion and will continue to monitor. Follow up 4 weeks Alber Simon DPM documented in this encounterMoberly Regional Medical [id number] Instructions* Patient Instructions* Alber Simon DPM - 11/22/2024 8:30 AM EDT Continue supportive shoe gear, avoid constrictive shoe gear Continue toe sleeve or offloading pad Avoid barefoot walking Apply lotion to callus region Continue to shave down with pumice stone Apply antifungal cream nightly then don sock documented in this encounterMoberly Regional Medical [id number] History of Present illness Narrative* SEAN Huerta - 11/15/2024 2:30 PM EDT Reason for Appointment: Patient ID: Haven Bar is a 54 y.o. female who presents for Post-op Visit Patient presents today for 1 Week Post Op Follow Up appointment. MEDICATIONS Current Outpatient Medications Medication Instructions ASPIRIN 81 MG chewable tablet Every 24 hours buPROPion (WELLBUTRIN) 100 mg, Oral, Daily ciprofloxacin (CIPRO) 250 mg, Oral, 2 times daily estradiol (ESTRACE) 1 mg, Oral, Daily FLUoxetine (PROZAC) 10 mg, Oral, Daily hydroCHLOROthiazide (HYDRODIURIL) 25 mg, Oral, Every morning HYDROcodone-acetaminophen ([place]) 5-325 MG tablet 1 tablet, Oral, Every [...] Ambulatory Problems Diagnosis Date Noted Affective psychosis ([facility]) 01/26/2023 Carpal tunnel syndrome of [...] TUNNEL RELEASE 2007 CHOLECYSTECTOMY 2010 COLONOSCOPY 07/07/2022 DILATION AND CURETTAGE OF UTERUS N/A 08/24/2024 D&C Hysteroscopy with Myosure HEART CATH 06/09/2015 normal PAP SMEAR 2018 negative ROBOTIC ASSISTED HYSTERECTOMY 11/08/2024 uterus, cervix,bila fallopian tubes and ovaries (LOIDA w/bilateral salpingectomy-oophorectomy) TUBAL LIGATION Bilateral 2009 REVIEW OF SYSTEMS Review of Systems: Review of Systems Constitutional: Negative. HENT: Negative. Eyes: Negative. Respiratory: Negative. Cardiovascular: Negative. Gastrointestinal: Negative. Genitourinary: Negative. Musculoskeletal: Negative. Skin: Negative. Neurological: Negative. All other systems reviewed and are negative. Hematological: Negative. Endocrine: Negative. Allergic/Immunologic: Negative. OBJECTIVE Objective: Physical Exam Constitutional: Appearance: Normal appearance. She is normal weight. HENT: Head: Normocephalic. Cardiovascular: Rate and Rhythm: Normal rate. Pulses: Normal pulses. Pulmonary: Effort: Pulmonary effort is normal. Breath sounds: Normal breath sounds. Abdominal: Palpations: Abdomen is soft. Musculoskeletal: General: Normal range of motion. Neurological: General: No focal deficit present. Mental Status: She is alert and oriented to person, place, and time. Psychiatric: Mood and Affect: Mood normal. Behavior: Behavior normal. Thought Content: Thought content normal. Judgment: Judgment normal. Vitals and nursing note reviewed. Vitals: Estimated body mass index is 24.47 kg/m as calculated from the following: Height as of 10/04/24: 5' 2 . Weight as of this encounter: 133 lb 12.8 oz. BP: 116/70 No LMP recorded. ASSESSMENT & PLAN ICD-10-CM 1. Postop check Z09 Post Op Follow Up: Patient presents today for a one week postop check after having a Da Derik assisted Laparoscopic Hysterectomy. Patient is doing well but has minor complaints of pain. Incisions has been noted as healing well with no signs and symptoms of infection. Follow Up: Patient is to return in 5 weeks for 6 week post operative evaluation Documented by SEAN Huerta on behalf of: SEAN Huerta documented in this encounterMoberly Regional Medical [id number] Telephone encounter Note* Telephone Encounter - SEAN Rachel - 11/01/2024 2:49 PM EDT OARRS reviewed, Rx sent into patient's pharmacy. [facility] [id number] Miscellaneous Notes* Telephone Encounter - SEAN Rachel - 11/01/2024 2:49 PM EDT OARRS reviewed, Rx sent into patient's pharmacy. documented in this encounterMoberly Regional Medical [id number] History of Present illness Narrative* Kimmy Kellogg - 10/15/2024 8:40 AM EST Reason for Appointment: Patient ID: Haven Bar is a 54 y.o. female who presents for Pre-op Visit Patient presents today for Pre Op appointment. Patient is scheduled to undergo Da Derik assisted Laparoscopic Hysterectomy with BSO, possible exploratory laparotomy, and possible cystoscopy on 11/08/[address] Butterfield at [facility]. MEDICATIONS Current Outpatient Medications Medication Instructions ASPIRIN 81 MG chewable tablet Every 24 hours buPROPion (WELLBUTRIN) 100 mg, Oral, Daily ciprofloxacin (CIPRO) 250 mg, Oral, 2 times daily estradiol (ESTRACE) 1 mg, Oral, Daily FLUoxetine (PROZAC) 10 mg, Oral, Daily hydroCHLOROthiazide (HYDRODIURIL) 25 mg, Oral, Every morning HYDROcodone-acetaminophen ([place]) 5-325 MG tablet 1 tablet, Oral, Every [...] nursing note reviewed. Exam conducted with a offal separator present. Vitals: Estimated body mass index is 25.5 kg/m as calculated from the following: Height as of 25: 5' 2 . Weight as of this [...] Patient will undergo Da Derik assisted Laparoscopic Hysterectomywith BSO, possible exploratory laparotomy, and possible cystoscopy on 11/08/2024. Surgical consents were signed, mmc was reviewed, and patient is to proceed to [facility] OR. Discussed patients questions in regards to Specialist and answered questions in regards pathology results. Follow Up: Patient is to follow up at 1 & 6 weeks post operative to assess proper healing and recovery from procedure. Documented by Luba Andrea LPN on behalf of: Derrick Butterfield DO documented in this encounterMoberly Regional Medical [id number] Telephone encounter Note* Telephone Encounter - SEAN Rachel - 10/06/2024 11:01 AM EST OARRS reviewed, Rx sent into patient's pharmacy. [facility] [id number] Miscellaneous Notes* Telephone Encounter - SEAN Rachel - 10/06/2024 11:01 AM EST OARRS reviewed, Rx sent into patient's pharmacy. documented in this encounterMoberly Regional Medical [id number] History of Present illness Narrative* Keisha Majano NP - 10/04/2024 2:00 PM EST Images from the original note were not [...] are aggravated by inactivity and any movement. Pasttreatments include prescription narcotic. The treatment provided significant [...] in the morning. 100 tablet 1 HYDROcodone-acetaminophen ([place]) 5-325 MG tablet Take 1 tablet by [...] Inject 1 mg under the skin 1 (one)time per week 3 mL 1 simvastatin (Zocor) [...] by mouth at bedtime May increase to 2tabs in 1 week if ineffective Take medication as prescribed. We will gradually increase dose to reach the most effective dose foryour restless leg. Lumbar spondylosis - HYDROcodone-acetaminophen ([place]) 5-325 MG tablet; Take 1 tablet by mouth every 8 (eight) hours Medication choice and dosage is appropriate for patient's current medical conditions. Patient will continue to be required to be seen in our office at least every three months for monitoring. At eachfollow up visit I will reassess the patient's need for the medication. Patient is to have this medication prescribed only through this office. Failure to follow the rules and regulations will result in tapering and discontinuation of medications if applicable. Patient verbalized understanding. OARRS Report was reviewed for this patient. No follow-ups on file. documented in this encounterMoberly Regional Medical [id number] Telephone encounter Note* Telephone Encounter - Nam Simmons MD - 09/03/2024 4:13 PM EST PDMP reviewed, Covering for Dr. Jacobson [facility] [id number] Miscellaneous Notes* Telephone Encounter - Nam Simmons MD - 09/03/2024 4:13 PM EST PDMP reviewed, Covering for Dr. Jacobson documented in this encounterMoberly Regional Medical [id number] History of Present illness Narrative* Luba Andrea, SSIS SSRS DEVELOPER - 09/03/2024 4:00 PM EST Reason for Appointment: Patient ID: Haven Bar [...] (HYDRODIURIL) 25 mg, Oral, Every morning HYDROcodone-acetaminophen ([place]) 5-325 MG tablet 1 tablet, Oral, Every [...] INJECT 1 mg SUBCUTANEOUSLY (UNDER THE SKIN) ONCEA WEEK simvastatin (ZOCOR) 20 mg, Oral, Nightly ALLERGIES No Known Allergies PROBLEMS Active Ambulatory Problems Diagnosis Date Noted Affective psychosis ([facility]) 01/26/2023 Carpal tunnel syndrome of [...] nursing note reviewed. Exam conducted with a offal separator present. Vitals: Estimated body mass index is [...] with BSO. Patient to setup date with motorcycle assembler prior to leaving office today. Documented by Luba Andrea LPN on behalf of: Derrick Butterfield DO documented in this encounterMoberly Regional Medical [id number] History of Present illness Narrative* Kimmy Kellogg - 07/16/2024 2:50 PM EST Reason for Appointment: Patient ID: Haven Bar is a 54 y.o. female who presents for Pre-op Visit Patient presents today for Pre Op appointment. Patient is scheduled to undergo D&C Hysteroscopy, possible Myosure on 08/10/[address] Butterfield at [facility]. MEDICATIONS Current Outpatient Medications Medication Instructions [...] (HYDRODIURIL) 25 mg, Oral, Every morning HYDROcodone-acetaminophen ([place]) 5-325 MG tablet 1 tablet, Oral, Every 8 hours meloxicam (MOBIC) 15 mg, Oral, Every morning metFORMIN (GLUCOPHAGE) 1,000 mg, Oral, Daily with breakfast metoprolol succinate XL (TOPROL-XL) 100 mg, Oral, Daily omeprazole (PriLOSEC) [address] capsule take 1 capsule by mouth every morning before meals Ozempic, 1 MG/DOSE, 4 MG/3ML solution pen-injector INJECT 1 mg SUBCUTANEOUSLY (UNDER THE SKIN) ONCEA WEEK simvastatin (ZOCOR) 20 mg, Oral, Nightly ALLERGIES No Known Allergies PROBLEMS Active Ambulatory Problems Diagnosis Date Noted Affective psychosis (CMS/HCC) 01/26/2023 Carpal tunnel syndrome of right wrist 01/26/2023 Chronic constipation 01/26/2023 Diaphragmatic hernia 01/26/2023 DJD (degenerative joint disease) 01/26/2023 Essential hypertension (CMS/HCC) 01/26/2023 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 Exam conducted with a offal separator present. Vitals: Estimated body mass index is [...] reviewed, and patient is to proceed to [facility] OR. All patients questions answered and if in the future she desires to have pelvic/abdominal ultrasound if she has bloating in the future. Follow Up: Patient is to follow up between 1-2 weeks post operative to assess proper healing and recovery fromprocedure. Documented by Luba Andrea LPN on behalf of: Derrick Butterfield DO documented in this encounterMoberly Regional Medical [id number] History of Present illness Narrative* Khai Jacobson MD - 07/04/2024 10:00 AM EST Images from the original note were not [...] has been itching x 3 days/Denies pain,drainage ormatting), and Med Refill (Hydrocodone--DM barry). Hypertension Patient [...] mouth every morning 90 tablet 1 HYDROcodone-acetaminophen ([place]) 5-325 MG tablet Take 1 tablet by [...] INJECT 1 mg SUBCUTANEOUSLY (UNDER THE SKIN) ONCEA WEEK 3 mL 1 simvastatin (Zocor) 20 [...] Date Value Ref Range Status RESULTS 06/13/2024 [facility] Final Clinisync Result Encounter on 06/05/2024 Component [...] factors. LDL-C is now calculated using the Christian-Quinones calculation, which is a validated novel method providing better accuracy than the Friedewald equation in the estimation of LDL-C. Christian SS et al. JOHN. 2013;310(19): 8408-9415 (http://education.Glycominds.Click Security/faq/JPZ637) CHOL/HDLC RATIO 04/16/2024 2.7 <5.0 (calc) Final [...] mL/min/1.73m2 Final BUN/CREATININE RATIO 04/16/2024 SEE NOTE: (calc) Final Comment: Not Reported: BUN and [...] diagnosis of diabetes in children. According to [place] Diabetes Association (ADA) guidelines, hemoglobin A1c <7.0% represents optimal control in non- diabetic patients. Different metrics may apply to specific patient populations. Standards of Medical Care in Diabetes(ADA). This test was performed on the Nancy michaela c503 platform. Effective 08/08/23, a change in test platforms from the Don [employer] to the Nancy michaela c503 may have shifted HbA1c results compared to historical results. Based on laboratory validation testing conducted at [facility], the Nancy platform relative to the Don [...] REF RANGE LAB Clinician Provided Cytology Information Source.............Cervix;Endocervix No. of containers..01 ThinPrep Vial Age Rosa JITENDRA Carleen... 30-65 01 FLAG LEGEND: L-Low Normal,H-High Normal,LL-Alert Low,HH-Alert High <-Panic Low,>-Panic High,A-Abnormal,AA-Critical Abnormal Performed at: 01 =G [address] [address] Ros Reyes MD, IGP, APTIMA HPV, RFX 16[birth year]18,45 02/21/2024 Note . Final Comment: TESTS RESULT FLAG UNITS REF RANGE LAB DIAGNOSIS: 02 NEGATIVE FOR INTRAEPITHELIAL LESION OR MALIGNANCY. Specimen adequacy: 02 Satisfactory for evaluation. Endocervical and/or squamous metaplastic cells (endocervical component) are present. Performed by: 02 Charu Nicole Pump House Technician (ASCP) . 02 Note: Note 02 The [...] <-Panic Low,>-Panic High,A-Abnormal,AA-Critical Abnormal Performed at: [address] [facility] [place] [address] Ros Reyes MD, HPV APTIMA 02/21/2024 Negative Negative Final Comment: This nucleic acid amplification test detects fourteen high- risk HPV types (16,18,31,33,35,39,45,51,52,56,58,59,66,68) without differentiation. Performed at: [address] [id number] International Sourcing Manager: Ros Reyes MD, Phone: [phone] Performed at: [address] [id number] International Sourcing Manager: Ros Reyes MD, Phone: [phone] Assessment/Plan Diagnoses and all orders for this visit: Essential hypertension (CMS/HCC) - This is a chronic medical condition that is stable since last assessment. No changes in treatmentare suggested at this time. Lumbar spondylosis - HYDROcodone-acetaminophen ([place]) 5-325 MG tablet; Take 1 tablet by [...] No follow-ups on file. documented in this encounterMoberly Regional Medical [id number] History of Present illness Narrative* Luba Andrea LPN - 06/18/2024 2:10 PM EDT Reason for Appointment: Patient ID: Haven Bar [...] (HYDRODIURIL) 25 mg, Oral, Every morning HYDROcodone-acetaminophen ([place]) 5-325 MG tablet 1 tablet, Oral, Every [...] nursing note reviewed. Exam conducted with a offal separator present. Vitals: Estimated body mass index is [...] of: Derrick Butterfield DO documented in this encounterNOMS [id number] Telephone encounter Note* Telephone Encounter - Nirmalakamilla Lynch - 06/04/2024 3:26 PM EDT Lvm [facility] [id number] Miscellaneous Notes* Telephone Encounter - Nirmalakamilla Lynch - 06/04/2024 3:26 PM EDT Lvm * Telephone Encounter - SEAN Rachel - 06/04/2024 1:23 PM EDT Please help pt get set up for a follow up with Dr. Jacobson in June. OARRS reviewed, Rx sent into patient's pharmacy. * Telephone Encounter - Nirmala Lynch - 06/04/2024 1:12 PM EDT HYDROcodone-acetaminophen ([place]) 5-325 MG tablet [facility] [place] documented in this [facility]10-14-2024 Telephone encounter Note* Telephone Encounter - SEAN Rachel - 06/04/2024 1:23 PM EDT Please help pt get set up for a follow up with Dr. Jacobson in June. OARRS reviewed, Rx sent into patient's pharmacy. [facility] [id number] Telephone encounter Note* Telephone Encounter - Nirmalakamilla Lynch - 06/04/2024 1:12 PM EDT HYDROcodone-acetaminophen ([place]) 5-325 MG tablet [facility] [place] [facility] [id number] Telephone encounter Note* Telephone Encounter - Nirmalakamilla Lynch - 05/03/2024 1:59 PM EDT HYDROcodone-acetaminophen ([place]) 5-325 MG tablet [facility] [place] [facility] [id number] Miscellaneous Notes* Telephone Encounter - Nirmala Syed - 05/03/2024 1:59 PM EDT HYDROcodone-acetaminophen ([place]) 5-325 MG tablet [facility] [place] documented in this encounterMoberly Regional Medical [id number] History of Present illness Narrative* Khai Jacobson MD - 04/16/2024 9:30 AM EDT Images from the original note were not [...] mouth every morning 90 tablet 1 HYDROcodone-acetaminophen ([place]) 5-325 MG tablet Take 1 tablet by [...] Inject 1 mg under the skin 1 (one)time per week 3 mL 1 simvastatin (Zocor) 20 MG tablet take 1 tablet by mouth at bedtime 100 tablet 3 [DISCONTINUED] traMADol (Ultram) 50 MG tablet Take 1 tablet (50 mg) by mouth every 6 (six) hours ifneeded for severe pain 90 tablet 2 [DISCONTINUED] [...] F/U, Controlled Med Review. documented in this encounterMoberly Regional Medical [id number] Telephone encounter Note* Telephone Encounter - Khai Jacobson MD - 10/03/2023 1:57 PM EST A prescription without a prescription was called in as requested. [facility] [id number] Miscellaneous Notes* Telephone Encounter - Khai Jacobson MD - 10/03/2023 1:57 PM EST A prescription without a prescription was called in as requested. * Telephone Encounter - Laisha Isaacs - 10/03/2023 10:41 AM EST Pt called and said she has an UTI and asked if a prescription could be called in for her without a prescription documented in this encounterMoberly Regional Medical [id number] Telephone encounter Note* Telephone Encounter - Laisha Isaacs - 10/03/2023 10:41 AM EST Pt called and said she has an UTI and asked if a prescription could be called in for her without a prescription [facility] [id number] Telephone encounter Note* Telephone Encounter - Khai Jacobson MD - 09/28/2023 4:08 PM EST Rx was sent [facility] [id number] Miscellaneous Notes* Telephone Encounter - Khai Jacobson MD - 09/28/2023 4:08 PM EST Rx was sent * Telephone Encounter - Kayla Gibson MA - 09/28/2023 1:43 PM EST She is taking this for nausea , did know if you would send in or needed an appt for this * Telephone Encounter - Kayla Gibson MA - 09/28/2023 9:51 AM EST Pt is requesting prometilazine she has not had this in awhile ok to give pt Needs sent to [facility] in [place] documented in this encounterMoberly Regional Medical [id number] Telephone encounter Note* Telephone Encounter - Kayla Gibson MA - 09/28/2023 1:43 PM EST She is taking this for nausea , did know if you would send in or needed an appt for [id number] Telephone encounter Note* Telephone Encounter - Kayla Gibson MA - 09/28/2023 9:51 AM EST Pt is requesting prometilazine she has not had this in awhile ok to give pt Needs [facility] to [facility] [place] 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 Medications aspirin 81 mg oral tablet, 81 mg= 1 tab(s), Oral, Daily buPROPion 100 mg Tab FLUoxetine 10 mg Cap, Oral, Daily meloxicam 7.5 mg Tab, Oral, Daily metoprolol 100 mg ER Tab, Oral, Daily omeprazole, 40 mg, Oral, Daily simvastatin 20 mg Tab Vicodin 500 mg-5 mg Ta (more content not included)...[facility] Comment on above:Result Comment: Electronically Signed By: Curry PHILIPPE MD\.br\Date and Time Signed: 04/08/23 11:36 EDT\.br\Electronically Co-Signed By: Smitha Ledesma\.br\Date and Time Co-Signed: 04/08/2311:32 [id number] Hospital Discharge instructions Patient Education 04/08/2023 11:23:37 Hematuria, Adult Hematuria, Adult Hematuria is blood in the urine. Blood may be visible in the urine, or it may be identified with a test. This condition can be caused by infections of the bladder, urethra, kidney, or prostate. Otherpossible causes include: Kidney stones. Cancer of the [...] blood in your urine, even if it ispainless or the blood stops without treatment. Blood in the urine, when it happens and then stops and then happens again, can be a symptom of a very serious condition, including cancer. There is no pain in the initial stages of many urinary cancers. Follow these instructions at home: Medicines Take oivr-bfq-uassyre and prescription medicines only as told by your health care provider. If you were prescribed an antibiotic medicine, take it as told by your health care provider. Do notstop taking the antibiotic even if you start to feel better. Eating and drinking Drink enough fluid to keep your urine pale yellow. It is recommended that you drink 3 4 quarts (2.83.8 L) a day. If you have been diagnosed with an infection, drinking cranberry juice in addition tolarge amounts of water is recommended. Avoid caffeine, [...] about any blood in your urine, even ifit is painless or the blood stops without treatment. Take wifp-bzw-scvlicy and prescription medicines only as told by your health care provider. Drink enough fluid to keep your urine pale yellow. This information is not intended to replace advice given to you by your health care provider. Make sure you discuss any questions you have with your health care provider. Document Revised: 04/08/2021 Document Reviewed: 04/08/2021 [employer] Patient Education 2022 [employer]. Follow Up Care 12/21/2022 14:38:53 With:SURY MARRERO, Curry Fay, URL Address: [address] [place] [address]- When: Unknown [facility] 04-17-2023 NotePROCEDURE: US PELVIS AND TRANSVAG DATE: 12/06/2022 1:26 [...] Electronically authenticated by: FOREIGN ORTEZ Date: 2022-12-06 15:05[facility] No data available for this section [facility] evaluation note* Diagnosis Nausea- Primary Nausea alone documented in [...] mood disorder documented in this encounter [facility] HealthcareEvaluation noteNo assessment information availableMercy Health St. [facility] Work Phone: Evaluation note* Diagnosis Postop check Follow-up examination, following unspecified surgery documented in this encounter [facility] note* Diagnosis Corns and callosities- Primary Left foot pain Pain in soft tissues of limb Tinea pedis of right foot Plantar fibromatosis Plantar fascial fibromatosis documented in this encounter [facility] Healthcare[facility]* Diagnosis Lumbar spondylosis Lumbosacral spondylosis without myelopathy documented in this encounter [facility]* Diagnosis H/O: hysterectomy Acquired absence of both cervix and uterus Hormone imbalance Hormone disorder Unspecified endocrine disorder Decreased libido documented in this encounter [facility]Evaluation [facility]* Diagnosis Postoperative follow-up Follow-up examination, following unspecified surgery HSV (herpes simplex virus) infection Herpes simplex without mention of complication documented in this encounter [facility] HealthcareEvaluation note* Diagnosis Insulin resistance Other abnormal glucose Impaired glucose tolerance Impaired glucose tolerance test documented in this encounter [facility] HealthcareEvaluation note* Diagnosis History of hysterectomy 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) Unspecified episodic mood disorder Lumbar spondylosis Lumbosacral spondylosis without myelopathy documented in this encounter [facility]* Diagnosis Lumbar spondylosis Lumbosacral spondylosis without myelopathy documented in this encounter [facility] HealthcareEvaluation note* Diagnosis Lumbar spondylosis- Primary Lumbosacral spondylosis without myelopathy Essential hypertension Unspecified essential hypertension documented in this encounter [facility] HealthcareEvaluation note* Diagnosis Onset Date Resolution Status Admit Date UTI (urinary tract infection) acute April 30 12:28pm [facility] Work Phone: Progress note No data available for this section [facility] reason for referral (narrative)No reason for referral information availableWyandot [facility] Work Phone: Summary Purpose Family History No Family History Records FoundNo Family History Records FoundNo Family History Records FoundNo Family History Records Found Advance Directives No Advanced Directives Records Found Advance Directive Response Recorded Date/ Time Advance Directives No July 1:06pm Chief Complaint and Reason for Visit Chief Complaint Admit Date frequency to urinate April 30, 2025 12:28pm Reason for Visit Admit Date UTI (urinary tract infection) April 30, 2025 12:28pm Additional Source Comments INFORMATION SOURCE (unrecogn ized section and content) DATE CREATED AUTHOR 12/12/2022 [facility] DATE CREATED AUTHOR AUTHOR'S ORGANIZ ATION 09/22/2023 [facility] DATE CREATED AUTHOR AUTHOR'S ORGANIZ ATION 04/02/2025 [facility] DATE CREATED AUTHOR AUTHOR'S ORGANIZ ATION 05/14/2025 [facility] Patient Care team informatio n (unrecognized section and content) 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 Relationship Specialty Start Date End Date Khai Jacobson MD [address] [place] [address] PCP - Medical [place] [employer] 01/20/23 Khai Jacobson MD [address] [place] [address] PCP - General Internal Medicine 02/23/23 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 Relationship Specialty Start Date End Date Khai Jacobson MD [address] [place] [address] PCP - [facility] [place] [employer] 01/20/23 Khai Jacobson MD [address] [place] [address] PCP - General Internal Medicine 02/23/23 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 Relationship Specialty Start Date End Date Khai Jacobson MD [address] [place] [address] PCP - [facility] [place] [employer] 08/22/15 08/21/99 Khai Jacobson MD [address] [place] [address] PCP - General Internal Medicine 02/23/23 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 Relationship Specialty Start Date End Date Khai Jacobson MD [address] [place] [address] PCP - [facility] [place] [employer] 08/22/15 08/21/99 Khai Jacobson MD [address] [place] [address] PCP - General Internal Medicine 02/23/23 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 Relationship Specialty Start Date End Date Khai Jacobson MD [address] [place] [address] PCP - [facility] [place] [employer] 08/22/15 08/21/99 Khai Jacobson MD [address] [place] [address] PCP - General Internal Medicine 02/23/23 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 Relationship Specialty Start Date End Date Khai Jacobson MD [address] [place] [address] PCP - [facility] [place] [employer] 08/22/15 08/21/99 Khai Jacobson MD [address] [place] [address] PCP - General Internal Medicine 02/23/23 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 Relationship Specialty Start Date End Date Khai Jacobson MD [address] [place] [address] PCP - [facility] [place] [employer] 08/22/15 08/21/99 Khai Jacobson MD [address] [place] [address] PCP - General Internal Medicine 02/23/23 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 Relationship Specialty Start Date End Date Khai Jacobson MD [address] [place] [address] PCP - [facility] [place] [employer] 08/22/15 08/21/99 Khai Jacobson MD [address] [place] [address] PCP - General Internal Medicine 02/23/23 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 Relationship Specialty Start Date End Date Khai Jacobson MD [address] [place] [address] PCP - [facility] [place] [employer] 08/22/15 08/21/99 Khai Jacobson MD [address] [place] [address] PCP - General Internal Medicine 02/23/23 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 Relationship Specialty Start Date End Date Khai Jacobson MD [address] [place] [address] PCP - [facility] [place] [employer] 08/22/15 08/21/99 Khai Jacobson MD [address] [place] [address] PCP - General Internal Medicine 02/23/23 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 Relationship Specialty Start Date End Date Khai Jacobson MD [address] [place] [address] PCP - [facility] [place] [employer] 08/22/15 08/21/99 Khai Jacobson MD [address] [place] [address] PCP - General Internal Medicine 02/23/23 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 Relationship Specialty Start Date End Date Khai Jacobson MD [address] [place] [address] PCP - [facility] [place] [employer] 08/22/15 08/21/99 Khai Jacobsno MD [address] [place] [address] PCP - General Internal Medicine 02/23/23 [employer]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 Relationship Specialty Start Date End Date Khai Jacobson MD [address] [place] [address] PCP - Medical [place] [employer] 08/22/15 08/21/99 Khai Jacobson MD [address] [place] [address] PCP - General Internal Medicine 02/23/23 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 Relationship Specialty Start Date End Date Khai Jacobson MD [address] [place] [address] PCP - [facility] [place] [employer] 08/22/15 08/21/99 Khai Jacobson MD [address] [place] [address] PCP - General Internal Medicine 02/23/23 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 Relationship Specialty Start Date End Date Khai Jacobson MD [address] [place] [address] PCP - Medical [place] [employer] 08/22/15 08/21/99 Khai Jacobson MD [address] [place] [address] PCP - General Internal Medicine 02/23/23 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 Relationship Specialty Start Date End Date Khai Jacobson MD [address] [place] [address] PCP - Medical [place] [employer] 08/22/15 08/21/99 Khai Jacobson MD [address] [place] [address] PCP - General Internal Medicine 02/23/23 Team Status: Inactive Member Role Status Dates Derrick Butterfield DO Attending Provider Active Start : November 08, 2024 End: November 08, 2024 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 Relationship Specialty Start Date End Date Khai Jacobson MD [address] [place] [address] PCP - [facility] [place] [employer] 08/22/15 08/21/99 Khai Jacobson MD [address] [place] [address] PCP - General Internal Medicine 02/23/23 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 Relationship Specialty Start Date End Date Khai Jacobson MD [address] [place] [address] PCP - Medical [place] [employer] 08/22/15 08/21/99 Khai Jacobson MD [address] [place] [address] PCP - General Internal Medicine 02/23/23 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 Relationship Specialty Start Date End Date Khai Jacobson MD [address] [place] [address] PCP - Medical [place] [employer] 08/22/15 08/21/99 Khai Jacobson MD [address] [place] [address] PCP - General Internal Medicine 02/23/23 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 Relationship Specialty Start Date End Date Khai Jacobson MD [address] [facility] [address] [place] [address] PCP - Medical [place] [employer] 08/22/15 08/21/99 Khai Jacobson MD [address] [facility] [address] [place] [address] PCP - General Internal Medicine 02/23/23 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 Relationship Specialty Start Date End Date Khai Jacobson MD [address] [facility] [address] [place] [address] PCP - Medical [place] [employer] 08/22/15 08/21/99 Khai Jacobson MD [address] [facility] [address] [place] [address] PCP - General Internal Medicine 02/23/23 Team Status: Active Member Role Status Dates NON STAFF Primary Care Provider Active Team Status: Inactive Member Role Status Dates Mary Headley APRN Attending Provider Active S tart: April 30, 2025 End: April 30, 2025 NON STAFF Primary Care Provider Active Start: April 30, 2025 End: April 30, 2025 Team Status: Inactive Member Role Status Dates Mary Headley APRN Attending Provider Active S tart: April 30, 2025 End: April 30, 2025 Reason for Visit (unrecogniz ed section and [...] Reason Onset Date Comments Med Refill 11/01/2024 Reason Comments Post-op Visit Reason Onset Date Comments Med Refill 12/04/2024 Reason Comments Consult Pt present today to discuss Testosterone. Pt had a hysterectomy on 11/08/2024. Reason Onset Date Comments Med Refill 12/30/2024 Reason Comments Follow-up Controlled/pain med discuss medication Pt recently had hyst erectomy and has been feeling more depressed last week she started taking her wellbutrin BID and has seemed to help she was wondering if she could have this med dose OR directions could be changed Reason Onset Date Comments Med Refill 01/09/2025 Reason Onset Date Comments Med Refill 02/10/2025 Reason Comments Med Change Request Reason Comments Follow-up Controlled medicatio n Hypertension Reason Onset Date Comments Med Refill 04/14/2025 Goals (unrecognized section and content) Goals may be documented in a n alternate section FOR RECORDS PERTAINING TO PATIENTS WHO ARE [...] BE BASED ON THE PRIMARY CLINICAL RECORDS. [employer] provides no warranty or guarantee of the accuracy or completeness of information in this document.
== END 2025-05-14 11:28 | disposition home or self-care (01) ==
LOC: MAMMO 11:27
PROVIDERS: PCP Internal Medicine; Visit Provider Obstetrics & Gynecology
DX: Z12.31 Encounter for screening mammogram for malignant neoplasm of breast (principal); Z80.0 Family history of malignant neoplasm of digestive organs
CPT/HCPCS: 77063; 77067